=== PATIENT | female | born 1960 | race Caucasian/White ===

== ENCOUNTER 2016-06-10 11:13 | Emergency (ER) | payer BC ==
[2016-06-10] MEDS ORDERED: HYDROmorphone INJ* 1 MG/ML CARPUJECT SYRINGE IV ONE ×2 (12:33→16:26)
[2016-06-10] MEDS ORDERED: NS 0.9% 1000 ML* 1,000 ML IV ONE (12:33)
[2016-06-10] MEDS ORDERED: Ondansetron INJ* 2 MG/ML VIAL IV ONE ×2 (12:33→16:26)
[2016-06-10 12:54] LABS: Hematocrit 44 % (35-47); Hemoglobin 14.5 g/dl (12.0-16.0); Mean Corpuscular HGB Conc 33 g/dl (31-36); Mean Corpuscular Hemoglobin 30 pg (27-31); Mean Corpuscular Volume 92 fL (80-97); Mean Platelet Volume 10 um3 (7.4-10.4); Red Blood Count 4.81 10^6/ul (4.0-5.4); Red Cell Distribution Width 14 % (10.5-15); White Blood Count 9.2 10^3/ul (3.5-10.8)
[2016-06-10 13:12] LABS: Albumin 3.9 g/dL (3.2-5.2); BUN/Creatinine Ratio 34.7 (8-20); C Reactive Protein 2.78 mg/L (< 5.00); Calcium 9.7 mg/dL (8.6-10.3); EGFR Non-African American 80.8 (>60); Globulin 3.3 g/dL (2-4); Total Bilirubin 0.6 mg/dL (0.2-1.0); Total Protein 7.2 g/dL (6.4-8.9)
[2016-06-10 13:31] LABS: Urine Bacteria 1+ (Absent); Urine Bilirubin Negative (Negative); Urine Glucose Negative (Negative); Urine Nitrite Negative (Negative)
[2016-06-10 13:43] LABS: Potassium 4.2 mmol/L (3.5-5.0)
[2016-06-10] MEDS ORDERED: LORazepam INJ* 2 MG/ML 1 ML VIAL IV ONE (14:28)
[2016-06-10] MEDS ORDERED: Ketorolac INJ* 30 MG/ML 1 ML VIAL IV ONE (14:28)
--- NOTE | 2016-06-10 15:06 | RAD ---
CLINICAL HISTORY: Right lower quadrant pain COMPARISON: May 12, 2015 TECHNIQUE: Multiple contiguous axial CT scans were obtained of the abdomen and pelvis, without intravenous contrast enhancement. Coronal and sagittal multiplanar reformations are submitted for review. Oral contrast was not administered. Additionally thin section axial CT images were obtained through the lumbar spine with coronal and sagittal multiplanar reconstructions. FINDINGS: The study is limited by the lack of intravenous contrast. This limits evaluation of the solid organs and vasculature. LUNG BASES: The lung bases are clear. LIVER: The liver is normal in shape, size, contour, and attenuation. BILE DUCTS: There is no intrahepatic or extrahepatic biliary dilatation. GALLBLADDER: The gallbladder is not visualized. Surgical clips are noted in the gallbladder fossa. PANCREAS: The pancreas is normal, without mass or ductal dilatation. SPLEEN: Normal in size and appearance. UPPER GI TRACT: Evaluation of the gastrointestinal tract is limited by incomplete gastric distention. The upper GI tract is unremarkable. SMALL BOWEL AND MESENTERY: The small bowel is normal in contour, course, and caliber. There is no obstruction or dilatation. COLON: The colon is normal in contour, course, caliber. There is no pericolonic inflammatory change. There is a tubular, vermiform, hollow viscus that is blind ending, and originates from the cecum, consistent with a normal appendix. There is no periappendiceal inflammatory change. ADRENALS: Again noted are bilateral adrenal masses, stable KIDNEYS: The kidneys are normal in shape, size, contour, and axis. There is no hydronephrosis or nephrolithiasis. BLADDER: The bladder is smooth in contour. PELVIC ORGANS: The uterus and adnexa are grossly normal for technique. AORTA: The aorta is normal. IVC: Unremarkable LYMPH NODES: There is no lymphadenopathy by size criteria. ABDOMINAL WALL: There is no evidence for abdominal wall hernia. BONES AND SOFT TISSUES: Evaluation of the lumbar spine is limited by technique and patient body habitus. Evaluation of the central canal is limited on CT technique. The alignment is normal. There is multilevel anterolateral marginal osteophyte reformation. The vertebral bodies are preserved in height. There is diffuse facet osteoarthritic change most pronounced at L4-L5 and L5-S1. There is bilateral neural foraminal narrowing most mass at L4-L5 and L5-S1. There is broad-based disc bulge with moderate narrowing of Central canal at L2-L3. There is mild disc bulge with ligamentous hypertrophy resulting in moderate narrowing of the central canal at L4-L5 OTHER: None IMPRESSION: 1. NO HYDRONEPHROSIS OR NEPHROLITHIASIS. 2. DEGENERATIVE DISC DISEASE AND OSTEOARTHRITIS OF MODERATE NARROWING OF THE CENTRAL CANAL AT L2-L3 AND L4-L5. 3. STABLE ADRENAL MASSES. 4. STATUS POST CHOLECYSTECTOMY.
--- NOTE | 2016-06-10 15:30 | ED ---
Jason Clifford Billy, scribed for Juan Carlos Pang MD on 06/10/16 at 1227 . GI/ HPI - HPI Summary HPI Summary: Patient is a 55 year-old female referred to [facility] by Dr. Livia aguilera for evaluation of increased urinary frequency, right flank, and RLQ pain. Pain severity 9/10. She states that the increased urinary frequency began 1 week ago , followed by constant right flank pain for the last 3 days. She has had intermittent, sharp RLQ pain since this morning. Her pain is worse with prolonged periods of sitting or standing. She denies any other complaints at this time. - History of Current Complaint Chief Complaint: EDAbdPain Time Seen by Provider: 06/10/16 12:04 Stated Complaint: LOWER BACK PAIN Hx Obtained From: Patient Onset/Duration: Started Days Ago, Still Present Timing: Constant - flank, Intermittent - RLQ Severity: Moderate Current Severity: Moderate Pain Intensity: 9 Location of Pain: RLQ, Flank Pain Characteristics: Sharp - RLQ Associated Signs and Symptoms: Positive: Other: - urinary frequency - Allergy/Home Medications Allergies/Adverse Reactions: Allergies Allergy/AdvReac Type Severity Reaction Status Date / Time No Known Allergies Allergy Verified 05/12/15 16:13 PMH/Surg Hx/FS Hx/Imm Hx Endocrine/Hematology History: Denies: Hx Diabetes, Hx Thyroid Disease Cardiovascular History: Reports: Hx Hypertension Denies: Hx Pacemaker/ICD Respiratory History: Reports: Hx Pneumonia, Other Respiratory Problems/ Disorders - HX OF PNEUMONIA ABOUT 16 MONTHS AGO Denies: Hx Asthma, Hx Chronic Obstructive Pulmonary Disease (COPD) GI History: Denies: Hx Ulcer Musculoskeletal History: Reports: Hx Arthritis - knees Denies: Hx Back Problems, Hx Osteoporosis Sensory History: Reports: Hx Contacts or Glasses Denies: Hx Cataracts, Hx Eye Injury, Hx Eye Prosthesis, Hx Glaucoma, Hx Legally Blind, Hx Macular Degeneration, Hx Vision Problem, Hx Deafness, Hx Hearing Aid, Hx Hearing Problem, Other Sensory Impairments Opthamlomology History: Reports: Hx Contacts or Glasses Denies: Hx Cataracts, Hx Eye Injury, Hx Eye Prosthesis, Hx Glaucoma, Hx Legally Blind, Hx Macular Degeneration, Hx Vision Problem, Other Sensory Impairments Neurological History: Reports: Hx Headaches, Hx Migraine Psychiatric History: Denies: Hx Panic Disorder - Surgical History Surgery Procedure, Year, and Place: c-sections x 2 Hx Anesthesia Reactions: No - Immunization History Date of Tetanus Vaccine: PT STATES UNSURE Date of Influenza Vaccine: NONE Infectious Disease History: No Infectious Disease History: Denies: Hx Hepatitis, Hx Human Immunodeficiency Virus (HIV), Traveled Outside the [place] in Last 30 Days - Family History Known Family History: Positive: Other - FHx negative for breast cancer. - Social History Alcohol Use: None Substance Use Type: Reports: None Smoking Status (MU): Former Smoker Type: Cigarettes Amount Used/How Often: 1 pack/day Length of Time of Smoking/Using Tobacco: 20+ years Have You Smoked in the Last Year: Yes Review of Systems Positive: Abdominal Pain, Diarrhea - ongoing Positive: frequency, flank pain All Other Systems Reviewed And Are Negative: Yes Physical Exam Triage Information Reviewed: Yes Vital Signs On Initial Exam: Initial Vitals Temp Pulse Resp BP Pulse Ox 97.7 F 83 18 199/90 98 06/10/16 11:23 06/10/16 11:23 06/10/16 11:23 06/10/16 11:23 06/10/16 11:23 Vital Signs Reviewed: Yes Appearance: Positive: Well-Appearing, No Pain Distress, Obese Head/Face: Positive: Normal Head/Face Inspection Eyes: Positive: Normal Neck: Positive: Supple, Nontender Respiratory/Lung Sounds: Positive: Clear to Auscultation, Breath Sounds Present Cardiovascular: Positive: RRR Abdomen Description: Positive: Soft, Other: - RLQ tenderness. Musculoskeletal: Positive: Pain @ - Right paralumbar region. No midline tenderness. Psychiatric: Positive: Normal, Affect/Mood Appropriate AVPU Assessment: Alert - Howard Coma Scale Coma Scale Total: 15 Diagnostics - Vital Signs Vital Signs Temp Pulse Resp BP Pulse Ox 06/10/16 11:23 97.7 F 83 18 199/90 98 - Laboratory Lab Results: Lab Results 06/10/16 06/10/16 06/10/16 Range/Units 12:00 12:00 13:15 WBC 9.2 (3.5-10.8) 10^3/ul RBC 4.81 (4.0-5.4) 10^6/ul Hgb 14.5 (12.0-16.0) g/dl Hct 44 (35-47) % MCV 92 (80-97) fL MCH 30 (27-31) pg MCHC 33 (31-36) g/dl RDW 14 (10.5-15) % Plt Count 181 (150-450) 10^3/ul MPV 10 (7.4-10.4) um3 Neut % (Auto) 69.1 (38-83) % Lymph % (Auto) 14.5 L (25-47) % Forest % (Auto) 13.8 H (1-9) % Eos % (Auto) 1.9 (0-6) % Baso % (Auto) 0.7 (0-2) % Absolute Neuts (auto) 6.4 (1.5-7.7) 10^3/ul Absolute Lymphs (auto) 1.3 (1.0-4.8) 10^3/ul Absolute Monos (auto) 1.3 H (0-0.8) 10^3/ul Absolute Eos (auto) 0.2 (0-0.6) 10^3/ul Absolute Basos (auto) 0.1 (0-0.2) 10^3/ul Absolute Nucleated RBC 0 10^3/ul Nucleated RBC % 0 Sodium 137 (133-145) mmol/L Potassium 4.2 (3.5-5.0) mmol/L Chloride 103 (101-111) mmol/L Carbon Dioxide 28 (22-32) mmol/L Anion Gap 6 (2-11) mmol/L BUN 26 H (6-24) mg/dL Creatinine 0.75 (0.51-0.95) mg/dL Est GFR ( Amer) 104.0 (>60) Est GFR (Non-Af Amer) 80.8 (>60) BUN/Creatinine Ratio 34.7 H (8-20) Glucose 71 (70-100) mg/dL Calcium 9.7 (8.6-10.3) mg/dL Total Bilirubin 0.60 (0.2-1.0) mg/dL AST 16 (13-39) U/L ALT 19 (7-52) U/L Alkaline Phosphatase 76 (34-104) U/L C-Reactive Protein 2.78 (< 5.00) mg/L Total Protein 7.2 (6.4-8.9) g/dL Albumin 3.9 (3.2-5.2) g/dL Globulin 3.3 (2-4) g/dL Albumin/Globulin Ratio 1.2 (1-3) Lipase 40 (11.0-82.0) U/L Urine Color Yellow Urine Appearance Clear Urine pH 5.0 (5-9) Ur Specific [place] 1.016 (1.010-1.030) Urine Protein Negative (Negative) Urine Ketones Negative (Negative) Urine Blood 1+ H (Negative) Urine Nitrate Negative (Negative) Urine Bilirubin Negative (Negative) Urine Urobilinogen Negative (Negative) Ur Leukocyte Esterase Negative (Negative) Urine WBC (Auto) Trace(0-5/hpf) (Absent) Urine RBC (Auto) Trace(0-2/hpf) (Absent) Ur Squamous Epith Cells Present H (Absent) Urine Bacteria 1+ H (Absent) Urine Glucose Negative (Negative) Result Diagrams: 06/10/16 12:00 06/10/16 12:00 Lab Statement: Any lab studies that have been ordered have been reviewed, and results considered in the medical decision making process. - CT abd/pel w/o CT Interpretation Completed By: Radiologist - 1. NO HYDRONEPHROSIS OR NEPHROLITHIASIS. 2. DEGENERATIVE DISC DISEASE AND OSTEOARTHRITIS OF MODERATE NARROWING OF THE CENTRAL CANAL AT L2-L3 AND L4-L5. 3. STABLE ADRENAL MASSES. 4. STATUS POST CHOLECYSTECTOMY. lumbar CT Interpretation Completed By: Radiologist - 1. NO HYDRONEPHROSIS OR NEPHROLITHIASIS. 2. DEGENERATIVE DISC DISEASE AND OSTEOARTHRITIS OF MODERATE NARROWING OF THE CENTRAL CANAL AT L2-L3 AND L4-L5. 3. STABLE ADRENAL MASSES. 4. STATUS POST CHOLECYSTECTOMY. GIGU Course/Dx - Course Course Of Treatment: Ms. Velasquez presented with RLQ and right blank pain since . She was W/O'd with labs that were normal and a noncontrast CT of abd and lumbar spine that showed only DDD. She got no relief from pain meds and muscle relaxants here and I am concerned that I am missing something. I have ordered a contrast CT. - Diagnoses Provider Diagnoses: Abdominal pain - Physician Notifications Discussed Care Of Patient With: Dr. Shea Time Discussed With Above Provider: 16:00 - Change of shift Discharge - Discharge Plan Condition: Stable Disposition: HOME Prescriptions: oxyCODONE/Acetamin 5/325 MG* [Percocet 5/325 TAB*] 1 tab PO Q6H PRN #20 tab MDD 4 PRN Reason: Pain Patient Education Materials: Abdominal Pain (ED) Referrals: Lucila Bhakta MD [Primary Care Provider] - The documentation as recorded by the Jason nieves Billy accurately reflects the service I personally performed and the decisions made by me, Juan Carlos Pang MD.
[2016-06-10] MEDS ORDERED: Iohexol 300* (CONTRAST) 10 ML SDV IV ONE (15:51)
--- NOTE | 2016-06-10 17:53 | RAD ---
INDICATION: Right lower quadrant pain. Cholecystectomy. Normal appendix on concurrent noncontrast evaluation. COMPARISON: Noncontrast CT abdomen and pelvis same date TECHNIQUE: Axial source images were obtained from the hemidiaphragms to the symphysis pubis following administration of oral and intravenous contrast. 150 mL Omnipaque 300 was utilized. Coronal and sagittal reconstructed images were acquired. Lung bases: The lung bases are clear. There is minor gravity dependent atelectasis Liver: The liver is normal in size. There is hepatic steatosis There are no masses. There is no ductal dilatation. Gallbladder: Cholecystectomy. Spleen: The spleen is normal in size. There are no masses. Pancreas: There is no focal pancreatic mass or ductal dilatation. Adrenal glands: Bilateral adrenal mass unchanged likely representing adrenal cysts or adenomas. Kidneys: The kidneys are normal in size and position. There are prompt nephrograms and there is prompt excretion bilaterally. There are no renal parenchymal masses. There is no evidence of nephrolithiasis. Adenopathy: There is no evidence of adenopathy by size criteria. Fluid collections: There are no free or localized fluid collections. Vessels:There are no significant atherosclerotic changes involving the aorta. There is no focal aneurysm. The iliac vessels are normal in caliber. The IVC appears normal. GI tract: There are no acute CT bowel findings. There is no obstruction. The stomach and small bowel appear normal. The lower GI tract is normal. The cecum, ileocecal valve, and terminal ileum appear normal. The appendix is visualized and appear normal consistent with the earlier noncontrast CT findings. Organs: The uterus and adnexa appear normal Bladder: There are no bladder masses. Abdominal and pelvic soft tissues: The extraperitoneal abdominal and pelvic soft tissues appear normal.. Osseous structures: There are no acute osseous findings. There are degenerative changes described in a separate report. Other: None IMPRESSION: NO ACUTE CT FINDINGS. NO MASS OR INFLAMMATORY CHANGE. NORMAL APPENDIX. PLEASE REFER ALSO TO NONCONTRAST CT OF THE ABDOMEN/PELVIS AND THE CT OF THE LUMBAR SPINE PERFORMED EARLIER TODAY.
[2016-06-10] MEDS ORDERED: oxyCODONE/Acetamin 5/325 MG* TAB PO ONE (19:16)
--- NOTE | 2016-06-10 19:22 | ED ---
Progress - Progress Note Progress Note: DISCUSSED RESULTS WITH PATIENT. PAIN UNDER ADEQUATE CONTROL IN ED. DISCHARGE HOME STABLE. Course/Dx - Course Course Of Treatment: Ms. Velasquez presented with RLQ and right blank pain since . She was W/O'd with labs that were normal and a noncontrast CT of abd and lumbar spine that showed only DDD. She got no relief from pain meds and muscle relaxants here and I am concerned that I am missing something. I have ordered a contrast CT. - Diagnoses Provider Diagnoses: Abdominal pain - Provider Notifications Discussed Care Of Patient With: Dr. Shea Time Discussed With Above Provider: 16:00 - Change of shift
[2016-06-10 19:58] VITALS: BP 158/68
== END 2016-06-10 19:57 | disposition home or self-care (01) ==
LOC: ED 11:13
DX: R10.31 Right lower quadrant pain (principal); F17.210 Nicotine dependence, cigarettes, uncomplicated; I10 Essential (primary) hypertension; Z95.810 Presence of automatic (implantable) cardiac defibrillator; M51.36 Other intervertebral disc degeneration, lumbar region
CPT/HCPCS: 36415; 72131; 74176; 74177; 80053; 81003; 81015; 83690; 85025; 86140; 87086; 96360; 96374; 96375; 96376; 99285; A9270-GY; J1170; J1885; J2060; J2405; Q9967

== ENCOUNTER 2016-07-23 19:24 | Emergency (ER) | payer BC ==
[2016-07-23 20:13] VITALS: BP 185/87
--- NOTE | 2016-07-23 20:59 | RAD ---
HISTORY: Medial posterior knee pain COMPARISONS: January 09, 2016 VIEWS: 2, Frontal and lateral views of the right knee FINDINGS: BONE DENSITY: Normal. BONES: There is no displaced fracture. JOINTS: There is mild tricompartmental osteoarthritis. There is no suprapatellar joint effusion or lipohemarthrosis. ALIGNMENT: There is no dislocation. SOFT TISSUES: Unremarkable. OTHER FINDINGS: None. IMPRESSION: NO ACUTE OSSEOUS INJURY. IF SYMPTOMS PERSIST, RECOMMEND REPEAT IMAGING.
[2016-07-23] MEDS ORDERED: Ketorolac INJ* 60 MG/2 ML VIAL IM ONE (21:34)
--- NOTE | 2016-07-23 21:39 | ED ---
Lower Extremity - HPI Summary HPI Summary: Pt here w/ Rt knee pain. Thinks she may have twisted/tweaked it a few days ago but pain is worse today. Worse w/ weight bearing, full knee joint extension and quad muscle feels "tight" w/ knee joint flexion. Pain is radiating from knee up into thigh and down into calf. Has pain along inner knee as well. Tried ibuprofen and epsom salt soaks w/o relief. Denies numbness, tingling, weakness. No redness, fever, chills or swelling here. H/o Lt knee pain requiring cortisone injection in the past - this helped. 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 Pain Intensity: 9 - Allergies/Home Medications Allergies/Adverse Reactions: Allergies Allergy/AdvReac Type Severity Reaction Status Date / Time Pineapple Allergy Rash Verified 07/09/16 12:47 PMH/Surg Hx/FS Hx/Imm Hx Previously Healthy: Yes Endocrine/Hematology History: Denies: Hx Diabetes, Hx Thyroid Disease, Hx Coagulopothy Cardiovascular History: Reports: Hx Hypertension Denies: Hx Pacemaker/ICD Respiratory History: Reports: Hx Pneumonia, Other Respiratory Problems/ Disorders - HX OF PNEUMONIA ABOUT 16 MONTHS AGO Denies: Hx Asthma, Hx Chronic Obstructive Pulmonary Disease (COPD) GI History: Denies: Hx Ulcer Musculoskeletal History: Reports: Hx Arthritis - knees Denies: Hx Back Problems, Hx Osteoporosis Sensory History: Reports: Hx Contacts or Glasses Denies: Hx Cataracts, Hx Eye Injury, Hx Eye Prosthesis, Hx Glaucoma, Hx Legally Blind, Hx Macular Degeneration, Hx Vision Problem, Hx Deafness, Hx Hearing Aid, Hx Hearing Problem, Other Sensory Impairments Opthamlomology History: Reports: Hx Contacts or Glasses Denies: Hx Cataracts, Hx Eye Injury, Hx Eye Prosthesis, Hx Glaucoma, Hx Legally Blind, Hx Macular Degeneration, Hx Vision Problem, Other Sensory Impairments Neurological History: Reports: Hx Headaches, Hx Migraine Psychiatric History: Denies: Hx Panic Disorder - Surgical History Surgery Procedure, Year, and Place: c-sections x 2. CHOLECYTECTOMY Hx Anesthesia Reactions: No - Immunization History Date of Tetanus Vaccine: PT STATES UNSURE Date of Influenza Vaccine: NONE Infectious Disease History: No Infectious Disease History: Denies: Hx Hepatitis, Hx Human Immunodeficiency Virus (HIV), Traveled Outside the [place] in Last 30 Days - Family History Known Family History: Positive: Other - FHx negative for breast cancer. - Social History Alcohol Use: None Substance Use Type: Reports: None Smoking Status (MU): Former Smoker Type: Cigarettes Amount Used/How Often: 1 pack/day Length of Time of Smoking/Using Tobacco: 20+ years Have You Smoked in the Last Year: Yes Review of Systems Negative: Fever, Chills Negative: Chest Pain Negative: Shortness Of Breath Positive: no symptoms reported Musculoskeletal: Other - see HPI Negative: Rash, Bruising Neurological: Negative Positive: Anxious All Other Systems Reviewed And Are Negative: Yes Physical Exam Triage Information Reviewed: Yes Vital Signs On Initial Exam: Initial Vitals Temp Pulse Resp BP Pulse Ox 97.5 F 109 20 222/115 99 07/23/16 19:30 07/23/16 19:30 07/23/16 19:30 07/23/16 19:30 07/23/16 19:30 Vital Signs Reviewed: Yes Appearance: Positive: Well-Appearing, No Pain Distress - reports discomfort; swings leg onto stretcher okay at first, but has some pain the more she has to move it, Obese Eyes: Positive: Normal, EOMI ENT: Positive: Hearing grossly normal, Pharynx normal - mucosa moist Respiratory/Lung Sounds: Positive: Other - SOB w/ bending over and moving Cardiovascular: Positive: Pulses are Symmetrical in both Upper and Lower Extremities. Negative: Leg Edema Left - (-) Kathy's sign B/L, Leg Edema Right Musculoskeletal: Positive: Pain @ - medial hamtring insertion is TTP over distal adductor region and into proximal calf - no dragan swelling compared to Lt however exam is dificult d/t body habitus; special tests are also limited d/ t body habitus - pain w/ end extension of knee - no pain w/ verus/valgus stress ; difficult to asses ant/post drawer and Steve's although no dragan laxity is appreciated; no pain w/ rotation of tibia internally or externally; can bear weight but limps Neurological: Positive: Normal, Sensory/Motor Intact, Alert, Oriented to Person Place, Time, CN Intact II-III Psychiatric: Positive: Anxious Diagnostics - Vital Signs Vital Signs Temp Pulse Resp BP Pulse Ox 07/23/16 20:03 98.3 F 94 16 185/87 100 07/23/16 19:30 97.5 F 109 20 222/115 99 - Laboratory Lab Statement: Any lab studies that have been ordered have been reviewed, and results considered in the medical decision making process. Lower Extremity Course/Dx - Course Course Of Treatment: Suspect arthritis flair w/ possible muscle strain of adductor vicenta (distal portion) and semitendinosous. There is a possibility pt also sprained a ligament however exam does not specifically indicate an injury here and was limited d/t body habitus. Regardless, recommend immobilization and limited weight bearing w/ NSAID's until seen by ortho for more in depth evaluation. - Diagnoses Provider Diagnoses: Right hamstring muscle strain, Arthritis of right knee Discharge - Discharge Plan Condition: Stable Disposition: HOME Patient Education Materials: Muscle Strain (ED), Knee Sprain (ED) Referrals: Lucila Bhakta MD [Primary Care Provider] - Carlos Reyes MD [Medical Doctor] - Additional Instructions: You appear to have a muscle strain. You may also be having an arthritis flair up within this knee. It is advised that you limit motion, alternate ice and heat , take NSAID's with food as well as acetaminophen and follow-up with orthopedics. Call tomorrow to schedule an appointment. You may also try topical analgesic rubs to reduce pain. *If you develop redness, swelling, streaking, fever, chills, groin pain, chest pain, shortness of breath, bloody cough, return to ED
[2016-07-23] MEDS ORDERED: Lidocaine PATCH 5%* 1 PATCH TRANSDERM SCH (22:00)
[2016-07-24] MEDS ORDERED: Lidocaine Patch REMOVE* 1 NOTE MISC SCH (21:00)
== END 2016-07-23 22:22 | disposition home or self-care (01) ==
LOC: ED 19:24
DX: S76.811A Strain of other specified muscles, fascia and tendons at thigh level, right thigh, initial encounter (principal); M25.561 Pain in right knee; Z87.891 Personal history of nicotine dependence; X50.9XXA Other and unspecified overexertion or strenuous movements or postures, initial encounter; Y93.89 Activity, other specified; Y92.89 Other specified places as the place of occurrence of the external cause
CPT/HCPCS: 96372; 99282; A9270-GY; J1885

== ENCOUNTER 2017-02-06 14:32 | Emergency (ER) | payer BC ==
[2017-02-06 16:44] LABS: Hematocrit 42 % (35-47); Hemoglobin 14.1 g/dl (12.0-16.0); Mean Corpuscular HGB Conc 33 g/dl (31-36); Mean Corpuscular Hemoglobin 31 pg (27-31); Mean Corpuscular Volume 93 fL (80-97); Red Blood Count 4.54 10^6/ul (4.0-5.4); Red Cell Distribution Width 14 % (10.5-15); White Blood Count 10.8 10^3/ul (3.5-10.8)
[2017-02-06 16:49] LABS: Add Diff/Slide Review? Slide Review Added; Comments Flag Yes
[2017-02-06 17:06] LABS: BUN/Creatinine Ratio 29.2 (8-20); Calcium 9.3 mg/dL (8.6-10.3); EGFR African American 77.9 (>60); EGFR Non-African American 60.6 (>60); Globulin 3.4 g/dL (2-4); Potassium 3.8 mmol/L (3.5-5.0); Total Bilirubin 0.6 mg/dL (0.2-1.0); Total Protein 7.4 g/dL (6.4-8.9)
[2017-02-06 17:38] LABS: Mean Platelet Volume 10 um3 (7.4-10.4)
[2017-02-06] MEDS ORDERED: Albuterol HFA INHALER* 8 gm MDI INH ONE (17:42)
--- NOTE | 2017-02-06 18:31 | RAD ---
INDICATION: Shortness of breath for the past 2 days. Former tobacco use. COMPARISON: February 06, [address] July 17, 2013 chest radiograph. TECHNIQUE: Dual energy PA and routine lateral views of the chest were obtained. REPORT: Clear lungs and pleural spaces. Negative for pneumothorax. The heart, pulmonary vasculature, and mediastinal contours are unremarkable. Multiple healed LEFT rib fractures. No acute thoracic fracture evident. IMPRESSION: No evidence for acute intrathoracic disease.
--- NOTE | 2017-02-06 18:39 | RAD ---
INDICATION: LEFT side flank pain. UTI symptoms. COMPARISON: June 10, 2016 CT. TECHNIQUE: Multidetector CT images were obtained from the lung bases to the ischial tuberosities. Evaluation of the viscera is limited without IV contrast. Multiplanar reformation. REPORT: Mild dependent basilar atelectasis. Upper normal heart size. Post cholecystectomy. Unremarkable liver. Negative for biliary dilatation. Unremarkable pancreas and spleen. Negative for CT abnormality of the upper GI, small bowel, appendix, or colon. Negative for ascites, free air, hernias. Bilateral low-density thickening of the adrenal glands most consistent with hyperplasia or presence of a benign lipid rich adenomas. No suspicious adrenal lesions evident. No renal stones, hydronephrosis, or focal suspicious renal lesions evident. Small LEFT kidney parapelvic cysts noted without concern. Unremarkable nondilated ureters. Decompressed urinary bladder limiting assessment without gross abnormality. Unremarkable anteverted uterus and adnexal regions. Negative for lymphadenopathy. Normal diameter abdominal aorta and iliac arteries. Physiologic distention of the IVC. Multiple healed RIGHT inferior rib fractures. Lumbar sacral spine degenerative spondylosis and facet joint osteoarthritis. Bilateral hip joint osteoarthritis. No acute or subacute fracture or suspicious focal osseous lesion evident. IMPRESSION: 1. Negative for urolithiasis or hydronephrosis. 2. No acute pathologic process of the alimentary tract evident.
[2017-02-06 18:45] LABS: Urine Bacteria 1+ (Absent); Urine Bilirubin Negative (Negative); Urine Glucose 1+(50 mg/dL) (Negative); Urine Nitrite Negative (Negative)
[2017-02-06 19:17] VITALS: BP 155/85
--- NOTE | 2017-02-06 21:39 | ED ---
Back Pain - HPI Summary HPI Summary: Patient presents to the ED with CC of back pain and left shoulder pain and SOB. She states the back pain began over to the left side and has traveled over to the right side. Her shoulder pain has been constant for several days with no acute injury or trauma. She denies chest pain. Notes to some SOB which is new. Denies previous asthma or COPD history. Denies fevers, sweats or chills. She has been otherwise healthy. She states she is fatigued at work intermittently. Denies history of kidney stones, but has had some urinary frequency. She denies DALEY, sinus pressure or neck pain. - History of Current Complaint Chief Complaint: EDGeneral Stated Complaint: LOWER BACK PAIN/SOB/HIGH BP Time Seen by Provider: 02/06/17 16:32 Hx Obtained From: Patient Onset/Duration: Sudden Onset Onset/Duration: Started Days Ago Timing: Constant Back Pain Location: Is Discrete @ - low back Severity Initially: Moderate Severity Currently: Moderate Pain Intensity: 9 Pain Scale Used: 0-10 Numeric Character: Aching Alleviating Symptom(s): Rest, Position, Heat Associated Signs And Symptoms: Negative: Weakness, Tingling, Abdominal Pain, Bladder Incontinence, Bowel Incontinence, Weight Loss, Pain with Weight Bearing - Risk Factors AAA Risk Factors: Negative TAD Risk Factors: Negative Cauda Equina Risk Factors: Negative Epidural Abscess Risk Factors: Negative - Allergies/Home Medications Allergies/Adverse Reactions: Allergies Allergy/AdvReac Type Severity Reaction Status Date / Time Pineapple Allergy Rash Verified 07/09/16 12:47 PMH/Surg Hx/FS Hx/Imm Hx Previously Healthy: Yes Endocrine/Hematology History: Denies: Hx Diabetes, Hx Thyroid Disease Cardiovascular History: Reports: Hx Hypertension Denies: Hx Pacemaker/ICD Respiratory History: Reports: Hx Pneumonia, Other Respiratory Problems/ Disorders - HX OF PNEUMONIA ABOUT 16 MONTHS AGO Denies: Hx Asthma, Hx Chronic Obstructive Pulmonary Disease (COPD) GI History: Denies: Hx Ulcer Musculoskeletal History: Reports: Hx Arthritis - knees Denies: Hx Back Problems, Hx Osteoporosis Sensory History: Reports: Hx Contacts or Glasses Denies: Hx Cataracts, Hx Eye Injury, Hx Eye Prosthesis, Hx Glaucoma, Hx Legally Blind, Hx Macular Degeneration, Hx Vision Problem, Hx Deafness, Hx Hearing Aid, Hx Hearing Problem, Other Sensory Impairments Opthamlomology History: Reports: Hx Contacts or Glasses Denies: Hx Cataracts, Hx Eye Injury, Hx Eye Prosthesis, Hx Glaucoma, Hx Legally Blind, Hx Macular Degeneration, Hx Vision Problem, Other Sensory Impairments Neurological History: Reports: Hx Headaches, Hx Migraine Psychiatric History: Denies: Hx Panic Disorder - Surgical History Surgery Procedure, Year, and Place: c-sections x 2. CHOLECYTECTOMY Hx Anesthesia Reactions: No - Immunization History Date of Tetanus Vaccine: PT STATES UNSURE Date of Influenza Vaccine: NONE Hx Pertussis Vaccination: No Immunizations Up to Date: Unable to Obtain/Confirm Infectious Disease History: No Infectious Disease History: Denies: Hx Hepatitis, Hx Human Immunodeficiency Virus (HIV), Traveled Outside the [place] in Last 30 Days - Family History Known Family History: Positive: Other - FHx negative for breast cancer. - Social History Occupation: Employed Full-time Lives: With Family Alcohol Use: None Hx Substance Use: No Substance Use Type: Reports: None Smoking Status (MU): Former Smoker Type: Cigarettes Amount Used/How Often: 1 pack/day Length of Time of Smoking/Using Tobacco: 20+ years Have You Smoked in the Last Year: Yes Review of Systems Constitutional: Negative Negative: Fever, Chills, Fatigue Cardiovascular: Negative Positive: Shortness Of Breath. Negative: Cough Gastrointestinal: Negative Negative: Abdominal Pain, Vomiting, Diarrhea Positive: see HPI, frequency Positive: Arthralgia - low back pain Skin: Negative Psychological: Normal All Other Systems Reviewed And Are Negative: Yes Physical Exam Triage Information Reviewed: Yes Vital Signs On Initial Exam: Initial Vitals Temp Pulse Resp BP Pulse Ox 97.6 F 78 22 166/86 100 02/06/17 14:44 02/06/17 14:44 02/06/17 14:44 02/06/17 14:44 02/06/17 14:44 Vital Signs Reviewed: Yes Appearance: Positive: Well-Appearing, Well-Nourished Skin: Positive: Warm, Skin Color Reflects Adequate Perfusion Head/Face: Positive: Normal Head/Face Inspection Eyes: Positive: EOMI, LIMA Neck: Positive: Supple, No Lymphadenopathy Respiratory/Lung Sounds: Positive: Clear to Auscultation, Breath Sounds Present Musculoskeletal: Positive: Pain @ - left shoulder Neurological: Positive: Sensory/Motor Intact, Alert, Oriented to Person Place, Time Psychiatric: Positive: Normal AVPU Assessment: Alert - [place] Coma Scale Coma Scale Total: 15 Diagnostics - Vital Signs Vital Signs Temp Pulse Resp BP Pulse Ox 02/06/17 19:11 71 95 02/06/17 19:09 155/85 02/06/17 17:31 73 95 02/06/17 17:00 73 153/73 96 02/06/17 16:33 33 96 02/06/17 16:31 90 99 02/06/17 16:30 158/75 02/06/17 14:44 97.6 F 78 22 166/86 100 - Laboratory Lab Results: Lab Results 02/06/17 02/06/17 02/06/17 Range/Units 16:36 16:36 18:15 WBC 10.8 (3.5-10.8) 10^3/ul RBC 4.54 (4.0-5.4) 10^6/ul Hgb 14.1 (12.0-16.0) g/dl Hct 42 (35-47) % MCV 93 (80-97) fL MCH 31 (27-31) pg MCHC 33 (31-36) g/dl RDW 14 (10.5-15) % Plt Count 192 (150-450) 10^3/ul MPV 10 (7.4-10.4) um3 Neut % (Auto) 76.3 (38-83) % Lymph % (Auto) 12.6 L (25-47) % [place] % (Auto) 8.7 (1-9) % Eos % (Auto) 1.5 (0-6) % Baso % (Auto) 0.9 (0-2) % Absolute Neuts (auto) 8.2 H (1.5-7.7) 10^3/ul Absolute Lymphs (auto) 1.4 (1.0-4.8) 10^3/ul Absolute Monos (auto) 0.9 H (0-0.8) 10^3/ul Absolute Eos (auto) 0.2 (0-0.6) 10^3/ul Absolute Basos (auto) 0.1 (0-0.2) 10^3/ul Absolute Nucleated RBC 0 10^3/ul Nucleated RBC % 0 Sodium 138 (133-145) mmol/L Potassium 3.8 (3.5-5.0) mmol/L Chloride 105 (101-111) mmol/L Carbon Dioxide 27 (22-32) mmol/L Anion Gap 6 (2-11) mmol/L BUN 28 H (6-24) mg/dL Creatinine 0.96 H (0.51-0.95) mg/dL Est GFR ( Amer) 77.9 (>60) Est GFR (Non-Af Amer) 60.6 (>60) BUN/Creatinine Ratio 29.2 H (8-20) Glucose 96 (70-100) mg/dL Calcium 9.3 (8.6-10.3) mg/dL Total Bilirubin 0.60 (0.2-1.0) mg/dL AST 13 (13-39) U/L ALT 20 (7-52) U/L Alkaline Phosphatase 71 (34-104) U/L Total Protein 7.4 (6.4-8.9) g/dL Albumin 4.0 (3.2-5.2) g/dL Globulin 3.4 (2-4) g/dL Albumin/Globulin Ratio 1.2 (1-3) Urine Color Straw Urine Appearance Clear Urine pH 5.0 (5-9) Ur Specific [place] 1.014 (1.010-1.030) Urine Protein Negative (Negative) Urine Ketones Negative (Negative) Urine Blood 1+ H (Negative) Urine Nitrate Negative (Negative) Urine Bilirubin Negative (Negative) Urine Urobilinogen Negative (Negative) Ur Leukocyte Esterase Trace H (Negative) Urine WBC (Auto) Trace(0-5/hpf) (Absent) Urine RBC (Auto) 2+(6-10/hpf) H (Absent) Ur Squamous Epith Cells Present H (Absent) Urine Bacteria 1+ H (Absent) Urine Glucose 1+(50 mg/dl) H (Negative) Result Diagrams: 02/06/17 16:36 02/06/17 16:36 Lab Statement: Any lab studies that have been ordered have been reviewed, and results considered in the medical decision making process. Back Pain Course/Dx - Course Course Of Treatment: Patient evaluated for SOB, left shoulder pain and bilateral flank pain. UA shows leuks and WBC and will dx with UTI. CT abd/ pelvis completed and showed no acute findings of stone or hydronephrosis. Shoulder is without pain on exam and has full ROM. She is given a note for work. Albuterol inhaler given in ED with relief of SOB symptoms. She is encouraged to follow up with PCP this week or early next week and understands return precautions. - Diagnoses Differential Diagnosis/HQI/PQRI: Positive: Strain, Sprain Provider Diagnoses: UTI (urinary tract infection) Discharge - Discharge Plan Condition: Stable Disposition: HOME Prescriptions: Ciprofloxacin TAB* [Cipro 500 MG TAB*] 500 mg PO BID #10 tab Patient Education Materials: Urinary Tract Infection in Women (ED), Acute Low Back Pain (ED) Forms: *Work Release Referrals: Lucila Bhakta MD [Primary Care Provider] - Additional Instructions: Moist heat to the area several times per day Take the antibiotic as directed Follow up with your PCP early next week
== END 2017-02-06 19:27 | disposition home or self-care (01) ==
LOC: ED 14:32
DX: N39.0 Urinary tract infection, site not specified (principal); M54.5 Low back pain; M25.512 Pain in left shoulder; R06.02 Shortness of breath; R53.83 Other fatigue; I10 Essential (primary) hypertension; M17.0 Bilateral primary osteoarthritis of knee; G43.909 Migraine, unspecified, not intractable, without status migrainosus; Z90.49 Acquired absence of other specified parts of digestive tract; Z87.891 Personal history of nicotine dependence
CPT/HCPCS: 36415; 71020; 74176; 80053; 81003; 81015; 85025; 87086; 99283; A9270-GY

== ENCOUNTER 2017-08-28 12:16 | Day surgery (SDC) | payer BC ==
[~2017-08-28 12:16] MED LIST: Buffered Lidocaine 0.9% SYRIN* 5 ML/SYR SYRINGE INTRADERM ONE; Famotidine TAB* 20 MG PO ONE
[2017-08-28] MEDS ORDERED: Famotidine TAB* 20 MG ONE (12:36)
[2017-08-28] MEDS ORDERED: Buffered Lidocaine 0.9% SYRIN* 5 ML/SYR SYRINGE ONE (12:36)
[2017-08-28] MEDS ORDERED: fentaNYL* 50 MCG/ML 2 ML VIAL (100 MCG VIAL) ONE (14:06)
[2017-08-28] MEDS ORDERED: KETAMINE HCL* 50 MG/ML 10 ML VIAL ONE (14:06)
[2017-08-28] MEDS ORDERED: Lidocaine 4% TOPICAL* 50 ML TOP.SOLN ONE ×2 (14:06→14:25)
[2017-08-28] MEDS ORDERED: Ondansetron INJ* 2 MG/ML VIAL ONE (14:06)
[2017-08-28] MEDS ORDERED: Midazolam* 1 MG/ML 5 ML VIAL (5 MG) ONE (14:06)
[2017-08-28] MEDS ORDERED: Lidocaine 2% PF * 5 ML VIAL ONE (14:06)
[2017-08-28] MEDS ORDERED: Propofol* 10 MG/ML 20 ML BTL IV PUSH ONE (14:06)
[2017-08-28] MEDS ORDERED: Lidocaine 2% VISCOUS* 15 ML UDC ONE (14:26)
[2017-08-28] MEDS ORDERED: Ondansetron ODT TAB* 4 MG PO PRN (16:03)
[2017-08-28] MEDS ORDERED: Naloxone* 0.4 MG/ML 1 ML VIAL IV PRN (16:03)
[2017-08-28 16:32] VITALS: BP 172/90
--- NOTE | 2017-08-28 16:33 | PRO ---
CC: Dr. Lucila Bhakta; Dr. Escudero * DATE OF PROCEDURE: 08/28/2017. REFERRING PHYSICIAN: Dr. Lucila Bhakta. PROCEDURE PERFORMED: EGD with biopsies. PREOPERATIVE DIAGNOSES: [id number] morbidly obese female who is going to be undergoing bariatric surgery. Here for upper endoscopy. The patient has occasional heartburn. The patient also has a history of chronic diarrhea and has not been previously tested for celiac disease. POSTOPERATIVE DIAGNOSES: 1. Distal erosive esophagitis. No obvious Gonzalez's mucosa is noted. Biopsies were obtained. 2. Erosive antral gastritis, biopsies obtained for CLOtest to rule out H. pylori. 3. Normal duodenal bulb and descending duodenum. Biopsies obtained to rule out celiac disease. PROCEDURE MEDICATIONS: Per anesthesia. INSTRUMENT: GF-190 Olympus high definition gastroscope. PROCEDURE: Informed consent was obtained prior to performing this procedure. The instrument was introduced into the mouth and passed through the cervical esophagus under direct visualization. The instrument was then advanced down the esophagus. In the distal esophagus, there was evidence of erosive esophagitis. No obvious Gonzalez's mucosa was noted. Biopsies were obtained. The scope was then passed into the gastric cardia, fundus, body, and antrum. There was evidence of erosive antral gastritis. Biopsies were obtained for CLOtest to rule out H. pylori. The scope was then passed through the pylorus and duodenal bulb and descending duodenum, both of which were normal. Biopsies were obtained to rule out celiac disease. The instrument was withdrawn from the patient. The patient tolerated the procedure well and there were no complications. RECOMMENDATIONS: I will prescribe Omeprazole 40 mg b.i.d. which the patient should take for at least three months and then may reduce to 40 mg daily for an additional three months. She may proceed with bariatric surgery any time after six to eight weeks from now to allow complete healing. I will notify her of pathology results in one week. [id number]/[facility] #: [id number] [facility]
== END 2017-08-28 16:34 | disposition home or self-care (01) ==
LOC: OR 12:16
PROVIDERS: ATTEND Internal Medicine
DX: E66.01 Morbid (severe) obesity due to excess calories (principal); K22.10 Ulcer of esophagus without bleeding; K29.70 Gastritis, unspecified, without bleeding; K52.9 Noninfective gastroenteritis and colitis, unspecified; I10 Essential (primary) hypertension; Z87.891 Personal history of nicotine dependence; G47.33 Obstructive sleep apnea (adult) (pediatric); R73.03 Prediabetes
CPT/HCPCS: 87077; 88305; 88312; A9270-GY; J2250; J2405; J2704; J3010

== ENCOUNTER 2017-09-29 15:28 | Emergency (ER) | payer BC ==
--- OUTSIDE RECORDS SUMMARY | 2017-09-29 15:35 | XMS REPORT ---
:1960 External Reference #:[id number] Author Organization [employer] Address [address] [address] Phone [phone] Care Team Providers Name Role Phone Lucila Bhakta MD Primary Care Physician Unavailable Payers Type Date Identification Numbers Payment Provider Subscriber Commercial Policy Number: [id number] BS [employer]ets Renata Diaz Group Number: [id number] [address] [phone] Group Name: [employer] [facility] LANDEN Jones [address] PayID: [id number] Commercial Expires: 2015 Policy Number: [employer] Renata Diaz [id number] Essential Group Name: [id number] [address] [address] PayID: [id number] [place] [address] Medigap Part B Effective: 2009 Policy Number: BS Of ABHIJIT Diaz [id number] Expires: 2009 Group Number: [id number] [address] [address] PayID: [id number] LANDEN Jonse [id number] Commercial Effective: 2010 Policy Number: [id number] Rm Diaz Expires: 2012 PayID: [id number] [address] [place] [address] Problems Date Description Provider Status Onset: 10/14/2012 Essential hypertension Silvio Dc M.D. Active Onset: 09/20/2013 Morbid obesity Lucila Bhakta M.D. Active Onset: 11/03/2013 Ex-heavy cigarette smoker Alex Emily Mota, Active (20-39/day) Jessica,FACP Onset: 11/03/2013 Obstructive sleep apnea of Alex Emily Mota, Active adult Jessica,FACP Onset: 11/04/2012 Chronic maxillary sinusitis Silvio Dc M.D. Inactive Inactive: 09/20/2013 Onset: 10/14/2012 Headache Silvio Dc M.D. 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 [employer] Cigarette Use Former Cigarette Smoker Smokeless Tobacco Never Used Smokeless Tobacco ETOH Use 11/03/2013 Never used alcohol Recreational Drug Use Denies Drug Use Smoking Patient is a former smoker 15 pk yr approx Smoking 06/2014 Quit smoking stopped March 12 completely Daily Caffeine Does Not Consume Caffeine Exercise Type/Frequency Does not exercise General Hx Text has impotence so not sexually active Allergies, Adverse Reactions, Alerts Date Description Reaction Status Severity Comments 09/02/2017 Pineapple Extract Rash, blisters active 05/02/2010 NKDA inactive Medications Medication Date Status Form Strength Qnty SIG Indications Ordering Provider Omeprazole 08/29 Active Capsules 40mg 1 by mouth every day Chlorthalidone 08/07 Active Tablets 50mg 90tab Take One s Tablet By Cotton, Mouth Once M.D. Daily Blood Pressure 02/27 Active Misc 1unit thigh cuff I10 Lucila Unit /2016 s Jessica Bhakta Aspercreme 02/27 Active OTC every Lucila Patches /2016 day prirma Bhakta M.D. Atenolol 02/27 Active Tablets 100mg 90tab Take One I10 Lucila /2016 s Tablet By Bhakta, Mouth Once M.D. Daily Amlodipine 05/30 Active Tablets 10mg 90tab Take One I10 Lucila Besylate /2015 s Tablet By Bhakta, Mouth Once M.D. Daily Losartan 05/24 Active Tablets 100mg 90tab Take One I10 Lucila Potassium s Tablet By Bhakta, Mouth Once M.D. Daily Tylenol Extra Active Tablets 500mg 2 by mouth Unknown Strength /0000 as needed Vitamin D Active Capsules [id number] once a week Diamond (Ergocalciferol) / for 8 weeks Lupe Cam MD Vitamin B12 Active Tablets 1 by mouth Unknown /0000 ER every day Chlorthalidone 08/07 Hx Tablets 50mg 90tab 1 by mouth Chantal /2018 s every day Rayo De La Fuente M.DGarth 08/07 Ciloxan 07/07 Hx Solution 0.3% 5ml 1-2 gtt H10.402 Lucila every 2 hrs Livia - in the Left M.D. 08/03 eye while awake X 2 days then Q 4 hr X 5 days Chlorthalidone 05/08 Hx Tablets 25mg 90tab 1 by mouth s every day Rayo Bhakta M.D. 08/07 Gentamicin 05/07 Hx Solution 0.3% 5ml 1-2 drop in H10.89 Lucila the Left Livia - eye every 4 M.D. 12 hours x days Clonidine HCL 04/03 Hx Tablets 0.1mg 60tab not Lucila s taking----1 Livia, - tab bid M.D. 05/07 Chlorthalidone 02/12 Hx Tablets 50mg 90tab once a day I10 Lucila s Rayo Bhakta M.D. 04/03 Diclofenac 02/12 Hx Tablets 50mg 60tab 1 tab every M54.[address] hummel 12 hrs as Livia - needed , to M.D. 07/03 use tylenol for brekthrough pain Meloxicam 01/29 Hx Tablets 7.5mg 30tab take one tab M54.5 Henrique E. s twice daily Itzel - as needed M.D. 02/12 for pain, avoid other nsaids Cyclobenzaprine 01/29 Hx Tablets 10mg 15tab one by mouth M54.5 Henrique E. HCL /2016 s three times Itzel, - a day as M.D. 02/27 needed spasm Percocet 07/17 Hx Tablets 5-325mg 10tab 1 tab by s mouth every Bhakta, - 8 hours as M.D. 01/28 needed pain Chlorthalidone 07/02 Hx Tablets 25mg 90tab take 1 I10 s tablet by Bhakta, - mouth every M.D. Ibuprofen 07/02 Hx Tablets 600mg 42tab 1 tab by Lucila /2017 s mouth three Bhakta, - times a day M.D. 07/29 as needed Tramadol HCL 01/02 Hx Tablets 50mg 60tab 1-2 tablets M25.562 s every 8 Bhakta, - hours as M.D. 07/02 needed Chlorthalidone 06/21 Hx Tablets 25mg 90tab 1 by mouth I10 Lucila /2016 s every day Rayo Bhakta M.D. 12/26 No Active 05/12 Hx Unknown Medications /2015 - 05/12 Amlodipine 05/12 Hx Tablets 10mg 30tab 1 by mouth I10 Margo Besylate s every day Rayo Rae M.D. 05/24 Atenolol 05/12 Hx Tablets 50mg 90tab 2 by mouth I10 Lucila /2016 s every day Rayo Bhakta M.D. 02/27 Amlodipine 02/22 Hx Tablets 10mg 90tab 1 by mouth 401.1 Lucila Besylate s every day Rayo Bhakta M.D. 05/12 Ibuprofen 11/03 Hx Tablets 200mg 100ta as needed Alex Rayo Neely M.D.,FAC 05/12 Bupropion HCL XL 07/16 Hx Tablets 150mg 60tab 1 by mouth 305.1 Margo ER 24HR s daily , Butch, - advised to M.D. 05/12 take 1 tab /2015 every other day x 3 days then 1 tab every 2 days X 4 days then stop Bupropion HCL XL 07/12 Hx Tablets 150mg 60tab 1 by mouth 305.1 Margo /2014 ER 24HR s daily x 7 Rae, - days then 1 M.D. 07/16 tab twice a day Chantix Starting 06/08 Hx Tablets 0.5mg X 1Pack as directed 305.1 Lucila 11 & on the Livia, - 1 mg X 42 M.D. 06/15 Tramadol HCL ER 06/08 Hx Tablets 100mg 20tab 1 tabs po 717.9 ER 24HR s bid as Livia, - needed fo M.D. 08/16 rpain Ibuprofen 05/28 Hx Tablets 600mg 60tab 1 tab by s mouth three Livia, - times a day M.D. 08/16 prn Amoxicillin/Pota 02/10 Hx Tablets 875-125mg 20tab 1 po bid 473.0 Gardner ssium s Vanda Clavulanate - M.DGarth 05/19 Amlodipine 11/04 Hx Tablets 5mg 60tab twice a day 401.9 Lucila Besylate s Rayo Bhakta M.DGarth 02/22 Amoxicillin/Pota 11/04 Hx Tablets 875-125mg 20tab 1 po bid 473.0 Silvio ssium s Vanda Clavulanate - M.DGarth 12/17 Amlodipine 10/22 Hx Tablets 5mg 30tab 1 po qd Margo Besylate Rayo Thakur M.D. 11/04 Losartan 10/20 Hx Tablets 100mg 90tab 1 po qd 401.9 Lucila Potassium s Livia - M.DGarth 05/12 Atenolol 10/14 Hx Tablets 50mg 60tab 1 tab by 401.9 Lucila s mouth twice Livia, - a day M.D. 05/12 Butalbital/Aceta 10/14 Hx Capsules 50-325-40 30cap 1 tab every 784.0 Gardner minophen/Caffein /2012 mg s 2 h prn valerie Dc M.D. 08/16 Triamterene/Hydr 10/14 Hx Capsules 37.5-25mg 90cap qd am 401.9 Lucila ochlorothiazide Rayo Brumfield M.D. 02/22 No Active 10/12 Hx Unknown Medications /2012 - 10/12 Losartan 10/12 Hx Tablets 50mg 30tab 1 po qd 401.9 Lucila Potassium Rayo Brumfield M.D. 10/20 Atenolol 10/12 Hx Tablets 25mg 60tab 1 po bid 401.9 Lucila /2012 Rayo Brumfield M.D. 10/14 Atenolol 05/02 Hx Tablets 50mg 90tab 1 po qd Rayo Meeks M.D. 10/12 Levaquin 05/02 Hx Tablets 750mg 7tabs once daily 486 Rayo Dc M.D. 10/12 Percocet Hx Unknown /0000 - 11/03 Caltrate 600+D Hx Chewtabs 600-400mg 60uni 1 by mouth Unknown /0000 -Unit ts once a day - 05/12 Aleve Hx Capsules 220mg 2 tab a day Unknown /0000 in Am - 02/22 Losartan Hx Tablets 50mg 1 by mouth Unknown Potassium /0000 every day - 05/24 Cholestyramine Hx Packet 4gm 1 packet Unknown /0000 daily - 12/26 Ibuprofen Hx Tablets 800mg by mouth Unknown /0000 three times - a day as 07/02 /2016 Lidocaine Hx Patches 5% Unknown /0000 - 01/27 Ibuprofen Hx Tablets 800mg by mouth Unknown /0000 three times - a day as 01/27 needed Vesicare Hx Tablets 10mg not Unknown /0000 taking---1 - by mouth 04/03 every day /2016 Toviaz Hx Tablets 4mg 2 by mouth Unknown /0000 ER 24HR every day - 06/05 Ciloxan Hx Ointment 0.3% apply 0.5 H10.402 Unknown /0000 inch ribbon - in r eye 07/03 three times /2017 a day x 5 days Medications Administered in Office Medication Date Status Form Strength Qnty SIG Indications Ordering Provider Depomedrol Administered Injection Rocco F 40MG 017 MD Indio Depomedrol Administered Injection Riky Goode 40MG 016 MD Bj Depomedrol Administered Injection Hailey 80MG 014 Jessica Lan Depomedrol Administered Injection Hailey 80MG 014 Jessica Lan Depomedrol Administered Injection Hailey 80MG 014 Jessica Lan Immunizations CPT Code Status Date Vaccine Lot # [id number] Given 01/29/2017 Influenza Virus Vaccine, Quadrivalent, Split, [id number] Preservative Free [id number] Given 07/02/2016 Tdap - Tetanus/Diptheria/Acellular Pertussis [id number] 15052 Given 03/31/2016 Influenza Virus Vaccine, Quadrivalent, Split Virus, [place] Use 99059 Given 02/07/2016 Influenza Virus Vaccine, Quadrivalent, Split Virus, Im Use 14646 Given 02/22/2014 Flu Vaccine Split Virus Preservative Free For [id number] Indiv 3Yr Older 15807 Given 02/10/2013 Flu Vaccine Split Virus Preservative Free For [id number] Indiv 3Yr Older Vital Signs Date Vital Result Comment 09/02/2017 Height 63 inches 5'3" Weight 366.00 lb w/ shoes Heart Rate 76 /min reg BP Systolic Sitting 124 mmHg Lue BP Diastolic Sitting 80 mmHg Lue Respiratory Rate 18 /min BMI (Body Mass Index) 64.8 kg/m2 07/07/2017 Weight 375.00 lb Heart Rate 76 /min BP Systolic Sitting 140 mmHg BP Diastolic Sitting 98 mmHg O2 % BldC Oximetry 94 % 05/07/2017 Weight 378.00 lb Heart Rate 73 /min BP Systolic Sitting 138 mmHg BP Diastolic Sitting 84 mmHg O2 % BldC Oximetry 97 % 04/08/2017 Heart Rate 64 /min BP Systolic Sitting 138 mmHg R arm, 128/60 L arm BP Diastolic Sitting 80 mmHg R arm, 128/60 L arm 04/02/2017 Weight 373.00 lb Heart Rate 73 /min BP Systolic Sitting 146 mmHg BP Diastolic Sitting 98 mmHg Body Temperature 97.5 F O2 % BldC Oximetry 95 % 03/06/2017 Heart Rate 67 /min BP Systolic Sitting 128 mmHg L arm, 128/88 in R zrm BP Diastolic Sitting 90 mmHg L arm, 128/88 in R zrm 02/27/2017 Weight 372.00 lb Heart Rate 85 /min BP Systolic Sitting 160 mmHg BP Diastolic Sitting 102 mmHg Body Temperature 97.7 F Pain Level 8 O2 % BldC Oximetry 92 % 02/12/2017 Weight 375.00 lb Heart Rate 78 /min BP Systolic 148 mmHg BP Diastolic 90 mmHg Body Temperature 96.4 F Pain Level 9 lower back O2 % BldC Oximetry 97 % 01/29/2017 Height 63 inches 5'3" Weight 376.00 lb Heart Rate 74 /min BP Systolic Sitting 144 mmHg BP Diastolic Sitting 88 mmHg Body Temperature 98.0 F O2 % BldC Oximetry 95 % BMI (Body Mass Index) 66.6 kg/m2 07/30/2016 Height 63 inches 5'3" Weight 340.00 lb Heart Rate 88 /min BP Systolic 180 mmHg BP Diastolic 101 mmHg Respiratory Rate 20 /min Body Temperature 97.9 F Pain Level 10 BMI (Body Mass Index) 60.2 kg/m2 07/29/2016 Height 63 inches 5'3" Weight 340.00 lb Heart Rate 82 /min BP Systolic Sitting 146 mmHg BP Diastolic Sitting 90 mmHg Pain Level 7 BMI (Body Mass Index) 60.2 kg/m2 07/17/2016 BP Systolic 130 mmHg BP Diastolic 80 mmHg 07/02/2016 Height 62 inches 5'2" Weight 359.00 lb Heart Rate 96 /min BP Systolic Sitting 148 mmHg BP Diastolic Sitting 90 mmHg Respiratory Rate 14 /min O2 % BldC Oximetry 97 % BMI (Body Mass Index) 65.7 kg/m2 06/10/2016 Height 62 inches 5'2" Weight 361.00 lb Heart Rate 85 /min BP Systolic 130 mmHg BP Diastolic 84 mmHg Body Temperature 98.0 F O2 % BldC Oximetry 94 % BMI (Body Mass Index) 66.0 kg/m2 01/09/2016 Height 62 inches 5'2" Weight 352.00 lb Heart Rate 74 /min BP Systolic Sitting 148 mmHg BP Diastolic Sitting 80 mmHg Pain Level 8 8/10 pain level BMI (Body Mass Index) 64.4 kg/m2 01/03/2016 Weight 352.00 lb Heart Rate 77 /min BP Systolic 140 mmHg BP Diastolic 80 mmHg Body Temperature 98.7 F O2 % BldC Oximetry 94 % 12/27/2015 Weight 353.00 lb Heart Rate 73 /min BP Systolic Sitting 154 mmHg BP Diastolic Sitting 82 mmHg Body Temperature 98.2 F Pain Level 9 L knee O2 % BldC Oximetry 97 % 07/05/2015 Weight 324.00 lb Heart Rate 74 /min BP Systolic Sitting 148 mmHg BP Diastolic Sitting 84 mmHg Body Temperature 98.6 F O2 % BldC Oximetry 96 % 06/21/2015 Height 62 inches 5'2" Weight 333.00 lb Heart Rate 67 /min BP Systolic Sitting 146 mmHg BP Diastolic Sitting 108 mmHg Body Temperature 97.7 F O2 % BldC Oximetry 96 % BMI (Body Mass Index) 60.9 kg/m2 05/30/2015 Height 62 inches 5'2" Weight 331.00 lb Heart Rate 74 /min BP Systolic 180 mmHg BP Diastolic 110 mmHg Body Temperature 98.0 F O2 % BldC Oximetry 96 % BMI (Body Mass Index) 60.5 kg/m2 05/24/2015 Height 62 inches 5'2" Weight 331.25 lb Heart Rate 74 /min BP Systolic 180 mmHg BP Diastolic 105 mmHg BP Systolic Sitting 213 mmHg BP Diastolic Sitting 111 mmHg Body Temperature 97.4 F O2 % BldC Oximetry 96 % BMI (Body Mass Index) 60.6 kg/m2 05/12/2015 Height 62 inches 5'2" Weight 325.00 lb Heart Rate 104 /min BP Systolic 198 mmHg BP Diastolic 136 mmHg Body Temperature 98.4 F O2 % BldC Oximetry 95 % BMI (Body Mass Index) 59.4 kg/m2 02/22/2014 Weight 331.25 lb Heart Rate 75 /min BP Systolic Sitting 146 mmHg BP Diastolic Sitting 82 mmHg Body Temperature 97.1 F O2 % BldC Oximetry 97 % 11/03/2013 Weight 326.50 lb Heart Rate 80 /min BP Systolic Sitting 144 mmHg BP Diastolic Sitting 90 mmHg 08/16/2013 Height 62 inches 5'2" Weight 318.00 lb Heart Rate 74 /min BP Systolic Sitting 140 mmHg BP Diastolic Sitting 88 mmHg Body Temperature 97.4 F BMI (Body Mass Index) 58.2 kg/m2 07/26/2013 Height 62 inches 5'2" Weight 300.00 lb Heart Rate 72 /min BMI (Body Mass Index) 54.9 kg/m2 07/12/2013 Height 62 inches 5'2" Weight 310.00 lb Heart Rate 61 /min BP Systolic Sitting 130 mmHg BP Diastolic Sitting 78 mmHg Body Temperature 96.9 F O2 % BldC Oximetry 95 % BMI (Body Mass Index) 56.7 kg/m2 06/29/2013 Height 62 inches 5'2" Weight 300.00 lb Heart Rate 72 /min BMI (Body Mass Index) 54.9 kg/m2 06/18/2013 Height 62 inches 5'2" Weight 300.00 lb Heart Rate 70 /min BP Systolic 149 mmHg BP Diastolic 96 mmHg BMI (Body Mass Index) 54.9 kg/m2 06/08/2013 Height 62.5 inches 5'2.50" Weight 311.00 lb Heart Rate 69 /min BP Systolic Sitting 134 mmHg BP Diastolic Sitting 86 mmHg Pain Level 10 BMI (Body Mass Index) 56.0 kg/m2 05/19/2013 Weight 312.00 lb Heart Rate 78 /min BP Systolic Sitting 135 mmHg BP Diastolic Sitting 86 mmHg 02/10/2013 Height 63 inches 5'3" Weight 298.50 lb Heart Rate 78 /min BP Systolic Sitting 140 mmHg BP Diastolic Sitting 92 mmHg BMI (Body Mass Index) 52.9 kg/m2 12/17/2012 Weight 294.00 lb Heart Rate 77 /min BP Systolic Sitting 132 mmHg BP Diastolic Sitting 86 mmHg 11/04/2012 Weight 295.00 lb Heart Rate 77 /min BP Systolic Sitting 140 mmHg BP Diastolic Sitting 82 mmHg 10/14/2012 Weight 293.00 lb Heart Rate 71 /min BP Systolic Sitting 184 mmHg BP Diastolic Sitting 102 mmHg 10/12/2012 Weight 296.00 lb Heart Rate 94 /min BP Systolic 190 mmHg BP Diastolic 130 mmHg BP Systolic Sitting 200 mmHg BP Diastolic Sitting 125 mmHg BP Systolic Standing 176 mmHg BP Diastolic Standing 111 mmHg 05/02/2010 Height 63 inches 5'3" Weight 328.00 lb Heart Rate 81 /min BP Systolic Sitting 136 mmHg BP Diastolic Sitting 78 mmHg O2 % BldC Oximetry 95 % BMI (Body Mass Index) 58.1 kg/m2 Results Test Date Test Result H/L Range Note Laboratory test 08/28/2017 Clotest SEE RESULT BELOW 1 finding Laboratory test 08/28/2017 Surgical Pathology SEE RESULT BELOW 2 finding Laboratory test 08/01/2017 TSH (Thyroid Stim 4.72 mcIU/mL 0.34-5.60 finding Horm) Free Cortisol Serum 1.410 g/dL 3 Laboratory test finding 07/07/2017 Hemoglobin A1c (Glyco 6.2 % High 4.0- 5.6 4 HGB) Basic Metabolic Panel 07/07/2017 Sodium 140 mmol/L 133-145 Potassium 4.1 mmol/L 3.5-5.0 Chloride 103 mmol/L 101-111 Co2 Carbon Dioxide 28 mmol/L 22-32 Anion Gap 9 mmol/L 2-11 Glucose 97 mg/dL 70-100 Blood Urea Nitrogen 36 mg/dL High 6-24 Creatinine 1.16 mg/dL High 0.51-0.95 BUN/Creatinine Ratio 31.0 High 8-20 Calcium 9.6 mg/dL 8.6-10.3 Egfr Non- 48.7 >60 Egfr 62.6 >60 5 CBC Auto Diff 06/11/2017 White Blood Count 9.6 10^3/uL 3.5-10.8 Red Blood Count 4.40 10^6/uL 4.0-5.4 Hemoglobin 13.7 g/dL 12.0-16.0 Hematocrit 40 % 35-47 Mean Corpuscular Volume 92 fL 80-97 Mean Corpuscular Hemoglobin 31 pg 27-31 Mean Corpuscular HGB Conc 34 g/dL 31-36 Red Cell Distribution Width 14 % 10.5-15 Platelet Count 200 10^3/uL 150-450 Mean Platelet Volume 9 um3 7.4-10.4 Abs Neutrophils 7.5 10^3/uL 1.5-7.7 Abs Lymphocytes 0.9 10^3/uL Low 1.0-4.8 Abs Monocytes 0.9 10^3/uL High 0-0.8 Abs Eosinophils 0.1 10^3/uL 0-0.6 Abs Basophils 0.1 10^3/uL 0-0.2 Abs Nucleated RBC 0 10^3/uL Granulocyte % 78.5 % 38-83 Lymphocyte % 9.5 % Low 25-47 Monocyte % 9.5 % High 1-9 Eosinophil % 1.4 % 0-6 Basophil % 1.1 % 0-2 Nucleated Red Blood Cells % 0.1 Comp Metabolic Panel 06/11/2017 Sodium 136 mmol/L 133-145 Potassium 3.8 mmol/L 3.5-5.0 Chloride 99 mmol/L Low 101-111 Co2 Carbon Dioxide 28 mmol/L 22-32 Anion Gap 9 mmol/L 2-11 Glucose 131 mg/dL High 70-100 Blood Urea Nitrogen 33 mg/dL High 6-24 Creatinine 1.14 mg/dL High 0.51-0.95 BUN/Creatinine Ratio 28.9 High 8-20 Calcium 9.8 mg/dL 8.6-10.3 Total Protein 6.8 g/dL 6.4-8.9 Albumin 3.9 g/dL 3.2-5.2 Globulin 2.9 g/dL 2-4 Albumin/Globulin Ratio 1.3 1-3 Total Bilirubin 0.50 mg/dL 0.2-1.0 Alkaline Phosphatase 78 U/L 34-104 Alt 25 U/L 7-52 Ast 16 U/L 13-39 Egfr Non- 49.7 >60 Egfr 63.9 >60 6 Iron & Iron Binding Capacity 06/11/2017 Iron 74 g/dL 50-212 Unsaturated Iron Binding 294 g/dL Total Iron Binding Capacity 368 g/dL 250-450 % Iron Saturation 20 % 15-55 Laboratory test finding 06/11/2017 Ferritin 49.0 ng/mL 11-307 Vitamin B12 206 pg/mL 180-914 7 Folic Acid (Folate) 10.13 ng/mL >3.99 Vitamin D Total 25(Oh) 10.4 ng/mL Low 20-50 Vitamin E Level 7.5 mg/L 5.5 - 17.0 8 Basic Metabolic Panel 05/07/2017 Sodium 139 mmol/L 133-145 Potassium 4.5 mmol/L 3.5-5.0 Chloride 104 mmol/L 101-111 Co2 Carbon Dioxide 30 mmol/L 22-32 Anion Gap 5 mmol/L 2-11 Glucose 96 mg/dL 70-100 Blood Urea Nitrogen 26 mg/dL High 6-24 Creatinine 0.97 mg/dL High 0.51-0.95 BUN/Creatinine Ratio 26.8 High 8-20 Calcium 9.5 mg/dL 8.6-10.3 Egfr Non- 59.8 >60 Egfr 77.0 >60 9 Laboratory test finding 05/07/2017 B-Type Natriuretic Peptide BNP 61 pg/mL 10 Urinalysis Profile 05/07/2017 Urine Color Yellow Urine Appearance Cloudy Urine Specific [place] 1.019 1.010-1.030 Urine pH 5.0 5-9 Urine Urobilinogen Negative Negative Urine Ketones Negative Negative Urine Protein Negative Negative Urine Leukocytes Trace Negative Urine Blood Negative Negative Urine Nitrite Negative Negative Urine Bilirubin Negative Negative Urine Glucose Negative Negative Urine White Blood Cell Trace(0-5/hpf) Absent Urine Red Blood Cell Trace(0-2/hpf) Absent Urine Bacteria Absent Absent Urine Squamous Epithelial Cell Present Absent Urine Culture And 05/07/2017 Urine Culture SEE RESULT BELOW 11 Sensitivities Basic Metabolic Panel 04/02/2017 Sodium 138 mmol/L 133-145 Potassium 4.3 mmol/L 3.5-5.0 Chloride 102 mmol/L 101-111 Co2 Carbon Dioxide 29 mmol/L 22-32 Anion Gap 7 mmol/L 2-11 Glucose 103 mg/dL High 70-100 Blood Urea Nitrogen 41 mg/dL High 6-24 Creatinine 1.49 mg/dL High 0.51-0.95 BUN/Creatinine Ratio 27.5 High 8-20 Calcium 9.5 mg/dL 8.6-10.3 Egfr Non- 36.5 >60 Egfr 46.9 >60 12 Urinalysis Profile 03/06/2017 Urine Color Yellow Urine Appearance Clear Urine Specific [place] 1.017 1.010-1.030 Urine pH 5.0 5-9 Urine Urobilinogen Negative Negative Urine Ketones Negative Negative Urine Protein Negative Negative Urine Leukocytes Trace Negative Urine Blood Negative Negative Urine Nitrite Negative Negative Urine Bilirubin Negative Negative Urine Glucose Negative Negative Urine White Blood Cell Trace(0-5/hpf) Absent Urine Red Blood Cell Absent Absent Urine Bacteria Absent Absent Urine Squamous Epithelial Cell Present Absent Urine Culture And 03/06/2017 Urine Culture SEE RESULT BELOW 13 Sensitivities Basic Metabolic Panel 02/27/2017 Sodium 139 mmol/L 133-145 14 Potassium 3.6 mmol/L 3.5-5.0 14 Chloride 104 mmol/L 101-111 14 Co2 Carbon Dioxide 27 mmol/L 22-32 14 Anion Gap 8 mmol/L 2-11 14 Glucose 91 mg/dL 70-100 14 Blood Urea Nitrogen 30 mg/dL High 6-24 14 Creatinine 1.02 mg/dL High 0.51-0.95 14 BUN/Creatinine Ratio 29.4 High 8-20 14 Calcium 9.4 mg/dL 8.6-10.3 14 Egfr Non- 56.5 >60 14 Egfr 72.6 >60 14, 15 Laboratory test finding 02/12/2017 TSH (Thyroid Stim Horm) 1.93 mcIU/mL 0.34-5.60 B-Type Natriuretic Peptide BNP 71 pg/mL 16 Urinalysis Profile 02/06/2017 Urine Color Straw Urine Appearance Clear Urine Specific [place] 1.014 1.010-1.030 Urine pH 5.0 5-9 Urine Urobilinogen Negative Negative Urine Ketones Negative Negative Urine Protein Negative Negative Urine Leukocytes Trace Negative Urine Blood 1+ Negative Urine Nitrite Negative Negative Urine Bilirubin Negative Negative Urine Glucose 1+(50 mg/dL) Negative Urine White Blood Cell Trace(0-5/hpf) Absent Urine Red Blood Cell 2+(6-10/hpf) Absent Urine Bacteria 1+ Absent Urine Squamous Epithelial Cell Present Absent Urine Culture And 02/06/2017 Urine Culture SEE RESULT BELOW 17 Sensitivities Comp Metabolic Panel 02/06/2017 Sodium 138 mmol/L 133-145 Potassium 3.8 mmol/L 3.5-5.0 Chloride 105 mmol/L 101-111 Co2 Carbon Dioxide 27 mmol/L 22-32 Anion Gap 6 mmol/L 2-11 Glucose 96 mg/dL 70-100 Blood Urea Nitrogen 28 mg/dL High 6-24 Creatinine 0.96 mg/dL High 0.51-0.95 BUN/Creatinine Ratio 29.2 High 8-20 Calcium 9.3 mg/dL 8.6-10.3 Total Protein 7.4 g/dL 6.4-8.9 Albumin 4.0 g/dL 3.2-5.2 Globulin 3.4 g/dL 2-4 Albumin/Globulin Ratio 1.2 1-3 Total Bilirubin 0.60 mg/dL 0.2-1.0 Alkaline Phosphatase 71 U/L 34-104 Alt 20 U/L 7-52 Ast 13 U/L 13-39 Egfr Non- 60.6 >60 Egfr 77.9 >60 18 CBC Auto Diff 02/06/2017 White Blood Count 10.8 10^3/uL 3.5-10.8 Red Blood Count 4.54 10^6/uL 4.0-5.4 Hemoglobin 14.1 g/dL 12.0-16.0 Hematocrit 42 % 35-47 Mean Corpuscular Volume 93 fL 80-97 Mean Corpuscular Hemoglobin 31 pg 27-31 Mean Corpuscular HGB Conc 33 g/dL 31-36 Red Cell Distribution Width 14 % 10.5-15 Abs Neutrophils 8.2 10^3/uL High 1.5-7.7 Abs Lymphocytes 1.4 10^3/uL 1.0-4.8 Abs Monocytes 0.9 10^3/uL High 0-0.8 Abs Eosinophils 0.2 10^3/uL 0-0.6 Abs Basophils 0.1 10^3/uL 0-0.2 Abs Nucleated RBC 0 10^3/uL Granulocyte % 76.3 % 38-83 Lymphocyte % 12.6 % Low 25-47 Monocyte % 8.7 % 1-9 Eosinophil % 1.5 % 0-6 Basophil % 0.9 % 0-2 Nucleated Red Blood Cells % 0 Platelet Count 192 10^3/uL 150-450 Mean Platelet Volume 10 um3 7.4-10.4 Ua Routine 01/29/2017 Ua Specific [place] 1.015 Ua PH 5 Ua Color Dark Yellow Ua Appera Clear Ua WBC + Ua Protein Neg Ua Glucose Neg Ua Ketones Neg Ua Bilirubin Neg Ua Urobilinogen Neg Ua Nitrite Neg Ua Occult Blood Neg Laboratory test finding 01/29/2017 Hemoglobin A1c 6.0 5-7 Xray 07/30/2016 Knee 3 Views RT <pending> Basic Metabolic Panel 07/02/2016 Sodium 141 mmol/L 133-145 Potassium 3.8 mmol/L 3.5-5.0 Chloride 105 mmol/L 101-111 Co2 Carbon Dioxide 27 mmol/L 22-32 Anion Gap 9 mmol/L 2-11 Glucose 119 mg/dL High 70-100 Blood Urea Nitrogen 23 mg/dL 6-24 Creatinine 0.82 mg/dL 0.51-0.95 BUN/Creatinine Ratio 28.0 High 8-20 Calcium 9.4 mg/dL 8.6-10.3 Egfr Non- 72.9 >60 Egfr 93.8 >60 19 CBC Auto Diff 06/10/2016 White Blood Count 9.2 10^3/uL 3.5-10.8 Red Blood Count 4.81 10^6/uL 4.0-5.4 Hemoglobin 14.5 g/dL 12.0-16.0 Hematocrit 44 % 35-47 Mean Corpuscular Volume 92 fL 80-97 Mean Corpuscular Hemoglobin 30 pg 27-31 Mean Corpuscular HGB Conc 33 g/dL 31-36 Red Cell Distribution Width 14 % 10.5-15 Platelet Count 181 10^3/uL 150-450 Mean Platelet Volume 10 um3 7.4-10.4 Abs Neutrophils 6.4 10^3/uL 1.5-7.7 Abs Lymphocytes 1.3 10^3/uL 1.0-4.8 Abs Monocytes 1.3 10^3/uL High 0-0.8 Abs Eosinophils 0.2 10^3/uL 0-0.6 Abs Basophils 0.1 10^3/uL 0-0.2 Abs Nucleated RBC 0 10^3/uL Granulocyte % 69.1 % 38-83 Lymphocyte % 14.5 % Low 25-47 Monocyte % 13.8 % High 1-9 Eosinophil % 1.9 % 0-6 Basophil % 0.7 % 0-2 Nucleated Red Blood Cells % 0 Urinalysis Profile 06/10/2016 Urine Color Yellow Urine Appearance Clear Urine Specific [place] 1.016 1.010-1.030 Urine pH 5.0 5-9 Urine Urobilinogen Negative Negative Urine Ketones Negative Negative Urine Protein Negative Negative Urine Leukocytes Negative Negative Urine Blood 1+ Negative Urine Nitrite Negative Negative Urine Bilirubin Negative Negative Urine Glucose Negative Negative Urine White Blood Cell Trace(0-5/hpf) Absent Urine Red Blood Cell Trace(0-2/hpf) Absent Urine Bacteria 1+ Absent Urine Squamous Epithelial Cell Present Absent Comp Metabolic Panel 06/10/2016 Sodium 137 mmol/L 133-145 Chloride 103 mmol/L 101-111 Co2 Carbon Dioxide 28 mmol/L 22-32 Glucose 71 mg/dL 70-100 Blood Urea Nitrogen 26 mg/dL High 6-24 Creatinine 0.75 mg/dL 0.51-0.95 BUN/Creatinine Ratio 34.7 High 8-20 Calcium 9.7 mg/dL 8.6-10.3 Total Protein 7.2 g/dL 6.4-8.9 Albumin 3.9 g/dL 3.2-5.2 Globulin 3.3 g/dL 2-4 Albumin/Globulin Ratio 1.2 1-3 Total Bilirubin 0.60 mg/dL 0.2-1.0 Alkaline Phosphatase 76 U/L 34-104 Alt 19 U/L 7-52 Egfr Non- 80.8 >60 Egfr 104.0 >60 20 Potassium 4.2 mmol/L 3.5-5.0 Anion Gap 6 mmol/L 2-11 Ast 16 U/L 13-39 Laboratory test finding 06/10/2016 Lipase 40 U/L 11.0-82.0 C Reactive Protein 2.78 mg/L < 5.00 21 Urine Culture And Sensitivities 06/10/2016 Urine Culture SEE RESULT BELOW 22 Urinalysis Profile 01/03/2016 Urine Color Yellow Urine Appearance Turbid Urine Specific [place] 1.027 1.010-1.030 Urine pH 5.0 5-9 Urine Urobilinogen Negative Negative Urine Ketones Negative Negative Urine Protein Negative Negative Urine Leukocytes 1+ Negative Urine Blood 1+ Negative Urine Nitrite Negative Negative Urine Bilirubin Negative Negative Urine Glucose Negative Negative Urine White Blood Cell Absent Absent Urine Red Blood Cell Absent Absent Urine Bacteria Absent Absent Urine Culture And 01/03/2016 Urine Culture SEE RESULT BELOW 23 Sensitivities Laboratory test finding 07/14/2015 Metanephrines Plasma SEE COMMENT 24 Laboratory test finding 06/26/2015 Cortisol 16.20 ?g/dL 25 Basic Metabolic Panel 06/26/2015 Sodium 138 mmol/L 133-145 Potassium 4.0 mmol/L 3.5-5.0 Chloride 102 mmol/L 101-111 Co2 Carbon Dioxide 27 mmol/L 22-32 Anion Gap 9 mmol/L 2-11 Glucose 91 mg/dL 70-100 Blood Urea Nitrogen 36 mg/dL High 6-24 Creatinine 0.94 mg/dL 0.51-0.95 BUN/Creatinine Ratio 38.3 High 8-20 Calcium 9.6 mg/dL 8.6-10.3 Egfr Non- 62.5 >60 Egfr 80.4 >60 26 Laboratory test finding 06/26/2015 Hepatitis C Antibody Nonreactive Nonreactive Aldosterone 12 ng/dL <=21 27 Renin 4.0 ng/mL/h 28 TSH (Thyroid Stim Horm) 2.34 ?IU/mL 0.34-5.60 Laboratory test finding 05/30/2015 Cytology SEE RESULT BELOW 29 HPV Rna Ww/Reflex Genotype Negative Negative 30 Laboratory test finding 05/12/2015 Inr/Protime 0.99 0.89-1.11 Urinalysis Profile 05/12/2015 Urine Color Yellow Urine Appearance Clear Urine Specific [place] 1.012 1.010-1.030 Urine pH 5.0 5-9 Urine Urobilinogen Negative Negative Urine Ketones Negative Negative Urine Protein Negative Negative Urine Leukocytes Negative Negative Urine Blood Negative Negative Urine Nitrite Negative Negative Urine Bilirubin Negative Negative Urine Glucose Negative Negative CBC Auto Diff 05/12/2015 White Blood Count 12.0 10^3/uL High 3.5-10.8 Red Blood Count 5.45 10^6/uL High 4.0-5.4 Hemoglobin 16.1 g/dL High 12.0-16.0 Hematocrit 52 % High 35-47 Mean Corpuscular Volume 95 fL 80-97 Mean Corpuscular Hemoglobin 30 pg 27-31 Mean Corpuscular HGB Conc 31 g/dL 31-36 Red Cell Distribution Width 15 % 10.5-15 Platelet Count 203 10^3/uL 150-450 Mean Platelet Volume 10 um3 7.4-10.4 Abs Neutrophils 9.7 10^3/uL High 1.5-7.7 Abs Lymphocytes 1.2 10^3/uL 1.0-4.8 Abs Monocytes 0.9 10^3/uL High 0-0.8 Abs Eosinophils 0.1 10^3/uL 0-0.6 Abs Basophils 0.1 10^3/uL 0-0.2 Abs Nucleated RBC 0 10^3/uL Granulocyte % 81.2 % 38-83 Lymphocyte % 10.0 % Low 25-47 Monocyte % 7.6 % 1-9 Eosinophil % 0.5 % 0-6 Basophil % 0.7 % 0-2 Nucleated Red Blood Cells % 0 Laboratory test finding 05/12/2015 Lactic Acid 1.3 mmol/L 0.5-2.0 31 Troponin-I (TnI) 0.00 ng/mL <0.03 32 Laboratory test finding 05/12/2015 Amylase 49 U/L 29-103 Lipase 26 U/L 11.0-82.0 Creatine Kinase(CK) 29 U/L 10-223 C Reactive Protein 1.51 mg/L < 5.00 33 Comp Metabolic Panel 05/12/2015 Sodium 138 mmol/L 133-145 Potassium 3.8 mmol/L 3.5-5.0 Chloride 103 mmol/L 101-111 Co2 Carbon Dioxide 26 mmol/L 22-32 Anion Gap 9 mmol/L 2-11 Glucose 93 mg/dL 70-100 Blood Urea Nitrogen 17 mg/dL 6-24 Creatinine 0.78 mg/dL 0.51-0.95 BUN/Creatinine Ratio 21.8 High 8-20 Calcium 9.5 mg/dL 8.6-10.3 Total Protein 7.5 g/dL 6.4-8.9 Albumin 4.3 g/dL 3.2-5.2 Globulin 3.2 g/dL 2-4 Albumin/Globulin Ratio 1.3 1-3 Total Bilirubin 0.80 mg/dL 0.2-1.0 Alkaline Phosphatase 86 U/L 34-104 Alt 29 U/L 7-52 Ast 15 U/L 13-39 Egfr Non- 77.6 >60 Egfr 99.7 >60 34 Comp Metabolic Panel 02/25/2014 Sodium 139 mmol/L 133-145 35 Potassium 3.8 mmol/L 3.7-5.6 35 Chloride 104 mmol/L 101-111 35 Co2 Carbon Dioxide 29 mmol/L 22-32 35 Anion Gap 6 mmol/L 2-11 35 Glucose 81 mg/dL 70-100 35 Blood Urea Nitrogen 16 mg/dL 6-24 35 Creatinine 0.80 mg/dL 0.51-0.95 35 BUN/Creatinine Ratio 20.0 8-20 35 Calcium 9.1 mg/dL 8.6-10.3 35 Total Protein 6.4 g/dL 6.4-8.9 35 Albumin 3.9 g/dL 3.2-5.2 35 Globulin 2.5 g/dL 2-4 35 Albumin/Globulin Ratio 1.6 1-3 35 Total Bilirubin 0.90 mg/dL 0.2-1.0 35 Alkaline Phosphatase 71 U/L 34-104 35 Alt 19 U/L 7-52 35 Ast 14 U/L 13-39 35 Egfr Non- 75.6 >60 35 Egfr 97.3 >60 35, 36 CBC Auto Diff 02/25/2014 White Blood Count 6.6 10^3/uL 4.8-10.8 35 Red Blood Count 4.47 10^6/uL 4.0-5.4 35 Hemoglobin 14.0 g/dL 12.0-16.0 35 Hematocrit 42 % 35-47 35 Mean Corpuscular Volume 93 fL 80-97 35 Mean Corpuscular Hemoglobin 31 pg 27-31 35 Mean Corpuscular HGB Conc 34 g/dL 31-36 35 Red Cell Distribution Width 15 % 10.5-15 35 Platelet Count 175 10^3/uL 150-450 35 Mean Platelet Volume 10 um3 7.4-10.4 35 Abs Neutrophils 4.7 10^3/uL 1.5-7.7 35 Abs Lymphocytes 1.1 10^3/uL 1.0-4.8 35 Abs Monocytes 0.6 10^3/uL 0-0.8 35 Abs Eosinophils 0.1 10^3/uL 0-0.6 35 Abs Basophils 0 10^3/uL 0-0.2 35 Abs Nucleated RBC 0 10^3/uL 35 Granulocyte % 71.3 % 38-83 35 Lymphocyte % 16.4 % Low 25-47 35 Monocyte % 9.8 % High 1-9 35 Eosinophil % 1.8 % 0-6 35 Basophil % 0.7 % 0-2 35 Nucleated Red Blood Cells % 0 35 Laboratory test finding 07/16/2013 Lactic Acid 0.9 mmol/L 0.5-2.2 Urinalysis 07/16/2013 Urine Color Yellow Urine Appearance Clear Urine Specific [place] 1.019 1.010-1.030 Urine Esterase Negative Negative Urine Nitrate Negative Negative Urine Urobilinogen Negative E.U./dL Negative Urine Protein Negative mg/dL Negative Urine pH 5.5 5-9 Urine Blood Negative Negative Urine Ketones Negative mg/dL Negative Urine Bilirubin Negative Negative Urine Glucose Negative mg/dL Negative CBC Auto Diff 07/16/2013 White Blood Count 16.3 10^3/uL High 4.8-10.8 Red Blood Count 4.67 10^6/uL 4.0-5.4 Hemoglobin 14.9 g/dL 12.0-16.0 Hematocrit 44 % 35-47 Mean Corpuscular Volume 93 fL 80-97 Mean Corpuscular Hemoglobin 32 pg High 27-31 Mean Corpuscular HGB Conc 34 g/dL 31-36 Red Cell Distribution Width 14 % 10.5-15 Platelet Count 175 10^3/uL 150-450 Mean Platelet Volume 11 um3 High 7.4-10.4 Abs Neutrophils 13.2 10^3/uL High 1.5-7.7 Abs Lymphocytes 1.0 10^3/uL 1.0-4.8 Abs Monocytes 1.7 10^3/uL High 0-0.8 Abs Eosinophils 0.2 10^3/uL 0-0.6 Abs Basophils 0.1 10^3/uL 0-0.2 Abs Nucleated RBC 0 10^3/uL Granulocyte % 81.2 % 38-83 Lymphocyte % 6.4 % Low 25-47 Monocyte % 10.6 % High 1-9 Eosinophil % 1.2 % 0-6 Basophil % 0.6 % 0-2 Nucleated Red Blood Cells % 0 Comp Metabolic Panel 07/16/2013 Sodium 137 mmol/L 133-145 Potassium 3.7 mmol/L 3.7-5.6 Chloride 101 mmol/L 101-111 Co2 Carbon Dioxide 26 mmol/L 22-32 Anion Gap 10 mmol/L 2-11 Glucose 139 mg/dL High 70-100 Blood Urea Nitrogen 23 mg/dL 6-24 Creatinine 1.05 mg/dL High 0.51-0.95 BUN/Creatinine Ratio 21.9 High 8-20 Calcium 9.5 mg/dL 8.6-10.3 Total Protein 6.7 g/dL 6.4-8.9 Albumin 3.9 g/dL 3.2-5.2 Globulin 2.8 g/dL 2-4 Albumin/Globulin Ratio 1.4 1-3 Total Bilirubin 0.80 mg/dL 0.2-1.0 Alkaline Phosphatase 71 U/L 34-104 Alt 15 U/L 7-52 Ast 10 U/L Low 13-39 Egfr Non- 55.5 >60 Egfr 71.3 >60 37 Laboratory test finding 07/16/2013 Amylase 31 U/L 29-103 Lipase 14 U/L 11.0-82.0 C Reactive Protein 84.88 mg/L High < 5.00 38 Surgical Pathology 07/13/2013 S RUN DATE: 07/14/ <SEE NOTE> 39 Comp Metabolic Panel 06/15/2013 Sodium 140 mmol/L 133-145 Potassium 3.9 mmol/L 3.7-5.6 Chloride 107 mmol/L 101-111 Co2 Carbon Dioxide 26 mmol/L 22-32 Anion Gap 7 mmol/L 2-11 Glucose 87 mg/dL 70-100 Blood Urea Nitrogen 25 mg/dL High 6-24 Creatinine 0.84 mg/dL 0.51-0.95 BUN/Creatinine Ratio 29.8 High 8-20 Calcium 8.9 mg/dL 8.6-10.3 Total Protein 6.2 g/dL Low 6.4-8.9 Albumin 3.8 g/dL 3.2-5.2 Globulin 2.4 g/dL 2-4 Albumin/Globulin Ratio 1.6 1-3 Total Bilirubin 0.50 mg/dL 0.2-1.0 Alkaline Phosphatase 57 U/L 34-104 Alt 15 U/L 7-52 Ast 11 U/L Low 13-39 Egfr Non- 71.8 >60 Egfr 92.3 >60 40 Laboratory test 06/08/2013 Cytology RUN DATE: finding <SEE NOTE> CBC No Diff 10/12/2012 White Blood Count 7.6 10^3/uL 4.8-10.8 Red Blood Count 5.02 10^6/uL 4.0-5.4 Hemoglobin 16.1 g/dL High 12.0-16.0 Hematocrit 47 % 35-47 Mean Corpuscular Volume 94 fL 80-97 Mean Corpuscular Hemoglobin 32 pg High 27-31 Mean Corpuscular HGB Conc 34 g/dL 31-36 Red Cell Distribution Width 15 % 10.5-15 Platelet Count 171 10^3/uL 150-450 Mean Platelet Volume 11 um3 High 7.4-10.4 Comp Metabolic Panel 10/12/2012 Sodium 137 mmol/L 133-145 Potassium 3.9 mmol/L 3.5-5.0 Chloride 103 mmol/L 101-111 Co2 Carbon Dioxide 28.0 mmol/L 22-32 Anion Gap 6.0 mmol/L 2-11 Glucose 90 mg/dL 70-100 Blood Urea Nitrogen 17 mg/dL 6-24 Creatinine 0.80 mg/dL 0.50-1.40 BUN/Creatinine Ratio 21.3 High 8-20 Calcium 9.2 mg/dL 8.1-9.9 Total Protein 6.3 g/dL 6.2-8.1 Albumin 3.8 g/dL 3.6-5.4 Globulin 2.5 g/dL 2-4 Albumin/Globulin Ratio 1.5 1-3 Total Bilirubin 0.8 mg/dL 0.4-1.5 Alkaline Phosphatase 71 U/L 30-110 Alt 20 U/L 14-54 Ast 14 U/L 12-42 Egfr Non- 76.2 >60 Egfr 98.0 >60 42 Lipid Profile (Trig/Chol/HDL) 10/12/2012 Triglycerides 79 mg/dL 40-200 Cholesterol 161 mg/dL Less than 200 HDL Cholesterol 68 mg/dL High 40-60 43 Cholesterol/HDL Ratio 2.4 Average 1-4.44 LDL Cholesterol 77.2 Less Than 100 44 Laboratory test finding 10/12/2012 TSH (Thyroid Stimulating 1.81 miu/mL 0.34-5.60 Horm) Cortisol 12.9 g/dL 45 Urine Culture & Sensitivi 04/13/2010 Urine Culture Sensitivi NF1 46 1 SEE RESULT BELOW Name: RENATA DIAZ Mike : [address]: Jaja Olivas DO Acct: [id number] Unit: [id number] AGE: 56 Location: OR Re08/28/17 SEX: F Status: DEP SDC SPEC: [id number] LEAH: 08/28/17-[address]: Jaja Olivas DO REQ: [id number] RECD: 08/28/17 STATUS: DOUG BREAUX DR: Lucila Bhakta MD _ SOURCE: GAS ANTRUM SPDESC: ORDERED: Clotest Procedure Result Reported Site Clotest Final 08/29/17- 715 ML Clotest Negative * ML - Main Lab . END OF REPORT DEPARTMENT OF PATHOLOGY, [address] [place] [address] Reginald Steele M.D. Director [facility] # [id number] 2 SEE RESULT BELOW Name: RENATA DIAZ : [address]: Jaja Olivas DO Acct: [id number] Unit: [id number] AGE: 56 Location: OR Re08/28/17 SEX: F Status: JAKY OSBORNC SPEC: [id number] LEAH: 08/28/17-[address]: Jaja Olivas DO REQ: [id number] RECD: 08/28/17-2073 STATUS: WENDY BREAUX DR: Jesse Bhakta MD _ ORDERED: LEVEL 4/2, SPEC STAIN ORG A GMS stain, with appropriately reacting controls, was performed on sections cut from specimen 2 and is negative for fungal organisms. Addendum Signed (signature on file) Briseida Mix MD 08/13 1616 FINAL DIAGNOSIS 1. Duodenum, descending, biopsy: -- Benign duodenal mucosa with no significant pathologic abnormalities. -- No evidence of villous blunting or increased intraepithelial lymphocytes. 2. Esophagus, distal, biopsy: -- Erosive esophagitis with focal ulceration; see comment. COMMENT: Fungal staining is pending for specimen 2 and the results will be reported in an addendum. CLINICAL HISTORY Gastroesophageal Reflux Disease, pre-bariatric surgery, diarrhea POST-OPERATIVE DIAGNOSIS Endoscopy: distal erosive esophagitis ? biopsy; erosive antral gastritis ? biopsy, CLOtest; normal duodenum ? biopsy to rule out celiac; Conclusions/Plan: omeprazole 40 mg twice daily for 3 months CONTINUED ON NEXT PAGE DEPARTMENT OF PATHOLOGY, [address] [place] [address] Reginald Steele M.D. Director [facility] # [id number] RUN DATE: 08/29/17 [facility] LAB LIVE PAGE 2 Patient: RENATA DIAZ [id number] (Continued) GROSS DESCRIPTION (Continued) GROSS DESCRIPTION 1. The specimen is received in formalin labeled, Biopsy Descending Duodenum , and consists of a 1.0 x 0.9 by up to 0.2 cm aggregate of bethea-pink irregular to polypoid soft tissue fragments, which is entirely submitted in one cassette. 2. The specimen is received in formalin labeled, Biopsy Distal Esophagus, and consists of two white-pink irregular to polypoid soft tissue fragments measuring 0.4 x 0.4 x 0.1 cm and 0.5 x 0.3 x 0.1 cm, which are entirely submitted in one cassette. Signed by and Reported on: Briseida Mix MD 08/29/17 1027 END OF REPORT DEPARTMENT OF PATHOLOGY, [address] [place] [address] Reginald Steele M.D. Director [facility] # [id number] 3 REFERENCE VALUE 6:00-10:30 AM Collection 0.121-1.065 mcg/dL ADDITIONAL INFORMATION This test was developed and its performance characteristics determined by [facility] in a manner consistent with CLIA requirements. This test has not been cleared or approved by the U.S. Food and Drug Administration. Test Performed by: [facility] [address] [place] [address] 4 Therapeutic target for the treatment of diabetes mellitus patients is <7% HBA1C, and in selective patients <6.0%. Please refer to [place] [employer] diabetic care guidelines for further information. 5 Because ethnic data is not always readily available, this report includes an eGFR for both -Americans and non- Americans. The National Kidney Disease Education Program (NKDEP) does not endorse the use of the MDRD equation for patients that are not between the ages of 18 and 70, are , have extremes of body size, muscle mass, or nutritional status, or are non- or non-. According to the National Kidney Foundation, irrespective of diagnosis, the stage of the disease is based on the level of kidney function: Stage Description GFR(mL/min/1.73 m(2)) 1 Kidney damage with normal or decreased GFR 90 2 Kidney damage with mild decrease in GFR 60-89 3 Moderate decrease in GFR 30-59 4 Severe decrease in GFR 15-29 5 Kidney failure <15 (or dialysis) 6 Because ethnic data is not always readily available, this report includes an eGFR for both -Americans and non- Americans. The National Kidney Disease Education Program (NKDEP) does not endorse the use of the MDRD equation for patients that are not between the ages of 18 and 70, are , have extremes of body size, muscle mass, or nutritional status, or are non- or non-. According to the National Kidney Foundation, irrespective of diagnosis, the stage of the disease is based on the level of kidney function: Stage Description GFR(mL/min/1.73 m(2)) 1 Kidney damage with normal or decreased GFR 90 2 Kidney damage with mild decrease in GFR 60-89 3 Moderate decrease in GFR 30-59 4 Severe decrease in GFR 15-29 5 Kidney failure <15 (or dialysis) 7 Normal Range 180 to 914 Indeterminate Range 145 to 180 Deficient Range <145 8 ADDITIONAL INFORMATION This test was developed and its performance characteristics determined by [facility] in a manner consistent with CLIA requirements. This test has not been cleared or approved by the U.S. Food and Drug Administration. Test Performed by: [facility] [address] [place] [address] 9 Because ethnic data is not always readily available, this report includes an eGFR for both -Americans and non- Americans. The National Kidney Disease Education Program (NKDEP) does not endorse the use of the MDRD equation for patients that are not between the ages of 18 and 70, are , have extremes of body size, muscle mass, or nutritional status, or are non- or non-. According to the National Kidney Foundation, irrespective of diagnosis, the stage of the disease is based on the level of kidney function: Stage Description GFR(mL/min/1.73 m(2)) 1 Kidney damage with normal or decreased GFR 90 2 Kidney damage with mild decrease in GFR 60-89 3 Moderate decrease in GFR 30-59 4 Severe decrease in GFR 15-29 5 Kidney failure <15 (or dialysis) 10 >100 to <200 pg/mL: likely compensated congestive heart failure (CHF) 200 to 400 pg/mL: likely moderate CHF >400 pg/mL: likely moderate to severe CHF 11 SEE RESULT BELOW Name: RENATA DIAZ : [address]: Lucila Bhakta MD Acct: [id number] Unit: [id number] AGE: 56 Location: [facility] Re05/07/17 SEX: F Status: REG REF SPEC: [id number] LEAH: 05/07/17 [facility] DR: Lucila Bhakta MD REQ: [id number] RECD: 05/07/17 STATUS: COMP _ SOURCE: URINE SPDESC: ORDERED: Urine Culture Procedure Result Reported Site Urine Culture Final 05/08/17- 1644 ML No Growth (<1,000 CFU/mL) * ML - MAIN LAB ([facility]) . END OF REPORT * ML=Testing performed at Main Lab DEPARTMENT OF PATHOLOGY, [address] [place] [address] Reginald Steele M.D. Director [facility] # [id number] 12 Because ethnic data is not always readily available, this report includes an eGFR for both -Americans and non- Americans. The National Kidney Disease Education Program (NKDEP) does not endorse the use of the MDRD equation for patients that are not between the ages of 18 and 70, are , have extremes of body size, muscle mass, or nutritional status, or are non- or non-. According to the National Kidney Foundation, irrespective of diagnosis, the stage of the disease is based on the level of kidney function: Stage Description GFR(mL/min/1.73 m(2)) 1 Kidney damage with normal or decreased GFR 90 2 Kidney damage with mild decrease in GFR 60-89 3 Moderate decrease in GFR 30-59 4 Severe decrease in GFR 15-29 5 Kidney failure <15 (or dialysis) 13 SEE RESULT BELOW Name: RENATA DIAZ : [address]: Lucila Bhakta MD Acct: [id number] Unit: [id number] AGE: 56 Location: [facility] Re03/06/17 SEX: F Status: REG REF SPEC: [id number] LEAH: 03/06/17-[address]: Lucila Bhakta MD REQ: [id number] RECD: 03/06/17 STATUS: COMP _ SOURCE: URINE SPDESC: ORDERED: Urine Culture Procedure Result Reported Site Urine Culture Final 03/07/17- 1213 ML No growth of clinically significant organisms * ML - MAIN LAB ([facility]) . END OF REPORT * ML=Testing performed at Main Lab DEPARTMENT OF PATHOLOGY, [address] [place] [address] Reginald Steele M.D. Director [facility] # [id number] [phone] EXT [phone] 15 Because ethnic data is not always readily available, this report includes an eGFR for both -Americans and non- Americans. The National Kidney Disease Education Program (NKDEP) does not endorse the use of the MDRD equation for patients that are not between the ages of 18 and 70, are , have extremes of body size, muscle mass, or nutritional status, or are non- or non-. According to the National Kidney Foundation, irrespective of diagnosis, the stage of the disease is based on the level of kidney function: Stage Description GFR(mL/min/1.73 m(2)) 1 Kidney damage with normal or decreased GFR 90 2 Kidney damage with mild decrease in GFR 60-89 3 Moderate decrease in GFR 30-59 4 Severe decrease in GFR 15-29 5 Kidney failure <15 (or dialysis) 16 >100 to <200 pg/mL: likely compensated congestive heart failure (CHF) 200 to 400 pg/mL: likely moderate CHF >400 pg/mL: likely moderate to severe CHF 17 SEE RESULT BELOW Name: RENATA DIAZ : [address]: Henrique Dash MD Acct: [id number] Unit: [id number] AGE: 56 Location: ED Re02/06/17 SEX: F Status: DEP ER SPEC: [id number] LEAH: 02/06/[address]: Henrique Dash MD REQ: [id number] RECD: 02/06/17 STATUS: COMP [facility] DR: Lucila Bhakta MD _ SOURCE: URINE SPDESC: ORDERED: Urine Culture Procedure Result Reported Site Urine Culture Final 02/07/17- 1608 ML Few Enterobacteriacae; possible contamination. * ML - MAIN LAB ([facility]) . END OF REPORT * ML=Testing performed at Main Lab DEPARTMENT OF PATHOLOGY, [address] [place] [address] Regniald Steele M.D. Director [facility] # [id number] 18 Because ethnic data is not always readily available, this report includes an eGFR for both -Americans and non- Americans. The National Kidney Disease Education Program (NKDEP) does not endorse the use of the MDRD equation for patients that are not between the ages of 18 and 70, are , have extremes of body size, muscle mass, or nutritional status, or are non- or non-. According to the National Kidney Foundation, irrespective of diagnosis, the stage of the disease is based on the level of kidney function: Stage Description GFR(mL/min/1.73 m(2)) 1 Kidney damage with normal or decreased GFR 90 2 Kidney damage with mild decrease in GFR 60-89 3 Moderate decrease in GFR 30-59 4 Severe decrease in GFR 15-29 5 Kidney failure <15 (or dialysis) 19 Because ethnic data is not always readily available, this report includes an eGFR for both -Americans and non- Americans. The National Kidney Disease Education Program (NKDEP) does not endorse the use of the MDRD equation for patients that are not between the ages of 18 and 70, are , have extremes of body size, muscle mass, or nutritional status, or are non- or non-. According to the National Kidney Foundation, irrespective of diagnosis, the stage of the disease is based on the level of kidney function: Stage Description GFR(mL/min/1.73 m(2)) 1 Kidney damage with normal or decreased GFR 90 2 Kidney damage with mild decrease in GFR 60-89 3 Moderate decrease in GFR 30-59 4 Severe decrease in GFR 15-29 5 Kidney failure <15 (or dialysis) 20 Because ethnic data is not always readily available, this report includes an eGFR for both -Americans and non- Americans. The National Kidney Disease Education Program (NKDEP) does not endorse the use of the MDRD equation for patients that are not between the ages of 18 and 70, are , have extremes of body size, muscle mass, or nutritional status, or are non- or non-. According to the National Kidney Foundation, irrespective of diagnosis, the stage of the disease is based on the level of kidney function: Stage Description GFR(mL/min/1.73 m(2)) 1 Kidney damage with normal or decreased GFR 90 2 Kidney damage with mild decrease in GFR 60-89 3 Moderate decrease in GFR 30-59 4 Severe decrease in GFR 15-29 5 Kidney failure <15 (or dialysis) 21 Acute inflammation: >10.00 22 SEE RESULT BELOW Name: RENATA DIAZ : [address]: Juan Carlos Pang MD Acct: [id number] Unit: [id number] AGE: 55 Location: ED Re06/10/16 SEX: F Status: DEP ER SPEC: [id number] LEAH: 06/10/16-1314 [facility] DR: Juan Carlos Pang MD REQ: [id number] RECD: 06/10/16 STATUS: DOUG BREAUX DR: Lucila Bhakta MD _ SOURCE: URINE SPDESC: ORDERED: Urine Culture Procedure Result Reported Site Urine Culture Final 06/11/16- 1316 ML No growth of clinically significant organisms * ML - MAIN LAB ([facility]) . END OF REPORT * ML=Testing performed at Main Lab DEPARTMENT OF PATHOLOGY, [address] [place] [address] Reginald Steele M.D. Director [facility] # [id number] 23 SEE RESULT BELOW Name: RENATA DIAZ : [address]: Lucila Bhakta MD Acct: [id number] Unit: [id number] AGE: 55 Location: [facility] Re01/03/16 SEX: F Status: REG REF SPEC: [id number] LEAH: 01/03/[address]: Lucila Bhakta MD REQ: [id number] RECD: 01/03/16 STATUS: COMP _ SOURCE: URINE SPDESC: ORDERED: Urine Culture Procedure Result Reported Site Urine Culture Final 01/04/16- 1715 ML Mixed nafisa; possible contamination. Suggest resubmission. * ML - MAIN LAB ([facility]) . END OF REPORT * ML=Testing performed at Main Lab DEPARTMENT OF PATHOLOGY, [address] [place] [address] Reginald Steele M.D. Director [facility] # [id number] 24 Metanephrines, Free, Plasma Metanephrine, Free <25 pg/mL < OR=57 Y09 6 Normetanephrine, Free 60 pg/mL < QU=696 Y09 6 Total, Free (MN + NMN) 60 pg/mL < QZ=960 Y09 6 Elevations > 4-fold upper reference range: strongly suggestive of a pheochromocytoma(1). Elevations >1 - 4-fold upper reference range: significant but not diagnostic, may be due to medications or stress. Suggest running 24 hr urine fractionated metanephrines and serum Chromogranin A for confirmation. Reference: (1) Moises Carlson, Plasma Chromogranin A or Urine Fractionated Metanephrines Follow-Up Testing Improves the Diagnostic Accuracy of Plasma Fractionated Metanephrines for Pheochromocytoma. The Journal of Clinical Endocrinology and Metabolism 93 (1),91-95, 2008. [email or web address] RECEIVED: 07/15/2015 09:33 REPORTED: 07/20/2015 14:24 --- 07/24/15 1059 --- Normetanephrine previously reported as: C Metanephrines, Free, Plasma Metanephrine, Free <25 pg/mL < OR=57 Y09 6 Normetanephrine, Free 60 pg/mL < EK=861 Y09 6 Total, Free (MN + NMN) 60 pg/mL < JE=086 Y09 6 Elevations > 4-fold upper reference range: strongly suggestive of a pheochromocytoma(1). Elevations >1 - 4-fold upper reference range: significant but not diagnostic, may be due to medications or stress. Suggest running 24 hr urine fractionated metanephrines and serum Chromogranin A for confirmation. Reference: (1) Moises Bedolla et al, Plasma Chromogranin A or Urine Fractionated Metanephrines Follow-Up Testing Improves the Diagnostic Accuracy of Plasma Fractionated Metanephrines for Pheochromocytoma. The Journal of Clinical Endocrinology and Metabolism 93 (1),91-95, 2008. [email or web address] RECEIVED: 07/15/2015 09:33 REPORTED: 07/20/2015 14:24 25 AM 8.7-22.4 PM <10 26 Because ethnic data is not always readily available, this report includes an eGFR for both -Americans and non- Americans. The National Kidney Disease Education Program (NKDEP) does not endorse the use of the MDRD equation for patients that are not between the ages of 18 and 70, are , have extremes of body size, muscle mass, or nutritional status, or are non- or non-. According to the National Kidney Foundation, irrespective of diagnosis, the stage of the disease is based on the level of kidney function: Stage Description GFR(mL/min/1.73 m(2)) 1 Kidney damage with normal or decreased GFR 90 2 Kidney damage with mild decrease in GFR 60-89 3 Moderate decrease in GFR 30-59 4 Severe decrease in GFR 15-29 5 Kidney failure <15 (or dialysis) 27 ADDITIONAL INFORMATION Reference range for patients 11 years and older is based on upright A.M. collection from subjects without sodium restrictions. Test Performed by: [place] [address] Cotton Header: Lucas Nunez II, M.D., Ph.D. 28 REFERENCE VALUE (Peripheral vein specimen) Na-deplete, upright: Mean: 5.9 Range: 2.9-10.8 Na-replete, upright: Mean: 1.0 Range: < or=0.6-3.0 ADDITIONAL INFORMATION Testing performed by Liquid Chromatography-Tandem Mass Spectrometry (LC-MS/MS). Test Performed by: [place] [address] Cotton Header: Lucas Nunez II, M.D., Ph.D. 29 SEE RESULT BELOW Name: RENATA DIAZ : [address]: Lucila Bhakta MD Acct: [id number] Unit: [id number] AGE: 54 Location: [facility] Re05/30/15 SEX: F Status: REG REF SPEC: [id number] LEAH: 05/30/15-111 [facility] DR: Lucila Bhakta MD REQ: [id number] RECD: 05/30/15 STATUS: SOUT _ ORDERED: IMAGE ANALYSIS, HPV/Thin Prep, HPV 16/18 GENE FINAL DIAGNOSIS Negative for Intraepithelial lesion or Malignancy A. Ectocervical/Endocervical Specimen Adequacy: Satisfactory of evaluation Transformation zone component cannot be definitely identified due to presence of atrophy or other hormonal changes Predominance of red blood cells Patient Information: HPV: High risk HPV RNA testing regardless of pap results. HPV 16/18 Genotype for HPV pos Actual Specimen Date: 05/30/15 Post Menopausal?: Y Previous Abnormal Pap Smears?:Y If Yes, enter Diagnosis: 2013 Atypical Squamous cells of uncertain significance. lost insurance no follow up. Date Time Test Result Flag (u) Normal Range 05/30/15 1115 HPV RNA RFLX GE Negative Negative The high-risk HPV types detected by the assay include: 16, 18, 31, 33, 35, 39, 45, 51, 52, 56, 58, 59, 66, and 68. Signed (signature on file) ASHISH Jerry(ASCP) 05/31 1245 This Pap test was evaluated with the assistance of the ThinPrep Test Imaging System. Due to cytologic findings at the merry go round attendant microscope, comprehensive manual rescreening by a Watch Engineer may be required. The Pap Smear is a screening test designed to aid in the detection of premalignant and malignant conditions of the uterine cervix. It is not a diagnostic procedure and should not be used as the sole means of detecting cervical cancer. Both false- positive and false- negative reports do occur. Depending on your risk status, a Pap smear should be obtained and evaluated every 1-3 years. END OF REPORT * ML=Testing performed at Main Lab DEPARTMENT OF PATHOLOGY, [address] [place] [address] Reginald Steele M.D. Director UZIEL # [id number] RUN DATE: 05/31/15 [facility] LAB LIVE PAGE 1 Patient: DIAZRENATA [id number] (Continued) 30 The high-risk HPV types detected by the assay include: 16, 18, 31, 33, 35, 39, 45, 51, 52, 56, 58, 59, 66, and 68. 31 [facility] Severe Sepsis and Septic Shock Management Bundle Measure requires all lactic acids initially measuring >2.0mmol/L be repeated. 32 Reference Range and Interpretation: TnI (ng/mL) Interpretation Less Than 0.03 ng/mL Not supportive of diagnosis of OH 0.03 - 0.50 ng/mL Indeterminate: suggest serial studies if clinically indicated. Greater than 0.5 ng/mL Consistent with diagnosis of OH 33 Acute inflammation: >10.00 34 Because ethnic data is not always readily available, this report includes an eGFR for both -Americans and non- Americans. The National Kidney Disease Education Program (NKDEP) does not endorse the use of the MDRD equation for patients that are not between the ages of 18 and 70, are , have extremes of body size, muscle mass, or nutritional status, or are non- or non-. According to the National Kidney Foundation, irrespective of diagnosis, the stage of the disease is based on the level of kidney function: Stage Description GFR(mL/min/1.73 m(2)) 1 Kidney damage with normal or decreased GFR 90 2 Kidney damage with mild decrease in GFR 60-89 3 Moderate decrease in GFR 30-59 4 Severe decrease in GFR 15-29 5 Kidney failure <15 (or dialysis) 35 FASTING 12 HOUR 36 Because ethnic data is not always readily available, this report includes an eGFR for both -Americans and non- Americans. The National Kidney Disease Education Program (NKDEP) does not endorse the use of the MDRD equation for patients that are not between the ages of 18 and 70, are , have extremes of body size, muscle mass, or nutritional status, or are non- or non-. According to the National Kidney Foundation, irrespective of diagnosis, the stage of the disease is based on the level of kidney function: Stage Description GFR(mL/min/1.73 m(2)) 1 Kidney damage with normal or decreased GFR 90 2 Kidney damage with mild decrease in GFR 60-89 3 Moderate decrease in GFR 30-59 4 Severe decrease in GFR 15-29 5 Kidney failure <15 (or dialysis) 37 Because ethnic data is not always readily available, this report includes an eGFR for both -Americans and non- Americans. The National Kidney Disease Education Program (NKDEP) does not endorse the use of the MDRD equation for patients that are not between the ages of 18 and 70, are , have extremes of body size, muscle mass, or nutritional status, or are non- or non-. According to the National Kidney Foundation, irrespective of diagnosis, the stage of the disease is based on the level of kidney function: Stage Description GFR(mL/min/1.73 m(2)) 1 Kidney damage with normal or decreased GFR 90 2 Kidney damage with mild decrease in GFR 60-89 3 Moderate decrease in GFR 30-59 4 Severe decrease in GFR 15-29 5 Kidney failure <15 (or dialysis) 38 Acute inflammation: >10.00 In accordance with FDA guideline, CRP is now reported in mg/L, previous reporting was in mg/dL. 39 RUN DATE: 07/14/13 [facility] LAB LIVE PAGE 1 RUN TIME: [address] [place] [address] Specimen Inquiry Name: RENATA DIAZ : [address]: Skyler Huggins MD Acct: [id number] Unit: [id number] AGE: 52 Location: ENDO Re07/13/13 SEX: F Status: REG REF SPEC: [id number] LEAH: 07/13/13- SUBM DR: Skyler Huggins MD REQ: [id number] RECD: 07/13/13 STATUS: WENDY BREAUX DR: Lucila Bhakta MD _ ORDERED: LEVEL IV/2 FINAL DIAGNOSIS 1. Colon, ascending, biopsy: A. Tubular adenoma. B. No high grade dysplasia or malignancy. 2. Colon, random biopsies: A. Colonic mucosa with no significant pathologic abnormalities. B. No evidence of microscopic colitis. CLINICAL HISTORY Routine screening colonoscopy with chronic diarrhea POST-OPERATIVE DIAGNOSIS Screening colonoscopy to cecum - 2x3 mm. sessile polyp in ascending colon - 2 jumbo biopsy samples, random colon biopsies. No irritable bowel disease, diverticules, or mass; rectum negative GROSS DESCRIPTION 1. The specimen is received in formalin labeled Renata Layne Agudeloer, Biopsy Ascending Colon Polyp, and consists of two bethea, irregular to polypoid soft tissue fragments averaging 0.3 x 0.3 x 0.2 cm. Submitted entirely, one cassette. 2. The specimen is received in formalin labeled Renata C. Diaz, Biopsy Random Colon, and consists of a 1.0 x 0.8 x 0.2 cm. aggregate of multiple irregular, bethea-pink soft tissue fragments. [employer] sections, one cassette. 1. CONTINUED ON NEXT PAGE * ML=Testing performed at Main Lab DEPARTMENT OF PATHOLOGY, [facility] [employer] [place], [place] [address] Reginald Steele M.D. Director [facility] Permit #[id number] RUN DATE: 07/14/13 [facility] LAB LIVE PAGE 2 RUN TIME: 1535 [facility] [employer] [place] [address] Specimen Inquiry Patient: RENATA DIAZ [id number] (Continued) GROSS DESCRIPTION (Continued) Signed (signature on file) Briseida Mix MD 1534 END OF REPORT * ML=Testing performed at Main Lab DEPARTMENT OF PATHOLOGY, [address] [place] [address] Reginald Steele M.D. Director [facility] Permit #[id number] 40 Because ethnic data is not always readily available, this report includes an eGFR for both -Americans and non- Americans. The National Kidney Disease Education Program (NKDEP) does not endorse the use of the MDRD equation for patients that are not between the ages of 18 and 70, are , have extremes of body size, muscle mass, or nutritional status, or are non- or non-. According to the National Kidney Foundation, irrespective of diagnosis, the stage of the disease is based on the level of kidney function: Stage Description GFR(mL/min/1.73 m(2)) 1 Kidney damage with normal or decreased GFR 90 2 Kidney damage with mild decrease in GFR 60-89 3 Moderate decrease in GFR 30-59 4 Severe decrease in GFR 15-29 5 Kidney failure <15 (or dialysis) 41 RUN DATE: 06/10/13 [facility] LAB LIVE PAGE 1 RUN TIME: [address] [place] [address] Specimen Inquiry Name: RENATA DIAZ : [address]: Luicla Bhakta MD Acct: [id number] Unit: [id number] AGE: 52 Location: [facility] Re06/08/13 SEX: F Status: REG REF SPEC: [id number] LEAH: 06/08/13-1349 [facility] DR: uLcila Bhakta MD REQ: [id number] RECD: 06/08/134163 STATUS: SOUT _ ORDERED: IMAGE ANALYSIS, PAP SM PATH REV FINAL DIAGNOSIS EPITHELIAL CELL ABNORMALITIES Atypical squamous cells of undetermined significance Endometrial cells in a woman over or equal to 40 years of age COMMENTS: Endometrial cells after age 40, particularly out of phase or after menopause may be associated with benign endometrium, hormonal alterations and less commonly, endometrial/uterine abnormalities. Clinical correlation is recommended. A. Ectocervical/Endocervical Specimen Adequacy: Satisfactory of evaluation Transformation zone component identified Patient Information: HPV: Thin Layer Pap Test only (NO HPV TESTING) Actual Specimen Date: 06/08/13 IUD: N Post Menopausal?: Y Previous Abnormal Pap Smears?:N Signed (signature on file) Briseida Mix MD 1855 This Pap test was evaluated with the assistance of the EnglishCentralPrep Test Imaging System. Due to cytologic findings at the merry go round attendant microscope, comprehensive manual rescreening by a Watch Engineer may be required. The Pap Smear is a screening test designed to aid in the detection of premalignant and malignant conditions of the uterine cervix. It is not a diagnostic procedure and should not be used as the sole means of detecting cervical cancer. Both false- positive and false- negative reports do occur. Depending on your risk status, a Pap smear shoudl be obtained and evaluated every 1-3 years. END OF REPORT * ML=Testing performed at Main Lab DEPARTMENT OF PATHOLOGY, [address] [place] [address] Reginald Steele M.D. Director [facility] Permit #[id number] 42 Because ethnic data is not always readily available, this report includes an eGFR for both -Americans and non- Americans. The National Kidney Disease Education Program (NKDEP) does not endorse the use of the MDRD equation for patients that are not between the ages of 18 and 70, are , have extremes of body size, muscle mass, or nutritional status, or are non- or non-. According to the National Kidney Foundation, irrespective of diagnosis, the stage of the disease is based on the level of kidney function: Stage Description GFR(mL/min/1.73 m(2)) 1 Kidney damage with normal or decreased GFR 90 2 Kidney damage with mild decrease in GFR 60-89 3 Moderate decrease in GFR 30-59 4 Severe decrease in GFR 15-29 5 Kidney failure <15 (or dialysis) 43 HDL Interpretation: Undesirable: High Risk: Less than 40 mg/dL Desirable: Low Risk: Greater than 60 mg/dL 44 LDL Interpretation: Low Risk Optimal Level: LDL Less than 100 mg/dL Near or Above Optimal: LDL 100-129 mg/dL Borderline High Risk: LDL 130-159 mg/dL High Risk: LDL 160-189 mg/dL Very High Risk: LDL Greater than 189 mg/dL 45 AM Cortisol 8.7-22.4 PM Cortisol Less than 10 46 SPECIMEN CONTAINS NORMAL URETHRAL OR PERINEAL NAFISA AND DOES NOT SUGGEST URINARY TRACT INFECTION Procedures Date CPT Code Description Status 09/02/2017 04258 EKG Tracing & Interpretation Completed 07/30/2016 66241 Inject/Drain Joint/Bursa Major Completed 07/30/2016 65968 Removal Skin Tags Up To 15 Completed 07/30/2016 30042 I&D Abscess Simple Completed 07/23/2016 Mammogram Completed 01/09/2016 28893 Xray Knee 3 Views Completed 01/09/2016 25475 Inject/Drain Joint/Bursa Major Completed 07/14/2015 Mammogram Completed 09/21/2013 60668 Polysomnography Sleep Staging 4+ Parameters W/Cpap Completed 09/01/2013 20939 Polysomnography Sleep Staging 4+ Parameters Completed 07/26/2013 49072 Inject/Drain Joint/Bursa Major Completed 07/16/2013 63489 EKG, Interpretation Only Completed 07/13/2013 Colonoscopy Completed 06/18/2013 90166 Rad Exam; Knee, Ap&L Completed 06/18/201389208 Inject/Drain Joint/Bursa Major Completed 06/18/201359764 Inject/Drain Joint/Bursa Major Completed 06/18/2013 58428 Rad Exam; Knee, Ap&L Completed 06/18/2013 49567 Xray Knee 3 Views Completed 06/18/2013 28802 Xray Knee 3 Views Completed 06/15/2013 Bone Mineral Density Test Completed 01/19/2013 Mammogram Completed 12/30/2012 42367 Rad Exam; Wrist, Comp, Min 3 Views Completed 05/08/2010 Mammogram Completed 02/27/2010 41791 Treadmill Interp/Report Only Completed 02/27/2010 28868 Stress Test Supervsn W/Out I/R Completed Encounters Type Date Location Provider CPT E/M Dx Office Visit 07/07/2017 [facility] Lucila Bhakta, 18952 H10.402 1:40p - Rebeca Lopez R22.0 I10 R73.9 Office Visit 05/07/2017 10:10a [facility] - Lucila Bhakta M.D. 38542 I10 Rebeca R60.9 H10.89 E66.01 Office Visit 04/02/2017 10:10a [facility] Rayo Bhakta M.D. 56390 R21 Rebeca E66.01 I10 Office Visit 03/06/2017 10:00a [facility] - Nurse Visit C 76579 I10 Rebeca Office Visit 02/27/2017 9:40a [facility] - Lucila Bhakta M.D. 62142 I10 Rebeca M51.36 Office Visit 02/12/2017 9:40a [facility] Lucila Bhakta M.D. 84363 R60.9 - Rebeca I10 M54.5 M51.36 Office Visit 01/29/2017 1:00p [facility] Henrique Robbins, 71016 R35.0 - Rebeca Lopez M54.5 Z23 Office Visit 07/30/2016 9:30a [facility], 41154 M17.11 Addie STRINGER M25.561 M16.11 Office Visit 07/29/2016 11:45a [facility] Shara Richards PA-C 33076 M25.551 [facility] M51.36 Office Visit 07/17/2016 8:30a [facility] Nurse Visit C 60639 I10 - Rebeca Office Visit 07/02/2016 11:10a [facility] Lucila Bhakta 01842 Z00.01 - Rebeca Lopez I10 M48.06 L91.8 E66.01 Z23 Z12.31 Office Visit 06/10/2016 10:30a [facility] Lucila Bhakta 69250 R10.31 - Rebeca Lopez B07.9 Office Visit 01/09/2016 2:30p [facility] [place] [address] M17.12 [facility] M17.11 Office Visit 01/03/2016 2:40p [facility] Lucila Bhakta, 64882 M25.562 - Rebeca Lopez R30.0 Office Visit 12/27/2015 9:40a [facility] Margo Rae M.D. 86577 M25.562 - Rebeca Office Visit 07/05/2015 11:50a [facility] Lucila Bhakta 04370 I10 - Noemy Lopez L85.3 Office Visit 06/21/2015 10:10a [facility] Lucila Bhakta 99024 Z00.00 - Noemy Lopez I10 Z12.31 Z11.59 Z23 Office Visit 05/30/2015 10:30a [facility] - Lucila Bhakta M.D. 02148 I10 Noemy E66.01 R19.7 R10.31 R87.610 Office Visit 05/24/2015 8:30a [facility] - Lucila Bhakta M.D. 55858 I10 Noemy R19.7 Office Visit 05/12/2015 2:40p [facility] - Margo Rae M.D. 32730 I10 Noemy E66.01 R10.31 M54.5 Office Visit 02/22/2014 8:50a [facility] Lucila Bhakta M.D. 58841 401.1 - Noemy 278.01 305.1 V04.81 288.60 Office Visit 11/03/2013 4:20p [facility] Alex Mota, 03813 719.47 - Noemy Lopez,FACP 728.71 Office Visit 08/16/2013 2:50p [facility] Lucila Bhakta M.D. 54364 305.1 - [place] 473.9 784.0 Office Visit 07/18/2013 4:40p [facility], Aly Ahuja, 61941 575.0 Hospitalists N.P. 401.9 278.01 305.1 Office Visit 07/17/2013 4:39p [facility], Aly Seymour, 74393 575.0 Hospitalists N.P. 401.9 278.01 305.1 Office Visit 07/16/2013 3:00p [facility], BRIDGETT Parker 93627 575.0 Hospitalists Office Visit 07/16/2013 4:38p [facility], Jaja Duval N.P. 15257 575.0 Hospitalists 401.9 278.01 305.1 Office Visit 07/12/2013 1:50p [facility] Lucila Bhakta, 10574 305.1 - Noemy Lopez Office Visit 06/29/2013 10:15a [facility] Montoya M.D. 87559 715.36 C.M.A. Office Visit 06/18/2013 10:30a [facility] Hailey Lan M.D. 63417 836.1 C.M.AGarth 717.6 715.36 844.2 Office Visit 06/08/2013 1:10p [facility] Lucila Bhakta, 16825 V72.31 - Noemy Lopez V76.2 305.1 717.9 V49.81 788.39 V06.1 V76.41 401.9 Office Visit 05/19/2013 3:30p [facility] Lucila Bhakta 57527 719.46 - Noemy Lopez 401.9 278.00 780.79 Office Visit 02/10/2013 10:00a [facility] [place], [address] 401.9 - Noemy Lopez 784.0 473.0 v04.81 Office Visit 01/11/2013 8:45a [facility] Ruby Lee 56524 727.41 [facility]DGarth Office Visit 12/30/2012 1:30p [facility] Ruby Lee 13908 727.43 [facility] 12/17/2012 10:30a [facility] Lucila Bhakta M.D. 50745 727.43 - Noemy Office Visit 11/04/2012 3:40p [facility] [place], [address] 401.9 - Noemy Lopez 784.0 473.0 Office Visit 10/14/2012 8:40a [facility] [place], [address] 401.9 - Noemy Lopez 784.0 Office Visit 10/12/2012 10:10a [facility] Lucila Bhakta M.D. 82119 401.9 - [place] 784.0 305.1 278.00 Office Visit 05/02/2010 3:20p DO Not Use Director Of Labor [facility] Delivery At [place] [facility] M.D. 22737 486 [facility] 786.50 401.1 278.00 V72.62 V76.10 V76.2 Plan of Care Future Appointment(s):09/05/2017 8:30 am - Duane Ponce M.D. at [facility]09/10/2017 3:00 pm - [facility] ECHO Schedule at [facility]11/2017 - Duane Ponce M.D.I10 Essential (primary) uwjgpjhuuzhaB09.9 Edema, lqatxvudtusC50.1 Cardiac murmur, unspecifiedNew Orders: XrgxguhoczoqxvB68.9 Type 2 diabetes mellitus without dupreabofvkkaC36.01 Morbid (severe) obesity due to excess yexcmjyyW37.9 Chest pain, unspecifiedNew Orders: Stress Test, Exercise EchocardiogramFollow up:please obtain radiology report of stress test form 2009 at [facility] [place]
[2017-09-29 15:46] VITALS: BP 160/95
--- NOTE | 2017-09-29 16:00 | UC ---
Lower Extremity/Ankle HPI - HPI Summary HPI Summary: hit right 4th toe on a metal bar---pain swelling and bruising--- - History of Current Complaint Hx Obtained From: Patient ?: No Onset/Duration: Sudden Onset, Lasting Days - 5, Still Present Pain Intensity: 10 Pain Scale Used: 0-10 Numeric Aggravating Factor(s): Standing, Ambulation Able to Bear Weight: Yes <Nyasia Varela - Last Filed: 09/29/17 16:32> <Johnny Cabrera - Last Filed: 09/29/17 18:07> - History of Current Complaint Chief Complaint: UCLowerExtremity Stated Complaint: TOE INJURY Time Seen by Provider: 09/29/17 15:42 - Allergies/Home Medications Allergies/Adverse Reactions: Allergies Allergy/AdvReac Type Severity Reaction Status Date / Time pineapple Allergy Rash Verified 09/29/17 15:38 Home Medications: Home Medications Ibuprofen TAB* [Motrin TAB* 800 MG] 800 mg PO ONCE 09/29/17 [History Confirmed 09/29/17] PMH/Surg Hx/FS Hx/Imm Hx Previously Healthy: No Cardiovascular History: Hypertension GI/ History: Gastroesophageal Reflux - Surgical History Surgical History: Yes Surgery Procedure, Year, and Place: C-sections x 2. CHOLECYSTECTOMY. Rotator Cuff repair left shoulder 1997 - Family History Known Family History: Positive: None - Social History Occupation: Employed Full-time Lives: With Family Alcohol Use: None Substance Use Type: None Smoking Status (MU): Former Smoker Type: Cigarettes Amount Used/How Often: 1 pack/day for 34 years Length of Time of Smoking/Using Tobacco: 20+ years Have You Smoked in the Last Year: No When Did the Patient Quit Smoking/Using Tobacco: 2014 Household Exposure Type: Cigarettes - Immunization History Most Recent Influenza Vaccination: 2013 Most Recent Tetanus Shot: within 10 years Most Recent Pneumonia Vaccination: never <Nyasia Varela - Last Filed: 09/29/17 16:32> Review of Systems Constitutional: Negative Skin: Negative, Bruising - right 2,3,4 toe bruising Eyes: Negative ENT: Negative Respiratory: Negative Cardiovascular: Negative Gastrointestinal: Negative Genitourinary: Negative Motor: Negative Neurovascular: Negative Musculoskeletal: Arthralgia - right 4th toe, Edema - right foot Neurological: Negative Psychological: Negative Is Patient Immunocompromised?: No All Other Systems Reviewed And Are Negative: Yes <Nyasia Varela - Last Filed: 09/29/17 16:32> Physical Exam Triage Information Reviewed: Yes Appearance: Well-Appearing, Pain Distress, Obese Vital Signs: Initial Vital Signs Temp 98.4 F 09/29/17 15:40 Pulse 86 09/29/17 15:40 Resp 20 09/29/17 15:40 BP 160/95 09/29/17 15:40 Pulse Ox 96 09/29/17 15:40 Vital Signs Reviewed: Yes Eye Exam: Normal Eyes: Positive: Conjunctiva Clear ENT Exam: Normal ENT: Positive: Normal ENT inspection, Hearing grossly normal. Negative: Trismus , Muffled voice, Hoarse voice Dental Exam: Normal Neck exam: Normal Neck: Positive: Supple, Nontender Respiratory Exam: Normal Respiratory: Positive: Chest non-tender, No respiratory distress, No accessory muscle use Cardiovascular Exam: Normal Cardiovascular: Positive: RRR, Pulses Normal, Brisk Capillary Refill Musculoskeletal Exam: Normal Musculoskeletal: Positive: Strength Intact, ROM Intact, Edema @ - right foot Neurological Exam: Normal Neurological: Positive: Alert, Muscle Tone Normal Psychological Exam: Normal Skin Exam: Normal <Nyasia Varela - Last Filed: 09/29/17 16:32> Vital Signs: Initial Vital Signs Temp 98.4 F 09/29/17 15:40 Pulse 86 09/29/17 15:40 Resp 20 09/29/17 15:40 BP 160/95 09/29/17 15:40 Pulse Ox 96 09/29/17 15:40 <Johnny Cabrera - Last Filed: 09/29/17 18:07> Diagnostics - Radiology No standard instances Xray Interpretation: Positive (See Comments) - Patient Name: SAHARA DIAZ Medical Record#: [id number] Ordering Physician: Nyasia Varela [employer] DEVEL[employer] Acct.#: [id number] : 1960 Age: 56 Sex: F Location: [facility] Exam Date: 09/29/17 155 ADM Status: REG ER Order Information : TOE RIGHT 4TH Accession Number: [id number] CPT: 78358 Indication: Left fourth digit injury. 3 views of the right fourth digit demonstrates spiral fracture proximal phalanx of the fourth digit. Minimal displacement is noted. IMPRESSION : Spiral fracture proximal phalanx of the fourth digit. <Electronically signed by Carol Rose MD in OV> 09/29/171622 Dictated By: Carol Rose MD Dictated Date/Time: 09/29/171622 Transcribed Date/Time: 09/29/171622 Copy to: CC:Nyasia Varela [employer]INFRAME DEVELOPER; Lucila Bhakta MD; Johnny Cabrera MD Imaging - [facility] Imaging - [place] [facility] Imaging - [facility] [address] [place] [address] ph ([phone]) ph ([phone]) ph ([phone]) Radiology Interpretation Completed By: ED Physician, Radiologist <Nyasia Varela - Last Filed: 09/29/17 16:32> Lower Extremity Course/Dx - Course Course Of Treatment: Angelo wrap, post op shoe, rice, pain med follow with orthopedic MD, follow blood pressure with pcp - Differential Dx/Diagnosis Provider Diagnoses: 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, hypertension in poor control <Nyasia Varela - Last Filed: 09/29/17 16:32> Discharge - Sign-Out/Discharge Documenting (check all that apply): Discharge/Admit/Transfer - Billing Disposition and Condition Condition: STABLE Disposition: Home <Nyasia Varela - Last Filed: 09/29/17 16:32> - Billing Disposition and Condition Condition: STABLE Disposition: Home <Johnny Cabrera - Last Filed: 09/29/17 18:07> - Discharge Plan Condition: Stable Disposition: HOME Prescriptions: Hydrocodone/Acetaminophen [Hydrocodone-Acetamin 5-325 mg] 1 each PO Q6HR PRN # 12 tablet MDD 4 PRN Reason: pain Patient Education Materials: Toe Fracture (ED), R.I.C.E. Treatment (ED) Forms: *Work Release Referrals: Lucila Bhakta MD [Primary Care Provider] - Freddie Schroeder MD [Medical Doctor] - 3 Days Additional Instructions: Per institutional requirements, I have reviewed the chart, however, I was not consulted specifically or made aware of this patient by the above midlevel provider. I did not personally evaluate, interact with , or disposition this patient.
--- NOTE | 2017-09-29 16:27 | RAD ---
Indication: Left fourth digit injury. 3 views of the right fourth digit demonstrates spiral fracture proximal phalanx of the fourth digit. Minimal displacement is noted. IMPRESSION: Spiral fracture proximal phalanx of the fourth digit.
== END 2017-09-29 16:32 | disposition home or self-care (01) ==
LOC: UCEAST 15:28
DX: S92.511A Displaced fracture of proximal phalanx of right lesser toe(s), initial encounter for closed fracture (principal); W22.8XXA Striking against or struck by other objects, initial encounter; Y93.9 Activity, unspecified; Y92.9 Unspecified place or not applicable; I10 Essential (primary) hypertension; Z87.891 Personal history of nicotine dependence
CPT/HCPCS: 99213; G0463

== ENCOUNTER 2017-12-10 08:53 | Inpatient (IN) | payer BC ==
[~2017-12-10 08:53] MED LIST changes: -Famotidine TAB* 20 MG PO ONE
[2017-12-10] MEDS ORDERED: ceFAZolin 2 GM PREMIX (*) 2 GM/50 ML BAG IVPB ONE (08:56)
[2017-12-10] MEDS ORDERED: ceFAZolin 1 GM in Dextrose (*) 1 GM/50 ML BAG IVPB ONE (08:56)
[2017-12-10] MEDS ORDERED: Heparin VIAL(*) 5000 UNITS/ML VIAL (FIVE THOUSAND) ONE (08:56)
--- OUTSIDE RECORDS SUMMARY | 2017-12-10 08:57 | XMS REPORT ---
:1960 External Reference #:[id number] Author Organization [employer] Address [address] [place] [address] Phone [phone] Care Team Providers Name Role Phone Lucila Bhakta MD Primary Care Physician Unavailable Payers Type Date Identification Numbers Payment Provider Subscriber Commercial Policy Number: [id number] BS Facets Renata Diaz Group Number: [id number] [address] [address] Group Name: Goomeo [facility] LANDEN Jones [id number] PayID: [id number] Commercial Expires: 2015 Policy Number: Molinatotalpantera Diaz [id number] Essential Group Name: [id number] [address] [address] PayID: [id number] [place] [address] Medigap Part B Effective: 2009 Policy Number: BS Of ABHIJIT Diaz [id number] Expires: 2009 Group Number: [id number] [address] [address] PayID: [id number] LANDEN Jones [id number] Commercial Effective: 2010 Policy Number: [id number] Rm Diaz Expires: 2012 PayID: [id number] [address] [place] [address] Problems Date Description Provider Status Onset: 10/14/2012 Essential hypertension Silvio Dc M.D. Active Onset: 09/20/2013 Morbid obesity Lucila Bhakta M.D. Active Onset: 11/03/2013 Ex-heavy cigarette smoker Alex Emily Mota Active (20-39/day) Jessica,FACP Onset: 11/03/2013 Obstructive sleep apnea of Alex Mota, Active adult Jessica,FACP Onset: 11/04/2012 Chronic maxillary sinusitis Silvio Dc M.D. Inactive Inactive: 09/20/2013 Onset: 10/14/2012 Headache Silvio Dc M.D. 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 Daily Blood Pressure 02/27 Active Misc 1unit thigh cuff I10 Lucila Unit /2016 s Jessica Bhakta Aspercreme 02/27 Active OTC every Lucila Patches /2016 day osorio Bhakta M.D. Atenolol 02/27 Active Tablets 100mg 90tab Take 1 I10 Lucila /2016 s Tablet By Livia, Mouth Once M.D. Daily Amlodipine 05/30 Active Tablets 10mg 90tab Take One I10 Lucila Besylate s Tablet By Bhakta, Mouth Once M.D. Daily Losartan 05/24 Active Tablets 100mg 90tab Take One I10 Lucila Potassium s Tablet By Bhakta, Mouth Once M.D. Daily Tylenol Extra Active Tablets 500mg 2 by mouth Unknown Strength /0000 as needed Vitamin D Active Capsules [id number] once a week Diamond (Ergocalciferol) / for 8 weeks Lupe Cam MD Vitamin B12 Active Tablets 1 by mouth Unknown /0000 ER every day Chlorthalidone 08/07 Hx Tablets 50mg 90tab 1 by mouth Chantal /2018 s every day Rayo De La Fuente M.DGarth 08/07 Ciloxan 07/07 Hx Solution 0.3% 5ml 1-2 gtt H10.402 Lucila every 2 hrs Rayo Bhakta in the Left M.D. 08/03 eye awake X 2 days then Q 4 hr X 5 days Chlorthalidone 05/08 Hx Tablets 25mg 90tab 1 by mouth s every day Rayo Bhakta M.D. 08/07 Gentamicin 05/07 Hx Solution 0.3% 5ml 1-2 drop in H10.89 Lucila the Left Rayo Bhakta eye every 4 M.D. 12 hours x days Clonidine HCL 04/03 Hx Tablets 0.1mg 60tab not Lucila s taking----1 Livia, - tab bid M.D. 05/07 Chlorthalidone 02/12 Hx Tablets 50mg 90tab once a day I10 Lucila s Rayo Bhakta M.D. 04/03 Diclofenac 02/12 Hx Tablets 50mg 60tab 1 tab every M54.[address] shaheed 12 hrs as Livia - needed , to M.D. 07/03 use tylenol for brekthrough pain Meloxicam 01/29 Hx Tablets 7.5mg 30tab take one tab M54.5 Henrique E. /2016 s twice daily Itzel, - as needed M.D. 02/12 for pain, avoid other nsaids Cyclobenzaprine 01/29 Hx Tablets 10mg 15tab one by mouth M54.5 Henrique E. HCL s three times Itzel, - a day as M.D. 02/27 needed spasm Percocet 07/17 Hx Tablets 5-325mg 10tab 1 tab by Lucila s mouth every Bhakta, - 8 hours as M.D. 01/28 needed pain Chlorthalidone 07/02 Hx Tablets 25mg 90tab take 1 I10 Lucila s tablet by Bhakta, - mouth every M.D. Ibuprofen 07/02 Hx Tablets 600mg 42tab 1 tab by Lucila s mouth three Bhakta, - times a day M.D. 07/29 as needed Tramadol HCL 01/02 Hx Tablets 50mg 60tab 1-2 tablets M25.562 Lucila s every 8 Bhakta, - hours as M.D. 07/02 needed Chlorthalidone 06/21 Hx Tablets 25mg 90tab 1 by mouth I10 Lucila s every day Rayo Bhakta.Emily 12/26 No Active 05/12 Hx Unknown Medications /2015 - 05/12 Amlodipine 05/12 Hx Tablets 10mg 30tab 1 by mouth I10 Margo Besylate /2015 s every day Rayo Rae M.D. 05/24 Atenolol 05/12 Hx Tablets 50mg 90tab 2 by mouth I10 Lucila s every day Rayo Bhakta M.DGarth 02/27 Amlodipine 02/22 Hx Tablets 10mg 90tab 1 by mouth 401.1 Lucila Besylate s every day Rayo Bhakta.DGarth 05/12 Ibuprofen 11/03 Hx Tablets 200mg 100ta as needed Alex /2013 Rayo Neely M.D.,FACP 05/12 Bupropion HCL XL 07/16 Hx Tablets 150mg 60tab 1 by mouth 305.1 Margo /2014 ER 24HR s daily , Butch, - advised to M.D. 05/12 take 1 tab /2015 every other day x 3 days then 1 tab every 2 days X 4 days then stop Bupropion HCL XL 07/12 Hx Tablets 150mg 60tab 1 by mouth 305.1 ER 24HR s daily x 7 Butch, - days then 1 M.D. 07/16 tab twice a day Chantix Starting 06/08 Hx Tablets 0.5mg X 1Pack as directed 305.1 Lucila 11 & 1 mg on the Livia, - X 42 M.D. 06/15 Tramadol HCL ER 06/08 Hx Tablets 100mg 20tab 1 tabs po 717.9 ER 24HR s bid as Livia, - needed fo M.D. 08/16 rpain Ibuprofen 05/28 Hx Tablets 600mg 60tab 1 tab by s mouth three Livia, - times a day M.D. 08/16 prn Amoxicillin/Pota 02/10 Hx Tablets 875-125mg 20tab 1 po bid 473.0 [place] ssium shaheed Pachika, Clavulanate - M.DGarth 05/19 Amlodipine 11/04 Hx Tablets 5mg 60tab twice a day 401.9 Lucila Besylate Rayo Brumfield M.DGarth 02/22 Amoxicillin/Pota 10 Hx Tablets 875-125mg 20tab 1 po bid 473.0 [place] ssium shaheed Dc, Clavulanate - M.DGarth 12/17 Amlodipine 10/22 Hx Tablets 5mg 30tab 1 po qd Margo Besylate Rayo Thakur.DGarth 11/04 Losartan 10/20 Hx Tablets 100mg 90tab 1 po qd 401.9 Lucila Potassium s Rayo Bhakta M.D. 05/12 Atenolol 10/14 Hx Tablets 50mg 60tab 1 tab by 401.9 Lucila /2013 s mouth twice Livia, - a day M.D. 05/12 Butalbital/Aceta 10/14 Hx Capsules 50-325-40 30cap 1 tab every 784.0 [place] minophen/Caffein /2012 mg s 2 h prn valerie Dc M.D. 08/16 Triamterene/Hydr 10/14 Hx Capsules 37.5-25mg 90cap qd am 401.9 Lucila ochlorothiazide Rayo Brumfield M.D. 02/22 No Active 10/12 Hx Unknown Medications /2012 - 10/12 Losartan 10/12 Hx Tablets 50mg 30tab 1 po qd 401.9 Lucila Potassium Rayo Brumfield M.D. 10/20 Atenolol 10/12 Hx Tablets 25mg 60tab 1 po bid 401.9 Lucila Rayo Brumfield M.D. 10/14 Atenolol 05/02 Hx Tablets 50mg 90tab 1 po qd [place] Rayo Meeks M.D. 10/12 Levaquin 05/02 Hx Tablets 750mg 7tabs once daily 486 Rayo Dc M.D. 10/12 Percocet 00 Hx Unknown /0000 - 11/03 Caltrate 600+D [...] three times - a day as 07/02 needed Lidocaine / Hx Patches 5% Unknown /0000 - 01/27 Ibuprofen 00/00 Hx Tablets 800mg by mouth Unknown /0000 three times - a day as 01/27 Vesicare 00 Hx Tablets 10mg not Unknown /0000 taking---1 [...] 017 MD Indio Depomedrol Administered Injection Riky M 40MG 016 MD Bj Depomedrol Administered Injection Hailey 80MG 014 Jessica Lan Depomedrol Administered Injection Hailey 80MG 014 Jessica Lan Depomedrol Administered Injection Hailey 80MG 014 Jessica Lan Immunizations CPT Code Status Date Vaccine Lot # [id number] Given 01/29/2017 Influenza Virus Vaccine, Quadrivalent, Split, [id number] Preservative Free 36583 Given 07/02/2016 Tdap - Tetanus/Diptheria/Acellular Pertussis [id number] 30227 Given 03/31/2016 Influenza Virus Vaccine, Quadrivalent, Split Virus, Im Use 19878 Given 02/07/2016 Influenza Virus Vaccine, Quadrivalent, Split Virus, Im Use 46116 Given 02/22/2014 Flu Vaccine Split Virus Preservative Free For [id number] Indiv 3Yr Older 40221 Given 02/10/2013 Flu Vaccine Split Virus Preservative Free For [id number] Indiv 3Yr Older Vital Signs Date Vital Result Comment 11/11/2017 Height 63 inches 5'3" Weight 366.00 lb Heart Rate 72 /min Respiratory Rate 22 /min BMI (Body Mass Index) 64.8 kg/m2 09/30/2017 Height 63 inches 5'3" Weight 366.00 lb Heart Rate 120 /min Respiratory Rate 25 /min Body Temperature 98.2 F Pain Level 10 BMI (Body Mass Index) 64.8 kg/m2 09/02/2017 Height 63 inches 5'3" Weight 366.00 [...] Color Yellow Urine Appearance Cloudy Urine Specific Carlyle 1.019 1.010-1.030 Urine pH 5.0 5-9 Urine [...] Color Yellow Urine Appearance Clear Urine Specific Carlyle 1.017 1.010-1.030 Urine pH 5.0 5-9 Urine [...] Color Straw Urine Appearance Clear Urine Specific Carlyle 1.014 1.010-1.030 Urine pH 5.0 5-9 Urine [...] um3 7.4-10.4 Ua Routine 01/29/2017 Ua Specific Carlyle 1.015 Ua PH 5 Ua Color Dark [...] Color Yellow Urine Appearance Clear Urine Specific Carlyle 1.016 1.010-1.030 Urine pH 5.0 5-9 Urine [...] 06/10/2016 Urine Culture SEE RESULT BELOW 22 Urine Culture And Sensitivities 01/03/2016 Urine Culture SEE RESULT BELOW 23 Urinalysis Profile 01/03/2016 Urine Color Yellow Urine Appearance Turbid Urine Specific Carlyle 1.027 1.010-1.030 Urine pH 5.0 5-9 Urine Urobilinogen Negative Negative Urine Ketones Negative Negative Urine Protein Negative Negative Urine Leukocytes 1+ Negative Urine Blood 1+ Negative Urine Nitrite Negative Negative Urine Bilirubin Negative Negative Urine Glucose Negative Negative Urine White Blood Cell Absent Absent Urine Red Blood Cell Absent Absent Urine Bacteria Absent Absent Laboratory test finding 07/14/2015 Metanephrines Plasma SEE [...] HPV Rna Ww/Reflex Genotype Negative Negative 30 Urinalysis Profile 05/12/2015 Urine Color Yellow Urine Appearance Clear Urine Specific Carlyle 1.012 1.010-1.030 Urine pH 5.0 5-9 Urine [...] 31 Troponin-I (TnI) 0.00 ng/mL <0.03 32 Comp Metabolic Panel 05/12/2015 Sodium 138 mmol/L [...] Egfr Non- 77.6 >60 Egfr 99.7 >60 33 Laboratory test finding 05/12/2015 Amylase 49 U/L 29-103 Lipase 26 U/L 11.0-82.0 Creatine Kinase(CK) 29 U/L 10-223 C Reactive Protein 1.51 mg/L < 5.00 34 Laboratory test finding 05/12/2015 Inr/Protime 0.99 0.89-1.11 Comp Metabolic Panel 02/25/2014 Sodium 139 mmol/L [...] % 0 35 Laboratory test finding 07/16/2013 Amylase 31 U/L 29-103 Lipase 14 U/L 11.0-82.0 C Reactive Protein 84.88 mg/L High < 5.00 37 Comp Metabolic Panel 07/16/2013 Sodium 137 mmol/L [...] Egfr Non- 55.5 >60 Egfr 71.3 >60 38 CBC Auto Diff 07/16/2013 White Blood Count [...] Nucleated Red Blood Cells % 0 Urinalysis 07/16/2013 Urine Color Yellow Urine Appearance Clear Urine Specific Carlyle 1.019 1.010-1.030 Urine Esterase Negative Negative Urine Nitrate Negative Negative Urine Urobilinogen Negative E.U./dL Negative Urine Protein Negative mg/dL Negative Urine pH 5.5 5-9 Urine Blood Negative Negative Urine Ketones Negative mg/dL Negative Urine Bilirubin Negative Negative Urine Glucose Negative mg/dL Negative Laboratory test finding 07/16/2013 Lactic Acid 0.9 mmol/L 0.5-2.2 Surgical Pathology 07/13/2013 S RUN DATE: 07/14/ <SEE 39 NOTE> Comp Metabolic Panel 06/15/2013 Sodium 140 mmol/L [...] >60 Egfr 92.3 >60 40 Laboratory test finding 06/08/2013 Cytology RUN DATE: <SEE NOTE> CBC No Diff 10/12/2012 White [...] Mean Platelet Volume 11 um3 High 7.4-10.4 Laboratory test finding 10/12/2012 TSH (Thyroid Stimulating 1.81 miu/mL 0.34-5.60 Horm) Cortisol 12.9 g/dL 42 Lipid Profile (Trig/Chol/HDL) 10/12/2012 Triglycerides 79 mg/dL 40-200 Cholesterol 161 mg/dL Less than 200 HDL Cholesterol 68 mg/dL High 40-60 43 Cholesterol/HDL Ratio 2.4 Average 1-4.44 LDL Cholesterol 77.2 Less Than 100 44 Comp Metabolic Panel 10/12/2012 Sodium 137 mmol/L [...] Egfr Non- 76.2 >60 Egfr 98.0 >60 45 Urine Culture & Sensitivi 04/13/2010 Urine Culture Sensitivi NF1 46 1 SEE RESULT BELOW Name: RENATA DIAZ : [address]: Jaja Olivas DO Acct: [id number] Unit: [id number] AGE: 56 Location: OR Re08/28/17 SEX: F Status: DEP SDC SPEC: [id number] LEAH: 08/28/17-[address]: Jaja Olivas DO REQ: [id number] RECD: 08/28/17153 STATUS: DOUG BREAUX DR: Lucila Bhakta MD _ SOURCE: GAS ANTRUM SPDESC: ORDERED: Clotest Procedure Result Reported Site Clotest Final 08/29/17- 715 ML Clotest Negative * ML - Main Lab . END OF REPORT DEPARTMENT OF PATHOLOGY, [address] [place] [address] Reginald Steele M.D. Director [facility] # [id number] 2 SEE RESULT BELOW Name: RENATA DIAZ : [address]: Jaja Olivas DO Acct: [id number] Unit: [id number] AGE: 56 Location: OR Re08/28/17 SEX: F Status: JAKY SDC SPEC: [id number] LEAH: 08/28/17-[address] [facility] [address]: Jaja Olivas DO REQ: [id number] RECD: 08/28/17 STATUS: WENDY BREAUX DR: Jesse Bhakta MD [...] CONTINUED ON NEXT PAGE DEPARTMENT OF PATHOLOGY, [address] [place] [address] Reginald Steele M.D. Director [facility] # [id number] RUN DATE: 08/29/17 [facility] LAB LIVE PAGE 2 Patient: RENATA DIAZ [id number] (Continued) GROSS DESCRIPTION (Continued) GROSS DESCRIPTION 1. [...] 1027 END OF REPORT DEPARTMENT OF PATHOLOGY, [address] [place] [address] Reginald Steele M.D. Director [facility] # [id number] 3 REFERENCE VALUE 6:00-10:30 AM Collection 0.121-1.065 mcg/dL ADDITIONAL INFORMATION This test was developed and its performance characteristics determined by [facility] in a manner consistent with CLIA requirements. This test has not been cleared or approved by the U.S. Food and Drug Administration. Test Performed by: [facility] [address] [place] [address] 4 Therapeutic target for the treatment of diabetes mellitus patients is <7% HBA1C, and in selective patients <6.0%. Please refer to [place] [employer] diabetic care guidelines for further [...] developed and its performance characteristics determined by [facility] in a manner consistent with CLIA requirements. This test has not been cleared or approved by the U.S. Food and Drug Administration. Test Performed by: [facility] [address] [place] [address] 9 Because ethnic data is not always [...] [address]: Lucila Bhakta MD Acct: [id number] Unit: [id number] AGE: 56 Location: [facility] Re05/07/17 SEX: F Status: REG REF SPEC: [id number] LEAH: 05/07/[address]: Lucila Bhakta MD REQ: [id number] RECD: 05/07/17 STATUS: COMP _ SOURCE: URINE SPDESC: ORDERED: Urine Culture Procedure Result Reported Site Urine Culture Final 05/08/17- 1644 ML No Growth (<1,000 CFU/mL) * ML - MAIN LAB ([facility]) . END OF REPORT * ML=Testing performed at Main Lab DEPARTMENT OF PATHOLOGY, [address] [place] [address] Reginald Steele M.D. Director [facility] # [id number] 12 Because ethnic data is not always [...] [address]: Lucila Bhakta MD Acct: [id number] Unit: [id number] AGE: 56 Location: [facility] Re03/06/17 SEX: F Status: REG REF SPEC: [id number] LEAH: 03/06/[address]: Lucila Bhakta MD REQ: [id number] RECD: 03/06/17 STATUS: COMP _ SOURCE: URINE SPDESC: ORDERED: Urine Culture Procedure Result Reported Site Urine Culture Final 03/07/17- 1213 ML No growth of clinically significant organisms * ML - MAIN LAB ([facility]) . END OF REPORT * ML=Testing performed at Main Lab DEPARTMENT OF PATHOLOGY, [address] [place] [address] Reginald Steele M.D. Director [facility] # [id number] EXT 250 15 Because ethnic data is [...] 17 SEE RESULT BELOW Name: RENATA DIAZ Mike : [address]: Henrique Dash MD Acct: [id number] Unit: [id number] AGE: 56 Location: ED Re02/06/17 SEX: F Status: DEP ER SPEC: [id number] LEAH: 02/06/17-[address]: Henrique Dash MD REQ: [id number] RECD: 02/06/17 STATUS: ODUG BREAUX DR: Lucila Bhakta MD _ SOURCE: URINE [facility]: ORDERED: Urine Culture Procedure Result Reported Site Urine Culture Final 02/07/17- 1608 ML Few Enterobacteriacae; possible contamination. * ML - MAIN LAB ([facility]) . END OF REPORT * ML=Testing performed at Main Lab DEPARTMENT OF PATHOLOGY, [address] [place] [address] Reginald Steele M.D. Director [facility] # [id number] 18 Because ethnic data is not always [...] Attend Dr: Juan Carlos Pang MD Acct: [id number] Unit: [id number] AGE: 55 Location: ED Re06/10/16 SEX: F Status: DEP ER SPEC: [id number] LEAH: 06/10/16-[address]: Juan Carlos Pang MD REQ: [id number] RECD: 06/10/16 STATUS: COMP AMANDEEPHR DR: Lucila Bhakta MD _ SOURCE: URINE SPDESC: ORDERED: Urine Culture Procedure Result Reported Site Urine Culture Final 06/11/16- 1316 ML No growth of clinically significant organisms * ML - MAIN LAB ([facility]) . END OF REPORT * ML=Testing performed at Main Lab DEPARTMENT OF PATHOLOGY, [address] [place] [address] Reginald Steele M.D. Director [facility] # [id number] 23 SEE RESULT BELOW Name: RENATA DIAZ : [address]: Lucila Bhakta MD Acct: [id number] Unit: [id number] AGE: 55 Location: [facility] Re01/03/16 SEX: F Status: REG REF SPEC: [id number] LEAH: 01/03/[address]: Lucila Bhakta MD REQ: [id number] RECD: 01/03/16 STATUS: COMP _ SOURCE: URINE SPDESC: ORDERED: Urine Culture Procedure Result Reported Site Urine Culture Final 01/04/16- 1715 ML Mixed nafisa; possible contamination. Suggest resubmission. * ML - MAIN LAB ([facility]) . END OF REPORT * ML=Testing performed at Main Lab DEPARTMENT OF PATHOLOGY, [address] [place] [address] Reginald Steele M.D. Director [facility] # [id number] 24 Metanephrines, Free, Plasma Metanephrine, Free <25 pg/mL < OR=57 Y09 6 Normetanephrine, Free 60 pg/mL < QE=091 Y09 6 Total, Free (MN + NMN) 60 pg/mL < ZV=967 Y09 6 Elevations > 4-fold upper reference range: strongly suggestive of a pheochromocytoma(1). Elevations >1 - 4-fold upper reference range: significant but not diagnostic, may be due to medications or stress. Suggest running 24 hr urine fractionated metanephrines and serum Chromogranin A for confirmation. Reference: (1) Algeciras-Schimnich A et al, Plasma Chromogranin A or Urine Fractionated Metanephrines Follow-Up Testing Improves the Diagnostic Accuracy of Plasma Fractionated Metanephrines for Pheochromocytoma. The Journal of Clinical Endocrinology and Metabolism 93 (1),91-95, 2008. [email or web address]/[email or web address] RECEIVED: 07/15/2015 09:33 REPORTED: 07/20/2015 14:24 --- 07/24/15 1059 --- Normetanephrine previously reported as: C Metanephrines, Free, Plasma Metanephrine, Free <25 pg/mL < OR=57 Y09 6 Normetanephrine, Free 60 pg/mL < ZQ=765 Y09 6 Total, Free (MN + NMN) 60 pg/mL < WW=511 Y09 6 Elevations > 4-fold upper reference range: strongly suggestive of a pheochromocytoma(1). Elevations >1 - 4-fold upper reference range: significant but not diagnostic, may be due to medications or stress. Suggest running 24 hr urine fractionated metanephrines and serum Chromogranin A for confirmation. Reference: (1) Moises Aguilera al, Plasma Chromogranin A or Urine Fractionated Metanephrines Follow-Up Testing Improves the Diagnostic Accuracy of Plasma Fractionated Metanephrines for Pheochromocytoma. The Journal of Clinical Endocrinology and Metabolism 93 (1),91-95, 2008. [email or web address]/faq/MetFractFree RECEIVED: 07/15/2015 09:33 REPORTED: 07/20/2015 14:24 25 [...] subjects without sodium restrictions. Test Performed by: [place] [id number] Cut Off Saw Operator Metal: Lucas Nunez II, M.D., Ph.D. 28 REFERENCE VALUE (Peripheral vein specimen) Na-deplete, upright: Mean: 5.9 Range: 2.9-10.8 Na-replete, upright: Mean: 1.0 Range: < or=0.6-3.0 ADDITIONAL INFORMATION Testing performed by Liquid Chromatography-Tandem Mass Spectrometry (LC-MS/MS). Test Performed by: [place] [address] [employer] Off Saw Operator Metal: Lucas Nunez II, M.D., Ph.D. 29 SEE RESULT BELOW Name: RENATA DIAZ : [address]: Lucila Bhakta MD Acct: [id number] Unit: [id number] AGE: 54 Location: [facility] Re05/30/15 SEX: F Status: REG REF SPEC: [id number] LEAH: 05/30/15-[address] [facility] [address]: Lucila Bhakta MD REQ: [id number] RECD: 05/30/15 STATUS: SOUT _ ORDERED: IMAGE [...] System. Due to cytologic findings at the frame hand microscope, comprehensive manual rescreening by a Dipper Operator may be required. The Pap Smear is [...] performed at Main Lab DEPARTMENT OF PATHOLOGY, [address] [place] [address] Reginald Steele M.D. Director [facility] # [id number] RUN DATE: 05/31/15 [facility] LAB LIVE PAGE 1 Patient: DIAZ,RENATA C [id number] (Continued) 30 The high-risk HPV types detected by the assay include: 16, 18, 31, 33, 35, 39, 45, 51, 52, 56, 58, 59, 66, and 68. 31 [facility] Severe Sepsis and Septic Shock Management Bundle Measure requires all lactic acids initially measuring >2.0mmol/L be repeated. 32 Reference Range and Interpretation: TnI (ng/mL) Interpretation Less Than 0.03 ng/mL Not supportive of diagnosis of MS 0.03 - 0.50 ng/mL Indeterminate: suggest serial studies if clinically indicated. Greater than 0.5 ng/mL Consistent with diagnosis of MS 33 Because ethnic data is not always readily [...] 15-29 5 Kidney failure <15 (or dialysis) 34 Acute inflammation: >10.00 35 FASTING 12 HOUR 36 Because ethnic [...] 5 Kidney failure <15 (or dialysis) 37 Acute inflammation: >10.00 In accordance with FDA guideline, CRP is now reported in mg/L, previous reporting was in mg/dL. 38 Because ethnic data is not always readily [...] 15-29 5 Kidney failure <15 (or dialysis) 39 RUN DATE: 07/14/13 [facility] LAB LIVE PAGE 1 RUN TIME: [address] [place], [place] [address] Specimen Inquiry Name: RENATA DIAZ : [address]: Skyler Huggins MD Acct: [id number] Unit: [id number] AGE: 52 Location: ENDO Re07/13/13 SEX: F Status: REG REF SPEC: [id number] LEAH: 07/13/13- SUBM DR: Skyler Huggins MD REQ: [id number] RECD: 07/13/13 STATUS: WENDY BREAUX DR: Lucila [...] specimen is received in formalin labeled Renata Diaz, Biopsy Ascending Colon Polyp, and consists of two bethea, irregular to polypoid soft tissue fragments averaging 0.3 x 0.3 x 0.2 cm. Submitted entirely, one cassette. 2. The specimen is received in formalin labeled Renatasol Agudeloer, Biopsy Random Colon, and consists of a 1.0 x 0.8 x 0.2 cm. aggregate of multiple irregular, bethea-pink soft tissue fragments. Video Technician sections, one cassette. 1. CONTINUED ON NEXT PAGE * ML=Testing performed at Main Lab DEPARTMENT OF PATHOLOGY, [facility] [employer] [place], [place] [address] Reginald Steele M.D. Director [facility] Permit #[id number] RUN DATE: 07/14/13 [facility] LAB LIVE PAGE 2 RUN TIME: 7875 [facility] [employer] [place], [place] [address] Specimen Inquiry Patient: RENATA DIAZ [id number] (Continued) GROSS DESCRIPTION (Continued) Signed (signature on file) Briseida Mix MD 1534 END OF REPORT * ML=Testing performed at Main Lab DEPARTMENT OF PATHOLOGY, [address] [place] [address] Reginald Steele M.D. Director [facility] Permit #[id number] 40 Because ethnic data is not always [...] <15 (or dialysis) 41 RUN DATE: 06/10/13 [facility] LAB LIVE PAGE 1 RUN TIME: [address] [place] [address] Specimen Inquiry Name: RENATA DIAZ : [address]: Lucila Bhakta MD Acct: [id number] Unit: [id number] AGE: 52 Location: [facility] Re06/08/13 SEX: F Status: REG REF SPEC: [id number] LEAH: 06/08/13-[address] [facility] [address]: Lucila Bhakta MD REQ: [id number] RECD: 06/08/13-1610 STATUS: SOUT _ ORDERED: IMAGE ANALYSIS, PAP [...] was evaluated with the assistance of the GocellaPrep Test Imaging System. Due to cytologic findings at the frame hand microscope, comprehensive manual rescreening by a Dipper Operator may be required. The Pap Smear is [...] performed at Main Lab DEPARTMENT OF PATHOLOGY, [address] [place] [address] Reginald Steele M.D. Director [facility] Permit #[id number] 42 AM Cortisol 8.7-22.4 PM Cortisol Less than 10 43 HDL Interpretation: Undesirable: High Risk: Less than 40 mg/dL Desirable: Low Risk: Greater than 60 mg/dL 44 LDL Interpretation: Low Risk Optimal Level: LDL Less than 100 mg/dL Near or Above Optimal: LDL 100-129 mg/dL Borderline High Risk: LDL 130-159 mg/dL High Risk: LDL 160-189 mg/dL Very High Risk: LDL Greater than 189 mg/dL 45 Because ethnic data is not always readily [...] 15-29 5 Kidney failure <15 (or dialysis) 46 SPECIMEN CONTAINS NORMAL URETHRAL OR PERINEAL NAFISA AND DOES NOT SUGGEST URINARY TRACT INFECTION Procedures Date CPT Code Description Status 09/10/2017 93045 ECHO Transthoracic, Real-Time 2D With Doppler And Color Completed Flow 09/10/2017 75302 ECHO Transthoracic, Real-Time 2D With Doppler And Color Completed Flow 09/05/2017 48031 Stress ECHO Interpretation/Report Hospital Completed 09/05/2017 07706 Treadmill Interp/Report Only Completed 09/05/2017 53961 Stress Test Supervsn W/Out I/R Completed 09/02/2017 83299 EKG Tracing & Interpretation Completed 08/28/2017 88483 Endoscopy Upper GI Biopsy Completed 07/30/2016 44499 I&D Abscess Simple Completed 07/30/2016 80541 Removal Skin Tags Up To 15 Completed 07/30/2016 25115 Inject/Drain Joint/Bursa Major W/O US Completed 07/23/2016 Mammogram Completed 01/09/2016 48627 Xray Knee 3 Views Completed 01/09/2016 32258 Inject/Drain Joint/Bursa Major W/O US Completed 07/14/2015 Mammogram Completed 09/21/2013 15876 Polysomnography Sleep Staging 4+ Parameters W/Cpap Completed 09/01/2013 30663 Polysomnography Sleep Staging 4+ Parameters Completed 07/26/2013 79156 Inject/Drain Joint/Bursa Major W/O US Completed 07/16/2013 00443 EKG, Interpretation Only Completed 07/13/2013 Colonoscopy Completed 06/18/2013 19480 Xray Knee 3 Views Completed 06/18/2013 85201 Rad Exam; Knee, Ap&L Completed 06/18/2013 82175 Rad Exam; Knee, Ap&L Completed 06/18/2013 Inject/Drain Joint/Bursa Major W/O US Completed 06/18/201377308 Inject/Drain Joint/Bursa Major W/O US Completed 06/18/2013 00289 Xray Knee 3 Views Completed 06/15/2013 Bone Mineral Density Test Completed 01/19/2013 Mammogram Completed 12/30/2012 73953 Rad Exam; Wrist, Comp, Min 3 Views Completed 05/08/2010 Mammogram Completed 02/27/2010 73843 Treadmill Interp/Report Only Completed 02/27/2010 06332 Stress Test Supervsn W/Out I/R Completed Encounters Type Date Location Provider CPT E/M Dx Office Visit 09/30/2017 [place] [address] S92.515A 1:00p Of Addie W22.8xxA Office Visit 09/02/2017 2:00p [facility] Duane Ponce M.D. 53005 I10 R60.9 R01.1 E11.9 E66.01 R07.9 Office Visit 07/07/2017 1:40p [facility] Lucila Bhakta, 04021 H10.402 - Rebeca Lopez R22.0 I10 R73.9 Office Visit 05/07/2017 10:10a [facility] - Lucila Bhakta M.D. 86685 I10 Rebeca R60.9 H10.89 E66.01 Office Visit 04/02/2017 10:10a [facility] - Lucila Bhakta M.D. 49306 R21 Rebeca E66.01 I10 Office Visit 03/06/2017 10:00a [facility] - Nurse Visit C 59118 I10 [place] Office Visit 02/27/2017 9:40a [facility] Rayo Bhakta M.D. 25557 I10 Rebeca M51.36 Office Visit 02/12/2017 9:40a [facility] Lucila Bhakta M.D. 05329 R60.9 - Rebeca I10 M54.5 M51.36 Office Visit 01/29/2017 1:00p [facility] Henrique Robbins, 81737 R35.0 - Rebeca Lopez M54.5 Z23 Office Visit 07/30/2016 9:30a [facility] R[facility] Rothue, 13842 M17.11 Addie STRINGER M25.561 M16.11 Office Visit 07/29/2016 11:45a [facility] BRIDGETT Bonilla-C 86765 M25.551 Of [facility] M51.36 Office Visit 07/17/2016 8:30a [facility] Nurse Visit C 40100 I10 - [place] Office Visit 07/02/2016 11:10a [facility] Lucila Bhakta, 90487 Z00.01 - Rebeca Lopez I10 M48.06 L91.8 E66.01 Z23 Z12.31 Office Visit 06/10/2016 10:30a [facility] Lucila Bhakta, 05929 R10.31 - Rebeca Lopez B07.9 Office Visit 01/09/2016 2:30p [facility] [address] M17.12 [facility] [place] M17.11 Office Visit 01/03/2016 2:40p [facility] Lucila Bhakta, 48123 M25.562 - Rebeca Lopez R30.0 Office Visit 12/27/2015 9:40a [facility] Margo Rae M.D. 55817 M25.562 - Rebeca Office Visit 07/05/2015 11:50a [facility] Lucila Bhakta 71515 I10 - Noemy Lopez L85.3 Office Visit 06/21/2015 10:10a [facility] Lucila Bhakta 87731 Z00.00 - Noemy Lopez I10 Z12.31 Z11.59 Z23 Office Visit 05/30/2015 10:30a [facility] - Lucila Bhakta M.D. 78087 I10 Noemy E66.01 R19.7 R10.31 R87.610 Office Visit 05/24/2015 8:30a [facility] - Lucila Bhakta M.D. 37721 I10 [place] R19.7 Office Visit 05/12/2015 2:40p [facility] - Margo Rae M.D. 77303 I10 Noemy E66.01 R10.31 M54.5 Office Visit 02/22/2014 8:50a [facility] Lucila Bhakta M.D. 31776 401.1 - Noemy 278.01 305.1 V04.81 288.60 Office Visit 11/03/2013 4:20p [facility] Alex Emily Mota, 28735 719.47 - Noemy Lopez,FACP 728.71 Office Visit 08/16/2013 2:50p [facility] Lucila Bhakta M.D. 60980 305.1 - Noemy 473.9 784.0 Office Visit 07/18/2013 4:40p [facility], Aly Ahuja, 16423 575.0 Hospitalists N.P. 401.9 278.01 305.1 Office Visit 07/17/2013 4:39p [facility], Aly Ahuja 09102 575.0 Hospitalists N.P. 401.9 278.01 305.1 Office Visit 07/16/2013 3:00p [facility], BRIDGETT Parker 94625 575.0 Hospitalists Office Visit 07/16/2013 4:38p [facility], Jaja Duval, N.P. 55759 575.0 Hospitalists 401.9 278.01 305.1 Office Visit 07/12/2013 1:50p [facility] Lucila Bhakta, 57089 305.1 - Nomey Lopez Office Visit 06/29/2013 10:15a [facility] Montoya M.D. 58933 715.36 C.M.A. Office Visit 06/18/2013 10:30a [facility] Hailey Lan M.D. 23297 836.1 C.M.AGarth 717.6 715.36 844.2 Office Visit 06/08/2013 1:10p [facility] Lucila Bhakta, 95806 V72.31 - Noemy Lopez V76.2 305.1 717.9 V49.81 788.39 V06.1 V76.41 401.9 Office Visit 05/19/2013 3:30p [facility] Lucila Bhakta, 07893 719.46 - [place] M.DGarth 401.9 278.00 780.79 Office Visit 02/10/2013 10:00a [facility] Silvio cD, 55878 401.9 - [place] M.DGarth 784.0 473.0 v04.81 Office Visit 01/11/2013 8:45a [facility] Ruby Lee 61433 727.41 Of [employer] Office Visit 12/30/2012 1:30p [facility] Ruby Lee 01053 727.43 Of [facility] Office Visit 12/17/2012 10:30a [facility] Lucila Bhakta M.D. 25881 727.43 - [place] Office Visit 11/04/2012 3:40p [facility] [place] [address] 401.9 - [place] M.DGarth 784.0 473.0 Office Visit 10/14/2012 8:40a [facility] [place] [address] 401.9 - [place] M.DGarth 784.0 Office Visit 10/12/2012 10:10a [facility] Lucila Bhakta M.D. 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 05566 486 [facility] 786.50 401.1 278.00 V72.62 V76.10 V76.2 Plan of Care 09/30/2017 - Vineet Barry, MDS92.515A Nondisp fx of proximal phalanx of left lesser toe(s), initNew Xrays:Foot Right 3+ VWSFollow up:Follow Up: 6 weeks new mudlfU43.8xxA Striking against or struck by other objects, init encntr
[2017-12-10] MEDS ORDERED: Atenolol TAB* 50 MG PO ONE (09:11)
[2017-12-10] MEDS ORDERED: Methylene Blue 0.5 %* 50 MG/10 ML AMP IV ONE (09:15)
[2017-12-10] MEDS ORDERED: ROPIVACAINE 5 MG/ML 30 ML BTL (0.5%) ONE (09:15)
[2017-12-10] MEDS ORDERED: fentaNYL* 50 MCG/ML 2 ML VIAL (100 MCG VIAL) ONE ×4 (09:22→14:00)
[2017-12-10] MEDS ORDERED: Midazolam* 1 MG/ML 2 ML VIAL (2 MG) ONE (09:22)
[2017-12-10] MEDS ORDERED: Rocuronium* 10 MG/ML VIAL ONE (09:23)
[2017-12-10] MEDS ORDERED: Bupivacaine 0.25% W/EPI* 10 ML SDV ONE ×2 (10:04→10:06)
[2017-12-10] MEDS ORDERED: DiMENhydriNATE IV* 50 MG/ML VIAL IV PUSH PRN (10:53)
[2017-12-10] MEDS ORDERED: Ketorolac INJ* 30 MG/ML 1 ML VIAL IV PRN (10:53)
[2017-12-10] MEDS ORDERED: Ondansetron INJ* 2 MG/ML VIAL IV PRN (10:53)
[2017-12-10] MEDS ORDERED: PROCHLORPERAZINE INJ 5 MG/ML 2 ML VIAL IV PRN (10:53)
[2017-12-10] MEDS ORDERED: Morphine INJ* 2 MG/ML 1 ML SYRINGE (TWO MG - NEW SYRINGE VERSION) IV PRN (10:53)
[2017-12-10] MEDS ORDERED: Acetaminophen IV 1GM/100ML * 1,000 MG/100 ML VIAL IVPB ONE (10:53)
[2017-12-10] MEDS ORDERED: Naloxone* 0.4 MG/ML 1 ML VIAL IV PRN (10:53)
[2017-12-10] MEDS ORDERED: Lidocaine 2% PF * 5 ML VIAL ONE (12:18)
[2017-12-10] MEDS ORDERED: Succinylcholine* 20 MG/ML 10 ML VIAL ONE (12:18)
[2017-12-10] MEDS ORDERED: Mivacurium Chloride* 20 MG/10 ML VIAL IV ONE (12:18)
[2017-12-10] MEDS ORDERED: Propofol* 10 MG/ML 20 ML BTL IV PUSH ONE (12:18)
[2017-12-10] MEDS ORDERED: Glycopyrrolate IV* 0.2 MG/ML 1 ML VIAL ONE (12:45)
[2017-12-10] MEDS ORDERED: Neostigmine Methylsulfate* 1 MG/ML 10 ML VIAL (1 mg/ml) ONE (12:45)
[2017-12-10] MEDS ORDERED: Ketorolac INJ* 30 MG/ML 1 ML VIAL ONE (13:15)
[2017-12-10] MEDS ORDERED: Acetaminophen IV 1GM/100ML * 100 ML ONE (13:15)
--- NOTE | 2017-12-10 13:18 | OP ---
Operative Report - Blank - Operative Report Date of Operation: 12/10/17 Note: Brief Operative Note Preoperative Dx: Morbid obesity. Postoperative Dx: Morbid obesity. Procedure: Laparoscopic Alivia-en-Y gastric bypass. Anesthesia: GET. Anesthesiologist: MD Aaron. Surgeon: Kota. Assist: BRIDGETT Vogel and JERMAINE De Souza. EBL: Less than 50 ml. Specimen: None. Fluids: 1400 crystalloid. Drains: PARK tube. Findings: Dictated.
[2017-12-10] MEDS ORDERED: diPHENhydraMINE IV* 50 MG/ML 1 ml VIAL (BENADRYL) SLOW PUSH PRN (13:26)
[2017-12-10] MEDS ORDERED: HYDROcodone/ACET. 7.5/325 LIQ* 15 ML UDC PO PRN (13:26)
[2017-12-10] MEDS ORDERED: Acetaminophen ADULT LIQ* 650 MG/20.3 ML UDC PO PRN (13:26)
[2017-12-10] MEDS: fentaNYL* 50 MCG/ML 2 ML VIAL (100 MCG VIAL) IV PRN ×4 (14:01→15:16)
[2017-12-10] MEDS ORDERED: hydrALAZINE IV* 20 MG/ML VIAL ONE (14:52)
[2017-12-10] MEDS ORDERED: hydrALAZINE IV* 20 MG/ML VIAL IV SLOW PU ONE (15:12)
[2017-12-10] MEDS ORDERED: Labetalol IV* 5 MG/ML 20 ML VIAL IV PUSH ONE (15:13)
[2017-12-10] MEDS ORDERED: Labetalol IV* 5 MG/ML 20 ML VIAL ONE (15:18)
[2017-12-10] MEDS: HYDROmorphone INJ* 0.5 MG/0.5 ML SYRINGE IV PRN (17:08)
[2017-12-10] MEDS: Heparin VIAL(*) 5000 UNITS/ML VIAL (FIVE THOUSAND) SUBCUT SCH ×2 (17:08→21:10)
[2017-12-10] MEDS: Metoprolol Tartrate IV* 1 MG/ML 5 ML VIAL IV SCH (19:04)
[2017-12-10] MEDS: Famotidine IV* 10 MG/ML 2 ML (20 mg) IV SLOW PU SCH (21:05)
[2017-12-11] MEDS: Metoprolol Tartrate IV* 1 MG/ML 5 ML VIAL IV SCH ×4 (00:06→18:40)
[2017-12-11] MEDS: HYDROmorphone INJ* 0.5 MG/0.5 ML SYRINGE IV PRN ×5 (00:15→12:42)
--- NOTE | 2017-12-11 02:38 | OP ---
CC: [facility]; Dr. Lucila Bhakta OPERATIVE REPORT: DATE OF OPERATION: 12/10/17 DATE OF : 64 SURGEON: Jesse Escudero MD NURSE CLINICIAN: BRIDGETT Mcclendon ANESTHESIOLOGIST: Dr. Fontana. ANESTHESIA: General anesthesia. PRE-OP DIAGNOSES: 1. Clinically severe super morbid obesity. 2. Obstructive sleep apnea. 3. Hypertension. POST-OP DIAGNOSES: 1. Clinically severe super morbid obesity. 2. Obstructive sleep apnea. 3. Hypertension. OPERATIVE PROCEDURE: Laparoscopic Alivia-en-Y gastric bypass. ESTIMATED BLOOD LOSS: Less than 50 cc. FLUIDS: 1400 cc of crystalloid fluid given. SPECIMENS: None. DRAINS: A #7 PARK drain left at the gastrojejunostomy. DESCRIPTION OF PROCEDURE: The patient was identified in the preoperative area. Consent signed. Case discussed with her. She was marked and brought to the operating room and placed on the operating ta ble in supine position. Preoperative antibiotics were given. Sequential devices were placed on bila teral lower extremities. General anesthesia was induced. A Ernandez catheter was inserted and the juni ent's abdomen was prepped and draped in standard surgical fashion. A time- out was performed. Folds of the umbilicus were elevated anteriorly and a Veress needle was inserted into the abdominal c avity, which was then allowed to insufflate to a pressure of 15 mmHg. The patient tolerated the insu fflation well. [place] between the xiphoid and the umbilicus, a 12 mm trocar was inserted just to the left of midline. Laparoscope was inserted through this and there was no evidence of injury from the trocar insertion or from the Veress needle. Additional trocars were then placed in the following position: A 12 mm and 5 mm in the right upper q uadrant and a 12 mm and a 5 mm in the left upper quadrant. Attention was turned towards the omentum. This was attached to the pelvis with small adhesions. Thi s was taken down with LigaSure device and this allowed the omentum, which was very large to be tamir t up into the upper abdomen. Transverse colon was identified and elevated anteriorly and ligament of Treitz was identified. Approximately 70 cm was counted off in the ligament of Treitz. The bowel was transected at this site and enterotomy was made. It would become the biliopancreatic limb. Next, a 100 cm was counted off distally. This would become the Alivia limb and another enterotomy was made and a jejunojejunostomy was created in an antegrade fashion with a 60 mm bethea JEVON stapling device . We were able to sew the common defect with interrupted 2-0 silk sutures in a [id number]-gg-ilfue fashi on and the mesenteric defect was similarly closed. Attention was turned to the omentum. This was split with LigaSure device staying off the large blood vessels and this allowed us to see the anterior aspect of the stomach with ease. Next, the liver, which appeared minimally bulky, but without lesions, was then retracted anteriorly i nto the right with a Sriram retractor inserted through a subxiphoid incision. This allowed us to see the robust gastroesophageal fat pad. We then dissected this gastroesophageal fat pad anteriorly a nd extended this up towards the angle of His and then, we were able to identify the left luis with bl unt dissection. There was no evidence of hiatal hernia. Next, a retrogastric tunnel was made on the lesser curvature approximately at the third crossing vess el. The stomach was then transected with a 45 mm bethea JEVON stapling device and we completed the sleeve stomach with an 2 additional 60 mm JEVON stapling devices. This was small and the second 60 mm staple r was not through much portion of the stomach. We did a last firing over an Carmine tube for sizing pu rposes. Next, the small bowel was brought in apposition to the gastric pouch. It was sutured with 2-0 silk s utures along the antimesenteric aspect of the most proximal portion of the Alivia limb and suturing thi s through the cut staple line of the pouch. Next, a gastrostomy was made over the Carmine tube using electrocautery and an enterotomy was similarly made. Next, the gastrojejunostomy was created with a 30 mm bethea JEVON stapling device using 2 cm of the device and creating the anastomosis. We reapproximated the common defect with a running 3-0 PDS suture and tying them in the middle. Next, a methylene blue dye test was performed inserting the Carmine tube easily into the proximal Alivia limb through the anastomosis. We clamped the Alivia limb beyond that and injected methylene blue. We did notice positive blue dye exiting one of the needle holes at one of the silk sutures that was util ized as a stay stitch. We cut this stitch out. After the dye was suctioned up through the Carmine tub e by the anesthesiologist, there was very scant amount in our field. We cut the suture and also cut the most distal silk suture that had been used for the stay suture. This left only 2. We reviewed t his posterior staple line. I did not see any evidence of dehiscence. We did have a small serosal te ar to the anterior aspect of the Alivia limb on the small bowel. I then utilized U stitches to bring t he small bowel to the posterior aspect of the stomach where we had seen the needle hole draining some of the blue dye. This dunked this area. We then utilized additional stitch at this site to oversew the serosal site at the Alivia limb. Next, methylene blue dye test was performed again. At this time, there was negative blue exiting fro m the anastomosis after performing it in the exact same fashion. We then removed the Carmine tube. I did bring small bowel up towards the lesser curvature of the stomach and sutured this with a 2-0 silk suture. This was to take off any tension and to keep the Alivia limb in an appropriate orientation. W e did follow this down towards the jejunojejunostomy and it was in the appropriate orientation throsebastian hinkle. There was no evidence of bleeding. Next, a #7 PARK drain was then placed into the abdomen and brought out through the left lateral most po rt site, sutured to the skin with a 3-0 Prolene suture and placed behind the gastrojejunostomy. The liver retractor was then removed. The liver fell back into place on top of our anastomosis. The tab le was repositioned back to neutral. We then checked for hemostasis, which again was excellent. We allowed the abdomen to collapse. Trocars were removed under direct vision and all 5 open skin incisi ons were reapproximated with 4-0 Monocryl subcuticular sutures followed by sterile dressing. The pat ient tolerated the procedure well and was transferred into the PACU in stable condition. [id number]/[facility] #: [id number]
[2017-12-11] MEDS: Ondansetron INJ* 2 MG/ML VIAL IV PRN ×3 (03:36→18:46)
[2017-12-11] MEDS: Heparin VIAL(*) 5000 UNITS/ML VIAL (FIVE THOUSAND) SUBCUT SCH ×3 (06:03→22:31)
[2017-12-11] MEDS: Famotidine IV* 10 MG/ML 2 ML (20 mg) IV SLOW PU SCH ×2 (07:45→21:05)
--- NOTE | 2017-12-11 10:41 | RAD ---
INDICATION: Status post gastric bypass surgery x1 day. COMPARISON: There are no prior studies available for comparison. Technique: An upper GI series examination was performed with Gastrografin contrast. Approximately 2.3 minutes of intermittent fluoroscopic guidance were used during the exam. Findings: An initial lead sewage plant operator film of the upper abdomen was obtained. There is a drainage catheter in the left upper quadrant. The esophageal peristalsis appeared normal. No hernia is seen. The patient is status post Alivia-en-Y gastric bypass surgery. The gastrojejunal anastomosis appears patent. There is no evidence for free intraperitoneal spillage of contrast or leak. IMPRESSION: STATUS POST ALIVIA-EN-Y GASTRIC BYPASS SURGERY, NO EVIDENCE FOR LEAK. CPT II Codes: G9500
--- NOTE | 2017-12-11 12:07 | PN ---
Progress Note - Progress Note Date of Service: 12/11/17 SOAP: Subjective: Pt is POD 1 s/p laparoscopic Alivia-en-Y gastric bypass. She has mild pain over lap incisions with nausea following the Upper GI series, but otherwise has no complaints. She is able to get up and walk around the floor and had a BM this AM. Upper GI shows no leak. Objective: Temp Pulse Resp BP Pulse Ox 98.0 F 68 16 113/61 96 12/11/17 08:00 12/11/17 09:00 12/11/17 09:43 12/11/17 08:46 12/11/17 09:00 Gen: Sleeping comfortably upon entering the room. NAD. Heart: RRR without M/R/G. Lungs: Clear to auscultation over anterior gibson b/l. Abd: dressings are clean, dry, and intact. Abd is soft and nondistended. Positive BS. PARK drain in place with minimal serosanguinous fluid and without drain obstruction. Assessment: POD 1 s/p laparoscopic Alivia-en-Y gastric bypass. Stable. Plan: Awaiting orders to begin PO sips of clear liquids. <Awilda De Souza - Last Filed: 12/11/17 11:52> - Progress Note SOAP: I saw and evaluated the patient. Agree with NPP maddie's note. UGi reviewed Pt examined Transfer to floor d/c jimenez strict I Os mian clear <Jesse Escudero - Last Filed: 12/11/17 12:30>
[2017-12-11] MEDS: D5W 1/2 NS KCl 20 Meq 1000 ML* 1,000 ML IV SCH ×2 (14:06→22:29)
[2017-12-11] MEDS: Ketorolac INJ* 30 MG/ML 1 ML VIAL IV PRN ×2 (14:11→22:26)
[2017-12-12] MEDS: Metoprolol Tartrate IV* 1 MG/ML 5 ML VIAL IV SCH ×3 (00:45→12:47)
[2017-12-12] MEDS: Heparin VIAL(*) 5000 UNITS/ML VIAL (FIVE THOUSAND) SUBCUT SCH ×3 (06:05→21:43)
[2017-12-12] MEDS: D5W 1/2 NS KCl 20 Meq 1000 ML* 1,000 ML IV SCH ×2 (07:30→23:48)
--- NOTE | 2017-12-12 08:17 | PN ---
Progress Note - Progress Note Date of Service: 12/12/17 SOAP: Subjective:POD#2 s/p lap gastric bypass c/o persistent headache and nausea;no vomiting;no abd pain;passed flatus and stool;voiding;too nauseated to meet po criteria [] Objective:afeb;VSS;O2 sat 100% RA;lungs clear anterior;heart:RRR;abd:+bs,PARK serosang;lap sites intact with dressings,no erythema;ext:scds on;nontender calves [] Assessment:headache and nausea;not able to drink sufficient clears [] Plan:try Zofran ODT prior to liquid hydrocodone;reassess later;update Dr Escudero []
[2017-12-12] MEDS: Ondansetron ODT TAB* 4 MG SL PRN ×2 (08:56→16:14)
[2017-12-12] MEDS: Ketorolac INJ* 30 MG/ML 1 ML VIAL IV PRN (08:57)
[2017-12-12] MEDS: Famotidine IV* 10 MG/ML 2 ML (20 mg) IV SLOW PU SCH ×2 (08:57→20:24)
[2017-12-12] MEDS: amLODIPine TAB* 5 MG PO SCH (08:58)
[2017-12-12] MEDS ORDERED: Acetaminophen TAB* 325 MG PO PRN (15:58)
[2017-12-12] MEDS: Atenolol TAB* 50 MG PO SCH ×3 (16:36→21:43)
[2017-12-12] MEDS: Acetaminophen TAB* 325 MG ONE ×2 (16:37→17:00)
[2017-12-12] MEDS ORDERED: Metoclopramide IV* 5 MG/ML 2 ML VIAL ONE (16:56)
[2017-12-13] MEDS: Heparin VIAL(*) 5000 UNITS/ML VIAL (FIVE THOUSAND) SUBCUT SCH (05:31)
[2017-12-13] MEDS: D5W 1/2 NS KCl 20 Meq 1000 ML* 1,000 ML IV SCH (07:31)
[2017-12-13 08:04] VITALS: BP 150/81
[2017-12-13] MEDS ORDERED: Chlorthalidone TAB* 50 MG PO SCH (09:00)
[2017-12-13] MEDS: Atenolol TAB* 50 MG PO SCH (09:37)
[2017-12-13] MEDS: amLODIPine TAB* 5 MG PO SCH (09:37)
[2017-12-13] MEDS: Famotidine IV* 10 MG/ML 2 ML (20 mg) IV SLOW PU SCH (09:48)
--- NOTE | 2017-12-13 12:22 | DS ---
CC: Lucila Bhakta MD; [facility] * DISCHARGE SUMMARY: DATE OF ADMISSION: DATE OF DISCHARGE: 12/13/17 HOSPITAL COURSE: Ms. Velasquez is a 57-year-old female, worked up as an outpatient with clinically severe obesity, hypertension, obstructive sleep apnea , who presented to the hospital in the same-day surgery and underwent a laparoscopic Alivia- en-Y gastric bypass. Please see operative report for details. The patient did have a PARK drain placed at the end of the procedure. She was transferred to the PACU. In the PACU, was noted to have hypertension and transferred her to the ICU. Overnight in the ICU, the patient's pressure normalized. She had good urine output. By postoperative day 1, underwent an upper GI study. The upper GI study was within normal limits. The patient was started on liquid diet. Ernandez catheter was removed. The patient was transferred to the floor. On postoperative day 2, the patient continued to have a persistent headache and we watched her otherwise. She was moving around, but not doing too many steps. She was tolerating liquids, but having nausea secondary to which she said was the headache. For this reason, I kept her for another overnight. On postoperative day 3, the patient was feeling better. Her headache had resolved. She had no abdominal pain. She was tolerating liquids without any nausea or vomiting. She was passing gas and having some small loose bowel movements. PHYSICAL EXAMINATION: Physical exam was performed on the day of discharge. The patient was afebrile with a T-max of 99.3. Vital signs were stable with a blood pressure of 150/81. Head, Eyes, Ears, Nose, and Throat: Normo-cephalic, atraumatic. Sclerae anicteric. Mucous membranes are moist. Lungs: Clear to auscultation. Abdomen: Soft, obese, nontender. Dressings removed. PARK drain which have been draining serosanguinous fluid only was removed at the bedside. She had no calf tenderness. IMPRESSION: Postop day 3, Alivia-en-Y gastric bypass. PLAN: Plan is for discharge home. She will resume her amlodipine and atenolol. We will hold her [place] and her losartan. She understands she has an appointment in my office at [facility] on Friday. We will see her then. She understands she can contact our office if there are any issues. [id number]/[facility] #: [id number] ALEJANDRA
== END 2017-12-13 09:45 | disposition home or self-care (01) | DRG 403 ==
LOC: AA 08:53 → ICU 13:27 → SSU 12-11 14:00
PROVIDERS: ADMIT Surgery; ATTEND Surgery
PROC: 0D164ZA Bypass Stomach to Jejunum, Percutaneous Endoscopic Approach (ICD-10-PCS; principal; 2017-12-10 12:00)
DX: E66.01 Morbid (severe) obesity due to excess calories (principal); I10 Essential (primary) hypertension; K21.9 Gastro-esophageal reflux disease without esophagitis; G47.33 Obstructive sleep apnea (adult) (pediatric); R51 Headache; R11.0 Nausea
CPT/HCPCS: 43644; 74246; 87641; 94660; A9270-GY; C1776; J0330; J0360; J0690; J1170; J1644; J1885; J2250; J2405; J2704; J2710; J2765; J2795; J3010; J3490

== ENCOUNTER 2018-01-29 12:20 | Inpatient (IN) | payer BC ==
--- OUTSIDE RECORDS SUMMARY | 2018-01-29 15:29 | XMS REPORT ---
:1960 External Reference #:[id number] Author Organization [employer] Address [address] [place] [address] Phone [phone] Care Team Providers Name Role Phone Lucila Bhakta MD Primary Care Physician Unavailable Payers Type Date Identification Numbers Payment Provider Subscriber Commercial Policy Number: [id number] BS [employer]ets Renata Diaz Group Number: [id number] [address] [address] Group Name: [employer] [facility] LANDEN Jones [address] PayID: [id number] Commercial Expires: 2015 Policy Number: Molinatotalpantera Diaz [id number] Essential Group Name: [id number] [address] [address] PayID: [id number] [place] [address] Medigap Part B Effective: 2009 Policy Number: BS Of ABHIJIT Diaz [id number] Expires: 2009 Group Number: [id number] [address] [address] PayID: [id number] LANDEN Jones [id number] Commercial Effective: 2010 Policy Number: [id number] Rm Diaz Expires: 2012 PayID: [id number] [address] [place] [address] Problems Date Description Provider Status Onset: 10/14/2012 [...] Comments Marital Status Lives With 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 Daily Losartan 05/24 Active Tablets 100mg 90tab Take One I10 Lucila Potassium s Tablet By Livia, Mouth Once M.D. Daily Tylenol Extra Active Tablets 500mg 2 by mouth Unknown Strength 0000 as needed Atenolol Active Tablets 100mg 90tab 1 by mouth Lucila / s every day Jessica Bhakta Omeprazole Active Capsules 20mg [address] every day Clonidine HCL 12/18 Hx Tablets 0.1mg 60tab 1 by mouth I10 Lucila /2018 s twice a day Rayo Bhakta.DGarth 12/31 Nitrofurantoin 12/18 Hx Capsules 100mg 14cap 1 by mouth R30.0 Lucila Macrocrystal s twice a day Rayo Bhakta M.D. 12/25 Omeprazole 08/29 Hx Capsules 40mg [address] every day - 12/18 Chlorthalidone 08/07 Hx Tablets 50mg 90tab 1 by mouth s every day Rayo De La Fuente.DGarth 08/07 Chlorthalidone 08/07 Hx Tablets 50mg 90tab Take One s Tablet By Sudhakar, - Mouth Once M.D. 12/18 Ciloxan 07/07 Hx Solution 0.3% 5ml 1-2 gtt H10.402 every 2 hrs Livia - in the Left M.D. 08/03 eye awake X 2 days then Q 4 hr X 5 days Chlorthalidone 05/08 Hx Tablets 25mg 90tab 1 by mouth s every day Rayo Bhakta M.DGarth 08/07 Gentamicin 05/07 Hx Solution 0.3% 5ml 1-2 drop in H10.89 Lucila the Left Livia - eye every 4 M.D. 12 hours x days Clonidine HCL 04/03 Hx Tablets 0.1mg 60tab not s taking----1 Livia - tab bid M.D. 05/07 Atenolol 02/27 Hx Tablets 100mg 90tab Take 1 I10 s Tablet By Livia, - Mouth Once M.D. 12/18 Daily Chlorthalidone 02/12 Hx Tablets 50mg 90tab once a day I10 Lucila s Livia, - M.DGarth 04/03 Diclofenac 02/12 Hx Tablets 50mg 60tab 1 tab every M54.[address] hummel 12 hrs as Livia, - needed , to M.D. 07/03 use tylenol for brekthrough pain Meloxicam 01/29 Hx Tablets 7.5mg 30tab take one tab M54.5 Henrique E. s twice daily Itzel, - as needed M.D. 02/12 for pain, avoid other nsaids Cyclobenzaprine 01/29 Hx Tablets 10mg 15tab one by mouth M54.5 Henrique E. HCL s three times Itzel, - a day as M.D. 02/27 needed spasm Percocet 07/17 Hx Tablets 5-325mg 10tab 1 tab by Lucila /2017 s mouth every Livia, - 8 hours as M.D. 01/28 needed pain Chlorthalidone 07/02 Hx Tablets 25mg 90tab take 1 I10 s tablet by Livia, - mouth every M.D. 02/12 day Ibuprofen 07/02 Hx Tablets 600mg 42tab 1 tab by Lucila s mouth three Bhakta, - times a day M.D. 07/29 as needed Tramadol HCL 01/02 Hx Tablets 50mg 60tab 1-2 tablets M25.562 Lucila /2016 s every 8 Livia, - hours as M.D. 07/02 needed Chlorthalidone 06/21 Hx Tablets 25mg 90tab 1 by mouth I10 Lucila s every day Rayo Bhakta M.DGarth 12/26 No Active 05/12 Hx Unknown Medications /2015 - 05/12 Amlodipine 05/12 Hx Tablets 10mg 30tab 1 by mouth I10 Margo Besylate s every day Rayo Rae.DGarth 05/24 Atenolol 05/12 Hx Tablets 50mg 90tab 2 by mouth I10 Lucila s every day Rayo Bhakta M.D. 02/27 Amlodipine 02/22 Hx Tablets 10mg 90tab 1 by mouth 401.1 Lucila Bes s every day Rayo Bhakta M.D. 05/12 Ibuprofen 11/03 Hx Tablets 200mg 100ta as needed Alex Rayo Neely M.D.,FACP 05/12 Bupropion HCL XL [...] /2014 ER 24HR s daily x 7 Butch, - days then 1 M.D. 07/16 tab twice a day Chantix Starting 06/08 Hx Tablets 0.5mg X 1Pack as directed 305.1 Lucila 11 & 1 mg on the Livia, - X 42 M.D. 06/15 Tramadol HCL ER 06/08 Hx Tablets 100mg 20tab 1 tabs po 717.9 Lucila /2014 ER 24HR s bid as Livia, - needed fo M.D. 08/16 rpa Ibuprofen 05/28 Hx Tablets 600mg 60tab 1 tab by Lucila s mouth three Livia, - times a day M.D. 08/16 prn Amoxicillin/Pota 16 Hx Tablets 875-125mg 20tab 1 po bid 473.0 [place] ssium shaheed Pachikara, Clavulanate - M.DGarth 05/19 Amlodipine 07 Hx Tablets 5mg 60tab twice a day 401.9 Lucila Besylate s Rayo Bhakta M.D. 02/22 Amoxicillin/Pota 07/10 Hx Tablets 875-125mg 20tab 1 po bid 473.0 [place] ssium s Pachikara, Clavulanate - M.DGarth 12/17 Amlodipine 10/22 Hx Tablets 5mg 30tab 1 po qd Margo Besylate Rayo Thakur M.D. 11/04 Losartan 10/20 Hx Tablets 100mg 90tab 1 po qd 401.9 Lucila Potassium Rayo Brumfield M.D. 05/12 Atenolol 10/14 Hx Tablets 50mg 60tab 1 tab by 401.9 Lucila s dory Bhakta, - a day MGarthDGarth 05/12 Butalbital/Aceta 10/14 Hx Capsules 50-325-40 30cap 1 tab every 784.0 [place] minophen/Caffein /2012 mg s 2 h prn [...] Potassium /0000 every day - 05/24 Cholestyramine 00 Hx Packet 4gm 1 packet Unknown /0000 daily - 12/26 Ibuprofen 00 Hx Tablets 800mg by mouth Unknown /0000 three times - a day as 07/02 Lidocaine Hx Patches 5% Unknown / - 01/27 Ibuprofen Hx Tablets 800mg by mouth Unknown / three times - a day as 01/27 Vesicare Hx Tablets 10mg not Unknown /0000 taking---1 - by mouth 04/03 Toviaz Hx Tablets 4mg 2 by mouth Unknown / ER 24HR every day - 06/05 Vitamin D Hx Capsules [id number] once a week Diamond (Ergocalciferol) / for 8 weeks Lupe Cam - 12/18 Vitamin B12 Hx Tablets 1 by mouth Unknown / ER every day - 12/18 Ciloxan Hx Ointment 0.3% apply 0.5 H10.402 Unknown / inch ribbon - in r eye 07/03 [...] CPT Code Status Date Vaccine Lot # [id number] Given 01/28/2018 Influenza Virus Vaccine, Quadrivalent, Split, [id number] Preservative Free 16431 Given 01/29/2017 Influenza Virus Vaccine, Quadrivalent, Split, [id number] Preservative Free 48767 Given 07/02/2016 Tdap - Tetanus/Diptheria/Acellular Pertussis [id number] 22807 Given 03/31/2016 Influenza Virus Vaccine, Quadrivalent, Split Virus, Im Use 89655 Given 02/07/2016 Influenza Virus Vaccine, Quadrivalent, Split Virus, Im Use 50960 Given 02/22/2014 Flu Vaccine Split Virus Preservative Free For [id number] Indiv 3Yr Older 61145 Given 02/10/2013 Flu Vaccine Split Virus Preservative Free For [id number] Indiv 3Yr Older Vital Signs Date Vital Result Comment 01/28/2018 Height 63 inches 5'3" Weight 322.00 lb Heart Rate 52 /min BP Systolic Sitting 130 mmHg BP Diastolic Sitting 80 mmHg O2 % BldC Oximetry 94 % BMI (Body Mass Index) 57.0 kg/m2 01/08/2018 Weight 333.00 lb BP Systolic Sitting 140 mmHg in L arm, 138/78 BP Diastolic Sitting 80 mmHg in L arm, 138/78 01/01/2018 Height 63 inches 5'3" Weight 333.00 lb Heart Rate 59 /min BP Systolic Sitting 130 mmHg Left: 130/90 Right:132/90 BP Diastolic Sitting 90 mmHg Left: 130/90 Right:132/90 O2 % BldC Oximetry 94 % BMI (Body Mass Index) 59.0 kg/m2 12/18/2017 Height 63 inches 5'3" Weight 342.00 lb Heart Rate 59 /min BP Systolic Sitting 158 mmHg BP Diastolic Sitting 98 mmHg O2 % BldC Oximetry 90 % BMI (Body Mass Index) 60.6 kg/m2 11/11/2017 Height 63 inches 5'3" Weight 366.00 [...] Test Date Test Result H/L Range Note Urine Culture And 12/18/2017 Urine Culture SEE RESULT BELOW 1, 2 Sensitivities Ua Routine 12/18/2017 Ua Specific Lenore 1.015 Ua PH 5 Ua Color dark yellow Ua Appera cloudy Ua WBC ++ Ua Protein 30+ Ua Glucose norm Ua Ketones + Ua Bilirubin ++ Ua Urobilinogen 1 Ua Nitrite - Ua Occult Blood trace CBC No Diff 2017 White Blood Count 6.0 10^3/uL 3.5-10.8 3 Red Blood Count 4.40 10^6/uL 4.00-5.40 3 Hemoglobin 14.0 g/dL 12.0-16.0 3 Hematocrit 41 % 35-47 3 Mean Corpuscular Volume 93 fL 80-97 3 Mean Corpuscular Hemoglobin 32 pg High 27-31 3 Mean Corpuscular HGB Conc 34 g/dL 31-36 3 Red Cell Distribution Width 15 % 10.5-15 3 Platelet Count 190 10^3/uL 150-450 3 Mean Platelet Volume 9.8 um3 7.4-10.4 3 Basic Metabolic Panel 2017 Sodium 142 mmol/L 135-145 3 Potassium 4.0 mmol/L 3.5-5.0 3 Chloride 106 mmol/L 101-111 3 Co2 Carbon Dioxide 29 mmol/L 22-32 3 Anion Gap 7 mmol/L 2-11 3 Glucose 109 mg/dL High 70-100 3 Blood Urea Nitrogen 20 mg/dL 6-24 3 Creatinine 1.22 mg/dL High 0.51-0.95 3 BUN/Creatinine Ratio 16.4 8-20 3 Calcium 9.3 mg/dL 8.6-10.3 3 Egfr Non- 45.8 >60 3 Egfr 55.4 >60 3, 4 Laboratory test 08/28/2017 Clotest SEE RESULT BELOW 5 finding Laboratory test 08/28/2017 Surgical Pathology SEE RESULT BELOW 6 finding Laboratory test 08/01/2017 TSH (Thyroid Stim 4.72 mcIU/mL 0.34-5.60 finding Horm) Free Cortisol Serum 1.410 g/dL 7 Laboratory test finding 07/07/2017 Hemoglobin A1c (Glyco 6.2 % High 4.0- 5.6 8 HGB) Basic Metabolic Panel 07/07/2017 Sodium 140 mmol/L 133-145 Potassium 4.1 mmol/L 3.5-5.0 Chloride 103 mmol/L 101-111 Co2 Carbon Dioxide 28 mmol/L 22-32 Anion Gap 9 mmol/L 2-11 Glucose 97 mg/dL 70-100 Blood Urea Nitrogen 36 mg/dL High 6-24 Creatinine 1.16 mg/dL High 0.51-0.95 BUN/Creatinine Ratio 31.0 High 8-20 Calcium 9.6 mg/dL 8.6-10.3 Egfr Non- 48.7 >60 Egfr 62.6 >60 9 CBC Auto Diff 06/11/2017 White Blood Count [...] Egfr Non- 49.7 >60 Egfr 63.9 >60 10 Iron & Iron Binding Capacity 06/11/2017 Iron 74 g/dL 50-212 Unsaturated Iron Binding 294 g/dL Total Iron Binding Capacity 368 g/dL 250-450 % Iron Saturation 20 % 15-55 Laboratory test finding 06/11/2017 Ferritin 49.0 ng/mL 11-307 Vitamin B12 206 pg/mL 180-914 11 Folic Acid (Folate) 10.13 ng/mL >3.99 Vitamin D Total 25(Oh) 10.4 ng/mL Low 20-50 Vitamin E Level 7.5 mg/L 5.5 - 17.0 12 Basic Metabolic Panel 05/07/2017 Sodium 139 mmol/L 133-145 Potassium 4.5 mmol/L 3.5-5.0 Chloride 104 mmol/L 101-111 Co2 Carbon Dioxide 30 mmol/L 22-32 Anion Gap 5 mmol/L 2-11 Glucose 96 mg/dL 70-100 Blood Urea Nitrogen 26 mg/dL High 6-24 Creatinine 0.97 mg/dL High 0.51-0.95 BUN/Creatinine Ratio 26.8 High 8-20 Calcium 9.5 mg/dL 8.6-10.3 Egfr Non- 59.8 >60 Egfr 77.0 >60 13 Laboratory test finding 05/07/2017 B-Type Natriuretic Peptide BNP 61 pg/mL 14 Urinalysis Profile 05/07/2017 Urine Color Yellow Urine Appearance Cloudy Urine Specific [place] 1.019 1.010-1.030 Urine pH 5.0 5-9 Urine [...] And 05/07/2017 Urine Culture SEE RESULT BELOW 15 Sensitivities Basic Metabolic Panel 04/02/2017 Sodium 138 mmol/L 133-145 Potassium 4.3 mmol/L 3.5-5.0 Chloride 102 mmol/L 101-111 Co2 Carbon Dioxide 29 mmol/L 22-32 Anion Gap 7 mmol/L 2-11 Glucose 103 mg/dL High 70-100 Blood Urea Nitrogen 41 mg/dL High 6-24 Creatinine 1.49 mg/dL High 0.51-0.95 BUN/Creatinine Ratio 27.5 High 8-20 Calcium 9.5 mg/dL 8.6-10.3 Egfr Non- 36.5 >60 Egfr 46.9 >60 16 Urinalysis Profile 03/06/2017 Urine Color Yellow Urine Appearance Clear Urine Specific [place] 1.017 1.010-1.030 Urine pH 5.0 5-9 Urine [...] And 03/06/2017 Urine Culture SEE RESULT BELOW 17 Sensitivities Basic Metabolic Panel 02/27/2017 Sodium 139 mmol/L 133-145 18 Potassium 3.6 mmol/L 3.5-5.0 18 Chloride 104 mmol/L 101-111 18 Co2 Carbon Dioxide 27 mmol/L 22-32 18 Anion Gap 8 mmol/L 2-11 18 Glucose 91 mg/dL 70-100 18 Blood Urea Nitrogen 30 mg/dL High 6-24 18 Creatinine 1.02 mg/dL High 0.51-0.95 18 BUN/Creatinine Ratio 29.4 High 8-20 18 Calcium 9.4 mg/dL 8.6-10.3 18 Egfr Non- 56.5 >60 18 Egfr 72.6 >60 18, 19 Laboratory test finding 02/12/2017 TSH (Thyroid Stim Horm) 1.93 mcIU/mL 0.34-5.60 B-Type Natriuretic Peptide BNP 71 pg/mL 20 Urinalysis Profile 02/06/2017 Urine Color Straw Urine Appearance Clear Urine Specific [place] 1.014 1.010-1.030 Urine pH 5.0 5-9 Urine [...] And 02/06/2017 Urine Culture SEE RESULT BELOW 21 Sensitivities Comp Metabolic Panel 02/06/2017 Sodium 138 [...] Egfr Non- 60.6 >60 Egfr 77.9 >60 22 CBC Auto Diff 02/06/2017 White Blood Count [...] um3 7.4-10.4 Ua Routine 01/29/2017 Ua Specific [place] 1.015 Ua PH 5 Ua Color Dark [...] Egfr Non- 72.9 >60 Egfr 93.8 >60 23 CBC Auto Diff 06/10/2016 White Blood Count [...] Color Yellow Urine Appearance Clear Urine Specific [place] 1.016 1.010-1.030 Urine pH 5.0 5-9 Urine [...] Egfr Non- 80.8 >60 Egfr 104.0 >60 24 Potassium 4.2 mmol/L 3.5-5.0 Anion Gap 6 mmol/L 2-11 Ast 16 U/L 13-39 Laboratory test finding 06/10/2016 Lipase 40 U/L 11.0-82.0 C Reactive Protein 2.78 mg/L < 5.00 25 Urine Culture And Sensitivities 06/10/2016 Urine Culture SEE RESULT BELOW 26 Urinalysis Profile 01/03/2016 Urine Color Yellow Urine Appearance Turbid Urine Specific [place] 1.027 1.010-1.030 Urine pH 5.0 5-9 Urine Urobilinogen Negative Negative Urine Ketones Negative Negative Urine Protein Negative Negative Urine Leukocytes 1+ Negative Urine Blood 1+ Negative Urine Nitrite Negative Negative Urine Bilirubin Negative Negative Urine Glucose Negative Negative Urine White Blood Cell Absent Absent Urine Red Blood Cell Absent Absent Urine Bacteria Absent Absent Urine Culture And 01/03/2016 Urine Culture SEE RESULT BELOW 27 Sensitivities Laboratory test finding 07/14/2015 Metanephrines Plasma SEE COMMENT 28 Laboratory test finding 06/26/2015 Cortisol 16.20 ?g/dL 29 Basic Metabolic Panel 06/26/2015 Sodium 138 mmol/L 133-145 Potassium 4.0 mmol/L 3.5-5.0 Chloride 102 mmol/L 101-111 Co2 Carbon Dioxide 27 mmol/L 22-32 Anion Gap 9 mmol/L 2-11 Glucose 91 mg/dL 70-100 Blood Urea Nitrogen 36 mg/dL High 6-24 Creatinine 0.94 mg/dL 0.51-0.95 BUN/Creatinine Ratio 38.3 High 8-20 Calcium 9.6 mg/dL 8.6-10.3 Egfr Non- 62.5 >60 Egfr 80.4 >60 30 Laboratory test finding 06/26/2015 Hepatitis C Antibody Nonreactive Nonreactive Aldosterone 12 ng/dL <=21 31 Renin 4.0 ng/mL/h 32 TSH (Thyroid Stim Horm) 2.34 ?IU/mL 0.34-5.60 Laboratory test finding 05/30/2015 Cytology SEE RESULT BELOW 33 HPV Rna Ww/Reflex Genotype Negative Negative 34 Laboratory test finding 05/12/2015 Inr/Protime 0.99 0.89-1.11 Urinalysis Profile 05/12/2015 Urine Color Yellow Urine Appearance Clear Urine Specific [place] 1.012 1.010-1.030 Urine pH 5.0 5-9 Urine [...] finding 05/12/2015 Lactic Acid 1.3 mmol/L 0.5-2.0 35 Troponin-I (TnI) 0.00 ng/mL <0.03 36 Comp Metabolic Panel 05/12/2015 Sodium 138 mmol/L [...] Egfr Non- 77.6 >60 Egfr 99.7 >60 37 Laboratory test finding 05/12/2015 Amylase 49 U/L 29-103 Lipase 26 U/L 11.0-82.0 Creatine Kinase(CK) 29 U/L 10-223 C Reactive Protein 1.51 mg/L < 5.00 38 Comp Metabolic Panel 02/25/2014 Sodium 139 mmol/L 133-145 39 Potassium 3.8 mmol/L 3.7-5.6 39 Chloride 104 mmol/L 101-111 39 Co2 Carbon Dioxide 29 mmol/L 22-32 39 Anion Gap 6 mmol/L 2-11 39 Glucose 81 mg/dL 70-100 39 Blood Urea Nitrogen 16 mg/dL 6-24 39 Creatinine 0.80 mg/dL 0.51-0.95 39 BUN/Creatinine Ratio 20.0 8-20 39 Calcium 9.1 mg/dL 8.6-10.3 39 Total Protein 6.4 g/dL 6.4-8.9 39 Albumin 3.9 g/dL 3.2-5.2 39 Globulin 2.5 g/dL 2-4 39 Albumin/Globulin Ratio 1.6 1-3 39 Total Bilirubin 0.90 mg/dL 0.2-1.0 39 Alkaline Phosphatase 71 U/L 34-104 39 Alt 19 U/L 7-52 39 Ast 14 U/L 13-39 39 Egfr Non- 75.6 >60 39 Egfr 97.3 >60 39, 40 CBC Auto Diff 02/25/2014 White Blood Count 6.6 10^3/uL 4.8-10.8 39 Red Blood Count 4.47 10^6/uL 4.0-5.4 39 Hemoglobin 14.0 g/dL 12.0-16.0 39 Hematocrit 42 % 35-47 39 Mean Corpuscular Volume 93 fL 80-97 39 Mean Corpuscular Hemoglobin 31 pg 27-31 39 Mean Corpuscular HGB Conc 34 g/dL 31-36 39 Red Cell Distribution Width 15 % 10.5-15 39 Platelet Count 175 10^3/uL 150-450 39 Mean Platelet Volume 10 um3 7.4-10.4 39 Abs Neutrophils 4.7 10^3/uL 1.5-7.7 39 Abs Lymphocytes 1.1 10^3/uL 1.0-4.8 39 Abs Monocytes 0.6 10^3/uL 0-0.8 39 Abs Eosinophils 0.1 10^3/uL 0-0.6 39 Abs Basophils 0 10^3/uL 0-0.2 39 Abs Nucleated RBC 0 10^3/uL 39 Granulocyte % 71.3 % 38-83 39 Lymphocyte % 16.4 % Low 25-47 39 Monocyte % 9.8 % High 1-9 39 Eosinophil % 1.8 % 0-6 39 Basophil % 0.7 % 0-2 39 Nucleated Red Blood Cells % 0 39 Laboratory test finding 07/16/2013 Amylase 31 U/L 29-103 Lipase 14 U/L 11.0-82.0 C Reactive Protein 84.88 mg/L High < 5.00 41 Comp Metabolic Panel 07/16/2013 Sodium 137 mmol/L [...] Egfr Non- 55.5 >60 Egfr 71.3 >60 42 CBC Auto Diff 07/16/2013 White Blood Count [...] Color Yellow Urine Appearance Clear Urine Specific [place] 1.019 1.010-1.030 Urine Esterase Negative Negative Urine Nitrate Negative Negative Urine Urobilinogen Negative E.U./dL Negative Urine Protein Negative mg/dL Negative Urine pH 5.5 5-9 Urine Blood Negative Negative Urine Ketones Negative mg/dL Negative Urine Bilirubin Negative Negative Urine Glucose Negative mg/dL Negative Laboratory test finding 07/16/2013 Lactic Acid 0.9 mmol/L 0.5-2.2 Surgical Pathology 07/13/2013 S RUN DATE: 07/14/ <SEE 43 NOTE> Comp Metabolic Panel 06/15/2013 Sodium 140 [...] Egfr Non- 71.8 >60 Egfr 92.3 >60 44 Laboratory test finding 06/08/2013 Cytology RUN DATE: [...] Egfr Non- 76.2 >60 Egfr 98.0 >60 46 Lipid Profile (Trig/Chol/HDL) 10/12/2012 Triglycerides 79 mg/dL 40-200 Cholesterol 161 mg/dL Less than 200 HDL Cholesterol 68 mg/dL High 40-60 47 Cholesterol/HDL Ratio 2.4 Average 1-4.44 LDL Cholesterol 77.2 Less Than 100 48 Laboratory test finding 10/12/2012 TSH (Thyroid Stimulating 1.81 miu/mL 0.34-5.60 Horm) Cortisol 12.9 g/dL 49 Urine Culture & Sensitivi 04/13/2010 Urine Culture Sensitivi NF1 50 1 [id number] 2 SEE RESULT BELOW Name: RENATA DIAZ : [address]: Lucila Bhakta MD Acct: [id number] Unit: [id number] AGE: 57 Location: [facility] Re12/18/17 SEX: F Status: REG REF SPEC: [id number] LEAH: 12/18/17-[address]: Lucila Bhakta MD REQ: [id number] RECD: 12/18/17 STATUS: COMP _ SOURCE: URINE SPDESC: ORDERED: Urine Culture COMMENTS: [id number] Urine Source: Clean Catch Procedure Result Reported Site Urine Culture Final 12/20/17- 0844 ML Organism 1 ESCHERICHIA COLI [place] Count >100,000 (Many) CFU/ML Organism 2 PROTEUS SPECIES [place] Count 1-10,000 (Few) CFU/ML PROTEUS SP: SUSCEPTIBILITY NOT INDICATED DUE TO LOW COUNT. 1. ESCHERICHIA COLI M.I.C. RX --------- ------ Ampicillin >=32 R Cefazolin <=4 S Cefepime <=1 S Ceftriaxone <=1 S Ciprofloxacin <=0.25 S Gentamicin <=1 S Levofloxacin <=0.12 S Meropenem <=0.25 S Nitrofurantoin <=16 S Tetracycline <=1 S Pipercillin/Tazobactam <=4 S Trimethoprim/Sulfamethoxazole <=20 S Amoxicillin/Clavulanic Acid >=32 R Aztreonam <=1 S CONTINUED ON NEXT PAGE DEPARTMENT OF PATHOLOGY, [address] [place] [address] Reginald Steele M.D. Director [facility] # [id number] Patient: RENATA DIAZ [id number] (Continued) Specimen: [id number] Collected: 12/18/17-1504 Received: 12/18/17-1837 (Continued) Procedure Result Reported Site Urine Culture Final (continued) Contact the Microbiology Department for any additional antibiotic reporting. * ML - Main Lab . END OF REPORT DEPARTMENT OF PATHOLOGY, [address] [place] [address] Reginald Steele M.D. Director [facility] # [id number] 3 12/10 4 Because ethnic data is not always readily [...] 15-29 5 Kidney failure <15 (or dialysis) 5 SEE RESULT BELOW Name: RENATA DIAZ Mike : [address]: Jaja Olivas DO Acct: [id number] Unit: [id number] AGE: 56 Location: [place] Re08/28/17 SEX: F Status: DEP SDC SPEC: [id number] LEAH: 08/28/17-[address]: Jaja Olivas DO REQ: [id number] RECD: 08/28/17 STATUS: DOUG BREAUX DR: Lucila Bhakta MD _ SOURCE: GAS ANTRUM SPDESC: ORDERED: Clotest Procedure Result Reported Site Clotest Final 08/29/17- 715 ML Clotest Negative * - Main Lab . END OF REPORT DEPARTMENT OF PATHOLOGY, [address] [place] [address] Reginald Steele M.D. Director [facility] # [id number] 6 SEE RESULT BELOW Name: RENATA DIAZ : [address]: Jaja Olivas DO Acct: [id number] Unit: [id number] AGE: 56 Location: [place] Re08/28/17 SEX: F Status: JAKY OSBORNC SPEC: [id number] LEAH: 08/28/17-[address]: Jaja Olivas DO REQ: [id number] RECD: 08/28/173555 STATUS: WENDY BRAEUX DR: Jesse Bhakta MD _ ORDERED: LEVEL [...] CONTINUED ON NEXT PAGE DEPARTMENT OF PATHOLOGY, [address] [place] [address] Reginald Steeel M.D. Director [facility] # [id number] RUN DATE: 08/29/17 [facility] LAB LIVE PAGE 2 Patient: RENATA DIAZ [id number] (Continued) GROSS DESCRIPTION (Continued) GROSS DESCRIPTION 1. [...] 1027 END OF REPORT DEPARTMENT OF PATHOLOGY, [address] [place] [address] Reginald Steele M.D. Director [facility] # [id number] 7 REFERENCE VALUE 6:00-10:30 AM Collection 0.121-1.065 mcg/dL ADDITIONAL INFORMATION This test was developed and its performance characteristics determined by [facility] in a manner consistent with CLIA requirements. This test has not been cleared or approved by the U.S. Food and Drug Administration. Test Performed by: [facility] [address] [place] [id number] 8 Therapeutic target for the treatment of diabetes mellitus patients is <7% HBA1C, and in selective patients <6.0%. Please refer to [place] [employer] diabetic care guidelines for further information. 9 Because ethnic data is not always [...] 5 Kidney failure <15 (or dialysis) 10 Because ethnic data is not always readily [...] 15-29 5 Kidney failure <15 (or dialysis) 11 Normal Range 180 to 914 Indeterminate Range 145 to 180 Deficient Range <145 12 ADDITIONAL INFORMATION This test was developed and its performance characteristics determined by [facility] in a manner consistent with CLIA requirements. This test has not been cleared or approved by the U.S. Food and Drug Administration. Test Performed by: [facility] [address] [facility], [place] [address] 13 Because ethnic data is not always readily [...] 15-29 5 Kidney failure <15 (or dialysis) 14 >100 to <200 pg/mL: likely compensated congestive heart failure (CHF) 200 to 400 pg/mL: likely moderate CHF >400 pg/mL: likely moderate to severe CHF 15 SEE RESULT BELOW Name: RENATA IDAZ : [address]: Lucila Bhakta MD Acct: [id number] Unit: [id number] AGE: 56 Location: [facility] Re05/07/17 SEX: F Status: REG REF SPEC: [id number] LEAH: 05/07/[address]: Lucila Bhakta MD REQ: [id number] RECD: 05/07/17 STATUS: COMP _ [facility]: Urine Culture Procedure Result Reported Site Urine Culture Final 05/08/17- 1644 ML No Growth (<1,000 CFU/mL) * ML - MAIN LAB ([facility]) . END OF REPORT * ML=Testing performed at Main Lab DEPARTMENT OF PATHOLOGY, [address] [place] [address] Reginald Steele M.D. Director [facility] # [id number] 16 Because ethnic data is not always readily [...] 15-29 5 Kidney failure <15 (or dialysis) 17 SEE RESULT BELOW Name: RENATA DIAZ : [address]: Lucila Bhakta MD Acct: [id number] Unit: [id number] AGE: 56 Location: [facility] Re03/06/17 SEX: F Status: REG REF SPEC: [id number] LEAH: 03/06/17-[address]: Lucila Bhakta MD REQ: [id number] RECD: 03/06/17 STATUS: COMP _ SOURCE: URINE SPDESC: ORDERED: Urine Culture Procedure Result Reported Site Urine Culture Final 03/07/17- 1213 ML No growth of clinically significant organisms * ML - MAIN LAB ([facility]) . END OF REPORT * ML=Testing performed at Main Lab DEPARTMENT OF PATHOLOGY, [address] [place] [address] Reginald Steele M.D. Director [facility] # [id number] [phone] EXT 250 19 Because ethnic data is not always [...] 5 Kidney failure <15 (or dialysis) 20 >100 to <200 pg/mL: likely compensated congestive heart failure (CHF) 200 to 400 pg/mL: likely moderate CHF >400 pg/mL: likely moderate to severe CHF 21 SEE RESULT BELOW Name: RENATA DIAZ : [address]: Henrique Dash MD Acct: [id number] Unit: [id number] AGE: 56 Location: ED Re02/06/17 SEX: F Status: DEP ER SPEC: [id number] LEAH: 02/06/[address]: Henrique Dash MD REQ: [id number] RECD: 02/06/17 STATUS: DOUG BREAUX DR: Lucila Bhakta MD _ SOURCE: URINE SPDESC: ORDERED: Urine Culture Procedure Result Reported Site Urine Culture Final 02/07/17- 1608 ML Few Enterobacteriacae; possible contamination. * ML - MAIN LAB ([facility]) . END OF REPORT * ML=Testing performed at Main Lab DEPARTMENT OF PATHOLOGY, [address] [place] [address] Reginald Steele M.D. Director [facility] # [id number] 22 Because ethnic data is not always readily [...] 15-29 5 Kidney failure <15 (or dialysis) 23 Because ethnic data is not always readily [...] 15-29 5 Kidney failure <15 (or dialysis) 24 Because ethnic data is not always readily [...] 15-29 5 Kidney failure <15 (or dialysis) 25 Acute inflammation: >10.00 26 SEE RESULT BELOW Name: RENATA DIAZ : [address]: Juan Carlos Pang MD Acct: [id number] Unit: [id number] AGE: 55 Location: ED Re06/10/16 SEX: F Status: DEP ER SPEC: [id number] LEAH: 06/10/16-[address] [facility] DR: Juan Carlos Pang MD REQ: [id number] RECD: 06/10/16 STATUS: DOUG BREAUX DR: Lucila Bhakta MD _ SOURCE: URINE [facility]: ORDERED: Urine Culture Procedure Result Reported Site Urine Culture Final 06/11/16- 1316 ML No growth of clinically significant organisms * ML - MAIN LAB ([facility]) . END OF REPORT * ML=Testing performed at Main Lab DEPARTMENT OF PATHOLOGY, [address] [place] [address] Reginald Steele M.D. Director [facility] # [id number] 27 SEE RESULT BELOW Name: JOERENATA Mike : [address]: Lucila Bhakta MD Acct: [id number] Unit: [id number] AGE: 55 Location: [facility] Re01/03/16 SEX: F Status: REG REF SPEC: [id number] LEAH: 01/03/[address]: Lucila Bhakta MD REQ: [id number] RECD: 01/03/16 STATUS: COMP _ SOURCE: URINE SPDESC: ORDERED: Urine Culture Procedure Result Reported Site Urine Culture Final 01/04/16- 1715 ML Mixed nafisa; possible contamination. Suggest resubmission. * ML - MAIN LAB ([facility]) . END OF REPORT * ML=Testing performed at Main Lab DEPARTMENT OF PATHOLOGY, [address] [place] [address] Reginald Steele M.D. Director [facility] # [id number] 28 Metanephrines, Free, Plasma Metanephrine, Free <25 pg/mL < OR=57 Y09 6 Normetanephrine, Free 60 pg/mL < WB=079 Y09 6 Total, Free (MN + NMN) 60 pg/mL < RX=458 Y09 6 Elevations > 4-fold upper reference [...] Clinical Endocrinology and Metabolism 93 (1),91-95, 2008. http://[email or web address]/MetFractFree RECEIVED: 07/15/2015 09:33 REPORTED: 07/20/2015 14:24 --- 07/24/15 1059 --- Normetanephrine previously reported as: C Metanephrines, Free, Plasma Metanephrine, Free <25 pg/mL < OR=57 Y09 6 Normetanephrine, Free 60 pg/mL < FS=844 Y09 6 Total, Free (MN + NMN) 60 pg/mL < KE=193 Y09 6 Elevations > 4-fold upper reference range: strongly suggestive of a pheochromocytoma(1). Elevations >1 - 4-fold upper reference range: significant but not diagnostic, may be due to medications or stress. Suggest running 24 hr urine fractionated metanephrines and serum Chromogranin A for confirmation. Reference: (1) Moises Bedolla et roberto, Plasma Chromogranin A or Urine Fractionated Metanephrines Follow-Up Testing Improves the Diagnostic Accuracy of Plasma Fractionated Metanephrines for Pheochromocytoma. The Journal of Clinical Endocrinology and Metabolism 93 (1),91-95, 2008. http://[email or web address].[employer]/faq/MetFractFree RECEIVED: 07/15/2015 09:33 REPORTED: 07/20/2015 14:24 29 AM 8.7-22.4 PM <10 30 Because ethnic data is not always readily [...] 15-29 5 Kidney failure <15 (or dialysis) 31 ADDITIONAL INFORMATION Reference range for patients 11 years and older is based on upright A.M. collection from subjects without sodium restrictions. Test Performed by: [facility] [employer] [address] [address] Secondary Education Professor: Lucas Nunez II, M.D., Ph.D. 32 REFERENCE VALUE (Peripheral vein specimen) Na-deplete, upright: Mean: 5.9 Range: 2.9-10.8 Na-replete, upright: Mean: 1.0 Range: < or=0.6-3.0 ADDITIONAL INFORMATION Testing performed by Liquid Chromatography-Tandem Mass Spectrometry (LC-MS/MS). Test Performed by: [place] [address] Secondary Education Professor: Lucas Nunez II, M.D., Ph.D. 33 SEE RESULT BELOW Name: RENATA DIAZ : [address]: Lucila Bhakta MD Acct: [id number] Unit: [id number] AGE: 54 Location: [facility] Re05/30/15 SEX: F Status: REG REF SPEC: [id number] LEAH: 05/30/[address]: Lucila Bhakta MD REQ: [id number] RECD: 05/30/15 STATUS: SOUT _ ORDERED: IMAGE [...] Signed (signature on file) ASHISH Jerry(ASCP) 05/31 1249 This Pap test was evaluated with the assistance of the TechnoVaxPrep Test Imaging System. Due to cytologic findings at the client care representative microscope, comprehensive manual rescreening by a Unit Aide Tech may be required. The Pap Smear is [...] performed at Main Lab DEPARTMENT OF PATHOLOGY, [address] [place] [address] Reginald Steele M.D. Director [facility] # [id number] RUN DATE: 05/31/15 [facility] LAB LIVE PAGE 1 Patient: DIZARENATA [id number] (Continued) 34 The high-risk HPV types detected by the assay include: 16, 18, 31, 33, 35, 39, 45, 51, 52, 56, 58, 59, 66, and 68. 35 [facility] Severe Sepsis and Septic Shock Management Bundle Measure requires all lactic acids initially measuring >2.0mmol/L be repeated. 36 Reference Range and Interpretation: TnI (ng/mL) Interpretation Less Than 0.03 ng/mL Not supportive of diagnosis of NH 0.03 - 0.50 ng/mL Indeterminate: suggest serial studies if clinically indicated. Greater than 0.5 ng/mL Consistent with diagnosis of NH 37 Because ethnic data is not always [...] <15 (or dialysis) 38 Acute inflammation: >10.00 39 FASTING 12 HOUR 40 Because ethnic data is not always [...] 5 Kidney failure <15 (or dialysis) 41 Acute inflammation: >10.00 In accordance with FDA guideline, CRP is now reported in mg/L, previous reporting was in mg/dL. 42 Because ethnic data is not always [...] 5 Kidney failure <15 (or dialysis) 43 RUN DATE: 07/14/13 [facility] LAB LIVE PAGE 1 RUN TIME: [address] [place] [address] Specimen Inquiry Name: DIAZRENATA C : [address]: Skyler Huggins MD Acct: [id number] Unit: [id number] AGE: 52 Location: ENDO Re07/13/13 SEX: F Status: REG REF SPEC: [id number] LEAH: 07/13/13- SUBM DR: Skyler Huggins MD REQ: [id number] RECD: 07/13/131139 STATUS: WENDY BREUAX DR: Lucila Bhakta MD _ ORDERED: LEVEL [...] received in formalin labeled Renata Diaz, Biopsy Random Colon, and consists of a 1.0 x 0.8 x 0.2 cm. aggregate of multiple irregular, bethea-pink soft tissue fragments. [employer] Cover[employer] Merchandiser Lead sections, one cassette. 1. CONTINUED ON NEXT PAGE * ML=Testing performed at Main Lab DEPARTMENT OF PATHOLOGY, [address] [place] [address] Reginald Steele M.D. Director [facility] Permit #[id number] RUN DATE: 07/14/13 [facility] LAB LIVE PAGE 2 RUN TIME: [address] [place] [address] Specimen Inquiry Patient: RENATA DIAZ [id number] (Continued) GROSS DESCRIPTION (Continued) Signed (signature on file) Briseida Mix MD 1534 END OF REPORT * ML=Testing performed at Main Lab DEPARTMENT OF PATHOLOGY, [facility] [employer] [place], [place] [address] Reginald Steele M.D. Director [facility] Permit #[id number] 44 Because ethnic data is not always readily [...] 15-29 5 Kidney failure <15 (or dialysis) 45 RUN DATE: 06/10/13 [facility] LAB LIVE PAGE 1 RUN TIME: 1854 [facility] [employer] [place], [place] [address] Specimen Inquiry Name: RENATA DIAZ : [address]: Lucila Bhakta MD Acct: [id number] Unit: [id number] AGE: 52 Location: [facility] Re06/08/13 SEX: F Status: REG REF SPEC: [id number] LEAH: 06/08/13-[address]: Lucila Bhakta MD REQ: [id number] RECD: 06/08/13 STATUS: SOUT _ ORDERED: IMAGE ANALYSIS, PAP [...] Signed (signature on file) Briseida Mix MD 8605 This Pap test was evaluated with the assistance of the SAVORTEX Test Imaging System. Due to cytologic findings at the client care representative microscope, comprehensive manual rescreening by a Unit Aide Tech may be required. The Pap Smear is [...] performed at Main Lab DEPARTMENT OF PATHOLOGY, [address] [place] [address] Reginald Steele M.D. Director [facility] Permit #[id number] 46 Because ethnic data is not always readily [...] 15-29 5 Kidney failure <15 (or dialysis) 47 HDL Interpretation: Undesirable: High Risk: Less than 40 mg/dL Desirable: Low Risk: Greater than 60 mg/dL 48 LDL Interpretation: Low Risk Optimal Level: LDL Less than 100 mg/dL Near or Above Optimal: LDL 100-129 mg/dL Borderline High Risk: LDL 130-159 mg/dL High Risk: LDL 160-189 mg/dL Very High Risk: LDL Greater than 189 mg/dL 49 AM Cortisol 8.7-22.4 PM Cortisol Less than 10 50 SPECIMEN CONTAINS NORMAL URETHRAL OR PERINEAL NAFISA AND DOES NOT SUGGEST URINARY TRACT INFECTION Procedures Date CPT Code Description Status 01/09/2018 Mammogram Completed 09/10/2017 35124 ECHO Transthoracic, Real-Time 2D With Doppler And Color Completed Flow 09/10/2017 15086 ECHO Transthoracic, Real-Time 2D With Doppler And Color Completed Flow 09/05/2017 71408 Stress ECHO Interpretation/Report Hospital Completed 09/05/2017 19627 Treadmill Interp/Report Only Completed 09/05/2017 10852 Stress Test Supervsn W/Out I/R Completed 09/02/2017 88657 EKG Tracing & Interpretation Completed 08/28/2017 76798 Endoscopy Upper GI Biopsy Completed 07/30/2016 86046 Inject/Drain Joint/Bursa Major W/O US Completed 07/30/2016 23377 Removal Skin Tags Up To 15 Completed 07/30/2016 67005 I&D Abscess Simple Completed 07/23/2016 Mammogram Completed 01/09/2016 68414 Inject/Drain Joint/Bursa Major W/O US Completed 01/09/2016 16181 Xray Knee 3 Views Completed 07/14/2015 Mammogram Completed 09/21/2013 12299 Polysomnography Sleep Staging 4+ Parameters W/Cpap Completed 09/01/2013 51827 Polysomnography Sleep Staging 4+ Parameters Completed 07/26/2013 37438 Inject/Drain Joint/Bursa Major W/O US Completed 07/16/2013 83376 EKG, Interpretation Only Completed 07/13/2013 Colonoscopy Completed 06/18/2013 52679 Inject/Drain Joint/Bursa Major W/O US Completed 06/18/2013 69775 Inject/Drain Joint/Bursa Major W/O US Completed 06/18/2013 17717 Rad Exam; Knee, Ap&L Completed 06/18/2013 06673 Rad Exam; Knee, Ap&L Completed 06/18/2013 76661 Xray Knee 3 Views Completed 06/18/2013 54605 Xray Knee 3 Views Completed 06/15/2013 Bone Mineral Density Test Completed 01/19/2013 Mammogram Completed 12/30/2012 83150 Rad Exam; Wrist, Comp, Min 3 Views Completed 05/08/2010 Mammogram Completed 02/27/2010 53261 Treadmill Interp/Report Only Completed 02/27/2010 52916 Stress Test Supervsn W/Out I/R Completed Encounters Type Date Location Provider CPT E/M Dx Office Visit 12/18/2017 2:40p [facility] Lucila Bhakta M.D. 79117 I10 - Rebeca R30.0 Z12.31 Z98.84 Office Visit 11/11/2017 11:30a [place] [address] S92.514D Of [place] Office Visit 09/30/2017 1:00p [place] [address] S92.515A Of [place] W22.8xxA Office Visit 09/02/2017 2:00p [facility] Duane Ponce M.D. 09980 I10 R60.9 R01.1 E11.9 E66.01 R07.9 Office Visit 07/07/2017 1:40p [facility] Internal Medicine Lucila Bhakta 41848 H10.402 - Rebeca Lopez R22.0 I10 R73.9 Office Visit 05/07/2017 10:10a [facility] Internal Medicine - Lucila Bhakta M.D. 14503 I10 Rebeca R60.9 H10.89 E66.01 Office Visit 04/02/2017 10:10a [facility] - Lucila Bhakta M.D. 07673 R21 [place] E66.01 I10 Office Visit 03/06/2017 10:00a [facility] Internal [facility] - Nurse Visit C 68769 I10 [place] Office Visit 02/27/2017 9:40a [facility] Rayo Bhakta M.D. 59153 I10 [place] M51.36 Office Visit 02/12/2017 9:40a [facility] Lucila Bhakta M.D. 66760 R60.9 - Rebeca I10 M54.5 M51.36 Office Visit 01/29/2017 1:00p [facility] Henrique Robbins, 34788 R35.0 - Rebeca Lopez M54.5 Z23 Office Visit 07/30/2016 9:30a [facility] Of Rocco Borjas, 49829 M17.11 Addie STRINGER M25.561 M16.11 Office Visit 07/29/2016 11:45a Neurosurgery Services Shara Richards PA-C 22545 M25.551 Of [facility] M51.36 Office Visit 07/17/2016 8:30a [facility] Internal [facility] Nurse Visit C 05047 I10 - Rebeca Office Visit 07/02/2016 11:10a [facility] Lucila Bhakta, 97995 Z00.01 - Rebeca Lopez I10 M48.06 L91.8 E66.01 Z23 Z12.31 Office Visit 06/10/2016 10:30a [facility] Lucila Bhakta 57890 R10.31 - Rebeca Lopez B07.9 Office Visit 01/09/2016 2:30p [facility] [place] [address] M17.12 [facility] [place] M17.11 Office Visit 01/03/2016 2:40p [facility] Medicine Lucila Bhakta 52885 M25.562 - Rebeca Lopez R30.0 Office Visit 12/27/2015 9:40a [facility] Margo Rae M.D. 34900 M25.562 - Rebeca Office Visit 07/05/2015 11:50a [facility] Medicine Lucila Bhakta 57203 I10 - Noemy Lopez L85.3 Office Visit 06/21/2015 10:10a [facility] Lucila Bhakta 01994 Z00.00 - Noemy Lopez I10 Z12.31 Z11.59 Z23 Office Visit 05/30/2015 10:30a [facility] - Lucila Bhakta M.D. 59556 I10 Noemy E66.01 R19.7 R10.31 R87.610 Office Visit 05/24/2015 8:30a [facility] - Lucila Bhakta M.D. 75007 I10 Noemy R19.7 Office Visit 05/12/2015 2:40p [facility] - Margo Rae M.D. 62409 I10 Noemy E66.01 R10.31 M54.5 Office Visit 02/22/2014 8:50a [facility] Medicine Lucila Bhakta M.D. 91066 401.1 - [place] 278.01 305.1 V04.81 288.60 Office Visit 11/03/2013 4:20p [facility] Alex Mota, 46225 719.47 - Noemy Lopez,FACP 728.71 Office Visit 08/16/2013 2:50p [facility] Lucila Bhakta M.D. 47278 305.1 - Noemy 473.9 784.0 Office Visit 07/18/2013 4:40p [facility], [place], 92498 575.0 Hospitalists N.P. 401.9 278.01 305.1 Office Visit 07/17/2013 4:39p [facility], [place], 86098 575.0 Hospitalists N.P. 401.9 278.01 305.1 Office Visit 07/16/2013 3:00p [facility], BRIDGETT Parker 10468 575.0 Hospitalists Office Visit 07/16/2013 4:38p [facility], Jaja Duval N.P. 53527 575.0 Hospitalists 401.9 278.01 305.1 Office Visit 07/12/2013 1:50p [facility] Lucila Bhakta, 21598 305.1 - Noemy Lopez Office Visit 06/29/2013 10:15a [facility] Of Christiano Montoya M.D. 24014 715.36 C.M.A. Office Visit 06/18/2013 10:30a [facility] Of Hailey Lan M.D. 03672 836.1 C.M.AGarth 717.6 715.36 844.2 Office Visit 06/08/2013 1:10p [facility] Lucila Bhakta, 15920 V72.31 - Noemy Lopez V76.2 305.1 717.9 V49.81 788.39 V06.1 V76.41 401.9 Office Visit 05/19/2013 3:30p [facility] Lucila Bhakta 36757 719.46 - Noemy Lopez 401.9 278.00 780.79 Office Visit 02/10/2013 10:00a [facility] [place], [address] 401.9 - Noemy Lopez 784.0 473.0 v04.81 Office Visit 01/11/2013 8:45a [facility] Ruby Lee 43349 727.41 [facility] 12/30/2012 1:30p [facility] Ruby Lee 54924 727.43 [facility] Visit 12/17/2012 10:30a [facility] Lucila Bhakta M.D. 64433 727.43 - [place] Office Visit 11/04/2012 3:40p [facility] [place] [address] 401.9 - Noemy Lopez 784.0 473.0 Office Visit 10/14/2012 8:40a [facility] [place] [address] 401.9 - Noemy Lopez 784.0 Office Visit 10/12/2012 10:10a [facility] Lucila Bhakta M.D. 66028 401.9 - [place] 784.0 305.1 278.00 Office Visit 05/02/2010 3:20p DO Not Use [employer]inter AT [place] M.D. 30820 [address] [facility] 786.50 401.1 278.00 V72.62 V76.10 V76.2 Plan of Care Future Appointment(s):03/04/2018 10:00 am - Nurse Visit C at [facility] - Myrhspnlo29/03/2018 - Lucila Bhakta M.D.I10 Essential (primary) hypertensionFollow up:1 month for BP check with a [id number] Encounter for immunization
[2018-01-29] MEDS ORDERED: Ondansetron INJ* 2 MG/ML VIAL IV PRN (15:55)
[2018-01-29] MEDS ORDERED: Pantoprazole IV* 40 MG IV SCH (17:00)
[2018-01-29] MEDS: HYDROmorphone INJ1* 1 MG/ML SYRINGE IV PRN ×2 (17:01→21:44)
[2018-01-29] MEDS: cefTRIAXone(*) 1 GM in NS 0.9% 50 ML* 50 ML IVPB SCH (18:28)
[2018-01-29 19:37] LABS: ABS Basophils 0 10^3/ul (0-0.2); ABS Eosinophils 0 10^3/ul (0-0.6); ABS Lymphocytes 0.5 10^3/ul (1.0-4.8); ABS Monocytes 0.6 10^3/ul (0-0.8); ABS Neutrophils 3.4 10^3/ul (1.5-7.7); ABS Nucleated RBC 0 10^3/ul; Eosinophil % 0.6 % (0-6); Hematocrit 38 % (35-47); Hemoglobin 12.6 g/dl (12.0-16.0); Lymphocyte % 10.8 % (25-47); Mean Corpuscular HGB Conc 33 g/dl (31-36); Mean Corpuscular Hemoglobin 31 pg (27-31); Mean Corpuscular Volume 92 fL (80-97); Mean Platelet Volume 11.2 um3 (7.4-10.4); Nucleated Red Blood Cells % 0.1; Platelet Count 108 10^3/ul (150-450); Red Blood Count 4.11 10^6/ul (4.00-5.40); Red Cell Distribution Width 16 % (10.5-15); White Blood Count 4.6 10^3/ul (3.5-10.8)
[2018-01-29 20:00] LABS: EGFR Non-African American 41.4 (>60)
[2018-01-29] MEDS ORDERED: Iodixanol* (CONTRAST) 320 MG/ML 100 ML SDV IV ONE (20:43)
--- NOTE | 2018-01-29 22:49 | RAD ---
EXAM: CT Abdomen and Pelvis With Intravenous Contrast CLINICAL HISTORY: 57 years old, female; Signs and symptoms; Other: S/P gastric by-pass; Prior surgery; Surgery date: Post-operative (0-2 days); Additional info: Bariatric protocol TECHNIQUE: Axial computed tomography images of the abdomen and pelvis with intravenous contrast. All CT scans at this facility use at least one of these dose optimization techniques: automated exposure control; mA and/or kV adjustment per patient size (includes targeted exams where dose is matched to clinical indication); or iterative reconstruction. Coronal and sagittal reformatted images were created and reviewed. CONTRAST: 150 mL of ICSA811 administered intravenously. COMPARISON: A/P WO CT ABD/PEL W/O 02/06/2017 6:08 PM FINDINGS: Lung bases: Normal. No mass. No consolidation. ABDOMEN: Liver: Normal. No masses. Portal and hepatic veins are patent. Gallbladder and bile ducts: Surgically absent gallbladder. Pancreas: Normal. No mass. No ductal dilation. Spleen: Normal. No splenomegaly. Adrenals: Markedly thickened left adrenal gland again seen. Focal nodule right adrenal gland measuring 2.4 cm and 19 Hounsfield units (series 2, image 30), unchanged in size previously measuring -11 Hounsfield units. Kidneys and ureters: No renal solid cortical lesions, calculi, or pelvocaliectasis. Stomach and bowel: Patient post antecolic Alivia-en-Y gastric bypass. Alimentary and pancreaticobiliary limbs are normal in caliber. Distal enteroenteric anastomosis is widely patent. Remaining small bowel is normal in caliber. No segmental wall thickening or masses throughout the colon. PELVIS: Appendix: Normal caliber appendix without wall thickening or adjacent inflammation. Bladder: The bladder is decompressed but otherwise normal. Reproductive: Uterus and ovaries are normal. ABDOMEN and PELVIS: Intraperitoneal space: Normal. No pneumoperitoneum. No ascities. Bones/joints: The spine demonstrates mild degenerative changes at multiple levels. Moderate bilateral hip primary osteoarthritis. No fractures. No suspicious bone lesions. Soft tissues: Normal. No hernias. Vasculature: Normal caliber aorta with no evidence of dissection or rupture. Patent IVC. Lymph nodes: Normal. No enlarged lymph nodes. IMPRESSION: 1. Expected appearance of patient's Alivia-en-Y gastric bypass. 2. Left adrenal hypertrophy and right adrenal adenoma unchanged from prior. To contact [facility] with a general question: Operations Center - [phone] For direct physician to physician contact: Physician Hotline - [phone] [facility] ([facility] Facility ID #[id number])
[2018-01-30] MEDS: HYDROmorphone INJ1* 1 MG/ML SYRINGE IV PRN ×4 (02:44→21:45)
[2018-01-30 05:47] LABS: EGFR Non-African American 44.5 (>60)
[2018-01-30 05:51] LABS: ABS Basophils 0 10^3/ul (0-0.2); ABS Eosinophils 0 10^3/ul (0-0.6); ABS Lymphocytes 0.6 10^3/ul (1.0-4.8); ABS Monocytes 0.7 10^3/ul (0-0.8); ABS Neutrophils 2.6 10^3/ul (1.5-7.7); ABS Nucleated RBC 0 10^3/ul; Eosinophil % 0.6 % (0-6); Hematocrit 37 % (35-47); Hemoglobin 12.4 g/dl (12.0-16.0); Lymphocyte % 14.8 % (25-47); Mean Corpuscular HGB Conc 33 g/dl (31-36); Mean Corpuscular Hemoglobin 30 pg (27-31); Mean Corpuscular Volume 92 fL (80-97); Mean Platelet Volume 11.6 um3 (7.4-10.4); Nucleated Red Blood Cells % 0.1; Platelet Count 99 10^3/ul (150-450); Red Blood Count 4.07 10^6/ul (4.00-5.40); Red Cell Distribution Width 16 % (10.5-15); White Blood Count 3.9 10^3/ul (3.5-10.8)
[2018-01-30] MEDS ORDERED: Magnesium Sulfate 1 GM IV* 1 GM/100 ML BAG IV ONE (08:17)
[2018-01-30] MEDS: Pantoprazole IV* 40 MG IV SCH ×2 (09:41→21:04)
[2018-01-30] MEDS: KCL 20 MEQ/100 ML IVPREMIX* 20 MEQ/100 ML BAG IV SCH ×3 (09:41→21:41)
--- NOTE | 2018-01-30 15:02 | PN ---
Progress Note - Progress Note Date of Service: 01/30/18 SOAP: Subjective: Pt seen and examined. H and P through [employer] reviewed. persistent upper abdo pain, back pain. decreased PO intake, mucous vomiting Objective: Temp Pulse Resp BP Pulse Ox 98.7 F 54 16 125/57 94 01/30/18 11:20 01/30/18 11:20 01/30/18 14:35 01/30/18 11:20 01/30/18 11:20 a and o x3, nad lungs clear abdo: soft/ obese, tender w/o rebound ext wnl labs notes Assessment: 7 weeks s/p rygb, having difficulty tolerating food and with abdo pain, UTI, hypokalemia r/o marginal ulcer, stricture Plan: npo ivf replete K EGD today
[2018-01-30] MEDS ORDERED: HYDROmorphone INJ1* 1 MG/ML SYRINGE ONE (15:17)
[2018-01-30 15:30] LABS: Urine Appearance Clear; Urine Blood Negative (Negative); Urine Color Yellow; Urine Ketones Negative (Negative); Urine Protein Negative (Negative); Urine Red Blood Cell Absent (Absent); Urine Urobilinogen Negative (Negative); Urine White Blood Cell 3+(>20/hpf) (Absent)
[2018-01-30] MEDS ORDERED: Lidocaine 2% PF * 5 ML VIAL ONE (15:41)
[2018-01-30] MEDS ORDERED: Propofol* 10 MG/ML 20 ML BTL IV PUSH ONE (15:41)
[2018-01-30] MEDS ORDERED: KETAMINE HCL* 50 MG/ML 10 ML VIAL ONE (15:42)
[2018-01-30] MEDS ORDERED: fentaNYL* 50 MCG/ML 2 ML VIAL (100 MCG VIAL) ONE (15:42)
[2018-01-30] MEDS ORDERED: Midazolam* 1 MG/ML 5 ML VIAL (5 MG) ONE (15:42)
[2018-01-30] MEDS ORDERED: Ondansetron INJ* 2 MG/ML VIAL IV PRN (17:15)
[2018-01-30] MEDS ORDERED: Naloxone* 0.4 MG/ML 1 ML VIAL IV PRN (17:15)
--- NOTE | 2018-01-30 18:30 | PN ---
Progress Note - Progress Note Date of Service: 01/30/18 Note: GI Brief EGD Note: GEJ at 40cm Pouch 6cm, Normal appearing, bx H. Pylori 2x anastomotic ulcer at 12 and 6 oclock respectively at gastrojejunostomy site. Clean based. NO Stricture. Deeply intubated long joyce limb, no fresh or old blood or lesions. Rec: PPI 40mg BID x 3 months Carafate 1g QID, solution probably easier for her. Will follow results of H. Pylori DELIA and treat if positive No NSAIDs F/U with Bariatric surgery. Wale Portillo DO 01/30/18 1820
[2018-01-30] MEDS: Sucralfate SUSP 1 GM/10 ml 10 ML UDC PO SCH (21:04)
[2018-01-30] MEDS: cefTRIAXone(*) 1 GM in NS 0.9% 50 ML* 50 ML IVPB SCH (21:11)
--- NOTE | 2018-01-30 23:20 | CONS ---
CONSULTATION REPORT: DATE OF CONSULT: 01/30/18 REQUESTING CONSULTATION: Dr. Escudero REASON FOR CONSULT: Nausea, vomiting, concern for anastomotic ulceration. HISTORY OF PRESENT ILLNESS: This is a 57-year-old super morbidly obese female status post Alivia-en-Y bypass by Dr. Escudero on 12/10/17. Over the last 2 weeks since she was in [place] she has developed epigastric pain, nausea, and emesis for the past few weeks. She states that as soon as she starts to eat anything even a bland or soft diet, she feels the need to regurgitate quickly. She states that she has early satiety and does not desire eating at this point and feels like she is gagging even when drinking liquids such as water. There is no odynophagia, no tania blood in the stool. She does admit to diarrhea, but she admits that is more chronic in nature and has been consistent since her gallbladder removal 3 years ago. She states that she does have pain, it is in the upper abdomen at epigastric area. It is 2 to 3/10 sharp in nature, waxes and wanes. No association with fat. No association with the red sauces, caffeine, liquors, spearmint or peppermint. She denies any constipation, no fecal urgency. She states that her diarrhea is actually loose stool of 2 to 3 times a day. The remainder of the 14- point review of system is grossly negative. She does not consume any NSAIDs per the patient. PAST MEDICAL HISTORY: Super morbid obesity, hypertension, sleep apnea, degenerative disk disease, and osteoarthritis. PAST SURGICAL HISTORY: x2, wisdom tooth extraction and Alivia-en-Y gastric bypass on 12/10/17, also rotator cuff repair. MEDICATIONS: Home medications include: 1. Omeprazole 20 mg daily. 2. Amlodipine 10 mg daily. 3. Multivitamin. 4. Losartan. 5. Atenolol. 6. Tylenol. 7. Calcium. 8. Bactrim 800-160 though she has not started yet for UTI. ALLERGIES: No known drug allergies. FAMILY HISTORY: There is no family history of stomach cancer, colon cancer, inflammatory bowel disease. SOCIAL HISTORY: Former smoker, denies alcohol use. PHYSICAL EXAM: Vital Signs: Blood pressure 125/57, pulse of 54, respiratory rate is 16, temperature is 98.7. She is 94% on room air. In general, she is alert and oriented. No acute distress. Super morbidly obese. HEENT: Atraumatic, normocephalic. Pupils are equal, round, and reactive to light. Extraocular movements are intact. Conjunctivae are pink. Neck is supple. Trachea midline. Cardiovascular: Regular rate and rhythm. S1 and S2. Respiratory: Diminished at the bases but grossly clear with fair effort. Abdomen is super morbidly obese, soft, mild tenderness on deep palpation of the epigastrium. No guarding or rebound. Bowel sounds are normal to hypoactive. Extremities: No clubbing, no cyanosis, no edema. Neuro: Exam is nonfocal. Psych: Appropriate mood and affect. Skin: Rashes on exposed areas without lesions. DIAGNOSTIC STUDIES/LAB DATA: Hemoglobin is 12.4, platelet count 99. Chemistry is sodium of 143, potassium 3.4, chloride is 106, creatinine is 1.15, total bilirubin 0.80. AST is 14, ALT is 15, albumin of 3.3. She had a CT scan done that showed normal post gastric bypass anatomy and left adrenal hypertrophy and right adrenal adenoma that were unchanged from prior. Of note the liver is normal in appearance. ASSESSMENT AND PLAN: This is a 57-year-old morbidly obese female status post gastric bypass. She now presents with nausea, emesis, and epigastric pain. RECOMMENDATIONS: 1. Epigastric pain, given her recent Alivia-en-Y surgery, we will plan upper endoscopy to eval for stricture and/or marginal ulceration. We will also sample for H. pylori in the pouch. We will sample for H. pylori. 2. Diarrhea. This is chronic in nature and unchanged. I suspect this is potentially bile acid diarrhea, can consider cholestyramine in the future as this started shortly after her cholecystectomy 3 years ago. 3. Super morbidly obese status post bypass counseled. Thank you Dr. Escudero kindly for this consultation. [id number]/[facility] #: [id number] [facility]
[2018-01-31] MEDS: HYDROmorphone INJ1* 1 MG/ML SYRINGE IV PRN (00:46)
[2018-01-31] MEDS: Sucralfate SUSP 1 GM/10 ml 10 ML UDC PO SCH ×4 (09:37→21:13)
[2018-01-31] MEDS: Pantoprazole IV* 40 MG IV SCH ×2 (09:37→21:15)
[2018-01-31] MEDS ORDERED: Acetaminophen ADULT LIQ* 650 MG/20.3 ML UDC PO PRN (11:33)
[2018-01-31] MEDS ORDERED: oxyCODONE/Acetamin 5/325 MG* TAB PO PRN (11:34)
--- NOTE | 2018-01-31 11:38 | PN ---
Progress Note - Progress Note Date of Service: 01/31/18 SOAP: Subjective: Pt seen and examined. Dx with marginal ulcer Still having difficulty with PO headache Objective: Temp Pulse Resp BP Pulse Ox 98.2 F 62 20 128/55 95 01/31/18 07:35 01/31/18 07:35 01/31/18 07:35 01/31/18 07:35 01/31/18 07:35 a and o x3, nad lungs cta abdo: soft/ obese, tender at upper abdo, no rebound no calf tenderness labs noted Assessment: Post op gastric bypass, with marginal ulceration Plan: PPI, carafate IVF advance diet pain control d/c planning
[2018-01-31] MEDS: cefTRIAXone(*) 1 GM in NS 0.9% 50 ML* 50 ML IVPB SCH (17:54)
[2018-01-31] MEDS ORDERED: cefTRIAXone(*) 1 GM in NS 0.9% 50 ML* 50 ML IVPB SCH (21:00)
[2018-02-01] MEDS: Sucralfate SUSP 1 GM/10 ml 10 ML UDC PO SCH ×2 (09:59→14:07)
[2018-02-01] MEDS: Pantoprazole IV* 40 MG IV SCH (09:59)
[2018-02-01 12:27] VITALS: BP 145/69
--- NOTE | 2018-02-02 01:37 | DS ---
AMENDED REPORT TO CORRECT ACCOUNT NUMBER - ESIGNED BEFORE ADJUSTMENT CC: [facility]; Dr. Lucila Bhakta; [facility] * DISCHARGE SUMMARY: DATE OF ADMISSION: 01/31/18 DATE OF DISCHARGE: 02/01/18 HOSPITAL COURSE: Ms. Velasquez is a 57-year-old female just over 7 weeks status post Alivia-en-Y gastric bypass procedure, who had been doing well up until recently when she was complaining of difficulty tolerating solids and then on to liquids with decreased appetite and dehydration. She was admitted through our offices and workup included labs and a CT scan. These were reviewed. H and P was written by Dr. Subramanian and this was reviewed as well. CAT scan was unremarkable and my consideration was that the patient had possible marginal ulcers. She underwent EGD on hospital day [address] Portillo and was noted to have an open gastrojejunal anastomosis, but 2 anastomotic ulcers with clean bases. H. pylori testing was performed, but not resulted. The patient was started on a diet, was maintained on proton pump inhibitor and Carafate was added. She improved slowly and by hospital day 3 was ready for discharge. PHYSICAL EXAMINATION: Physical exam on the day of discharge was performed by me. She is afebrile. Vital signs are stable. Head, ears, eyes, nose, and throat: Normocephalic, atraumatic. Sclerae anicteric. Mucous membranes are moist. Lungs: Clear. Abdomen: Soft, obese, tender on deep palpation in the epigastrium. No back tenderness. Extremities: Within normal limits. PLAN: Discharge home. Followup as an outpatient. Prescription sent for Protonix and Carafate. I went over what to watch out for the patient to contact our offices. I want her to stay on a bariatric liquid diet back up to the 2nd week of postop diet for her. The patient is aware and will be discharged today. [id number]/[facility] #: [id number] MTDD
--- NOTE | 2018-02-02 04:37 | PRO ---
CC: Dr. Escudero; Dr. Lucila Bhakta * EGD REPORT: DATE OF PROCEDURE: 01/30/18 - ROOM #333 DATE OF : 64 PRIMARY SURGEON: Dr. Escudero. PROCEDURE PERFORMED: Esophagogastroduodenoscopy with biopsy. INDICATION: Post bariatric surgery, nausea, and vomiting, concerned for marginal ulceration or stricture. MEDICATIONS GIVEN: Please see anesthesia report. DESCRIPTION OF PROCEDURE: After the EGD procedure including the risks, benefits , and alternatives with the risks not limited to perforation, surgery, missed lesions and/or were explained to the patient, written consent was then obtained. IV medication was given. A bite-block was placed between the teeth. The IV medication was given by the anesthesia service. The Olympus gastroscope was passed through the patient's mouth into the upper esophageal sphincter into the distal esophagus. At the distal esophagus, the GE junction was grossly normal in appearance with minimal irregularity to the Z-line. The pouch was at from 40 cm to 46 cm, roughly 6 cm pouch in total. There was mild erythema. This was biopsied for DELIA testing. At the gastrojejunal junction, there were 2 less than 1 cm clean- based marginal ulcerations. There is no evidence of fresh or old blood. There was no stricturing to this area. They were at 12 o'clock and 6 o'clock positions respectively. I then intubated the Alivia limb as deeply as possible, roughly 50 to 60 cm and was not able to visualize any ulcerations or abnormalities to the mucosa. The scope was then withdrawn from the patient. She tolerated the procedure well. She returned to the recovery room in stable condition. IMPRESSION: 1. Complete esophagogastroduodenoscopy with biopsies. 2. Two less than 1 cm marginal ulcerations at the gastrojejunostomy anastomosis. 3. Intact Alivia limb without any evidence of ulceration or lesions. 4. Biopsy taken of pouch for Helicobacter pylori testing. RECOMMENDATIONS: No stricture was visualized next to the anastomotic ulcerations. The area was wide open. We would recommend treating with a proton pump inhibitor 40 mg b.i.d. We would also recommend 1 g liquid Carafate 4 times a day to help her symptoms with this marginal ulceration. Advised absolutely no NSAIDs. Continue to not smoke and to follow up in the bariatric clinic with Dr. Escudero. [id number]/[facility] #: [id number] [facility]
== END 2018-02-01 14:45 | disposition home or self-care (01) | DRG 241 ==
LOC: SSU 12:20 → OBSVTOIN 01-31 12:20
PROVIDERS: ADMIT Surgery; ATTEND Surgery
PROC: 0DD68ZX Extraction of Stomach, Via Natural or Artificial Opening Endoscopic, Diagnostic (ICD-10-PCS; principal; 2018-01-30 15:00)
DX: K28.9 Gastrojejunal ulcer, unspecified as acute or chronic, without hemorrhage or perforation (principal); Z68.43 Body mass index [BMI] 50.0-59.9, adult; N39.0 Urinary tract infection, site not specified; Z98.84 Bariatric surgery status; E66.01 Morbid (severe) obesity due to excess calories; K52.89 Other specified noninfective gastroenteritis and colitis; I10 Essential (primary) hypertension; G47.30 Sleep apnea, unspecified; M51.36 Other intervertebral disc degeneration, lumbar region; M19.90 Unspecified osteoarthritis, unspecified site; B96.4 Proteus (mirabilis) (morganii) as the cause of diseases classified elsewhere; E87.6 Hypokalemia; Z87.891 Personal history of nicotine dependence; Z79.1 Long term (current) use of non-steroidal anti-inflammatories (NSAID); Z79.899 Other long term (current) drug therapy; Z83.3 Family history of diabetes mellitus; Z82.49 Family history of ischemic heart disease and other diseases of the circulatory system; Z82.61 Family history of arthritis; Z80.0 Family history of malignant neoplasm of digestive organs; Z82.3 Family history of stroke
CPT/HCPCS: 36415; 74177; 80048; 80053; 81003; 81015; 83735; 85025; 85060; 87077; 87086; 87186; 97803; 99211; 99215; A9270-GY; G0378; G0463; J0696; J1170; J2250; J2405; J2704; J3010; J3475; J3480; Q9967

== ENCOUNTER 2018-02-12 14:47 | Inpatient (IN) | payer BC ==
[2018-02-12] MEDS ORDERED: Ondansetron INJ* 2 MG/ML VIAL IV PRN (15:41)
[2018-02-12] MEDS ORDERED: Thiamine IV* 500 MG in NS 0.9% 250 ML* 250 ML IV ONE (15:45)
[2018-02-12] MEDS ORDERED: Potassium Phosphate IV* 15 MMOLE in NS 0.9% 250 ML* 250 ML IVPB ONE (15:48)
[2018-02-12] MEDS ORDERED: KCL 20 MEQ/100 ML IVPREMIX* 20 MEQ/100 ML BAG IV ONE (16:00)
[2018-02-12] MEDS: HYDROmorphone INJ1* 1 MG/ML SYRINGE IV PRN ×2 (16:01→21:00)
[2018-02-12 16:25] LABS: ABS Basophils 0.1 10^3/ul (0-0.2); ABS Eosinophils 0.1 10^3/ul (0-0.6); ABS Lymphocytes 0.8 10^3/ul (1.0-4.8); ABS Monocytes 0.9 10^3/ul (0-0.8); ABS Neutrophils 5.1 10^3/ul (1.5-7.7); ABS Nucleated RBC 0 10^3/ul; Eosinophil % 1.9 % (0-6); Hematocrit 41 % (35-47); Hemoglobin 13.8 g/dl (12.0-16.0); Lymphocyte % 10.8 % (25-47); Mean Corpuscular HGB Conc 33 g/dl (31-36); Mean Corpuscular Hemoglobin 30 pg (27-31); Mean Corpuscular Volume 91 fL (80-97); Mean Platelet Volume 10.7 um3 (7.4-10.4); Nucleated Red Blood Cells % 0.1; Platelet Count 151 10^3/ul (150-450); Red Blood Count 4.57 10^6/ul (4.00-5.40); Red Cell Distribution Width 16 % (10.5-15)
[2018-02-12 16:37] LABS: INR 1.03 (0.77-1.02)
[2018-02-12 16:42] LABS: EGFR Non-African American 33.7 (>60)
[2018-02-12] MEDS ORDERED: Thiamine IV 100 MG, Folic Acid IV* 1 MG, Multiple Vitamin IV ADULT* 10 ML in D5NS 0.9% ... IV ONE (17:00)
--- NOTE | 2018-02-12 17:16 | CONSULT ---
Consult Consult: [facility] Inpatient Consult Note Date of Consult: 02/12/18 Reason for Consult: adrenal nodule, possible Burke's Reason for Admission: dehydration ADDENDUM: Elevated cortisol this AM after 1mg DST is suggestive of cortisol excess. In patients with mild cortisol excess who are being monitored without adrenal surgery, clinical evaluation and biochemical assessment every 6 to 12 months and yearly computed tomography (CT) scan are sufficient, as BMAH is a benign process that has not been shown to become malignant. While there is no indication that Pedro's is affecting her post-operative course, we will consider the following workup as an outpatient. - 24-hour urinary fractionated cortisol on two separate occasions - salivary late-night cortisol on two separate occasions - repeat fasting ACTH, cynthia, renin, plasma metanephrines, DHEAS, T, SHBG, E2 as outpatient ASSESSMENT: 57 yo F with hypertension and s/p RYGB in November 2017, now presenting with acute abdominal pain and hypokalemia. She has had bilateral nodular adrenal hyperplasia since at least 2013 and has had borderline elevation in cortisol on two occasions in the past 2 years. 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 The majority of patients with BMAH have subclinical Pedro's and it is possible that hormonal changes after recent bariatric surgery may have unmasked this condition further. PLAN: - overnight dexamethasone 1mg suppression test at 23:00 tonight and cortisol 06: 00 tomorrow (orders placed) - if cortisol >1.8, check ACTH to exclude Pedro's Disease - if adrenal source is identified, recommend spironolactone for BP control +/- ketoconazole for hypercortisolism SUBJECTIVE: History of Present Illness: 57 yo F with long-standing hypertension and moderate -severe obesity who underwent RYGB surgery for weight loss in November 2017. She initially did well after surgery and has started to lose weight. She noted worsening abdominal pain in December 2017 and had upper endoscopy in January 2018 that revealed some ulceration at the anastomosis site. Past Medical History: - HTN - obesity Medications Prior to Admission: Atenolol Pantoprazole Sucralfate Losartan Inpatient Medications: Atenolol Heparin Hydromorphone PRN IVNS Ondansetron Oxycodone/Acetaminophen Sucralfate Allergies/Intolerances: pineapple Social History: Non-smoker. No alcohol. Family History: No family members Review of Systems: OBJECTIVE: Vital Signs: General: alert, pleasant, oriented, no distress ENT: neck supple, no thyromegaly, no bruit is heard Chest: CTAB, no wheezing or crackles CV: RRR, no murmur Abdomen: soft, non-tender Extremities: no edema, distal pulses intact Skin: warm, dry, no rash Neuro: grossly intact motor/sensory in extremities Psych: restricted affect, pleasant Labs:
[2018-02-12] MEDS: Pantoprazole* 80 mg IN NS 80 MG/250 ML BAG IVPB SCH (17:25)
[2018-02-12] MEDS: Sucralfate SUSP 1 GM/10 ml 10 ML UDC PO SCH (17:40)
--- NOTE | 2018-02-12 18:26 | HP ---
CC: [facility]; Dr. Lucila Bhakta. * HISTORY AND PHYSICAL: DATE OF ADMISSION: 02/12/18 HISTORY OF PRESENT ILLNESS: Ms. Velasquez is a 57-year-old female who is status post Alivia-en-Y gastric bypass procedure on 12/10/17. The patient's postoperative course has been eventful and that she developed dysphagia this month leading to a short admission into the hospital where she underwent an EGD , was noted to have marginal ulcerations at the gastrojejunostomy. She was started on a proton pump inhibitor and was discharged home. The patient has been followed closely as an outpatient and even came in yesterday for IV fluids after undergoing labs, which showed mild elevation in her creatinine as well as hypokalemia. The patient continued to have dysphagia and inability to tolerate liquids. She was getting her medications in. We did increase her antacid medications and added Carafate, but without any significant improvement. The patient was then admitted into the hospital today for the purpose of IV hydration and electrolyte repletion as well as to be placed on an IV proton pump inhibitor. The patient complains of worsening upper abdominal pain. It does radiate to her back. She has nausea and retching, but without any productive vomitus. She is passing gas, but not having much in the way bowel movements in the last 4 days. She is hardly getting anything in. PAST MEDICAL HISTORY: The patient suffers with hypertension; headaches; obstructive sleep apnea; former cigarette use that she quit many years ago; degenerative disc disease; osteoarthritis. PAST SURGICAL HISTORY: Laparoscopic cholecystectomy, section x2, gastric bypass as described above, rotator cuff repair. SOCIAL HISTORY: Denies smoking. She lives with smokers. No IV drug abuse. She is a full-time employee, but is off work due to this current illness. REVIEW OF SYSTEMS: Weight loss consistent with gastric bypass with weight from 365 preoperatively to 312 today giving her body mass index of 57. No shortness of breath. No chest pain. Abdominal pain as described, joint pain, headache at this point. No dysuria. Urine has been dark in color. She has not had a bowel movement in 4 days. She has got right hip pain. PHYSICAL EXAMINATION GENERAL: She is alert and oriented x3, in mild distress with a bag for vomiting in her hand. VITAL SIGNS: Today, she has been afebrile, heart rate has been in the 40s, blood pressure is 156/85, respirations 18 with O2 sat of 100%. HEENT: Her mucous membranes are dry. NECK: No lymphadenopathy. LUNGS: Clear. ABDOMEN: Soft, obese, tender on deep palpation, but nontender to percussion. No rebound tenderness. No masses or hernias noted. EXTREMITIES: With no pitting edema. RECTAL: Exam not performed. LABORATORY DATA: The patient underwent labs, which are still pending. H and H 13/41, white count of 7. Chemistry panel does show an elevated creatinine of 1.59. This is up from 1.35 and the patient had been closer to 1.1 and 1.2 preoperatively. Potassium is pending, but was low at 2.9 yesterday. IMPRESSION: Status post gastric bypass, marginal ulceration, and dysphagia with dehydration and likely vitamin deficiencies stemming from poor p.o. intake. PLAN: Plan is for admission, IV fluids, repletion of electrolytes, and endocrine consultation. Protonix IV, possible GI consultation for repeat EGD to rule out stricture or worsening of the ulcerations. I went over the plan with the patient. We talked about the possible need for revision, the possibility of perforation of these ulcers and need for more urgent surgery. The patient's questions were answered. She also understands that I will be away for the next 6 days. I will repeat her labs in the morning. She can have sips of bariatric clears. [id number]/[facility] #: [id number] MTDJensen
[2018-02-12] MEDS: NS 0.9% 1000 ML* 1,000 ML IV SCH (20:54)
[2018-02-12] MEDS ORDERED: Heparin VIAL(*) 5000 UNITS/ML VIAL (FIVE THOUSAND) SUBCUT SCH (22:00)
[2018-02-12] MEDS: Heparin VIAL(*) 5000 UNITS/ML VIAL (FIVE THOUSAND) SUBCUT SCH (22:16)
[2018-02-12] MEDS ORDERED: Dexamethasone TAB* 1 MG PO ONE (23:00)
[2018-02-13] MEDS: Sucralfate SUSP 1 GM/10 ml 10 ML UDC PO SCH ×5 (01:00→23:55)
[2018-02-13] MEDS: KCL 20 MEQ/100 ML IVPREMIX* 20 MEQ/100 ML BAG IV SCH ×2 (01:21→07:16)
[2018-02-13] MEDS: Pantoprazole* 80 mg IN NS 80 MG/250 ML BAG IVPB SCH ×3 (03:44→23:55)
[2018-02-13 06:02] LABS: ABS Basophils 0.1 10^3/ul (0-0.2); ABS Eosinophils 0.1 10^3/ul (0-0.6); ABS Lymphocytes 0.7 10^3/ul (1.0-4.8); ABS Monocytes 0.7 10^3/ul (0-0.8); ABS Nucleated RBC 0 10^3/ul; Eosinophil % 1.4 % (0-6); Hematocrit 40 % (35-47); Lymphocyte % 12.7 % (25-47); Mean Corpuscular HGB Conc 33 g/dl (31-36); Mean Corpuscular Hemoglobin 30 pg (27-31); Mean Corpuscular Volume 91 fL (80-97); Mean Platelet Volume 10.4 um3 (7.4-10.4); Nucleated Red Blood Cells % 0; Platelet Count 137 10^3/ul (150-450); Red Blood Count 4.36 10^6/ul (4.00-5.40); Red Cell Distribution Width 16 % (10.5-15); White Blood Count 5.5 10^3/ul (3.5-10.8)
[2018-02-13 06:24] LABS: EGFR Non-African American 36.1 (>60)
[2018-02-13] MEDS: NS 0.9% 1000 ML* 1,000 ML IV SCH (06:50)
[2018-02-13] MEDS: Heparin VIAL(*) 5000 UNITS/ML VIAL (FIVE THOUSAND) SUBCUT SCH ×3 (06:53→22:09)
[2018-02-13] MEDS: Atenolol TAB* 50 MG PO SCH (10:03)
[2018-02-13] MEDS: HYDROmorphone INJ1* 1 MG/ML SYRINGE IV PRN ×2 (10:12→21:01)
[2018-02-13] MEDS ORDERED: Magnesium Sulfate 1 GM IV* 1 GM/100 ML BAG IV ONE (11:13)
--- NOTE | 2018-02-13 11:23 | PN ---
Progress Note - Progress Note Date of Service: 02/13/18 SOAP: Subjective: Pt seen and examined. Feeling only a little better. Still retching. abdo and back pian. Positve flats, but no BM for 4 days dizzy at times Objective: Temp Pulse Resp BP Pulse Ox 97.4 F 50 15 140/76 99 02/13/18 07:29 02/13/18 07:29 02/13/18 10:12 02/13/18 07:29 02/13/18 07:29 Intake & Output 02/12/18 02/13/18 02/13/18 22:59 06:59 14:59 Intake Total 1120 1669 Output Total 300 550 Balance 820 1119 Weight 312 lb a and o x3, nad lungs clear b/l abdo: soft/ obese/ somewhat distended. tender diffusely but mostly upper abdo, no rebound, no guarding ext wnl labs noted Assessment: dysphagia, abdominal pain; marginal ulceration s/p gastric bypass, dehydration, vitamin deficiency, hypokalemia, malnutrition r/o internal hernia- though unlikely adrenal work up Plan: pain control BP control replete electrolytes CT a/p with PO contrast Hosp consult encourage PO PPI gtt SACMA to cover me until 02/18
[2018-02-13] MEDS: D5W NS 0.9% 20Meq KCL 1000 ML* 1,000 ML IV SCH ×2 (11:24→22:04)
--- NOTE | 2018-02-13 14:45 | RAD ---
CLINICAL HISTORY: abdo pain, r/o internal hernia s/p gastric bypass COMPARISON: January 29, 2018 TECHNIQUE: Multiple contiguous axial CT scans were obtained of the abdomen and pelvis, without intravenous contrast enhancement. Coronal and sagittal multiplanar reformations are submitted for review. FINDINGS: LUNG BASES: The lung bases are clear. LIVER: The liver is normal in shape, size, contour, and attenuation. BILE DUCTS: There is no intrahepatic or extrahepatic biliary dilatation. GALLBLADDER: : Mastectomy. PANCREAS: The pancreas is normal, without mass or ductal dilatation. SPLEEN: Normal in size and appearance. UPPER GI TRACT: Evaluation of the gastrointestinal tract is limited by incomplete gastric distention. There is post surgical change to the upper GI tract. SMALL BOWEL AND MESENTERY: The small bowel is normal in contour, course, and caliber. There is no obstruction or dilatation. Oral contrast is noted within the small bowel. COLON: The colon is normal in contour, course, caliber. There is no pericolonic inflammatory change. ADRENALS: Again noted is nodular enlargement of the adrenal glands bilaterally, stable. KIDNEYS: The kidneys are normal in shape, size, contour, and axis. There is no hydronephrosis or nephrolithiasis. BLADDER: The bladder is smooth in contour. PELVIC ORGANS: The uterus and adnexa are grossly normal for technique. AORTA: The aorta is normal. IVC: Unremarkable LYMPH NODES: There is no lymphadenopathy by size criteria. ABDOMINAL WALL: There is no evidence for abdominal wall hernia. BONES AND SOFT TISSUES: Degenerative changes are noted. OTHER: None IMPRESSION: NO OBSTRUCTION. NO ACUTE NONCONTRAST CT PATHOLOGY OF THE VISUALIZED ABDOMEN AND PELVIS.
[2018-02-14] MEDS: Heparin VIAL(*) 5000 UNITS/ML VIAL (FIVE THOUSAND) SUBCUT SCH ×3 (05:42→21:44)
[2018-02-14 06:04] LABS: ABS Basophils 0.1 10^3/ul (0-0.2); ABS Eosinophils 0.2 10^3/ul (0-0.6); ABS Lymphocytes 1.1 10^3/ul (1.0-4.8); ABS Monocytes 0.7 10^3/ul (0-0.8); ABS Neutrophils 2.6 10^3/ul (1.5-7.7); ABS Nucleated RBC 0 10^3/ul; Eosinophil % 4.7 % (0-6); Hematocrit 37 % (35-47); Hemoglobin 12.3 g/dl (12.0-16.0); Mean Corpuscular HGB Conc 33 g/dl (31-36); Mean Corpuscular Hemoglobin 30 pg (27-31); Mean Corpuscular Volume 91 fL (80-97); Mean Platelet Volume 11.1 um3 (7.4-10.4); Nucleated Red Blood Cells % 0.1; Platelet Count 133 10^3/ul (150-450); Red Blood Count 4.08 10^6/ul (4.00-5.40); Red Cell Distribution Width 16 % (10.5-15); White Blood Count 4.7 10^3/ul (3.5-10.8)
[2018-02-14] MEDS: Sucralfate SUSP 1 GM/10 ml 10 ML UDC PO SCH ×3 (06:07→18:04)
[2018-02-14] MEDS: D5W NS 0.9% 20Meq KCL 1000 ML* 1,000 ML IV SCH ×3 (06:10→22:05)
[2018-02-14] MEDS: Atenolol TAB* 50 MG PO SCH (09:35)
[2018-02-14] MEDS: oxyCODONE/Acetamin 5/325 MG* TAB PO PRN ×2 (09:39→16:26)
[2018-02-14] MEDS: Pantoprazole* 80 mg IN NS 80 MG/250 ML BAG IVPB SCH ×2 (09:39→19:25)
--- NOTE | 2018-02-14 10:28 | PN ---
Progress Note - Progress Note Date of Service: 02/14/18 SOAP: Subjective: Good pain relief from Percocet. Poor po intake, better with liquids than jello. No BM for 4 days but not feeling constipated. Objective: Vital Signs Temp 97.4 F 02/14/18 07:59 Pulse 49 02/14/18 07:59 Resp 18 02/14/18 09:39 BP 139/63 02/14/18 07:59 Pulse Ox 100 02/14/18 07:59 Gen: NAD; walking in halls. Lungs: CTA B Heart: reg s1s2 Abd: +BS; soft and nontender. Intake & Output 02/13/18 02/14/18 02/14/18 18:59 06:59 18:59 Intake Total 1853 2038 204 Output Total 350 350 Balance 1503 1688 204 Intake: IV Fluids 1248 1498 204 NS 748 Thiamine 250 d5 1/2 ns 20kcl 998 potassium phosphate' 250 protonix 250 204 IVPB 205 250 Magnesium 1 gr 105 Potassium 20 mEq 100 potassium phosphate' 250 Medicated IV 250 GEN - Pantoprazole/ 250 Protonix Oral 150 290 0 Output: Urine 350 350 Laboratory Results - last 24 hr 02/13/18 02/14/18 02/14/18 05:55 05:45 05:45 WBC 4.7 RBC 4.08 Hgb 12.3 Hct 37 MCV 91 MCH 30 MCHC 33 RDW 16 H Plt Count 133 L MPV 11.1 H Neut % (Auto) 55.6 Lymph % (Auto) 24.0 L K[place]haw % (Auto) 14.6 H Eos % (Auto) 4.7 Baso % (Auto) 1.1 Absolute Neuts (auto) 2.6 Absolute Lymphs (auto) 1.1 Absolute Monos (auto) 0.7 Absolute Eos (auto) 0.2 Absolute Basos (auto) 0.1 Absolute Nucleated RBC 0 Nucleated RBC % 0.1 Sodium 142 142 Potassium 3.1 L 3.0 L Chloride 102 107 Carbon Dioxide 29 30 Anion Gap 11 5 BUN 15 14 Creatinine 1.50 H 1.37 H Est GFR ( Amer) 43.6 48.4 Est GFR (Non-Af Amer) 36.1 40.0 BUN/Creatinine Ratio 10.0 10.2 Glucose 102 H 113 H Calcium 8.8 8.6 Phosphorus 3.5 3.2 Magnesium 1.7 L 1.7 L Total Bilirubin 1.10 H 1.10 H AST 26 35 ALT 22 27 Alkaline Phosphatase 70 69 Total Protein 5.5 L 5.5 L Albumin 3.1 L 3.0 L Globulin 2.4 2.5 Albumin/Globulin Ratio 1.3 1.2 Cortisol 3.92 Assessment: dysphagia, abdominal pain; marginal ulceration s/p gastric bypass, dehydration, vitamin deficiency, hypokalemia, malnutrition CT shows no internal hernia adrenal work up in progress Plan: Cont PPI; IVF; electrolyte replacement. Thiamine IV. Per Endo have ordered ACTH (as dexamethasone test was out of range)
[2018-02-14] MEDS ORDERED: Thiamine IV* 100 MG/ML 2 ML VIAL IV ONE (11:36)
[2018-02-14] MEDS ORDERED: Thiamine IV* 100 MG in NS 0.9% 100 ML* 100 ML IV ONE (12:00)
[2018-02-14] MEDS ORDERED: Magnesium Sulfate 2 GM IV* 2 GM/50 ML BAG IVPB ONE (12:08)
[2018-02-14] MEDS: Potassium Chloride LIQUID* 20 MEQ PACKET PO SCH ×2 (14:06→17:09)
[2018-02-14] MEDS: KCL 20 MEQ/100 ML IVPREMIX* 20 MEQ/100 ML BAG IV SCH ×2 (14:46→17:01)
[2018-02-14 17:31] LABS: Urine Appearance Cloudy; Urine Blood Negative (Negative); Urine Color Yellow; Urine Ketones Negative (Negative); Urine Protein Negative (Negative); Urine Red Blood Cell Trace(0-2/hpf) (Absent); Urine Specific Gravity 1.011 (1.010-1.030); Urine Urobilinogen Negative (Negative); Urine White Blood Cell 2+(11-20/hpf) (Absent)
[2018-02-14] MEDS ORDERED: KCL 20 MEQ/100 ML IVPREMIX* 20 MEQ/100 ML BAG IV ONE (20:00)
--- NOTE | 2018-02-14 22:37 | CONS ---
CC: Dr. Lucila Bhakta; Dr. Pollo Subramanian * CONSULTATION REPORT: DATE OF CONSULT: 02/14/18 PRIMARY CARE PROVIDER: Dr. Lucila Bhakta. CONSULTING PROVIDER: Dr. Pollo Subramanian. MY ATTENDING WHILE IN THE HOSPITAL: Dr. Diane Sheffield. REASON FOR CONSULT: Electrolyte abnormalities and Sweet's disease. HISTORY OF PRESENT ILLNESS: Ms. Velasquez is a 57-year-old female with a past medical history significant for hypertension, obstructive sleep apnea who underwent a Alivia-en-Y gastric bypass on 12/10/17. Her postoperative course initially was uneventful, but then after developing dysphagia, she underwent an EGD, showed to have marginal ulcerations. The patient continued to have dysphagia, became dehydrated despite Carafate and PPI therapy. The patient was admitted to the hospital due to poor oral intake, hypokalemia and acute kidney injury. The patient at that time also had a endocrinology consultation per Dr. Kory Babcock, due to elevated cortisol levels. Dr. Babcock believes that she did have mild cortisol excess, did not require emergent renal surgery, but recommended ACTH to exclude Sweet's disease. The patient inpatient had a abnormal dexamethasone suppression test. Dr. 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 The patient while in the hospital continued to have very poor oral intake with resting 7/10 abdominal pain, which goes to 10/10 with any eating. The patient was tried several different nutritional supplements without being able to tolerate more than several ounces of fluid daily. The patient denies vomiting. No recent nausea. The patient states she thinks the PPI is helping with this. The patient had an episode yesterday where her stomach was "hard as a rock", but this has resolved at this point. The patient had been constipated, but had a bowel movement yesterday with yellow stool with no blood or melena. The patient has been coughing a lot of white phlegm and has a frontal headache. The patient also states that her headache is a change from her normal tension headaches which occur at the base of her skull that was helped significantly with Percocet. The patient states that today she began having dysuria and that she has had 2 UTIs since November. The patient was able to ambulate around the unit today but had to stop several times for shortness of breath, which was not much worse than her baseline at home. The patient has not been wearing her CPAP in the hospital, but has been wearing oxygen at night. The patient recently had evaluation for pneumonia which revealed occult rib fractures and also had a fracture of her toe with minimal trauma. The patient denies ever having any bone densitometry. PAST MEDICAL HISTORY: Hypertension, tension headaches, obstructive sleep apnea , degenerative disc disease, osteoarthritis, history of Alivia-en-Y gastric bypass. PAST SURGICAL HISTORY: Laparoscopic cholecystectomy, section x2, gastric bypass, rotator cuff repair. FAMILY HISTORY: The patient's father of complications of diabetes. The patient's mother of lung cancer. The patient has 6 siblings. The patient has one brother who had a CVA, another sister had a blood clot, another brother who was recently diagnosed with metastatic colon cancer. SOCIAL HISTORY: The patient quit smoking 3 years ago. The patient smoked for over 20 years. The patient does have second hand smoke exposure. The patient denies alcohol use or IV drug use. The patient is and has 2 children. The patient's surrogate decision maker will be her sister, Estela Velasquez. REVIEW OF SYSTEMS: A 14-point review of systems was reviewed, it is negative except as above in the HPI. PHYSICAL EXAM: General: The patient is a 57-year-old female, who appears her stated age and sitting comfortably in bed, in no acute distress. Vital Signs: At the time of evaluation, temperature 97.4, pulse rate 49, respiratory rate 17 , oxygen saturation 100% on room air, blood pressure 139/63. HEENT: Head: Normocephalic, atraumatic. Sclerae anicteric. No conjunctival injection. Nasal mucosa moist. Oral mucosa moist. No oropharyngeal erythema, discharge, or exudate. Neck: Supple, nontender. No lymphadenopathy. No carotid bruit auscultated. No JVD. Cardiac: Regular rate and rhythm. No clicks, murmurs, gallops, or rubs. Pulses 2+ in bilateral dorsalis pedis, posterior tibialis, and radial areas. No bilateral lower extremity edema. No bilateral calf tenderness. Respiratory: Clear to auscultation bilaterally. No wheezes, rales , or rhonchi. Good air exchange bilaterally. Abdomen: Tender to palpation throughout. Hypoactive bowel sounds consisting of normal sounds. Genitourinary : No suprapubic or CVA tenderness. Skin: Healing surgical incisions. No other rashes or ulcer. Neuro: Cranial nerves II through XII intact. No focal deficits. Alert and oriented x3. Psychiatric: Pleasant and cooperative. DIAGNOSTIC STUDIES/LAB DATA: On the day of consultation, white blood cell count 4.7, hemoglobin 12.3, platelet count 133. Sodium 142, potassium 3.0, chloride 107, carbon dioxide 30, anion gap 5, BUN 14, creatinine 1.37, glucose 113, calcium 86, phosphorus 3.2, magnesium 1.7, bilirubin 1.1. AST 35, ALT 27, alkaline phosphatase 69. Protein 5.5. Albumin 3.0, globulin 2.5. Other pertinent laboratory data from admission: Initial creatinine 1.59, cortisol 3.92 after dexamethasone suppression test. STUDIES DONE WHILE IN THE HOSPITAL: Abdomen and pelvis CT from 02/13/18 read as no obstruction. No acute contrast CT pathology of the visualized abdomen and pelvis. Electrocardiogram from 02/12/18 read as sinus bradycardia. No ST segment abnormalities. No hypertrophy or enlargement. No blocks, rate of 51, QTc of 443. ASSESSMENT AND PLAN/IMPRESSION: Ms. 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 The patient will have her electrolytes repleted. The patient should be continued on PPI therapy as well as sucralfate and we will continue to work with nutrition to help the patient maintain adequate nutritional status. 1. Status post Alivia-en-Y gastric bypass with marginal erosions. Management per primary team. Continue PPI drip. Continue Protonix drip and sucralfate. Avoid NSAIDs and steroids. Continue with nutritional consult to help the patient with nutritional status. 2. Hypomagnesemia and hypokalemia. The patient's hypomagnesemia and hypokalemia have been difficult to increase likely due to the patient's very poor oral intake. 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 We will continue with the patient's IV and p.o. potassium chloride supplementation. The patient received 3 g of magnesium over the past 2 days. We will add on 800 mg of magnesium oxide daily. Continue to monitor the patient 's potassium and magnesium and continue workup for Sweet's disease. 3. Hypertension. The patient's pulse rate has been low. The patient is short of breath with exertion. The patient's blood pressure has been slightly hypertensive on admission. Most recently normalized. Continue with fluids, continue the Tylenol at current dose; however, if the patient's bradycardia persists after electrolyte correction, the patient's atenolol dose should be considered to be decreased and a different antihypertensive medication should be replaced. This should be substituted for that. 4. Obstructive sleep apnea. The patient refuses to wear CPAP. It has been recommended that the patient continue to work with primary care provider to plan a CPAP with a comfortable mask as outpatient. The patient will be continued on nighttime oxygen while in the hospital. 5. Hypercortisolism. Appreciate endocrinology consult. ACTH level pending. I will defer to Endocrinology for next steps pending ACTH level. The patient has no overt Cushingoid features. The patient, however, has had what may have been fragility fractures and patient should have bone densitometry, especially given her low vitamin D level. 6. Vitamin deficiencies. The patient in May of this year was deficient in B12 and vitamin D. we will repeat these now and supplement as needed. 7. Dysuria. We will order urinalysis and order antibiotics as appropriate for possible urinary tract infection. 8. DVT prophylaxis: Heparin subcu. 9. FEN: The patient will have D5W normal saline. Potassium chloride as above. The patient should have a clear liquid diet with foods high in calories and nutrients. Dietary consultation should be ongoing. 10. Disposition: Per primary team. TIME SPENT: Approximately 60 minutes were spent on this consultation, 30 of which was spent [id number] with the patient obtaining history and physical and discussing the treatment plan. [employer] [id number]/CPS #: [id number] MTDD
[2018-02-15] MEDS: Sucralfate SUSP 1 GM/10 ml 10 ML UDC PO SCH ×5 (00:26→23:53)
[2018-02-15 05:47] LABS: ABS Basophils 0 10^3/ul (0-0.2); ABS Eosinophils 0.2 10^3/ul (0-0.6); ABS Lymphocytes 1.1 10^3/ul (1.0-4.8); ABS Monocytes 0.7 10^3/ul (0-0.8); ABS Neutrophils 2.5 10^3/ul (1.5-7.7); ABS Nucleated RBC 0 10^3/ul; Eosinophil % 5.1 % (0-6); Hematocrit 37 % (35-47); Hemoglobin 12.3 g/dl (12.0-16.0); Lymphocyte % 23.6 % (25-47); Mean Corpuscular HGB Conc 33 g/dl (31-36); Mean Corpuscular Hemoglobin 30 pg (27-31); Mean Corpuscular Volume 92 fL (80-97); Mean Platelet Volume 11.2 um3 (7.4-10.4); Nucleated Red Blood Cells % 0; Platelet Count 129 10^3/ul (150-450); Red Blood Count 4.07 10^6/ul (4.00-5.40); Red Cell Distribution Width 16 % (10.5-15); White Blood Count 4.6 10^3/ul (3.5-10.8)
[2018-02-15] MEDS: oxyCODONE/Acetamin 5/325 MG* TAB PO PRN ×2 (05:47→15:22)
[2018-02-15] MEDS: Heparin VIAL(*) 5000 UNITS/ML VIAL (FIVE THOUSAND) SUBCUT SCH ×3 (05:49→21:06)
[2018-02-15 06:08] LABS: EGFR Non-African American 41.4 (>60)
[2018-02-15] MEDS: Pantoprazole* 80 mg IN NS 80 MG/250 ML BAG IVPB SCH ×2 (06:53→17:59)
[2018-02-15] MEDS: D5W NS 0.9% 20Meq KCL 1000 ML* 1,000 ML IV SCH ×3 (06:54→23:54)
[2018-02-15] MEDS ORDERED: Magnesium Sulfate 1 GM IV* 1 GM/100 ML BAG IV ONE (06:58)
--- NOTE | 2018-02-15 09:14 | RAD ---
HISTORY: Pleuritic Chest Pain COMPARISONS: February 06, 2017 VIEWS: 1: frontal AP view of the chest at 9:00 AM FINDINGS: LINES AND TUBES: A right-sided PICC line is noted with tip overlying the right atrium. CARDIOMEDIASTINAL SILHOUETTE: The cardiac silhouette is mildly enlarged. The cardiomediastinal silhouette is otherwise normal for portable technique. PLEURA: The costophrenic angles are sharp. No pleural abnormalities are noted. LUNG PARENCHYMA: The lungs are clear. ABDOMEN: The upper abdomen is clear. There is no subphrenic gas. BONES AND SOFT TISSUES: No bone or soft tissue abnormalities are noted. IMPRESSION: MILD CARDIOMEGALY
[2018-02-15] MEDS: Magnesium Oxide TAB* 400 MG PO SCH (10:09)
[2018-02-15] MEDS: Atenolol TAB* 50 MG PO SCH (10:09)
--- NOTE | 2018-02-15 10:24 | PN ---
Progress Note - Progress Note Date of Service: 02/15/18 SOAP: Subjective: She has new R chest pain, worse with inspiration. She reports family h/o PE in sister and daughter. Doesn't like the taste of the Glucerna shakes but willing to keep trying. Objective: Vital Signs Temp 97.5 F 02/15/18 07:23 Pulse 48 02/15/18 07:23 Resp 16 02/15/18 07:43 BP 130/69 02/15/18 07:23 Pulse Ox 100 02/15/18 07:23 Intake & Output 02/14/18 02/15/18 02/15/18 18:59 06:59 18:59 Intake Total 1702 3343 Output Total 300 400 Balance 1402 2943 Intake: IV Fluids 1252 2453 D5W NS 20 meq KCL 1958 protonix 204 495 IVPB 250 110 Potassium 20 mEq 110 Thiamine 100 potassium phosphate' 50 Oral 200 780 Output: Urine 300 400 Laboratory Results - last 24 hr 02/14/18 02/15/18 02/15/18 16:00 05:40 05:40 WBC 4.6 RBC 4.07 Hgb 12.3 Hct 37 MCV 92 MCH 30 MCHC 33 RDW 16 H Plt Count 129 L MPV 11.2 H Neut % (Auto) 55.3 Lymph % (Auto) 23.6 L [place] % (Auto) 15.8 H Eos % (Auto) 5.1 Baso % (Auto) 0.2 Absolute Neuts (auto) 2.5 Absolute Lymphs (auto) 1.1 Absolute Monos (auto) 0.7 Absolute Eos (auto) 0.2 Absolute Basos (auto) 0 Absolute Nucleated RBC 0 Nucleated RBC % 0 Sodium 145 Potassium 3.7 Chloride 113 H Carbon Dioxide 28 Anion Gap 4 BUN 12 Creatinine 1.33 H Est GFR ( Amer) 50.1 Est GFR (Non-Af Amer) 41.4 BUN/Creatinine Ratio 9.0 Glucose 108 H Calcium 8.7 Phosphorus 2.4 L Magnesium 1.9 Urine Color Yellow Urine Appearance Cloudy Urine pH 5.0 Ur Specific [place] 1.011 Urine Protein Negative Urine Ketones Negative Urine Blood Negative Urine Nitrate Negative Urine Bilirubin Negative Urine Urobilinogen Negative Ur Leukocyte Esterase 1+ A Urine WBC (Auto) 2+(11-20/hpf) A Urine RBC (Auto) Trace(0-2/hpf) Ur Squamous Epith Cells Present A Ur Transition Epith Cell Present A Urine Bacteria Absent Hyaline Casts Present A Urine Glucose Negative Assessment: pleuritic R chest pain: imaging ordered by Hospitalist to evaluate. dysphagia, abdominal pain; marginal ulceration s/p gastric bypass, dehydration, vitamin deficiency, hypokalemia, malnutrition--discussed importance of nutrition; if not able to take adequate po will start TPN. CT shows no internal hernia adrenal work up in progress Plan: Appreciate hospitalist management; r/o PE w/u in progress. Try icing the shakes. Cont PPI; IVF; electrolyte replacement. Per Endo have ordered ACTH (as dexamethasone test was out of range)
[2018-02-15] MEDS ORDERED: Iodixanol* (CONTRAST) 320 MG/ML 100 ML SDV IV ONE (11:50)
--- NOTE | 2018-02-15 13:03 | PN ---
Subjective Date of Service: 02/15/18 Interval History: Patient developed moderate pain under right breast which is worse with breathing , does not radiate and came on suddenly. Patient denies any previous episodes like this. Patient denies F/C, N/V, diaphoresis, shortness of breath, cough. Patient has persistent abdominal pain which is much worse with eating. Patient denies palpitations or dizziness. Family History: Unchanged from Admission Social History: Unchanged from Admission Past Medical History: Unchanged from Admission Objective Active Medications: Atenolol (Tenormin Tab*) 100 mg PO QAM [facility] Last Admin: 02/15/18 10:09 Dose: 100 mg Cholecalciferol (Vitamin D Tab*) 2,000 units PO DAILY [facility] Heparin Sodium (Porcine) (Heparin Vial(*)) 5,000 units SUBCUT Q8HR [facility] Last Admin: 02/15/18 05:49 Dose: 5,000 units Heparin Sodium (Porcine) (Heparin Flush Picc/Ml/Cvc(*)) 1 - 3 ml FLUSH 0600, 1800 [facility]; Protocol Last Admin: 02/15/18 05:43 Dose: Not Given Hydromorphone HCl (Dilaudid Inj1s*) 0.5 mg IV Q1H PRN PRN Reason: Pain - severe Last Admin: 02/13/18 21:01 Dose: 0.5 mg Pantoprazole Sodium (Protonix Iv Bag*) 80 mg in 250 mls @ 25 mls/hr IVPB Q10H [facility] Last Admin: 02/15/18 06:53 Dose: 25 mls/hr Sodium Chloride (Ns 0.9% 1000 Ml*) 1,000 mls @ 100 mls/hr IV .PER RATE [facility] Last Admin: 02/13/18 06:50 Dose: 100 mls/hr Potassium Chloride/Dextrose (D5w Ns 0.9% 20meq Kcl 1000 Ml*) 1,000 mls @ 125 mls/hr IV PER RATE [facility] Last Admin: 02/15/18 06:54 Dose: 125 mls/hr Magnesium Oxide (Magox 400 Tab*) 800 mg PO DAILY [facility] Last Admin: 02/15/18 10:09 Dose: 800 mg Ondansetron HCl (Zofran Inj*) 4 mg IV Q4H PRN PRN Reason: NAUSEA/VOMITING Oxycodone/Acetaminophen (Percocet 5/325 Tab*) 1 tab PO Q4H PRN PRN Reason: PAIN Last Admin: 02/15/18 05:47 Dose: 1 tab Sucralfate (Sucralfate Susp) 1 gm PO Q6HR [facility] Last Admin: 02/15/18 10:09 Dose: 1 gm Vital Signs - 8 hr 02/15/18 02/15/18 02/15/18 05:01 05:47 07:23 Temperature 97.4 F 97.5 F Pulse Rate 48 48 Respiratory 16 22 17 Rate Blood Pressure 137/55 130/69 (mmHg) O2 Sat by Pulse 100 100 Oximetry 02/15/18 07:43 Temperature Pulse Rate Respiratory 16 Rate Blood Pressure (mmHg) O2 Sat by Pulse Oximetry Oxygen Devices in Use Now: None Appearance: Patient is a 57yo female who appears stated age and is sitting in the bed in NAD. Eyes: No Scleral Icterus, PERRLA Ears/Nose/Mouth/Throat: NL Teeth, Lips, Gums, Clear Oropharnyx, Mucous Membranes Moist Neck: NL Appearance and Movements; NL JVP, Trachea Midline Respiratory: Symmetrical Chest Expansion and Respiratory Effort, Clear to Auscultation Cardiovascular: NL Sounds; No Murmurs; No JVD, RRR, No Edema, - - No calf tenderness or edema. Abdominal: No Hepatosplenomegaly, - - Tender to palpation. NOrmoactive bowel sounds. Lymphatic: No Cervical Adenopathy Extremities: No Edema, No Clubbing, Cyanosis Skin: No Rash or Ulcers, No Nodules or Sclerosis Neurological: Alert and Oriented x 3, NL Sensation, NL Muscle Strength and Tone , - - CN II-XII intact. Result Diagrams: 02/15/18 05:40 02/15/18 05:40 Assess/Plan/Problems-Billing Assessment: Patient is a 57yo female with a PMH for HTN, Morbid Obesity, KATY, S/P Gastric Bypass with marginal erosions, hypercortisolism, and vitamin deficiency. Patient is currently admitted with inability to tolerate PO intake, malnutrition , elevtrolyte abnormalities and recently developed pleuritic chest pain. - Patient Problems (1) S/P gastric bypass Current Visit: Yes Status: Acute Code(s): Z98.84 - BARIATRIC SURGERY STATUS SNOMED Code(s): 922987854 Comment: - With Marginal Erosions - Management per Surgery - Continue PPI and Sucralfate - Poor oral intake with manutrition - Continue Nutrition consults (2) Chest pain Current Visit: Yes Status: Acute Code(s): R07.9 - CHEST PAIN, UNSPECIFIED SNOMED Code(s): 37866062 Comment: - Pleuritic Right sided chest pain. - Subsiding - Normal EKG, Negative troponin so far, no CXR findings - Low risk for cardiac origin. - CTA Shows no PE. Family history of blood clots and PEs. - No hemodynamic instability (3) KATY (obstructive sleep apnea) Current Visit: Yes Status: Acute Code(s): G47.33 - OBSTRUCTIVE SLEEP APNEA ( ADULT) (PEDIATRIC) SNOMED Code(s): 05256036 Comment: - Unable to tolerate CPAP - Nocturnal oxygen - Discussed trying different masks outpatient to help with weight loss, HTN and cardiac risk. (4) Hypomagnesemia Current Visit: Yes Status: Acute Code(s): E83.42 - HYPOMAGNESEMIA SNOMED Code(s): 865684596 Comment: - Improved, continue with IV and oral supplementation as needed. (5) Hypokalemia Current Visit: Yes Status: Acute Code(s): E87.6 - HYPOKALEMIA SNOMED Code( s): 44915465 Comment: - Improving, Continue oral supplementation. (6) Hypercortisolism Current Visit: Yes Status: Acute Comment: - Appreciate Endocrine consultation - ACTH pending - Low Vitamin D and multiple fractures. Start VItamin D supplementation and consider outpatient screening for osteoporosis. (7) Hypertension Current Visit: No Status: Chronic Code(s): I10 - ESSENTIAL (PRIMARY) HYPERTENSION SNOMED Code(s): 69608460 Comment: - Normotensive, Continue home medications. (8) DVT prophylaxis Current Visit: Yes Status: Acute Code(s): ZXM8450 - SNOMED Code(s): 212387874 Comment: - SCDs and Heparin SubQ. (9) Full code status Current Visit: Yes Status: Acute Code(s): Z78.9 - OTHER SPECIFIED HEALTH STATUS SNOMED Code(s): 809365463 Status and Disposition: Inpatient, disposition per surgery. Medicine will sign off, please call with questions. Thank you for this consult.
--- NOTE | 2018-02-15 13:50 | RAD ---
HISTORY: Pleuritic Chest Pain, PE Risk Factors COMPARISONS: November 25, 2010 TECHNIQUE: Multiple contiguous axial CT scans of the chest were obtained after the administration of nonionic intravenous contrast, timed to the pulmonary arterial phase of contrast enhancement.. Coronal and sagittal multiplanar reformations are also submitted for review. FINDINGS: NECK AND THYROID: The lower neck and thyroid are unremarkable. CHEST WALL: There is no lower cervical, axillary, or supraclavicular lymphadenopathy by size criteria. HEART AND PERICARDIUM: The heart is unremarkable. There is a small amount of fluid within the superior pericardial recess. AORTA AND PULMONARY VASCULATURE: There is no pulmonary arterial filling defect to suggest pulmonary embolism. There is no linear filling defect within the aorta to suggest aortic dissection. MEDIASTINUM: There is no mediastinal lymphadenopathy by size criteria. GRETEL: There is no hilar lymphadenopathy by size criteria. AIRWAY AND ESOPHAGUS: The airway is unremarkable, without endobronchial filling defect. The esophagus is grossly normal. LUNG PARENCHYMA: There is minimal dependent atelectasis. PLEURA: No pleural abnormalities are noted. UPPER ABDOMEN: There is postsurgical change to the upper GI tract. There is stable adrenal nodularity. BONES AND SOFT TISSUES: Degenerative changes are noted. OTHER: The right subclavian venous catheter is noted with the tip at the cavoatrial junction. IMPRESSION: NO PULMONARY ARTERIAL FILLING DEFECT TO SUGGEST PULMONARY EMBOLISM.
[2018-02-15] MEDS: Cholecalciferol TAB* 1000 UNITS PO SCH (15:15)
[2018-02-16] MEDS: Pantoprazole* 80 mg IN NS 80 MG/250 ML BAG IVPB SCH ×2 (04:15→15:37)
[2018-02-16] MEDS: Heparin VIAL(*) 5000 UNITS/ML VIAL (FIVE THOUSAND) SUBCUT SCH ×3 (06:25→21:28)
[2018-02-16] MEDS: Sucralfate SUSP 1 GM/10 ml 10 ML UDC PO SCH ×3 (06:28→18:07)
[2018-02-16 06:38] LABS: ABS Basophils 0.1 10^3/ul (0-0.2); ABS Eosinophils 0.2 10^3/ul (0-0.6); ABS Lymphocytes 0.8 10^3/ul (1.0-4.8); ABS Monocytes 0.7 10^3/ul (0-0.8); ABS Neutrophils 2.5 10^3/ul (1.5-7.7); ABS Nucleated RBC 0 10^3/ul; Eosinophil % 5.4 % (0-6); Hematocrit 36 % (35-47); Hemoglobin 11.7 g/dl (12.0-16.0); Lymphocyte % 19.1 % (25-47); Mean Corpuscular HGB Conc 33 g/dl (31-36); Mean Corpuscular Hemoglobin 30 pg (27-31); Mean Corpuscular Volume 91 fL (80-97); Mean Platelet Volume 11.6 um3 (7.4-10.4); Nucleated Red Blood Cells % 0.1; Platelet Count 116 10^3/ul (150-450); Red Blood Count 3.89 10^6/ul (4.00-5.40); Red Cell Distribution Width 16 % (10.5-15); White Blood Count 4.2 10^3/ul (3.5-10.8)
[2018-02-16 06:54] LABS: EGFR Non-African American 48.5 (>60)
[2018-02-16] MEDS: Magnesium Oxide TAB* 400 MG PO SCH (08:53)
[2018-02-16] MEDS: Atenolol TAB* 50 MG PO SCH (08:53)
[2018-02-16] MEDS: Cholecalciferol TAB* 1000 UNITS PO SCH (08:53)
[2018-02-16] MEDS: D5W NS 0.9% 20Meq KCL 1000 ML* 1,000 ML IV SCH ×2 (09:02→17:53)
[2018-02-16] MEDS ORDERED: Magnesium Sulfate 1 GM IV* 1 GM/100 ML BAG IV ONE (12:06)
--- NOTE | 2018-02-16 12:26 | PN ---
Progress Note - Progress Note Date of Service: 02/16/18 SOAP: Subjective:hospital day #5,abd pain,dehydration,marginal ulcer,s/p RYGB []denies abd pain;feels full quickly with po liquids;reports Glucerna feels too heavy in stomach;trying to drink clear Ensure;no n/v;passing loose stools Objective:abd:+bs,soft,mild epigastric tenderness Vital Signs 02/16/18 02/16/18 07:18 08:00 Pulse Rate 53 Respiratory 16 16 Rate Blood Pressure 134/66 (mmHg) O2 Sat by Pulse 100 Oximetry Laboratory Results - last 24 hr 02/13/18 02/15/18 02/15/18 15:30 15:40 19:00 WBC RBC Hgb Hct MCV MCH MCHC RDW Plt Count MPV Neut % (Auto) Lymph % (Auto) [place] % (Auto) Eos % (Auto) Baso % (Auto) Absolute Neuts (auto) Absolute Lymphs (auto) Absolute Monos (auto) Absolute Eos (auto) Absolute Basos (auto) Absolute Nucleated RBC Nucleated RBC % Sodium Potassium Chloride Carbon Dioxide Anion Gap BUN Creatinine Est GFR ( Amer) Est GFR (Non-Af Amer) BUN/Creatinine Ratio Glucose Calcium Magnesium Troponin I 0.01 0.01 ACTH 10 02/16/18 02/16/18 06:20 06:20 WBC 4.2 RBC 3.89 L Hgb 11.7 L Hct 36 MCV 91 MCH 30 MCHC 33 RDW 16 H Plt Count 116 L MPV 11.6 H Neut % (Auto) 58.5 Lymph % (Auto) 19.1 L [place] % (Auto) 15.8 H Eos % (Auto) 5.4 Baso % (Auto) 1.2 Absolute Neuts (auto) 2.5 Absolute Lymphs (auto) 0.8 L Absolute Monos (auto) 0.7 Absolute Eos (auto) 0.2 Absolute Basos (auto) 0.1 Absolute Nucleated RBC 0 Nucleated RBC % 0.1 Sodium 145 Potassium 3.8 Chloride 114 H Carbon Dioxide 27 Anion Gap 4 BUN 9 Creatinine 1.16 H Est GFR ( Amer) 58.7 Est GFR (Non-Af Amer) 48.5 BUN/Creatinine Ratio 7.8 L Glucose 111 H Calcium 8.6 Magnesium 1.7 L Troponin I ACTH [] Assessment:trying to meet po protein goals but feels full quickly and doesn't like the taste magnesium low 1.7 [] Plan:above discussed with Dr Subramanian;will run TPN panel 02/17/18,she has a PICC line and understands that she may need parenteral nutrition;will replete Magnesium with IV today and discontinue po Mag Ox;continue PPI and IVF []
[2018-02-16] MEDS: oxyCODONE/Acetamin 5/325 MG* TAB PO PRN (21:29)
[2018-02-17] MEDS: oxyCODONE/Acetamin 5/325 MG* TAB PO PRN ×2 (01:39→17:41)
[2018-02-17] MEDS: Sucralfate SUSP 1 GM/10 ml 10 ML UDC PO SCH ×5 (01:40→23:45)
[2018-02-17] MEDS: D5W NS 0.9% 20Meq KCL 1000 ML* 1,000 ML IV SCH ×3 (01:50→17:43)
[2018-02-17] MEDS: Pantoprazole* 80 mg IN NS 80 MG/250 ML BAG IVPB SCH ×4 (02:59→23:52)
[2018-02-17] MEDS: Heparin VIAL(*) 5000 UNITS/ML VIAL (FIVE THOUSAND) SUBCUT SCH ×3 (05:32→20:07)
[2018-02-17 08:14] LABS: EGFR Non-African American 46.6 (>60)
[2018-02-17] MEDS: Cholecalciferol TAB* 1000 UNITS PO SCH (09:58)
[2018-02-17] MEDS: Atenolol TAB* 50 MG PO SCH (09:58)
[2018-02-17] MEDS: Cetirizine* 10 MG TAB PO SCH (10:03)
[2018-02-17 10:19] LABS: ABS Basophils 0.1 10^3/ul (0-0.2); ABS Eosinophils 0.2 10^3/ul (0-0.6); ABS Monocytes 0.6 10^3/ul (0-0.8); ABS Neutrophils 2.3 10^3/ul (1.5-7.7); ABS Nucleated RBC 0 10^3/ul; Eosinophil % 5.6 % (0-6); Hematocrit 39 % (35-47); Hemoglobin 12.6 g/dl (12.0-16.0); Lymphocyte % 24.1 % (25-47); Mean Corpuscular HGB Conc 33 g/dl (31-36); Mean Corpuscular Hemoglobin 30 pg (27-31); Mean Corpuscular Volume 92 fL (80-97); Mean Platelet Volume 11.7 um3 (7.4-10.4); Nucleated Red Blood Cells % 0; Platelet Count 136 10^3/ul (150-450); Red Blood Count 4.18 10^6/ul (4.00-5.40); Red Cell Distribution Width 17 % (10.5-15); White Blood Count 4.3 10^3/ul (3.5-10.8)
--- NOTE | 2018-02-17 14:18 | PN ---
Subjective Date of Service: 02/17/18 Interval History: Received call from nursing this morning as patient was c/o a headache which has been present for multiple days and was not relieved by percocet. Ms. Velasquez describes the pain as frontal, dull, aching. States that she typically has occipital headaches. She will not take tylenol or ibuprofen d/t GI concerns. She did take a dose of cetirizine this morning which she feels decreased the pain a fair amount. Pain also improved with cold compresses. She still has a headache on exam, though reports it is improved and more of an annoyance, and she is not concerned. She denies CP, SOB, N/V/D, dizziness, visual changes. Family History: Unchanged from Admission Social History: Unchanged from Admission Past Medical History: Unchanged from Admission Objective Active Medications: Atenolol (Tenormin Tab*) 100 mg PO QAM ERICK Cetirizine HCl (Zyrtec*) 10 mg PO DAILY ERICK; Protocol Cholecalciferol (Vitamin D Tab*) 2,000 units PO DAILY ERICK Heparin Sodium (Porcine) (Heparin Vial(*)) 5,000 units SUBCUT Q8HR ERIKC Heparin Sodium (Porcine) (Heparin Flush Picc/Ml/Cvc(*)) 1 - 3 ml FLUSH 0600, 1800 ERICK; Protocol Hydromorphone HCl (Dilaudid Inj1s*) 0.5 mg IV Q1H PRN Pantoprazole Sodium (Protonix Iv Bag*) 80 mg in 250 mls @ 25 mls/hr IVPB Q10H ERICK Sodium Chloride (Ns 0.9% 1000 Ml*) 1,000 mls @ 100 mls/hr IV .PER RATE ERICK Potassium Chloride/Dextrose (D5w Ns 0.9% 20meq Kcl 1000 Ml*) 1,000 mls @ 125 mls/hr IV PER RATE ERICK Ondansetron HCl (Zofran Inj*) 4 mg IV Q4H PRN Oxycodone/Acetaminophen (Percocet 5/325 Tab*) 1 tab PO Q4H PRN Sucralfate (Sucralfate Susp) 1 gm PO Q6HR ERICK Vital Signs - 8 hr 02/17/18 02/17/18 02/17/18 07:43 08:00 11:44 Temperature 97.8 F 97.5 F Pulse Rate 59 53 Respiratory 20 16 16 Rate Blood Pressure 130/65 147/72 (mmHg) O2 Sat by Pulse 97 97 Oximetry Oxygen Devices in Use Now: None Appearance: Middle-aged female sitting in bed in NAD Eyes: No Scleral Icterus Ears/Nose/Mouth/Throat: Mucous Membranes Moist Neck: NL Appearance and Movements; NL JVP Respiratory: Symmetrical Chest Expansion and Respiratory Effort, Clear to Auscultation Cardiovascular: NL Sounds; No Murmurs; No JVD, RRR Abdominal: NL Sounds; No Tenderness; No Distention Extremities: No Clubbing, Cyanosis Skin: No Rash or Ulcers Neurological: Alert and Oriented x 3, NL Sensation Lines/Tubes/Other Access: Clean, Dry and Intact Peripheral IV Nutrition: Taking PO's Result Diagrams: 02/17/18 10:09 02/17/18 05:40 Assess/Plan/Problems-Billing Assessment: Patient is a 57yo female with a PMH for HTN, Morbid Obesity, KATY, S/P Gastric Bypass with marginal erosions, hypercortisolism, and vitamin deficiency. Patient is currently admitted with inability to tolerate PO intake, malnutrition , elevtrolyte abnormalities and recently developed pleuritic chest pain. - Patient Problems (1) S/P gastric bypass Current Visit: Yes Status: Acute Priority: High Code(s): Z98.84 - BARIATRIC SURGERY STATUS SNOMED Code(s): 164885538 Comment: - With marginal erosions - Management per Surgery (2) Frontal headache Current Visit: Yes Status: Acute Priority: High Code(s): R51 - HEADACHE SNOMED Code(s): 369661645 Comment: - Unclear etiology; possibly tension, stress, opiate-induced, sinus - No concerning symptomology or red flags - Somewhat responsive to cetirizine; will continue - Supportive care - Contact Hospitalists for any concerning symptoms including fever, AMS, seizures, visual changes, HTN, or severe pain (3) Hypertension Current Visit: Yes Status: Chronic Priority: Medium Code(s): I10 - ESSENTIAL (PRIMARY) HYPERTENSION SNOMED Code(s): 76659167 Comment: - Normotensive - Continue home medications (4) Full code status Current Visit: Yes Status: Acute Priority: High Code(s): Z78.9 - OTHER SPECIFIED HEALTH STATUS SNOMED Code(s): 185764746 (5) DVT prophylaxis Current Visit: Yes Status: Acute Priority: High Code(s): ZPX6456 - SNOMED Code(s): 890773780 Comment: - Per Surgery Status and Disposition: Inpatient, disposition per surgery. Medicine will remain signed off, but please call with questions. Thank you for this consult.
--- NOTE | 2018-02-17 17:01 | PN ---
Progress Note - Progress Note Date of Service: 02/17/18 SOAP: Subjective: She was seen this AM. She continued to have pain with swallowing. She related this to pain from her ulcer. She reported diarrhea when she eats/drinks. Objective: Vital Signs Temp 97.5 F 02/17/18 11:44 Pulse 53 02/17/18 11:44 Resp 16 02/17/18 11:44 BP 147/72 02/17/18 11:44 Pulse Ox 97 02/17/18 11:44 Gen: NAD Abd: obese, soft, mild epigastric tenderness. Intake & Output 02/16/18 02/17/18 02/17/18 18:59 06:59 18:59 Intake Total 1731 1231 1360 Output Total 600 450 350 Balance 4743 406 2441 Intake: IV Fluids 995 1231 980 D5W NS 20 meq KCL 995 980 980 protonix 251 IVPB 736 260 D5W NS 20 meq KCL 736 protonix 260 Oral 0 120 Output: Urine 600 450 350 Other: Date of Last Bowel 02/17/18 Movement # Bowel Movements 1 Estimated Stool Amount Small Laboratory Results - last 24 hr 02/17/18 02/17/18 05:40 10:09 WBC 4.3 RBC 4.18 Hgb 12.6 Hct 39 MCV 92 MCH 30 MCHC 33 RDW 17 H Plt Count 136 L MPV 11.7 H Neut % (Auto) 54.0 Lymph % (Auto) 24.1 L Gonzales % (Auto) 14.0 H Eos % (Auto) 5.6 Baso % (Auto) 2.3 H Absolute Neuts (auto) 2.3 Absolute Lymphs (auto) 1.0 Absolute Monos (auto) 0.6 Absolute Eos (auto) 0.2 Absolute Basos (auto) 0.1 Absolute Nucleated RBC 0 Nucleated RBC % 0 Sodium 145 Potassium 3.8 Chloride 116 H Carbon Dioxide 24 Anion Gap 5 BUN 8 Creatinine 1.20 H Est GFR ( Amer) 56.4 Est GFR (Non-Af Amer) 46.6 BUN/Creatinine Ratio 6.7 L Glucose 90 Calcium 8.5 L Phosphorus 2.4 L Magnesium 1.6 L Total Bilirubin 0.70 AST 31 ALT 34 Alkaline Phosphatase 67 Total Protein 5.0 L Albumin 2.7 L Globulin 2.3 Albumin/Globulin Ratio 1.2 Prealbumin 15 L Triglycerides 153 Cholesterol 99 Assessment: dysphagia, abdominal pain; marginal ulceration s/p gastric bypass, dehydration, vitamin deficiency, hypokalemia, malnutrition diarrhea may be due to PPI 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
[2018-02-18] MEDS: D5W NS 0.9% 20Meq KCL 1000 ML* 1,000 ML IV SCH (01:56)
[2018-02-18] MEDS: Pantoprazole* 80 mg IN NS 80 MG/250 ML BAG IVPB SCH (02:00)
[2018-02-18] MEDS: Heparin VIAL(*) 5000 UNITS/ML VIAL (FIVE THOUSAND) SUBCUT SCH ×2 (05:10→14:40)
[2018-02-18] MEDS: Sucralfate SUSP 1 GM/10 ml 10 ML UDC PO SCH ×2 (05:10→11:10)
[2018-02-18] MEDS: Cholecalciferol TAB* 1000 UNITS PO SCH (09:14)
[2018-02-18] MEDS: Atenolol TAB* 50 MG PO SCH (09:14)
[2018-02-18] MEDS: Cetirizine* 10 MG TAB PO SCH (09:14)
--- NOTE | 2018-02-18 10:21 | PN ---
Progress Note - Progress Note Date of Service: 02/18/18 SOAP: Subjective: She reports doing well eating pudding consistency without pain. She is drinking more. She has less pain overall. She notes she has not been on her diuretic and feels this accounts for leg edema. Objective: Vital Signs Temp 97.4 F 02/18/18 07:25 Pulse 60 02/18/18 09:19 Resp 18 02/18/18 07:25 BP 151/80 02/18/18 07:25 Pulse Ox 99 02/18/18 07:25 Gen: NAD Abd: soft; min tender in upper abd. Ext: bilat LE pitting edema. Intake & Output 02/17/18 02/18/18 02/18/18 18:59 06:59 18:59 Intake Total 1480 1574 Output Total 350 Balance 1130 1574 Intake: IV Fluids 980 937 D5W NS 20 meq KCL 980 937 IVPB 260 protonix 260 Medicated IV 187 GEN - Pantoprazole/ 187 Protonix Oral 240 450 Output: Urine 350 Other: Estimated Void Large Date of Last Bowel 02/17/18 Movement # Bowel Movements 1 Estimated Stool Amount Small # Voids 1 Laboratory Results - last 24 hr 02/17/18 10:09 WBC 4.3 RBC 4.18 Hgb 12.6 Hct 39 MCV 92 MCH 30 MCHC 33 RDW 17 H Plt Count 136 L MPV 11.7 H Neut % (Auto) 54.0 Lymph % (Auto) 24.1 L Smith % (Auto) 14.0 H Eos % (Auto) 5.6 Baso % (Auto) 2.3 H Absolute Neuts (auto) 2.3 Absolute Lymphs (auto) 1.0 Absolute Monos (auto) 0.6 Absolute Eos (auto) 0.2 Absolute Basos (auto) 0.1 Absolute Nucleated RBC 0 Nucleated RBC % 0 Assessment: dysphagia, abdominal pain due to marginal ulceration=>improved Plan: Continue diet (with protein powder supplement) Will change to po meds. If tolerating po well then may be d/c'd this afternoon. Continue PPI and Carafate at home.
[2018-02-18] MEDS ORDERED: Omeprazole CAP* 20 MG PO SCH (11:00)
[2018-02-18 14:11] VITALS: BP 143/70
--- NOTE | 2018-02-19 06:43 | DS ---
AMENDED REPORT NOW INCLUDES DESIGNATED COSIGNER CC: [facility]; Dr. Lucila Bhakta; Dr. Kory Babcock * DISCHARGE SUMMARY: DATE OF ADMISSION: 02/12/18 DATE OF DISCHARGE: 02/18/18 ATTENDING SURGEON: Dr. Jesse Escudero * (BRIDGETT Mcclendon, dictating). * HOSPITAL COURSE: The patient was admitted on 02/12/18 with abdominal pain and dysphagia as well as electrolyte abnormalities. See admission history and physical for complete details. Briefly, the patient has had a recent diagnosis of marginal ulcer at the gastrojejunal anastomosis following recent bypass surgery. She was unable to eat and drink at home and required admission for dehydration, pain control, and IV proton-pump inhibitor. She was seen in consultation by Endocrinology (Dr. 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 She was also seen in consultation by the hospitalist on 02/14/18. She had repletion of her deficits of her both potassium and magnesium. She has gradually improved and today was switched back to oral medications and advanced in diet and tolerated this well. She will contact [facility] for followup with Dr. Escudero and contact Dr. Babcock's office separately for a followup with him. She will otherwise resume her usual home medications including ongoing PPI and Carafate. She will also use a protein supplement as well as following other bariatric nutritional guidelines. BRIDGETT MCCLENDON [id number]/[facility] #: [id number] [facility]PITAL[facility]ensen
== END 2018-02-18 17:45 | disposition home or self-care (01) | DRG 241 ==
LOC: SSU 15:03 → OBSVTOIN 15:41 → INTOOBSV 15:41 → OBSVTOIN 02-15 10:35 → INTOOBSV 02-15 10:35 → OBSVTOIN 02-15 16:00 → INTOOBSV 02-16 16:00 → OBSVTOIN 02-16 16:00 → MED 02-17 16:23
PROVIDERS: ADMIT Surgery; ATTEND Surgery
PROC: 02HV33Z Insertion of Infusion Device into Superior Vena Cava, Percutaneous Approach (ICD-10-PCS; principal; 2018-02-13)
PROC: 3E0336Z Introduction of Nutritional Substance into Peripheral Vein, Percutaneous Approach (ICD-10-PCS; 2018-02-17)
DX: K28.9 Gastrojejunal ulcer, unspecified as acute or chronic, without hemorrhage or perforation (principal); E24.9 Cushing's syndrome, unspecified; N17.9 Acute kidney failure, unspecified; E46 Unspecified protein-calorie malnutrition; Z68.43 Body mass index [BMI] 50.0-59.9, adult; E87.6 Hypokalemia; I10 Essential (primary) hypertension; G47.33 Obstructive sleep apnea (adult) (pediatric); M19.90 Unspecified osteoarthritis, unspecified site; E27.8 Other specified disorders of adrenal gland; R19.7 Diarrhea, unspecified; R30.0 Dysuria; E86.0 Dehydration; R13.10 Dysphagia, unspecified; K59.00 Constipation, unspecified; E83.42 Hypomagnesemia; E53.8 Deficiency of other specified B group vitamins; E55.9 Vitamin D deficiency, unspecified; R07.81 Pleurodynia; Z98.84 Bariatric surgery status; Z87.891 Personal history of nicotine dependence; Z90.49 Acquired absence of other specified parts of digestive tract; Z83.3 Family history of diabetes mellitus; Z80.1 Family history of malignant neoplasm of trachea, bronchus and lung; Z82.3 Family history of stroke; Z80.0 Family history of malignant neoplasm of digestive organs; Z91.018 Allergy to other foods
CPT/HCPCS: 36415; 71045; 71275; 74176; 80048; 80053; 81003; 81015; 82024; 82306; 82465; 82533; 82565; 82607; 83735; 84100; 84132; 84134; 84478; 84484; 84520; 85025; 85610; 85730; 87086; 93005; A9270-GY; C1751; G0378; J1170; J1644; J3411; J3475; J3480; Q9967

== ENCOUNTER 2018-02-26 06:03 | Day surgery (SDC) | payer BC ==
[2018-02-26] MEDS ORDERED: Midazolam* 1 MG/ML 2 ML VIAL (2 MG) ONE (07:05)
[2018-02-26] MEDS ORDERED: fentaNYL* 50 MCG/ML 2 ML VIAL (100 MCG VIAL) IV PRN (07:28)
[2018-02-26] MEDS ORDERED: DiMENhydriNATE IV* 50 MG/ML VIAL IV PUSH PRN (07:28)
[2018-02-26] MEDS ORDERED: Ondansetron INJ* 2 MG/ML VIAL IV PRN (07:28)
[2018-02-26] MEDS ORDERED: Naloxone* 0.4 MG/ML 1 ML VIAL IV PRN (07:28)
[2018-02-26] MEDS ORDERED: Acetaminophen TAB* 325 MG PO PRN (07:28)
[2018-02-26] MEDS ORDERED: Levalbuterol 0.63MG/3ML NEB* UNIT OF USE INH PRN (07:28)
[2018-02-26] MEDS ORDERED: diPHENhydraMINE IV* 50 MG/ML 1 ml VIAL (BENADRYL) IV PRN (07:28)
[2018-02-26] MEDS ORDERED: Propofol* 10 MG/ML 20 ML BTL IV PUSH ONE (07:49)
[2018-02-26] MEDS ORDERED: Famotidine IV* 10 MG/ML 2 ML (20 mg) ONE (07:49)
[2018-02-26] MEDS ORDERED: Ondansetron INJ* 2 MG/ML VIAL ONE (07:49)
[2018-02-26] MEDS ORDERED: Lidocaine 2% PF * 5 ML VIAL ONE (07:50)
[2018-02-26] MEDS ORDERED: fentaNYL* 50 MCG/ML 2 ML VIAL (100 MCG VIAL) ONE (07:53)
[2018-02-26] MEDS ORDERED: KETAMINE HCL* 50 MG/ML 10 ML VIAL ONE (07:53)
[2018-02-26 08:42] VITALS: BP 173/85
--- NOTE | 2018-02-27 10:34 | PRO ---
CC: Dr. Jesse Escudero; Dr. Lucila Bhakta * EGD REPORT: DATE OF PROCEDURE: 02/26/18 - [facility] PRIMARY CARE PHYSICIAN: Dr. Lucila Bhakta. INDICATION FOR PROCEDURE: Epigastric pain, history of anastomotic ulceration, status post gastric bypass. PROCEDURE PERFORMED: EGD with dilation. MEDICATIONS GIVEN: Please see Anesthesia report. DESCRIPTION OF PROCEDURE: After the EGD procedure including the risks, benefits , and alternatives with the risks not limited to perforation, surgery, missed lesions, and/or were explained to the patient, written consent was then obtained, IV medication was given, and a bite-block was placed between the teeth. The IV medication was given by the anesthesia service. The adult Olympus gastroscope was passed through the patient's mouth through the upper esophageal sphincter into the distal esophagus. The distal esophagus and the GE junction were grossly normal in appearance. The Z-line was intact. A 6-cm pouch from 40 to 46 was appreciated. There was very very mild erythema at the anastomotic junction. The prior clean-based anastomotic ulcerations were healed. There was no evidence of stricturing. There was no fresh or old blood. Two sutures were appreciated at the 6 o'clock position. I then intubated her small bowel limb as long as possible for about 30 to 40 cm. There were no ulcerations or abnormalities. I then withdrew, the blind limb was normal as well without any ulcerations. Given her symptomatology, I empirically dilated her to 15 mm with good effect, again there was no distinct stricturing of this area but given her symptomatology, I did use a CRE balloon dilatation initially at 12.5, 13.5, and finally at 15 for a total of 45- Sinhala dilation with good effect. Scope was then withdrawn from the patient. She tolerated the procedure well. She returned to the recovery room in stable condition. IMPRESSION: 1. Complete esophagogastroduodenoscopy with dilatation. 2. Healed anastomotic ulcerations with just mild erythema remaining. 3. No stricturing of the anastomosis. Intact small bowel limb without any ulcerations. 4. Empiric dilation of anastomosis with CRE through the scope up to 45-Sinhala. RECOMMENDATIONS: The anastomotic ulcerations have healed. She is feeling slightly better with her diet. I do not believe that the stricture is contributing to her current symptomatology. I did empirically dilate to see if she gets some relief. If there is some relief, could consider further dilation, but I feel that this area is not narrowed or strictured, so that may be moot point. She did admit that she is only taking her pantoprazole once daily. We discussed that omeprazole b.i.d. would be more beneficial with the addition of Zantac at night. She should continue to follow up with Dr. Escudero and continue to absolutely avoid NSAID and not to smoke. She can follow up with Dr. Escudero in the bariatric clinic. [id number]/[facility] #: [id number] [facility]
== END 2018-02-26 08:44 | disposition home or self-care (01) ==
LOC: OR 06:03
PROVIDERS: ATTEND Internal Medicine Gastroenterology
DX: R10.13 Epigastric pain (principal); K28.7 Chronic gastrojejunal ulcer without hemorrhage or perforation; Z98.84 Bariatric surgery status; G47.33 Obstructive sleep apnea (adult) (pediatric); I10 Essential (primary) hypertension; R10.10 Upper abdominal pain, unspecified; E87.6 Hypokalemia; E66.01 Morbid (severe) obesity due to excess calories
CPT/HCPCS: J2250; J2405; J2704; J3010

== ENCOUNTER → 2018-04-17 07:47 | Day surgery (SDC) | payer BC ==
[~2018-04-17 07:47] MED LIST changes: +Dexamethasone IV* 4 MG/ML 1 ML (4 MG) IV SLOW PU ONE; +Dexamethasone IV* 4 MG/ML 1 ML (4 MG) ONE; +Lactated Ringers 1000 ML Bag* 1,000 ML IV SCH; +Lidocaine 2% PF * 5 ML VIAL ONE; +Metoclopramide IV* 5 MG/ML 2 ML VIAL IV SLOW PU ONE; +Metoclopramide IV* 5 MG/ML 2 ML VIAL ONE; +Naloxone* 0.4 MG/ML 1 ML VIAL IV PRN; +Ondansetron INJ* 2 MG/ML VIAL IV PRN; +Propofol* 10 MG/ML 20 ML BTL ONE
[2018-04-17 10:34] VITALS: BP 155/92
--- NOTE | 2018-04-17 23:34 | PRO ---
CC: Lucila hBakta MD; Dr. Escudero * ESOPHAGOGASTRODUODENOSCOPY REPORT: DATE OF PROCEDURE: 04/17/18 PRIMARY CARE PHYSICIAN: Lucila Bhakta MD SURGEON: Dr. Escudero INDICATION FOR PROCEDURE: Recurrent abdominal pain, nausea after Alivia-en-Y, history of anastomotic ulceration. PROCEDURE PERFORMED: Complete esophagogastroduodenoscopy with dilation. MEDICATIONS GIVEN: Please see anesthesia record. DESCRIPTION OF PROCEDURE: After the EGD procedure including the risks, benefits , and alternatives with the risks not limited to perforation, surgery, missed lesions, and/or were explained to the patient, written informed consent was obtained. A bite block was placed between the teeth and IV medication was given by the anesthesia service. The adult Olympus gastroscope was inserted into the oropharynx, into the tubular esophagus. The tubular esophagus was grossly normal. The scope was advanced through the lower esophageal sphincter into the gastric pouch from roughly 44 to 38 cm. The pouch was intact without any erythema or lesions. At the gastrojejunal junction, there was reoccurrence of an anastomotic ulcer on the jejunal side right around the 5 o'clock. This was next to a staple and did extend over towards the suture line at around the 7 o'clock roughly about 2 cm in size, this was clean based in appearance without any visible vessel. There was no structuring to this area. I did intubate the jejunal limb as deeply as possible and the remainder of the small was normal. I then proceeded to place a CRE balloon through the channel of the scope and was able to first dilate to 15 mm and then again dilate to 16 mm across the distal anastomosis. This was done with good effect. The balloon was removed. The scope was removed from the patient. She tolerated the procedure well. She returned to the recovery room in stable condition. IMPRESSION: 1. Complete esophagogastroduodenoscopy with dilation. 2. Recurrent anastomotic ulcer at 5 o'clock, roughly 2 cm in size, clean based. 3. Empiric dilation to 16 mm of gastrojejunal junction. RECOMMENDATIONS: After extensive discussion, the patient does live in a house with multiple people that smoke in the house. On the secondhand smoke, certainly it does not help her risk of anastomotic ulceration. In addition, she has only been taking 20 mg p.o. b.i.d. of omeprazole. I am sending in a repeat prescription of 40 mg p.o. b.i.d. I want her on this indefinitely for at least the next 6 months. She is to resume her Carafate and also can take Zantac in the evening as needed. If this is ongoing and nonhealing, may have to consider revision. At this point, I doubt a dilation will be of any clinical utility. The area is not strictured or narrowed; however, I did empirically dilate as much as possible. She is to follow up with Dr. Escudero as scheduled and is welcome to follow with us if any other concerns arise. [id number]/[facility] #: [id number] ALEJANDRA
== END | disposition home or self-care (01) ==
LOC: OR 07:47
PROVIDERS: ATTEND Internal Medicine Gastroenterology
DX: K28.7 Chronic gastrojejunal ulcer without hemorrhage or perforation (principal); R10.13 Epigastric pain; R11.2 Nausea with vomiting, unspecified; Z98.84 Bariatric surgery status; R73.03 Prediabetes; Z87.891 Personal history of nicotine dependence; I10 Essential (primary) hypertension; G47.33 Obstructive sleep apnea (adult) (pediatric)
CPT/HCPCS: J1100; J2704; J2765

== ENCOUNTER 2018-07-02 16:10 | Emergency (ER) | payer BC ==
--- OUTSIDE RECORDS SUMMARY | 2018-07-02 16:27 | XMS REPORT | Continuity of Care Document ---
:1960 External Reference #:[id number] Author Name Columba Acevedo Care Team Providers Name Role Phone Lucila Bhakta MD Primary Care Physician Unavailable Payers Date Identification Numbers Payment Provider Subscriber Policy Number: [id number] [employer] Renata Diaz Group Number: [id number] [address] [address] Group Name: [place] [address] PayID: [id number] Expires: 2015 Policy Number: [id number] [employer] Renata Diaz Group Name: [id number] [address] [address] PayID: [id number] [place] [address] Effective: 2009 Policy Number: [id number] [employer] [place] Renata Diaz Expires: 2009 Group Number: [id number] [address] [address] PayID: [id number] [place] [address] Effective: 2010 Policy Number: [id number] Rm Diaz Expires: 2012 PayID: [id number] [address] [place] [address] Advance Directives Type Date Description Status Comment Other Directive 01/28/2018 Health Care Proxy Current and Verified Problems Date Description Provider Status Onset: 10/14/2012 Essential hypertension Silvio Dc M.D. Active Onset: 09/20/2013 Morbid obesity Lucila Bhakta M.D. Active Onset: 11/03/2013 Ex-heavy cigarette smoker Alex Emily Mota, Active (20-39/day) Jessica,FACP Onset: 11/03/2013 Obstructive sleep apnea of Alex StylesGarth Mota, Active adult Jessica,FACP Onset: 11/04/2012 Chronic maxillary sinusitis Silvio Dc M.D. Inactive Inactive: 09/20/2013 Onset: 10/14/2012 Headache Silvio cD M.D. 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 [employer] Tobacco Use Start: Unknown Former Cigarette End: Unknown Smoker Smokeless Tobacco Never Used Smokeless Tobacco ETOH Use 11/03/2013 Never used alcohol Recreational Drug Use Denies Drug Use Tobacco Use Start: Unknown Patient is a former 15 pk yr approx End: Unknown smoker Tobacco Use Reviewed: 06/26/14 Quit smoking stopped March 12 completely Smoking Status Reviewed: 06/22/18 Quit smoking stopped March 12 completely Exercise Type/Frequency Does not exercise Allergies, Adverse Reactions, Alerts Date Description Reaction Status Severity Comments 09/02/2017 Pineapple Extract Rash, blisters Active 05/02/2010 NKDA Inactive Medications Medication Date Status Form Strength Qnty SIG Indications Ordering Provider Labetalol HCL 06/11 Active Tablets 200mg 60tab 1 by s mouth Olivia, twice a MD day Nifedipine ER 06/11 Active Tablets ER 30mg 30tab 1 tab po 24HR s q daily MD Olivia Slow-Mag 05/[address] 71.5-119m 60tab 2 tabs po E83.42 g s bid MD Olivia Dexamethasone 05/06 Active Tablets 1mg 1tabs give at E27.8 Horn bedtime MD Sadiq on the evening prior to in the morning lab draw Potassium 05/06 Active Tablets ER 20Meq 30tab once a Lucila Chloride ER s day Jessica Bhakta Spironolactone 03/16 Active Tablets 50mg 60tab take 1 E87.6 Horn s tablet MD Sadiq twice daily Ultracet 03/03 Active Tablets 37.5-325m 30tab 1 by Lucila /2017 g s mouth Livia, twice a M.D. day times a day as needed for pain Furosemide 03/03 Active Tablets 20mg 30tab Take 1 R60.0 Horn s Tablet By MD Sadiq Mouth once daily Omeprazole 02/[address] 40mg 60cap 1 by K28.3 Lucila /2018 s mouth Livia, twice M.D. daily Short Walking 09/30 Active Misc 1unit Please Vineet Boot Right Side /2017 s fit Asha, patient MD for appropria te size Blood Pressure 02/27 Active Misc 1unit thigh I10 Lucila Unit s cuff Jessica Bhakta Aspercreme 02/27 Active OTC every Lucila Patches day prn Jessica Bhakta Losartan 05/24 Active Tablets 100mg 90tab Take One I10 Lucila Potassium s Tablet By Niraj Bhakta M.D. Once Daily Tylenol Extra Active Tablets 500mg 2 by Unknown Strength /0000 mouth as needed Multi Vitamin Active Tablets 1 by Unknown /0000 mouth every day Gabapentin Active Capsules 300mg 1 by Unknown /0000 mouth once daily Vitamin B12 TR Active Tablets ER 1000mcg 1 by Unknown /0000 mouth every day Cipro 05/08 Hx Tablets 500mg 10tab 500mg Horn s twice MD Sadiq - daily for 06/03 urinary /2019 tract infection Dexamethasone 03/16 Hx Tablets 1mg 1tabs give at E27.0 Horn bedtime MD Sadiq - on the 03/28 evening /2017 prior to in the morning lab draw Ciprofloxacin HCL 02/04 Hx Tablets 500mg 1 po bid X 5 days MD Jesse - 02/09 Clonidine HCL 12/18 Hx Tablets 0.1mg 60tab 1 by I10 Lucila /2018 s mouth Bhakta, - twice a M.D. Nitrofurantoin 12/18 Hx Capsules 100mg 14cap 1 by R30.0 Lucila Macrocryst s mouth Livia, - twice a M.D. Omeprazole 08/[address] 40mg 1 by mouth - every day 12/18 Chlorthalidone 08/07 Hx Tablets 50mg 90tab 1 by s mouth Cotton, - every day M.D. 08/07 Chlorthalidone 08/07 Hx Tablets 50mg 90tab Take One s Tablet By Cotton, - Mouth M.D. 12/18 Daily Ciloxan 07/07 Hx Solution 0.3% 5ml 1-2 gtt H10.402 every 2 Bhakta, - hrs in M.D. 08/03 the Left eye while awake X 2 days then Q 4 hr X 5 days Chlorthalidone 05/08 Hx Tablets 25mg 90tab 1 by s mouth Livia, - every day M.D. 08/07 Gentamicin 05/07 Hx Solution 0.3% 5ml 1-2 drop H10.89 in the Hbakta, - Left eye M.D. 07/07 every hours x 5 days Clonidine HCL 04/03 Hx Tablets 0.1mg 60tab not s taking--- Livia, - -1 tab M.D. 05/07 bid Atenolol 02/27 Hx Tablets 100mg 90tab Take 1 I10 s Tablet By Livia, - Mouth M.D. 12/18 Daily Chlorthalidone 02/12 Hx Tablets 50mg 90tab once a I10 s day Bhakta, - M.D. 04/03 Diclofenac Sodium 02/[address] 50mg 60tab 1 tab M54.5 s every 12 Bhakta, - hrs as M.D. 07/03 to use tylenol for brekthrou gh pain Meloxicam 01/29 Hx Tablets 7.5mg 30tab take one M54.5 Henrique E. /2016 s tab twice Itzel, - daily as M.D. 02/12 needed for pain, avoid other nsaids Cyclobenzaprine 01/29 Hx Tablets 10mg 15tab one by M54.5 Henrique E. HCL s mouth Itzel, - three M.D. 02/27 times a day as needed spasm Percocet 07/17 Hx Tablets 5-325mg 10tab 1 tab by Lucila s mouth Livia, - every 8 M.D. 01/28 hours needed pain Chlorthalidone 07/02 Hx Tablets 25mg 90tab take 1 I10 Lucila s tablet by Livia, - mouth M.D. 02/12 every Ibuprofen 07/02 Hx Tablets 600mg 42tab 1 tab by s mouth Livia, - three M.D. 07/29 times day as needed Tramadol HCL 01/02 Hx Tablets 50mg 60tab 1-2 M25.562 Lucila s tablets Bhakta, - every 8 M.D. 07/02 hours needed Chlorthalidone 06/21 Hx Tablets 25mg 90tab 1 by I10 Lucila s mouth Livia, - every day M.D. 12/26 Amlodipine 05/30 Hx Tablets 10mg 90tab Take One I10 Lucila Besylate s Tablet By Livia, - Mouth M.D. 03/03 Daily No Active 05/12 Hx Unknown Medications /2015 - 05/12 Amlodipine 05/12 Hx Tablets 10mg 30tab 1 by I10 Margo Besylate s mouth Butch, - every day M.D. 05/24 Atenolol 05/12 Hx Tablets 50mg 90tab 2 by I10 Lucila s mouth Livia, - every day M.D. 02/27 Amlodipine 02/22 Hx Tablets 10mg 90tab 1 by 401.1 Lucila Besylate s mouth Livia, - every day M.D. 05/12 Ibuprofen 11/03 Hx Tablets 200mg 100ta as needed Alex /2014 Rayo Neely M.D.,FACP 05/12 Bupropion HCL XL 07/16 Hx Tablets ER 150mg 60tab 1 by 305.1 24HR s mouth Butch, - daily , M.DGarth 05/12 to take 1 tab every other day x 3 days then 1 tab every 2 days X 4 days then stop Bupropion HCL XL 07/12 Hx Tablets ER 150mg 60tab 1 by 305.1 Margo /2014 24HR s mouth Butch, - daily x 7 M.D. 07/16 days 1 tab twice a day Chantix Starting 06/08 Hx Tablets 0.5mg X 1Pack as 305.1 Lucila 11 & 1 mg directed Livia, - X 42 on the M.D. 06/15 Tramadol HCL ER 06/08 Hx Tablets ER 100mg 20tab 1 tabs po 717.9 24HR s bid as Livia, - needed fo M.DGarth 08/16 Ibuprofen 05/28 Hx Tablets 600mg 60tab 1 tab by s mouth Livia, - three M.DGarth 08/16 times day prn Amoxicillin/Potas 16 Hx Tablets 875-125mg 20tab 1 po bid 473.0 Harrah sium Clavulanate Rayo Meeks M.D. 05/19 Amlodipine 07 Hx Tablets 5mg 60tab twice a 401.9 Lucila Besylate s Rayo Pantoja M.D. 02/22 Amoxicillin/Potas 07/10 Hx Tablets 875-125mg 20tab 1 po bid 473.0 Silvio sium Clavulanate Rayo Meeks M.D. 12/17 Amlodipine 10/22 Hx Tablets 5mg 30tab 1 po qd Margo Besylate Rayo Thakur M.D. 11/04 Losartan 10/20 Hx Tablets 100mg 90tab 1 po qd 401.9 Lucila Potassium Rayo Brumfield M.D. 05/12 Atenolol 10/14 Hx Tablets 50mg 60tab 1 tab by 401.9 Lucila s niraj Bhakta - twice a M.DGarth Butalbital/Acetam 10/14 Hx Capsules 50-325-40 30cap 1 tab 784.0 Harrah inophen/Caffeine /2012 mg s every 2 h Rayo DcDGarth 08/16 Triamterene/Carr 10/14 Hx Capsules 37.5-25mg 90cap qd am 401.9 Lucila chlorothiazide Rayo Brumfield M.D. 02/22 No Active 10/12 [...] Levaquin 05/02 Hx Tablets 750mg 7tabs once 486 daily Rayo Dc M.D. 10/12 Percocet Hx Unknown /0000 - 11/03 Caltrate 600+D Hx Chewtabs 600-400mg 60uni 1 by Unknown /0000 -Unit ts mouth - once a Aleve Hx Capsules 220mg 2 tab a Unknown /0000 day in Am - 02/22 Losartan Hx Tablets 50mg 1 by Unknown Potassium /0000 mouth - every day 05/24 Cholestyramine Hx Packet 4gm 1 packet Unknown /0000 daily - 12/26 Ibuprofen Hx Tablets 800mg by mouth Unknown /0000 three - times a 07/02 day needed Lidocaine 00 Hx Patches 5% Unknown /0000 - 01/27 Ibuprofen Hx Tablets 800mg by mouth Unknown /0000 three - times a 01/27 day needed Vesicare Hx Tablets 10mg not Unknown /0000 taking--- - 1 by 04/03 mouth /2017 every day Toviaz Hx Tablets ER 4mg 2 by Unknown 24HR mouth - every day 06/05 Vitamin D Hx Capsules [id number] once a Sandidge, (Ergocalciferol) week for Lupe Cam, - 8 weeks 12/18 Vitamin B12 Hx Tablets ER 1 by Unknown / mouth - every day 12/18 Ciloxan Hx Ointment 0.3% apply 0.5 H10.402 Unknown / inch - ribbon in 07/03 r eye /2018 three times a day x 5 days Atenolol Hx Tablets 100mg 90tab 1 by Lucila / s mouth Livia, - every day M.DGarth 06/[address] 20mg 1 by Unknown mouth - every day 02/09 Hydrochlorothiazi Hx Tablets 25mg Bollo, de 0000 MD Jesse - 03/03 Sucralfate Hx Tablets 1gm Bollo, /0000 MD Jesse - 03/[address] 40mg Bollo, Sodium / MD Jesse - 02/09 Carafate Hx Suspension 1GM/10ML Bollo, /0000 MD Jesse - 03/07 Klor-Con Hx Packet 20Meq once a Bollo, MD Jesse - 05/04 Ranitidine HCL Hx Tablets 300mg take one tablet by - mouth at 06/03 bedtime Carafate Hx Suspension 1GM/10ML tid - 06/03 Medications Administered in Office Medication Date Status Form Strength Qnty SIG Indications Ordering Provider Depomedrol Administered Injection Rocco F 40MG 017 MD Indio Depomedrol Administered Injection Riky M 40MG 016 MD Bj Depomedrol Administered Injection Hailey 80MG 014 Jessica Lan Depomedrol Administered Injection Hailey 80MG 014 Jessica Lan Depomedrol Administered Injection Hailey 80MG 014 Riky, M.D. Immunizations CPT Code Status Date Vaccine Lot # [id number] Given 01/28/2018 Influenza Virus Vaccine, Quadrivalent, Split, [id number] Preservative Free 18423 Given 01/29/2017 Influenza Virus Vaccine, Quadrivalent, Split, [id number] Preservative Free 14267 Given 07/02/2016 Tdap - Tetanus/Diptheria/Acellular Pertussis [id number] 05788 Given 03/31/2016 Influ Virus Vaccine, Quadrivalent, Split Virus, [place] [address] Given 02/07/2016 Influ Virus Vaccine, Quadrivalent, Split Virus, [place] [address] Given 02/22/2014 Flu Vaccine Split Virus Preservative Free For [id number] Indiv 3Yr Older 09711 Given 02/10/2013 Flu Vaccine Split Virus Preservative Free For [id number] Indiv 3Yr Older Vital Signs Date Vital Result Comment 06/22/2018 10:34am Height 63 inches 5'3" Weight 268.00 lb BP Systolic Sitting 180 mmHg BP Diastolic Sitting 100 mmHg Pain Level 8 BMI (Body Mass Index) 47.5 kg/m2 06/04/2018 9:19am Height 63 inches 5'3" Weight 268.00 lb w/o shoes Heart Rate 51 /min BP Systolic Sitting 185 mmHg BP Diastolic Sitting 89 mmHg BMI (Body Mass Index) 47.5 kg/m2 05/06/2018 10:46am Height 63 inches 5'3" Weight 273.00 lb w/o shoes Heart Rate 55 /min BP Systolic Sitting 146 mmHg BP Diastolic Sitting 76 mmHg BMI (Body Mass Index) 48.4 kg/m2 05/04/2018 10:12am Height 63 inches 5'3" Weight 275.00 lb Heart Rate 52 /min BP Systolic Sitting 142 mmHg BP Diastolic Sitting 80 mmHg O2 % BldC Oximetry 96 % BMI (Body Mass Index) 48.7 kg/m2 03/30/2018 12:55pm Height 63 inches 5'3" Weight 299.00 lb w/o shoes Heart Rate 57 /min BP Systolic Sitting 181 mmHg BP Diastolic Sitting 95 mmHg BMI (Body Mass Index) 53.0 kg/m2 03/16/2018 10:13am Height 63 inches 5'3" Weight 307.00 lb w/o shoes Heart Rate 57 /min BP Systolic Sitting 170 mmHg BP Diastolic Sitting 87 mmHg BMI (Body Mass Index) 54.4 kg/m2 03/03/2018 11:28am Height 63 inches 5'3" Weight 304.00 lb Heart Rate 55 /min BP Systolic Sitting 110 mmHg BP Diastolic Sitting 80 mmHg O2 % BldC Oximetry 92 % BMI (Body Mass Index) 53.8 kg/m2 02/09/2018 11:33am Height 63 inches 5'3" Weight 312.00 lb Heart Rate 54 /min BP Systolic Sitting 120 mmHg BP Diastolic Sitting 80 mmHg O2 % BldC Oximetry 94 % BMI (Body Mass Index) 55.3 kg/m2 01/28/2018 1:54pm Height 63 inches 5'3" Weight 322.00 lb Heart Rate 52 /min BP Systolic Sitting 130 mmHg BP Diastolic Sitting 80 mmHg O2 % BldC Oximetry 94 % BMI (Body Mass Index) 57.0 kg/m2 01/08/2018 10:09am Weight 333.00 lb BP Systolic Sitting 140 mmHg in L arm, 138/78 BP Diastolic Sitting 80 mmHg in L arm, 138/78 01/01/2018 9:09am Height 63 inches 5'3" Weight 333.00 lb Heart Rate 59 /min BP Systolic Sitting 130 mmHg Left: 130/90 Right:132/90 BP Diastolic Sitting 90 mmHg Left: 130/90 Right:132/90 O2 % BldC Oximetry 94 % BMI (Body Mass Index) 59.0 kg/m2 12/18/2017 2:30pm Height 63 inches 5'3" Weight 342.00 lb Heart Rate 59 /min BP Systolic Sitting 158 mmHg BP Diastolic Sitting 98 mmHg O2 % BldC Oximetry 90 % BMI (Body Mass Index) 60.6 kg/m2 11/11/2017 11:28am Height 63 inches 5'3" Weight 366.00 lb Heart Rate 72 /min Respiratory Rate 22 /min BMI (Body Mass Index) 64.8 kg/m2 09/30/2017 1:08pm Height 63 inches 5'3" Weight 366.00 lb Heart Rate 120 /min Respiratory Rate 25 /min Body Temperature 98.2 F Pain Level 10 BMI (Body Mass Index) 64.8 kg/m2 09/02/2017 1:26pm Height 63 inches 5'3" Weight 366.00 lb w/ shoes Heart Rate 76 /min reg BP Systolic Sitting 124 mmHg Lue BP Diastolic Sitting 80 mmHg Lue Respiratory Rate 18 /min BMI (Body Mass Index) 64.8 kg/m2 07/07/2017 1:35pm Weight 375.00 lb Heart Rate 76 /min BP Systolic Sitting 140 mmHg BP Diastolic Sitting 98 mmHg O2 % BldC Oximetry 94 % 05/07/2017 10:06am Weight 378.00 lb Heart Rate 73 /min BP Systolic Sitting 138 mmHg BP Diastolic Sitting 84 mmHg O2 % BldC Oximetry 97 % 04/08/2017 10:06am Heart Rate 64 /min BP Systolic Sitting 138 mmHg R arm, 128/60 L arm BP Diastolic Sitting 80 mmHg R arm, 128/60 L arm 04/02/2017 10:14am Weight 373.00 lb Heart Rate 73 /min BP Systolic Sitting 146 mmHg BP Diastolic Sitting 98 mmHg Body Temperature 97.5 F O2 % BldC Oximetry 95 % 03/06/2017 10:11am Heart Rate 67 /min BP Systolic Sitting 128 mmHg L arm, 128/88 in R zrm BP Diastolic Sitting 90 mmHg L arm, 128/88 in R zrm 02/27/2017 9:21am Weight 372.00 lb Heart Rate 85 /min BP Systolic Sitting 160 mmHg BP Diastolic Sitting 102 mmHg Body Temperature 97.7 F Pain Level 8 O2 % BldC Oximetry 92 % 02/12/2017 9:34am Weight 375.00 lb Heart Rate 78 /min BP Systolic 148 mmHg BP Diastolic 90 mmHg Body Temperature 96.4 F Pain Level 9 lower back O2 % BldC Oximetry 97 % 01/29/2017 1:00pm Height 63 inches 5'3" Weight 376.00 lb Heart Rate 74 /min BP Systolic Sitting 144 mmHg BP Diastolic Sitting 88 mmHg Body Temperature 98.0 F O2 % BldC Oximetry 95 % BMI (Body Mass Index) 66.6 kg/m2 07/30/2016 9:44am Height 63 inches 5'3" Weight 340.00 lb Heart Rate 88 /min BP Systolic 180 mmHg BP Diastolic 101 mmHg Respiratory Rate 20 /min Body Temperature 97.9 F Pain Level 10 BMI (Body Mass Index) 60.2 kg/m2 07/29/2016 11:31am Height 63 inches 5'3" Weight 340.00 lb Heart Rate 82 /min BP Systolic Sitting 146 mmHg BP Diastolic Sitting 90 mmHg Pain Level 7 BMI (Body Mass Index) 60.2 kg/m2 07/17/2016 9:08am BP Systolic 130 mmHg BP Diastolic 80 mmHg 07/02/2016 10:58am Height 62 inches 5'2" Weight 359.00 lb Heart Rate 96 /min BP Systolic Sitting 148 mmHg BP Diastolic Sitting 90 mmHg Respiratory Rate 14 /min O2 % BldC Oximetry 97 % BMI (Body Mass Index) 65.7 kg/m2 06/10/2016 10:28am Height 62 inches 5'2" Weight 361.00 lb Heart Rate 85 /min BP Systolic 130 mmHg BP Diastolic 84 mmHg Body Temperature 98.0 F O2 % BldC Oximetry 94 % BMI (Body Mass Index) 66.0 kg/m2 01/09/2016 2:43pm Height 62 inches 5'2" Weight 352.00 lb Heart Rate 74 /min BP Systolic Sitting 148 mmHg BP Diastolic Sitting 80 mmHg Pain Level 8 8/10 pain level BMI (Body Mass Index) 64.4 kg/m2 01/03/2016 2:42pm Weight 352.00 lb Heart Rate 77 /min BP Systolic 140 mmHg BP Diastolic 80 mmHg Body Temperature 98.7 F O2 % BldC Oximetry 94 % 12/27/2015 9:48am Weight 353.00 lb Heart Rate 73 /min BP Systolic Sitting 154 mmHg BP Diastolic Sitting 82 mmHg Body Temperature 98.2 F Pain Level 9 L knee O2 % BldC Oximetry 97 % 07/05/2015 11:40am Weight 324.00 lb Heart Rate 74 /min BP Systolic Sitting 148 mmHg BP Diastolic Sitting 84 mmHg Body Temperature 98.6 F O2 % BldC Oximetry 96 % 06/21/2015 10:28am Height 62 inches 5'2" Weight 333.00 lb Heart Rate 67 /min BP Systolic Sitting 146 mmHg BP Diastolic Sitting 108 mmHg Body Temperature 97.7 F O2 % BldC Oximetry 96 % BMI (Body Mass Index) 60.9 kg/m2 05/30/2015 10:21am Height 62 inches 5'2" Weight 331.00 lb Heart Rate 74 /min BP Systolic 180 mmHg BP Diastolic 110 mmHg Body Temperature 98.0 F O2 % BldC Oximetry 96 % BMI (Body Mass Index) 60.5 kg/m2 05/24/2015 8:29am Height 62 inches 5'2" Weight 331.25 lb Heart Rate 74 /min BP Systolic 180 mmHg BP Diastolic 105 mmHg BP Systolic Sitting 213 mmHg BP Diastolic Sitting 111 mmHg Body Temperature 97.4 F O2 % BldC Oximetry 96 % BMI (Body Mass Index) 60.6 kg/m2 05/12/2015 2:44pm Height 62 inches 5'2" Weight 325.00 lb Heart Rate 104 /min BP Systolic 198 mmHg BP Diastolic 136 mmHg Body Temperature 98.4 F O2 % BldC Oximetry 95 % BMI (Body Mass Index) 59.4 kg/m2 02/22/2014 8:50am Weight 331.25 lb Heart Rate 75 /min BP Systolic Sitting 146 mmHg BP Diastolic Sitting 82 mmHg Body Temperature 97.1 F O2 % BldC Oximetry 97 % 11/03/2013 4:38pm Weight 326.50 lb Heart Rate 80 /min BP Systolic Sitting 144 mmHg BP Diastolic Sitting 90 mmHg 08/16/2013 2:47pm Height 62 inches 5'2" Weight 318.00 lb Heart Rate 74 /min BP Systolic Sitting 140 mmHg BP Diastolic Sitting 88 mmHg Body Temperature 97.4 F BMI (Body Mass Index) 58.2 kg/m2 07/26/2013 11:23am Height 62 inches 5'2" Weight 300.00 lb Heart Rate 72 /min BMI (Body Mass Index) 54.9 kg/m2 07/12/2013 1:26pm Height 62 inches 5'2" Weight 310.00 lb Heart Rate 61 /min BP Systolic Sitting 130 mmHg BP Diastolic Sitting 78 mmHg Body Temperature 96.9 F O2 % BldC Oximetry 95 % BMI (Body Mass Index) 56.7 kg/m2 06/29/2013 10:15am Height 62 inches 5'2" Weight 300.00 lb Heart Rate 72 /min BMI (Body Mass Index) 54.9 kg/m2 06/18/2013 10:40am Height 62 inches 5'2" Weight 300.00 lb Heart Rate 70 /min BP Systolic 149 mmHg BP Diastolic 96 mmHg BMI (Body Mass Index) 54.9 kg/m2 06/08/2013 1:00pm Height 62.5 inches 5'2.50" Weight 311.00 lb Heart Rate 69 /min BP Systolic Sitting 134 mmHg BP Diastolic Sitting 86 mmHg Pain Level 10 BMI (Body Mass Index) 56.0 kg/m2 05/19/2013 3:24pm Weight 312.00 lb Heart Rate 78 /min BP Systolic Sitting 135 mmHg BP Diastolic Sitting 86 mmHg 02/10/2013 9:55am Height 63 inches 5'3" Weight 298.50 lb Heart Rate 78 /min BP Systolic Sitting 140 mmHg BP Diastolic Sitting 92 mmHg BMI (Body Mass Index) 52.9 kg/m2 12/17/2012 10:33am Weight 294.00 lb Heart Rate 77 /min BP Systolic Sitting 132 mmHg BP Diastolic Sitting 86 mmHg 11/04/2012 3:35pm Weight 295.00 lb Heart Rate 77 /min BP Systolic Sitting 140 mmHg BP Diastolic Sitting 82 mmHg 10/14/2012 8:32am Weight 293.00 lb Heart Rate 71 /min BP Systolic Sitting 184 mmHg BP Diastolic Sitting 102 mmHg 10/12/2012 10:07am Weight 296.00 lb Heart Rate 94 /min BP Systolic 190 mmHg BP Diastolic 130 mmHg BP Systolic Sitting 200 mmHg BP Diastolic Sitting 125 mmHg BP Systolic Standing 176 mmHg BP Diastolic Standing 111 mmHg 05/02/2010 3:45pm Height 63 inches 5'3" Weight 328.00 lb Heart Rate 81 /min BP Systolic Sitting 136 mmHg BP Diastolic Sitting 78 mmHg O2 % BldC Oximetry 95 % BMI (Body Mass Index) 58.1 kg/m2 Results Test Date Facility Test Result H/L Range Note Xray 06/22/2018 [facility] Spine Entire Ap/Lat <pending> [address] [place] [address] [phone] Spine Scoliosis Erect <pending> CT Spine Lumbar W/O <pending> CBC Auto Diff 06/04/2018 [facility] White Blood 6.5 10^3/uL N 3.5-10.[address] [place] [address] [phone] Red Blood Count 4.16 10^6/uL N 4.00-5.40 Hemoglobin 13.2 g/dL N 12.0-16.0 Hematocrit 40 % N 35-47 Mean Corpuscular Volume 96 fL N 80-97 Mean Corpuscular Hemoglobin 32 pg High 27-31 Mean Corpuscular HGB Conc 33 g/dL N 31-36 Red Cell Distribution Width 16 % High 10.5-15 Platelet Count 156 10^3/uL N 150-450 Mean Platelet Volume 11.2 fL High 7.4-10.4 Abs Neutrophils 4.4 10^3/uL N 1.5-7.7 Abs Lymphocytes 1.1 10^3/uL N 1.0-4.8 Abs Monocytes 0.9 10^3/uL High 0-0.8 Abs Eosinophils 0.1 10^3/uL N 0-0.6 Abs Basophils 0 10^3/uL N 0-0.2 Abs Nucleated RBC 0 10^3/uL Granulocyte % 67.6 % Lymphocyte % 16.2 % Monocyte % 13.6 % Eosinophil % 1.9 % Basophil % 0.7 % Nucleated Red Blood Cells % 0 Comp Metabolic Panel 06/04/2018 [facility] Sodium 143 mmol/L N 135-145 [address] [place] [address] [phone] Potassium 3.5 mmol/L N 3.5-5.0 Chloride 107 mmol/L N 101-111 Co2 Carbon Dioxide 27 mmol/L N 22-32 Anion Gap 9 mmol/L N 2-11 Glucose 89 mg/dL N 70-100 Blood Urea Nitrogen 12 mg/dL N 6-24 Creatinine 1.15 mg/dL High 0.51-0.95 BUN/Creatinine Ratio 10.4 N 8-20 Calcium 9.4 mg/dL N 8.6-10.3 Total Protein 6.0 g/dL Low 6.4-8.9 Albumin 3.5 g/dL N 3.2-5.2 Globulin 2.5 g/dL N 2-4 Albumin/Globulin Ratio 1.4 N 1-3 Total Bilirubin 0.90 mg/dL N 0.2-1.0 Alkaline Phosphatase 66 U/L N 34-104 Alt 11 U/L N 7-52 Ast 12 U/L Low 13-39 Egfr Non- 49.0 >60 Egfr 59.3 >60 1 Iron & Iron Binding 06/04/2018 [facility] Iron 72 g/dL N 50- 212 [address] [place] [address] [phone] Unsaturated Iron Binding < 238 g/dL Total Iron Binding Capacity 253 g/dL N 250-450 Transferrin 181 mg/dL Low 203-362 % Iron Saturation 28 % N 15-55 Laboratory test 06/04/2018 [facility] Ferritin 76.1 ng/mL N 11 -307 finding [address] [place] [address] [phone] Folic Acid (Folate) 4.95 ng/mL >3.99 Vitamin B12 196 pg/mL N 180-914 2 Vitamin D Total 25(Oh) 17.6 ng/mL Low 20-50 Vitamin B1 (Whole Blood) 80 nmol/L 70-180 3 Vitamin E Level 7.3 mg/L 5.5 - 17.0 4 Insulin-Like Growth 06/04/2018 [facility] Insulin like 53 ng/mL 40-[address] [place] [address] I [phone] Igf1 Z-score -1.65 SD 5 FSH And LH 06/04/2018 [facility] FSH (Follicle Stim 139.6 mIU/ mL [address] DR[address] Hormone) [place] [address] [phone] LH (Lutenizing Hormone) 54.2 mIU/mL 7 Laboratory test 06/04/2018 [facility] Prolactin 8.4 ng/mL N 1.0-25.[address] [place] [address] [phone] TSH (Thyroid Stim Horm) 2.41 mcIU/mL N 0.34-5.60 Free T4 (Free Thyroxine) 1.17 ng/dL High 0.61-1.12 Urinalysis Profile 05/18/2018 [facility] Urine Color Kate [address] [place] [address] [phone] Urine Appearance Cloudy Urine Specific Camilla 1.020 N 1.010-1.030 Urine pH 5.0 N 5-9 Urine Urobilinogen Negative Negative Urine Ketones Negative Negative Urine Protein 1+(30 mg/dL) Abnormal Negative Urine Leukocytes 2+ Abnormal Negative Urine Blood Negative Negative Urine Nitrite Negative Negative Urine Bilirubin Negative Negative Urine Glucose Negative Negative Urine White Blood Cell 3+(>20/hpf) Abnormal Absent Urine Red Blood Cell 2+(6-10/hpf) Abnormal Absent Urine Bacteria Absent Absent Urine Squamous Epithelial Cell Present Abnormal Absent Urine Hyaline Casts Present Abnormal Absent Creatinine 24HR 05/18/2018 [facility] Urine 987.20 N 600-1800 Urine 101 Creatinine/24 mg/[place] [address] Hour [phone] Urine Collection Time 24 hr Urine Total Volume 500 mL Laboratory test 05/18/2018 [facility] Urine Creatinine 197.44 finding Concentration mg/[place] [address] [phone] Laboratory test 05/18/2018 [facility] Ferritin 106.1 ng/mL N 11-[address] [place] [address] [phone] Cortisol 13.02 g/dL 8 Aldosterone <4.0 ng/dL <=21 9 Renin <0.6 ng/mL/h 10 Iron & Iron Binding 05/18/2018 [facility] Iron 54 g/dL N 50- [address] [place] [address] [phone] Unsaturated Iron Binding < 269 g/dL Total Iron Binding Capacity 284 g/dL N 250-450 Transferrin 203 mg/dL N 203-362 % Iron Saturation 19 % N 15-55 Laboratory test 05/18/2018 [facility] Magnesium 1.7 mg/dL Low 1.9-2.7 finding [address] [place] [address] [phone] Basic Metabolic 05/18/2018 [facility] Sodium 141 mmol/L N 135- 145 Panel 101 [place] [address] [phone] Potassium 3.8 mmol/L N 3.5-5.0 Chloride 108 mmol/L N 101-111 Co2 Carbon Dioxide 25 mmol/L N 22-32 Anion Gap 8 mmol/L N 2-11 Glucose 96 mg/dL N 70-100 Blood Urea Nitrogen 13 mg/dL N 6-24 Creatinine 1.27 mg/dL High 0.51-0.95 BUN/Creatinine Ratio 10.2 N 8-20 Calcium 9.6 mg/dL N 8.6-10.3 Egfr Non- 43.7 >60 Egfr 52.9 >60 11 CBC Auto Diff 05/18/2018 [facility] White Blood 5.9 10^3/uL N 3.5-10.[address] [place] [address] [phone] Red Blood Count 4.20 10^6/uL N 4.00-5.40 Hemoglobin 13.2 g/dL N 12.0-16.0 Hematocrit 40 % N 35-47 Mean Corpuscular Volume 96 fL N 80-97 Mean Corpuscular Hemoglobin 32 pg High 27-31 Mean Corpuscular HGB Conc 33 g/dL N 31-36 Red Cell Distribution Width 17 % High 10.5-15 Platelet Count 140 10^3/uL Low 150-450 Mean Platelet Volume 12.2 fL High 7.4-10.4 Abs Neutrophils 4.4 10^3/uL N 1.5-7.7 Abs Lymphocytes 0.8 10^3/uL Low 1.0-4.8 Abs Monocytes 0.6 10^3/uL N 0-0.8 Abs Eosinophils 0.1 10^3/uL N 0-0.6 Abs Basophils 0 10^3/uL N 0-0.2 Abs Nucleated RBC 0 10^3/uL Granulocyte % 73.6 % Lymphocyte % 13.9 % Monocyte % 10.4 % Eosinophil % 1.3 % Basophil % 0.8 % Nucleated Red Blood Cells % 0 Total Protein 05/18/2018 [facility] Urine Total 135 N 0-[address] Protein/24HR mg/24Hr [place], [place] [id number] [phone] Laboratory 05/18/2018 [facility] Urine TP 27 mg/dL test finding [address] [place] [address] [phone] Creatinine 05/18/2018 [facility] Creatinine, Serum 1.26 mg/dL High 0.51-0.[address] [place] [address] [phone] Creatinine Clearance 80 mL/min Low 88-128 Urine Collection Time 24 hr Urine Total Volume 500 mL Urine Microalbumin 05/18/2018 [facility] Ur Microalbumin 27.[address] (mg/L) [place], [place] [id number] [phone] Urine Creatinine 290.30 mg/dL Urine Microalbumin/Creatinine 9.5 N <31 Urine Culture And 05/18/2018 [facility] Urine Culture SEE RESULT [address] [place] [address] [phone] Laboratory test 05/12/2018 [facility] Acth 16 pg/mL [address] [place] [address] [phone] Cortisol 6.57 g/dL 14 Miscellaneous Test <pending> Basic Metabolic Panel 05/06/2018 [facility] Sodium 142 mmol/L N 135-[address] [place] [address] [phone] Potassium 2.9 mmol/L Low 3.5-5.0 Chloride 107 mmol/L N 101-111 Co2 Carbon Dioxide 26 mmol/L N 22-32 Anion Gap 9 mmol/L N 2-11 Glucose 82 mg/dL N 70-100 Blood Urea Nitrogen 22 mg/dL N 6-24 Creatinine 1.43 mg/dL High 0.51-0.95 BUN/Creatinine Ratio 15.4 N 8-20 Calcium 8.8 mg/dL N 8.6-10.3 Egfr Non- 38.1 >60 Egfr 46.1 >60 15 Urinalysis Profile 05/06/2018 [facility] Urine Color Yellow [address] [place] [address] [phone] Urine Appearance Cloudy Urine Specific Camilla 1.018 N 1.010-1.030 Urine pH 6.0 N 5-9 Urine Urobilinogen Negative Negative Urine Ketones Negative Negative Urine Protein Negative Negative Urine Leukocytes Trace Abnormal Negative Urine Blood Negative Negative Urine Nitrite Negative Negative Urine Bilirubin Negative Negative Urine Glucose Negative Negative Urine White Blood Cell 1+(6-10/hpf) Abnormal Absent Urine Red Blood Cell Absent Absent Urine Bacteria Absent Absent Urine Squamous Epithelial Cell Present Abnormal Absent Urine Hyaline Casts Present Abnormal Absent Urine Culture And 05/06/2018 [facility] Urine Culture SEE RESULT [address] [place] [address] [phone] Laboratory test 05/06/2018 [facility] Vitamin B1 98 nmol/L 70 -18 [address] (Whole Blood) 0 [place] [address] [phone] Basic Metabolic 04/07/2018 [facility] Sodium 144 mmol/L N 135- [address] [place] [address] [phone] Potassium 3.0 mmol/L Low 3.5-5.0 Chloride 106 mmol/L N 101-111 Co2 Carbon Dioxide 26 mmol/L N 22-32 Anion Gap 12 mmol/L High 2-11 Glucose 79 mg/dL N 70-100 Blood Urea Nitrogen 17 mg/dL N 6-24 Creatinine 1.07 mg/dL High 0.51-0.95 BUN/Creatinine Ratio 15.9 N 8-20 Calcium 9.2 mg/dL N 8.6-10.3 Egfr Non- 53.2 >60 Egfr 64.4 >60 18 Laboratory test 04/07/2018 [facility] Magnesium 1.8 mg/dL Low 1.9-2.[address] [place] [address] [phone] Folic Acid (Folate) 4.36 ng/mL >3.99 Vitamin D Total 25(Oh) 15.6 ng/mL Low 20-50 Vitamin B1 (Whole Blood) 54 nmol/L Abnormal 70-180 19 Laboratory test 03/30/2018 [facility] TSH (Thyroid 3.95 N 0.34 -5.[address] Stim Horm) mcIU/[place] [address] [phone] Basic Metabolic 03/30/2018 [facility] Sodium 146 mmol/L High 135-[address] [place] [address] [phone] Potassium 3.0 mmol/L Low 3.5-5.0 Chloride 109 mmol/L N 101-111 Co2 Carbon Dioxide 26 mmol/L N 22-32 Anion Gap 11 mmol/L N 2-11 Glucose 81 mg/dL N 70-100 Blood Urea Nitrogen 11 mg/dL N 6-24 Creatinine 1.06 mg/dL High 0.51-0.95 BUN/Creatinine Ratio 10.4 N 8-20 Calcium 9.0 mg/dL N 8.6-10.3 Egfr Non- 53.8 >60 Egfr 65.1 >60 20 Laboratory test finding 03/30/2018 [facility] Cortisol 13.51 g /dL [address] [place] [address] [phone] Testosterone Total 29.77 ng/dL N 8-60 Progesterone 17Hydroxy <40 ng/dL 22 Cortisol Free 03/30/2018 [facility] Urine Free 3.9 mcg/24h 3.5-45 23 24HR Urine [address] [place] [address] [phone] Urine Collection Duration 24 h Urine Total Volume 350 mL 24 Urine Metanephrines 03/30/2018 [facility] Urine 48 mcg/24h [address] [place] [address] [phone] Urine Normetanephrine 336 mcg/24h 26 Urine Total Metanephrines 384 mcg/24h 27 Urine Collection Duration 24 h Urine Volume 350 mL 28 Laboratory test finding 03/30/2018 [facility] Acth 28 pg/mL [address] [place] [address] [phone] Dhea 1.5 ng/mL <6.0 30 Dhea Sulfate 95 g/dL 16-195 31 Catecholamine 24HR 03/30/2018 [facility] Urine Collection 24 h Urine Fract [address] [place] [address] [phone] Urine Total Volume 350 mL Urine Norepinephrine 20 mcg/24h 15-80 32 Urine Epinephrine 0.6 mcg/24h <21 Urine Dopamine 169 mcg/24h 65-400 33 Basic Metabolic 03/23/2018 [facility] Sodium 146 mmol/L High 135-[address] [place] [address] [phone] Potassium 3.6 mmol/L N 3.5-5.0 Chloride 111 mmol/L N 101-111 Co2 Carbon Dioxide 27 mmol/L N 22-32 Anion Gap 8 mmol/L N 2-11 Glucose 97 mg/dL N 70-100 Blood Urea Nitrogen 15 mg/dL N 6-24 Creatinine 1.12 mg/dL High 0.51-0.95 BUN/Creatinine Ratio 13.4 N 8-20 Calcium 9.2 mg/dL N 8.6-10.3 Egfr Non- 50.5 >60 Egfr 61.1 >60 34 Laboratory test 03/23/2018 [facility] Cortisol 5.44 g/dL [address] [place] [address] [phone] Creatinine 24HR 03/23/2018 [facility] Urine Creatinine 260.02 mg /dL Urine [address] [place] [address] [phone] Urine Creatinine/24 Hour 1040.08 mg/24Hr N 600-1800 Urine Collection Time 24 hr Urine Total Volume 400 mL Cortisol Free 03/23/2018 [facility] Urine Free 10 mcg/24h 3.5 -45 36 24HR Urine [address] [place] [address] [phone] Urine Collection Duration 24 h Urine Total Volume 400 mL 37 Laboratory 03/19/2018 [facility] Cortisol, 148 ng/dL Abnormal <100 38 test finding [address] [place] [address] [phone] Laboratory 03/18/2018 [facility] Cortisol, 62 ng/dL <100 39 test finding [address] [place] [address] [phone] Laboratory 03/17/2018 [facility] Cortisol, 90 ng/dL <100 40 test finding [address] [place], [place] [address] [phone] Laboratory 03/16/2018 [facility] Magnesium 1.7 mg/dL Low 1.9- 2.7 test finding [address] [place] [address] [phone] Basic 03/16/2018 [facility] Sodium 144 N 135-[address] mmol/[place] [address] [phone] Potassium 3.6 mmol/L N 3.5-5.0 Chloride 108 mmol/L N 101-111 Co2 Carbon Dioxide 29 mmol/L N 22-32 Anion Gap 7 mmol/L N 2-11 Glucose 101 mg/dL High 70-100 Blood Urea Nitrogen 25 mg/dL High 6-24 Creatinine 1.25 mg/dL High 0.51-0.95 BUN/Creatinine Ratio 20.0 N 8-20 Calcium 9.2 mg/dL N 8.6-10.3 Egfr Non- 44.5 >60 Egfr 53.8 >60 41 Laboratory test finding 03/16/2018 [facility] Renin <0.6 ng/mL/ h [address] [place] [address] [phone] Aldosterone <4.0 ng/dL <=21 43 Metanephrines 03/16/2018 [facility] Plasma Free 0.49 <0.[address] Normetanephrine nmol/[place] [address] [phone] Plasma Free Metanephrine <0.20 nmol/L <0.50 44 Laboratory test finding 03/16/2018 [facility] House Glucose Random 91 Hemoglobin A1c 4.6 Low 5-7 CBC Auto Diff 03/11/2018 [facility] White Blood 5.3 10^3/uL N 3.5-10.[address] [place] [address] [phone] Red Blood Count 4.21 10^6/uL N 4.00-5.40 Hemoglobin 12.7 g/dL N 12.0-16.0 Hematocrit 39 % N 35-47 Mean Corpuscular Volume 93 fL N 80-97 Mean Corpuscular Hemoglobin 30 pg N 27-31 Mean Corpuscular HGB Conc 33 g/dL N 31-36 Red Cell Distribution Width 18 % High 10.5-15 Platelet Count 123 10^3/uL Low 150-450 Mean Platelet Volume 11.4 fL High 7.4-10.4 Abs Neutrophils 3.3 10^3/uL N 1.5-7.7 Abs Lymphocytes 1.0 10^3/uL N 1.0-4.8 Abs Monocytes 0.8 10^3/uL N 0-0.8 Abs Eosinophils 0.2 10^3/uL N 0-0.6 Abs Basophils 0 10^3/uL N 0-0.2 Abs Nucleated RBC 0 10^3/uL Granulocyte % 62.8 % N 38-83 Lymphocyte % 19.3 % Low 25-47 Monocyte % 14.3 % High 0-7 Eosinophil % 2.8 % N 0-6 Basophil % 0.8 % N 0-2 Nucleated Red Blood Cells % 0.1 Comp Metabolic 03/11/2018 [facility] Sodium 146 mmol/L High 135-[address] [place] [address] [phone] Potassium 3.0 mmol/L Low 3.5-5.0 Chloride 106 mmol/L N 101-111 Co2 Carbon Dioxide 28 mmol/L N 22-32 Anion Gap 12 mmol/L High 2-11 Glucose 90 mg/dL N 70-100 Blood Urea Nitrogen 25 mg/dL High 6-24 Creatinine 1.73 mg/dL High 0.51-0.95 BUN/Creatinine Ratio 14.5 N 8-20 Calcium 9.3 mg/dL N 8.6-10.3 Total Protein 6.1 g/dL Low 6.4-8.9 Albumin 3.5 g/dL N 3.2-5.2 Globulin 2.6 g/dL N 2-4 Albumin/Globulin Ratio 1.3 N 1-3 Total Bilirubin 1.60 mg/dL High 0.2-1.0 Alkaline Phosphatase 69 U/L N 34-104 Alt 24 U/L N 7-52 Ast 27 U/L N 13-39 Egfr Non- 30.6 >60 Egfr 37.0 >60 45 Iron & Iron Binding 03/11/2018 [facility] Iron 94 g/dL N 50- [address] [place] [address] [phone] Unsaturated Iron Binding < 245 g/dL Total Iron Binding Capacity 260 g/dL N 250-450 Transferrin 186 mg/dL Low 203-362 % Iron Saturation 36 % N 15-55 Laboratory test 03/11/2018 [facility] Ferritin 128.2 ng/mL N 11-[address] [place] [address] [phone] Folic Acid (Folate) 4.33 ng/mL >3.99 Vitamin B12 503 pg/mL N 180-914 46 Vitamin D Total 25(Oh) 14.6 ng/mL Low 20-50 Vitamin B1 (Whole Blood) 82 nmol/L 70-180 47 Vitamin E Level 7.0 mg/L 5.5 - 17.0 48 CBC Auto Diff 02/24/2018 [facility] White Blood 5.4 10^3/uL N 3.5-10.[address] [place] [address] [phone] Red Blood Count 4.11 10^6/uL N 4.00-5.40 Hemoglobin 12.3 g/dL N 12.0-16.0 Hematocrit 38 % N 35-47 Mean Corpuscular Volume 91 fL N 80-97 Mean Corpuscular Hemoglobin 30 pg N 27-31 Mean Corpuscular HGB Conc 33 g/dL N 31-36 Red Cell Distribution Width 17 % High 10.5-15 Platelet Count 132 10^3/uL Low 150-450 Mean Platelet Volume 11.3 um3 High 7.4-10.4 Abs Neutrophils 3.4 10^3/uL N 1.5-7.7 Abs Lymphocytes 1.0 10^3/uL N 1.0-4.8 Abs Monocytes 0.8 10^3/uL N 0-0.8 Abs Eosinophils 0.2 10^3/uL N 0-0.6 Abs Basophils 0.1 10^3/uL N 0-0.2 Abs Nucleated RBC 0 10^3/uL Granulocyte % 63.9 % N 38-83 Lymphocyte % 17.8 % Low 25-47 Monocyte % 14.3 % High 0-7 Eosinophil % 3.0 % N 0-6 Basophil % 1.0 % N 0-2 Nucleated Red Blood Cells % 0.1 Comp Metabolic Panel 02/24/2018 [facility] Sodium 143 mmol/L N 135-145 [address] [place] [address] [phone] Potassium 3.0 mmol/L Low 3.5-5.0 Chloride 103 mmol/L N 101-111 Co2 Carbon Dioxide 28 mmol/L N 22-32 Anion Gap 12 mmol/L High 2-11 Glucose 81 mg/dL N 70-100 Blood Urea Nitrogen 6 mg/dL N 6-24 Creatinine 1.09 mg/dL High 0.51-0.95 BUN/Creatinine Ratio 5.5 Low 8-20 Calcium 8.6 mg/dL N 8.6-10.3 Total Protein 5.4 g/dL Low 6.4-8.9 Albumin 3.2 g/dL N 3.2-5.2 Globulin 2.2 g/dL N 2-4 Albumin/Globulin Ratio 1.5 N 1-3 Total Bilirubin 1.50 mg/dL High 0.2-1.0 Alkaline Phosphatase 82 U/L N 34-104 Alt 33 U/L N 7-52 Ast 28 U/L N 13-39 Egfr Non- 52.1 >60 Egfr 63.1 >60 49 Iron & Iron Binding 02/24/2018 [facility] Iron 85 g/dL N 50- 212 [address] [place] [address] [phone] Unsaturated Iron Binding < 205 g/dL Total Iron Binding Capacity 220 g/dL Low 250-450 Transferrin 157 mg/dL Low 203-362 % Iron Saturation 39 % N 15-55 Laboratory test 02/24/2018 [facility] Ferritin 152.9 ng/mL N 11-307 finding [address] [place] [address] [phone] Folic Acid (Folate) 7.47 ng/mL >3.99 Vitamin B12 461 pg/mL N 180-914 50 Vitamin D Total 25(Oh) 15.3 ng/mL Low 20-50 Vitamin B1 (Whole Blood) 111 nmol/L 70-180 51 Vitamin E Level 6.4 mg/L 5.5 - 17.0 52 Ua Routine 12/18/2017 [facility] In House Ua Specific Camilla 1.015 Ua PH 5 Ua Color dark yellow Ua Appera cloudy Ua WBC ++ Ua Protein 30+ Ua Glucose norm Ua Ketones + Ua Bilirubin ++ Ua Urobilinogen 1 Ua Nitrite - Ua Occult Blood trace Urine Culture And 12/18/2017 [facility] Urine SEE RESULT 53 , [address] [place] [address] [phone] Basic Metabolic 2017 [facility] Sodium 142 mmol/L N 135- 1 [address] [place] [address] [phone] Potassium 4.0 mmol/L N 3.5-5.0 Chloride 106 mmol/L N 101-111 Co2 Carbon Dioxide 29 mmol/L N 22-32 Anion Gap 7 mmol/L N 2-11 Glucose 109 mg/dL High 70-100 Blood Urea Nitrogen 20 mg/dL N 6-24 Creatinine 1.22 mg/dL High 0.51-0.95 BUN/Creatinine Ratio 16.4 N 8-20 Calcium 9.3 mg/dL N 8.6-10.3 Egfr Non- 45.8 >60 Egfr 55.4 >60 56 CBC No Diff 2017 [facility] White Blood 6.0 10^3/uL N 3.5-10.[address] [place] [address] [phone] Red Blood Count 4.40 10^6/uL N 4.00-5.40 Hemoglobin 14.0 g/dL N 12.0-16.0 Hematocrit 41 % N 35-47 Mean Corpuscular Volume 93 fL N 80-97 Mean Corpuscular Hemoglobin 32 pg High 27-31 Mean Corpuscular HGB Conc 34 g/dL N 31-36 Red Cell Distribution Width 15 % N 10.5-15 Platelet Count 190 10^3/uL N 150-450 Mean Platelet Volume 9.8 um3 N 7.4-10.4 Laboratory test 08/28/2017 [facility] Clotest SEE RESULT [address] [place] [address] [phone] Laboratory test 08/28/2017 [facility] Surgical SEE RESULT [address] [place] [address] [phone] Laboratory test 08/01/2017 [facility] TSH (Thyroid 4.72 mcIU/mL N 0.34-[address] Stim Horm) .60 [place] [address] [phone] Free Cortisol Serum 1.410 g/dL Abnormal 59 Laboratory test 07/07/2017 [facility] Hemoglobin A1c 6.2 % High 4.0-5.6 [address] (Glyco HGB) [place], [place] [address] [phone] Basic Metabolic 07/07/2017 [facility] Sodium 140 N 133-[address] mmol/[place] [address] [phone] Potassium 4.1 mmol/L N 3.5-5.0 Chloride 103 mmol/L N 101-111 Co2 Carbon Dioxide 28 mmol/L N 22-32 Anion Gap 9 mmol/L N 2-11 Glucose 97 mg/dL N 70-100 Blood Urea Nitrogen 36 mg/dL High 6-24 Creatinine 1.16 mg/dL High 0.51-0.95 BUN/Creatinine Ratio 31.0 High 8-20 Calcium 9.6 mg/dL N 8.6-10.3 Egfr Non- 48.7 >60 Egfr 62.6 >60 61 CBC Auto Diff 06/11/2017 [facility] White Blood 9.6 10^3/uL N 3.5-10.[address] [place] [address] [phone] Red Blood Count 4.40 10^6/uL N 4.0-5.4 Hemoglobin 13.7 g/dL N 12.0-16.0 Hematocrit 40 % N 35-47 Mean Corpuscular Volume 92 fL N 80-97 Mean Corpuscular Hemoglobin 31 pg N 27-31 Mean Corpuscular HGB Conc 34 g/dL N 31-36 Red Cell Distribution Width 14 % N 10.5-15 Platelet Count 200 10^3/uL N 150-450 Mean Platelet Volume 9 um3 N 7.4-10.4 Abs Neutrophils 7.5 10^3/uL N 1.5-7.7 Abs Lymphocytes 0.9 10^3/uL Low 1.0-4.8 Abs Monocytes 0.9 10^3/uL High 0-0.8 Abs Eosinophils 0.1 10^3/uL N 0-0.6 Abs Basophils 0.1 10^3/uL N 0-0.2 Abs Nucleated RBC 0 10^3/uL Granulocyte % 78.5 % N 38-83 Lymphocyte % 9.5 % Low 25-47 Monocyte % 9.5 % High 1-9 Eosinophil % 1.4 % N 0-6 Basophil % 1.1 % N 0-2 Nucleated Red Blood Cells % 0.1 Comp Metabolic Panel 06/11/2017 [facility] Sodium 136 mmol/L N 133-145 [address] [place] [address] [phone] Potassium 3.8 mmol/L N 3.5-5.0 Chloride 99 mmol/L Low 101-111 Co2 Carbon Dioxide 28 mmol/L N 22-32 Anion Gap 9 mmol/L N 2-11 Glucose 131 mg/dL High 70-100 Blood Urea Nitrogen 33 mg/dL High 6-24 Creatinine 1.14 mg/dL High 0.51-0.95 BUN/Creatinine Ratio 28.9 High 8-20 Calcium 9.8 mg/dL N 8.6-10.3 Total Protein 6.8 g/dL N 6.4-8.9 Albumin 3.9 g/dL N 3.2-5.2 Globulin 2.9 g/dL N 2-4 Albumin/Globulin Ratio 1.3 N 1-3 Total Bilirubin 0.50 mg/dL N 0.2-1.0 Alkaline Phosphatase 78 U/L N 34-104 Alt 25 U/L N 7-52 Ast 16 U/L N 13-39 Egfr Non- 49.7 >60 Egfr 63.9 >60 62 Iron & Iron Binding 06/11/2017 [facility] Iron 74 g/dL N 50- 212 [address]acity [address] [place] [address] [phone] Unsaturated Iron Binding 294 g/dL Total Iron Binding Capacity 368 g/dL N 250-450 % Iron Saturation 20 % N 15-55 Laboratory test 06/11/2017 [facility] Ferritin 49.0 ng/mL N 11 -307 finding [address] [place] [address] [phone] Vitamin B12 206 pg/mL N 180-914 63 Folic Acid (Folate) 10.13 ng/mL >3.99 Vitamin D Total 25(Oh) 10.4 ng/mL Low 20-50 Vitamin E Level 7.5 mg/L 5.5 - 17.0 64 Urine Culture And 05/07/2017 [facility] Urine Culture SEE RESULT [address] [place] [address] [phone] Urinalysis Profile 05/07/2017 [facility] Urine Color Yellow [address] [place] [address] [phone] Urine Appearance Cloudy Urine Specific Camilla 1.019 N 1.010-1.030 Urine pH 5.0 N 5-9 Urine Urobilinogen Negative Negative Urine Ketones Negative Negative Urine Protein Negative Negative Urine Leukocytes Trace Abnormal Negative Urine Blood Negative Negative Urine Nitrite Negative Negative Urine Bilirubin Negative Negative Urine Glucose Negative Negative Urine White Blood Cell Trace(0-5/hpf) Absent Urine Red Blood Cell Trace(0-2/hpf) Absent Urine Bacteria Absent Absent Urine Squamous Epithelial Cell Present Abnormal Absent Laboratory test 05/07/2017 [facility] B-Type 61 pg/mL [address] [place] [address] Peptide BNP [phone] Basic Metabolic 05/07/2017 [facility] Sodium 139 mmol/L N 133- [address] [place] [address] [phone] Potassium 4.5 mmol/L N 3.5-5.0 Chloride 104 mmol/L N 101-111 Co2 Carbon Dioxide 30 mmol/L N 22-32 Anion Gap 5 mmol/L N 2-11 Glucose 96 mg/dL N 70-100 Blood Urea Nitrogen 26 mg/dL High 6-24 Creatinine 0.97 mg/dL High 0.51-0.95 BUN/Creatinine Ratio 26.8 High 8-20 Calcium 9.5 mg/dL N 8.6-10.3 Egfr Non- 59.8 >60 Egfr 77.0 >60 67 Basic Metabolic Panel 04/02/2017 [facility] Sodium 138 mmol/L N 133-[address] [place] [address] [phone] Potassium 4.3 mmol/L N 3.5-5.0 Chloride 102 mmol/L N 101-111 Co2 Carbon Dioxide 29 mmol/L N 22-32 Anion Gap 7 mmol/L N 2-11 Glucose 103 mg/dL High 70-100 Blood Urea Nitrogen 41 mg/dL High 6-24 Creatinine 1.49 mg/dL High 0.51-0.95 BUN/Creatinine Ratio 27.5 High 8-20 Calcium 9.5 mg/dL N 8.6-10.3 Egfr Non- 36.5 >60 Egfr 46.9 >60 68 Urinalysis Profile 03/06/2017 [facility] Urine Color Yellow [address] [place] [address] [phone] Urine Appearance Clear Urine Specific Camilla 1.017 N 1.010-1.030 Urine pH 5.0 N 5-9 Urine Urobilinogen Negative Negative Urine Ketones Negative Negative Urine Protein Negative Negative Urine Leukocytes Trace Abnormal Negative Urine Blood Negative Negative Urine Nitrite Negative Negative Urine Bilirubin Negative Negative Urine Glucose Negative Negative Urine White Blood Cell Trace(0-5/hpf) Absent Urine Red Blood Cell Absent Absent Urine Bacteria Absent Absent Urine Squamous Epithelial Cell Present Abnormal Absent Urine Culture And 03/06/2017 [facility] Urine Culture SEE RESULT [address] [place] [address] [phone] Basic Metabolic 02/27/2017 [facility] Sodium 139 mmol/L N 133- 1 [address] [place] [address] [phone] Potassium 3.6 mmol/L N 3.5-5.0 Chloride 104 mmol/L N 101-111 Co2 Carbon Dioxide 27 mmol/L N 22-32 Anion Gap 8 mmol/L N 2-11 Glucose 91 mg/dL N 70-100 Blood Urea Nitrogen 30 mg/dL High 6-24 Creatinine 1.02 mg/dL High 0.51-0.95 BUN/Creatinine Ratio 29.4 High 8-20 Calcium 9.4 mg/dL N 8.6-10.3 Egfr Non- 56.5 N >60 Egfr 72.6 N >60 71 Laboratory test 02/12/2017 [facility] TSH (Thyroid 1.93 mcIU/mL N 0.34-5.[address] Stim Horm) [place] [address] [phone] B-Type Natriuretic Peptide BNP 71 pg/mL N 72 CBC Auto Diff 02/06/2017 [facility] White Blood 10.8 10^3/uL N 3.5-10.[address] [place] [address] [phone] Red Blood Count 4.54 10^6/uL N 4.0-5.4 Hemoglobin 14.1 g/dL N 12.0-16.0 Hematocrit 42 % N 35-47 Mean Corpuscular Volume 93 fL N 80-97 Mean Corpuscular Hemoglobin 31 pg N 27-31 Mean Corpuscular HGB Conc 33 g/dL N 31-36 Red Cell Distribution Width 14 % N 10.5-15 Abs Neutrophils 8.2 10^3/uL High 1.5-7.7 Abs Lymphocytes 1.4 10^3/uL N 1.0-4.8 Abs Monocytes 0.9 10^3/uL High 0-0.8 Abs Eosinophils 0.2 10^3/uL N 0-0.6 Abs Basophils 0.1 10^3/uL N 0-0.2 Abs Nucleated RBC 0 10^3/uL N Granulocyte % 76.3 % N 38-83 Lymphocyte % 12.6 % Low 25-47 Monocyte % 8.7 % N 1-9 Eosinophil % 1.5 % N 0-6 Basophil % 0.9 % N 0-2 Nucleated Red Blood Cells % 0 N Platelet Count 192 10^3/uL N 150-450 Mean Platelet Volume 10 um3 N 7.4-10.4 Comp Metabolic Panel 02/06/2017 [facility] Sodium 138 mmol/L N 133-145 [address] [place] [address] [phone] Potassium 3.8 mmol/L N 3.5-5.0 Chloride 105 mmol/L N 101-111 Co2 Carbon Dioxide 27 mmol/L N 22-32 Anion Gap 6 mmol/L N 2-11 Glucose 96 mg/dL N 70-100 Blood Urea Nitrogen 28 mg/dL High 6-24 Creatinine 0.96 mg/dL High 0.51-0.95 BUN/Creatinine Ratio 29.2 High 8-20 Calcium 9.3 mg/dL N 8.6-10.3 Total Protein 7.4 g/dL N 6.4-8.9 Albumin 4.0 g/dL N 3.2-5.2 Globulin 3.4 g/dL N 2-4 Albumin/Globulin Ratio 1.2 N 1-3 Total Bilirubin 0.60 mg/dL N 0.2-1.0 Alkaline Phosphatase 71 U/L N 34-104 Alt 20 U/L N 7-52 Ast 13 U/L N 13-39 Egfr Non- 60.6 N >60 Egfr 77.9 N >60 73 Urine Culture And 02/06/2017 [facility] Urine Culture SEE RESULT [address] [place] [address] [phone] Urinalysis Profile 02/06/2017 [facility] Urine Color Straw N [address] [place] [address] [phone] Urine Appearance Clear N Urine Specific Camilla 1.014 N 1.010-1.030 Urine pH 5.0 N 5-9 Urine Urobilinogen Negative N Negative Urine Ketones Negative N Negative Urine Protein Negative N Negative Urine Leukocytes Trace Abnormal Negative Urine Blood 1+ Abnormal Negative Urine Nitrite Negative N Negative Urine Bilirubin Negative N Negative Urine Glucose 1+(50 mg/dL) Abnormal Negative Urine White Blood Cell Trace(0-5/hpf) N Absent Urine Red Blood Cell 2+(6-10/hpf) Abnormal Absent Urine Bacteria 1+ Abnormal Absent Urine Squamous Epithelial Cell Present Abnormal Absent Laboratory test finding 01/29/2017 [employer] [facility] House Hemoglobin A1c 6.0 5-7 Ua Routine 01/29/2017 [facility] In House Ua Specific Camilla 1.015 Ua PH 5 Ua Color Dark Yellow Ua Appera Clear Ua WBC + Ua Protein Neg Ua Glucose Neg Ua Ketones Neg Ua Bilirubin Neg Ua Urobilinogen Neg Ua Nitrite Neg Ua Occult Blood Neg Xray 07/30/2016 [facility] Knee 3 Views <pending> [address] [place] [address] [phone] Basic Metabolic 07/02/2016 [facility] Sodium 141 mmol/L N 133- [address] [place] [address] [phone] Potassium 3.8 mmol/L N 3.5-5.0 Chloride 105 mmol/L N 101-111 Co2 Carbon Dioxide 27 mmol/L N 22-32 Anion Gap 9 mmol/L N 2-11 Glucose 119 mg/dL High 70-100 Blood Urea Nitrogen 23 mg/dL N 6-24 Creatinine 0.82 mg/dL N 0.51-0.95 BUN/Creatinine Ratio 28.0 High 8-20 Calcium 9.4 mg/dL N 8.6-10.3 Egfr Non- 72.9 N >60 Egfr 93.8 N >60 75 Urine Culture And 06/10/2016 [facility] Urine Culture SEE RESULT [address] [place] [address] [phone] Laboratory test 06/10/2016 [facility] Lipase 40 U/L N 11.0- finding [address] [place] [address] [phone] C Reactive Protein 2.78 mg/L N < 5.00 77 Comp Metabolic Panel 06/10/2016 [facility] Sodium 137 mmol/L N 133-[address] [place] [address] [phone] Chloride 103 mmol/L N 101-111 Co2 Carbon Dioxide 28 mmol/L N 22-32 Glucose 71 mg/dL N 70-100 Blood Urea Nitrogen 26 mg/dL High 6-24 Creatinine 0.75 mg/dL N 0.51-0.95 BUN/Creatinine Ratio 34.7 High 8-20 Calcium 9.7 mg/dL N 8.6-10.3 Total Protein 7.2 g/dL N 6.4-8.9 Albumin 3.9 g/dL N 3.2-5.2 Globulin 3.3 g/dL N 2-4 Albumin/Globulin Ratio 1.2 N 1-3 Total Bilirubin 0.60 mg/dL N 0.2-1.0 Alkaline Phosphatase 76 U/L N 34-104 Alt 19 U/L N 7-52 Egfr Non- 80.8 N >60 Egfr 104.0 N >60 78 Potassium 4.2 mmol/L N 3.5-5.0 Anion Gap 6 mmol/L N 2-11 Ast 16 U/L N 13-39 Urinalysis Profile 06/10/2016 [facility] Urine Color Yellow N [address] [place] [address] [phone] Urine Appearance Clear N Urine Specific Camilla 1.016 N 1.010-1.030 Urine pH 5.0 N 5-9 Urine Urobilinogen Negative N Negative Urine Ketones Negative N Negative Urine Protein Negative N Negative Urine Leukocytes Negative N Negative Urine Blood 1+ Abnormal Negative Urine Nitrite Negative N Negative Urine Bilirubin Negative N Negative Urine Glucose Negative N Negative Urine White Blood Cell Trace(0-5/hpf) N Absent Urine Red Blood Cell Trace(0-2/hpf) N Absent Urine Bacteria 1+ Abnormal Absent Urine Squamous Epithelial Cell Present Abnormal Absent CBC Auto Diff 06/10/2016 [facility] White Blood 9.2 10^3/uL N 3.5-10.[address] [place] [address] [phone] Red Blood Count 4.81 10^6/uL N 4.0-5.4 Hemoglobin 14.5 g/dL N 12.0-16.0 Hematocrit 44 % N 35-47 Mean Corpuscular Volume 92 fL N 80-97 Mean Corpuscular Hemoglobin 30 pg N 27-31 Mean Corpuscular HGB Conc 33 g/dL N 31-36 Red Cell Distribution Width 14 % N 10.5-15 Platelet Count 181 10^3/uL N 150-450 Mean Platelet Volume 10 um3 N 7.4-10.4 Abs Neutrophils 6.4 10^3/uL N 1.5-7.7 Abs Lymphocytes 1.3 10^3/uL N 1.0-4.8 Abs Monocytes 1.3 10^3/uL High 0-0.8 Abs Eosinophils 0.2 10^3/uL N 0-0.6 Abs Basophils 0.1 10^3/uL N 0-0.2 Abs Nucleated RBC 0 10^3/uL N Granulocyte % 69.1 % N 38-83 Lymphocyte % 14.5 % Low 25-47 Monocyte % 13.8 % High 1-9 Eosinophil % 1.9 % N 0-6 Basophil % 0.7 % N 0-2 Nucleated Red Blood Cells % 0 N Urinalysis Profile 01/03/2016 [facility] Urine Color Yellow N [address] [place] [address] [phone] Urine Appearance Turbid N Urine Specific Camilla 1.027 N 1.010-1.030 Urine pH 5.0 N 5-9 Urine Urobilinogen Negative N Negative Urine Ketones Negative N Negative Urine Protein Negative N Negative Urine Leukocytes 1+ Abnormal Negative Urine Blood 1+ Abnormal Negative Urine Nitrite Negative N Negative Urine Bilirubin Negative N Negative Urine Glucose Negative N Negative Urine White Blood Cell Absent N Absent Urine Red Blood Cell Absent N Absent Urine Bacteria Absent N Absent Urine Culture And 01/03/2016 [facility] Urine Culture SEE RESULT [address] [place] [address] [phone] Laboratory test 07/14/2015 [facility] Metanephrines SEE COMMENT N 80 finding [address] [facility] [place] [address] [phone] Basic Metabolic 06/26/2015 [facility] Sodium 138 mmol/L N 133 - Panel [address] [place] [address] [phone] Potassium 4.0 mmol/L N 3.5-5.0 Chloride 102 mmol/L N 101-111 Co2 Carbon Dioxide 27 mmol/L N 22-32 Anion Gap 9 mmol/L N 2-11 Glucose 91 mg/dL N 70-100 Blood Urea Nitrogen 36 mg/dL High 6-24 Creatinine 0.94 mg/dL N 0.51-0.95 BUN/Creatinine Ratio 38.3 High 8-20 Calcium 9.6 mg/dL N 8.6-10.3 Egfr Non- 62.5 N >60 Egfr 80.4 N >60 81 Laboratory 06/26/2015 [facility] Hepatitis C Nonreactive N Nonreactive test finding [address] [facility] [place] [address] [phone] Aldosterone 12 ng/dL N <=21 82 Renin 4.0 ng/mL/h N 83 TSH (Thyroid Stim Horm) 2.34 ?IU/mL N 0.34-5.60 Laboratory test 06/26/2015 [facility] Cortisol 16.20 ?g/dL N 84 finding [address] [place] [address] [phone] Laboratory test 05/30/2015 [facility] Cytology SEE RESULT BELOW 85 finding [address] [place] [address] [phone] HPV Rna Ww/Reflex Genotype Negative N Negative 86 Laboratory test 05/12/2015 [facility] Inr/Protime 0.99 N 0.89- 1.11 finding [address] [place] [address] [phone] Urinalysis Profile 05/12/2015 [facility] Urine Color Yellow N [address] [place] [address] [phone] Urine Appearance Clear N Urine Specific Camilla 1.012 N 1.010-1.030 Urine pH 5.0 N 5-9 Urine Urobilinogen Negative N Negative Urine Ketones Negative N Negative Urine Protein Negative N Negative Urine Leukocytes Negative N Negative Urine Blood Negative N Negative Urine Nitrite Negative N Negative Urine Bilirubin Negative N Negative Urine Glucose Negative N Negative CBC Auto 05/12/2015 [facility] White Blood 12.0 10^3/uL High 3.5-10.[address] [place] [address] [phone] Red Blood Count 5.45 10^6/uL High 4.0-5.4 Hemoglobin 16.1 g/dL High 12.0-16.0 Hematocrit 52 % High 35-47 Mean Corpuscular Volume 95 fL N 80-97 Mean Corpuscular Hemoglobin 30 pg N 27-31 Mean Corpuscular HGB Conc 31 g/dL N 31-36 Red Cell Distribution Width 15 % N 10.5-15 Platelet Count 203 10^3/uL N 150-450 Mean Platelet Volume 10 um3 N 7.4-10.4 Abs Neutrophils 9.7 10^3/uL High 1.5-7.7 Abs Lymphocytes 1.2 10^3/uL N 1.0-4.8 Abs Monocytes 0.9 10^3/uL High 0-0.8 Abs Eosinophils 0.1 10^3/uL N 0-0.6 Abs Basophils 0.1 10^3/uL N 0-0.2 Abs Nucleated RBC 0 10^3/uL N Granulocyte % 81.2 % N 38-83 Lymphocyte % 10.0 % Low 25-47 Monocyte % 7.6 % N 1-9 Eosinophil % 0.5 % N 0-6 Basophil % 0.7 % N 0-2 Nucleated Red Blood Cells % 0 N Laboratory test 05/12/2015 [facility] Lactic Acid 1.3 mmol/L N 0.5-2.0 [address] [place] [address] [phone] Troponin-I (TnI) 0.00 ng/mL N <0.03 88 Comp Metabolic Panel 05/12/2015 [facility] Sodium 138 mmol/L N 133-145 [address] [place] [address] [phone] Potassium 3.8 mmol/L N 3.5-5.0 Chloride 103 mmol/L N 101-111 Co2 Carbon Dioxide 26 mmol/L N 22-32 Anion Gap 9 mmol/L N 2-11 Glucose 93 mg/dL N 70-100 Blood Urea Nitrogen 17 mg/dL N 6-24 Creatinine 0.78 mg/dL N 0.51-0.95 BUN/Creatinine Ratio 21.8 High 8-20 Calcium 9.5 mg/dL N 8.6-10.3 Total Protein 7.5 g/dL N 6.4-8.9 Albumin 4.3 g/dL N 3.2-5.2 Globulin 3.2 g/dL N 2-4 Albumin/Globulin Ratio 1.3 N 1-3 Total Bilirubin 0.80 mg/dL N 0.2-1.0 Alkaline Phosphatase 86 U/L N 34-104 Alt 29 U/L N 7-52 Ast 15 U/L N 13-39 Egfr Non- 77.6 N >60 Egfr 99.7 N >60 89 Laboratory test finding 05/12/2015 [facility] Amylase 49 U/L N 29-[address] [place] [address] [phone] Lipase 26 U/L N 11.0-82.0 Creatine Kinase(CK) 29 U/L N 10-223 C Reactive Protein 1.51 mg/L N < 5.00 90 CBC Auto Diff 02/25/2014 [facility] White Blood 6.6 10^3/uL N 4.8-10.[address] [place] [address] [phone] Red Blood Count 4.47 10^6/uL N 4.0-5.4 Hemoglobin 14.0 g/dL N 12.0-16.0 Hematocrit 42 % N 35-47 Mean Corpuscular Volume 93 fL N 80-97 Mean Corpuscular Hemoglobin 31 pg N 27-31 Mean Corpuscular HGB Conc 34 g/dL N 31-36 Red Cell Distribution Width 15 % N 10.5-15 Platelet Count 175 10^3/uL N 150-450 Mean Platelet Volume 10 um3 N 7.4-10.4 Abs Neutrophils 4.7 10^3/uL N 1.5-7.7 Abs Lymphocytes 1.1 10^3/uL N 1.0-4.8 Abs Monocytes 0.6 10^3/uL N 0-0.8 Abs Eosinophils 0.1 10^3/uL N 0-0.6 Abs Basophils 0 10^3/uL N 0-0.2 Abs Nucleated RBC 0 10^3/uL N Granulocyte % 71.3 % N 38-83 Lymphocyte % 16.4 % Low 25-47 Monocyte % 9.8 % High 1-9 Eosinophil % 1.8 % N 0-6 Basophil % 0.7 % N 0-2 Nucleated Red Blood Cells % 0 N Comp Metabolic Panel 02/25/2014 [facility] Sodium 139 mmol/L N 133-145 [address] [place] [address] [phone] Potassium 3.8 mmol/L N 3.7-5.6 Chloride 104 mmol/L N 101-111 Co2 Carbon Dioxide 29 mmol/L N 22-32 Anion Gap 6 mmol/L N 2-11 Glucose 81 mg/dL N 70-100 Blood Urea Nitrogen 16 mg/dL N 6-24 Creatinine 0.80 mg/dL N 0.51-0.95 BUN/Creatinine Ratio 20.0 N 8-20 Calcium 9.1 mg/dL N 8.6-10.3 Total Protein 6.4 g/dL N 6.4-8.9 Albumin 3.9 g/dL N 3.2-5.2 Globulin 2.5 g/dL N 2-4 Albumin/Globulin Ratio 1.6 N 1-3 Total Bilirubin 0.90 mg/dL N 0.2-1.0 Alkaline Phosphatase 71 U/L N 34-104 Alt 19 U/L N 7-52 Ast 14 U/L N 13-39 Egfr Non- 75.6 N >60 Egfr 97.3 N >60 92 Laboratory test finding 07/16/2013 [facility] Amylase 31 U/L N 29-103 [address] [place] [address] [phone] Lipase 14 U/L N 11.0-82.0 C Reactive Protein 84.88 mg/L High < 5.00 93 Comp Metabolic Panel 07/16/2013 [facility] Sodium 137 mmol/L N 133-145 [address] [place] [address] [phone] Potassium 3.7 mmol/L N 3.7-5.6 Chloride 101 mmol/L N 101-111 Co2 Carbon Dioxide 26 mmol/L N 22-32 Anion Gap 10 mmol/L N 2-11 Glucose 139 mg/dL High 70-100 Blood Urea Nitrogen 23 mg/dL N 6-24 Creatinine 1.05 mg/dL High 0.51-0.95 BUN/Creatinine Ratio 21.9 High 8-20 Calcium 9.5 mg/dL N 8.6-10.3 Total Protein 6.7 g/dL N 6.4-8.9 Albumin 3.9 g/dL N 3.2-5.2 Globulin 2.8 g/dL N 2-4 Albumin/Globulin Ratio 1.4 N 1-3 Total Bilirubin 0.80 mg/dL N 0.2-1.0 Alkaline Phosphatase 71 U/L N 34-104 Alt 15 U/L N 7-52 Ast 10 U/L Low 13-39 Egfr Non- 55.5 N >60 Egfr 71.3 N >60 94 CBC Auto 07/16/2013 [facility] White Blood 16.3 10^3/uL High 4.8-10.[address] [place] [address] [phone] Red Blood Count 4.67 10^6/uL N 4.0-5.4 Hemoglobin 14.9 g/dL N 12.0-16.0 Hematocrit 44 % N 35-47 Mean Corpuscular Volume 93 fL N 80-97 Mean Corpuscular Hemoglobin 32 pg High 27-31 Mean Corpuscular HGB Conc 34 g/dL N 31-36 Red Cell Distribution Width 14 % N 10.5-15 Platelet Count 175 10^3/uL N 150-450 Mean Platelet Volume 11 um3 High 7.4-10.4 Abs Neutrophils 13.2 10^3/uL High 1.5-7.7 Abs Lymphocytes 1.0 10^3/uL N 1.0-4.8 Abs Monocytes 1.7 10^3/uL High 0-0.8 Abs Eosinophils 0.2 10^3/uL N 0-0.6 Abs Basophils 0.1 10^3/uL N 0-0.2 Abs Nucleated RBC 0 10^3/uL N Granulocyte % 81.2 % N 38-83 Lymphocyte % 6.4 % Low 25-47 Monocyte % 10.6 % High 1-9 Eosinophil % 1.2 % N 0-6 Basophil % 0.6 % N 0-2 Nucleated Red Blood Cells % 0 N Urinalysis 07/16/2013 [facility] Urine Color Yellow N [address] [place] [address] [phone] Urine Appearance Clear N Urine Specific Camilla 1.019 N 1.010-1.030 Urine Esterase Negative N Negative Urine Nitrate Negative N Negative Urine Urobilinogen Negative E.U./dL N Negative Urine Protein Negative mg/dL N Negative Urine pH 5.5 N 5-9 Urine Blood Negative N Negative Urine Ketones Negative mg/dL N Negative Urine Bilirubin Negative N Negative Urine Glucose Negative mg/dL N Negative Laboratory test 07/16/2013 [facility] Lactic Acid 0.9 mmol/L N 0.5-2.[address] [place] [address] [phone] Surgical 07/13/2013 [facility] S RUN DATE: [address] <[place] [address] NOTE> [phone] Comp Metabolic 06/15/2013 [facility] Sodium 140 mmol/L 133- [address] [place] [address] [phone] Potassium 3.9 mmol/L 3.7-5.6 Chloride 107 mmol/L [...] Egfr Non- 71.8 >60 Egfr 92.3 >60 96 Laboratory test 06/08/2013 [facility] Cytology RUN DATE: [address] 06/10/ <[place] [address] NOTE> [phone] CBC No Diff 10/12/2012 [facility] White Blood 7.6 10^3/uL 4.8 -[address] Count .8 [place], [place] [address] [phone] Red Blood Count 5.02 10^6/uL 4.0-5.4 Hemoglobin 16.1 g/dL High 12.0-16.0 Hematocrit 47 % 35-47 Mean Corpuscular Volume 94 fL 80-97 Mean Corpuscular Hemoglobin 32 pg High 27-31 Mean Corpuscular HGB Conc 34 g/dL 31-36 Red Cell Distribution Width 15 % 10.5-15 Platelet Count 171 10^3/uL 150-450 Mean Platelet Volume 11 um3 High 7.4-10.4 Laboratory test 10/12/2012 [facility] TSH (Thyroid 1.81 0.34- 5.[address] Stimulating miu/[place] [address] Horm) [phone] Cortisol 12.9 g/dL 98 Lipid Profile 10/12/2012 [facility] Triglycerides 79 mg/dL 40 -200 (Trig/Chol/HDL) [address] [place] [address] [phone] Cholesterol 161 mg/dL Less than 200 HDL Cholesterol 68 mg/dL High 40-60 99 Cholesterol/HDL Ratio 2.4 Average 1-4.44 LDL Cholesterol 77.2 Less Than 100 100 Comp Metabolic Panel 10/12/2012 [facility] Sodium 137 mmol/L 133-[address] [place] [address] [phone] Potassium 3.9 mmol/L 3.5-5.0 Chloride 103 mmol/L [...] Egfr Non- 76.2 >60 Egfr 98.0 >60 101 Urine Culture & 04/13/2010 [facility] Urine Culture NF1 [address] [place] [address] [phone] 1 Because ethnic data is not always readily [...] 15-29 5 Kidney failure <15 (or dialysis) 2 Normal Range 180 to 914 Indeterminate Range 145 to 180 Deficient Range <145 3 ADDITIONAL INFORMATION This test was developed and its performance characteristics determined by [facility] in a manner consistent with CLIA requirements. This test has not been cleared or approved by the U.S. Food and Drug Administration. Test Performed by: [facility] [employer] - [address] [address] 4 ADDITIONAL INFORMATION This test was developed and its performance characteristics determined by [facility] in a manner consistent with CLIA requirements. This test has not been cleared or approved by the U.S. Food and Drug Administration. Test Performed by: [facility] [employer] - [address] [address] 5 REFERENCE VALUE -2.0 - +2.0 ADDITIONAL INFORMATION This test was developed and its performance characteristics determined by [facility] in a manner consistent with CLIA requirements. This test has not been cleared or approved by the U.S. Food and Drug Administration. Test Performed by: [facility] - [address] [address] 6 Normally menstruating females - Follicular phase 3 - 9 - Mid-cycle peak 4 - 23 - Luteal phase 1 - 6 Postmenopausal females 16 - 114 7 Normally menstruating females - Follicular Phase 1 - 18 - Mid-Cycle Peak 24 - 105 - Luteal Phase 0.6 - 20 Postmenopausal females 15 - 62 8 AM 8.7-22.4 PM <10 9 ADDITIONAL INFORMATION Reference range for patients 11 years and older is based on upright A.M. collection from subjects without sodium restrictions. This test was developed and its performance characteristics determined by [facility] in a manner consistent with CLIA requirements. This test has not been cleared or approved by the U.S. Food and Drug Administration. Test Performed by: [facility] [employer] - [address] [address] 10 REFERENCE VALUE (Peripheral vein specimen) Na-deplete, upright: Mean: 5.9 Range: 2.9-10.8 Na-replete, upright: Mean: 1.0 Range: < or=0.6-3.0 ADDITIONAL INFORMATION Testing performed by Liquid Chromatography-Tandem Mass Spectrometry (LC-MS/MS). This test was developed and its performance characteristics determined by [facility] in a manner consistent with CLIA requirements. This test has not been cleared or approved by the U.S. Food and Drug Administration. Test Performed by: [facility] - [address] , [place] [address] 11 Because ethnic data is not always readily [...] 15-29 5 Kidney failure <15 (or dialysis) 12 SEE RESULT BELOW Name: LIANA DIAZEYAL Mckeon : [address]: Yessi Baker MD Acct: [id number] Unit: [id number] AGE: 57 Location: LAB Re05/18/18 SEX: F Status: REG REF SPEC: [id number] LEAH: 05/18/18-[address]: Yessi Baker MD REQ: [id number] RECD: 05/18/18 STATUS: COMP _ SOURCE: URINE SPDESC: ORDERED: Urine Culture Procedure Result Reported Site Urine Culture Final 05/19/18- 1604 ML No growth of clinically significant organisms * ML - Main Lab . END OF REPORT DEPARTMENT OF PATHOLOGY, [address] [place] [id number] Reginald Steele M.D. Director UZIEL # [id number] REFERENCE VALUE 7.2-63 (a.m. collection) Test Performed by: [facility] - [facility] [address] [place] [address] 14 AM 8.7-22.4 PM <10 15 Because ethnic data is not always [...] 5 Kidney failure <15 (or dialysis) 16 SEE RESULT BELOW Name: RENATA DIAZ : [address]: Kory Babcock MD Acct: [id number] Unit: [id number] AGE: 57 Location: LAB Re05/06/18 SEX: F Status: REG REF SPEC: [id number] LEAH: 05/06/18-[address]: Kory Babcock MD REQ: [id number] RECD: 05/06/181202 STATUS: DOUG BREAUX DR: Jesse Bhakta MD _ SOURCE: URINE SPDESC: ORDERED: Urine Culture Procedure Result Reported Site Urine Culture Final 05/08/18- 1004 ML Organism 1 KLEBSIELLA PNEUMONIAE [place] Count 10-25,000 (Moderate) CFU/ML Organism 2 NORMAL NAFISA [place] Count 10-25,000 (Moderate) CFU/ML 1. KLEBSIELLA PNEUMONIAE [facility]. RX --------- ------ Ampicillin >=32 R Cefazolin <=4 S Cefepime <=1 S Ceftriaxone <=1 S Ciprofloxacin <=0.25 S Gentamicin <=1 S Levofloxacin <=0.12 S Meropenem <=0.25 S Nitrofurantoin 64 I Tetracycline <=1 S Pipercillin/Tazobactam <=4 S Trimethoprim/Sulfamethoxazole <=20 S Amoxicillin/Clavulanic Acid 4 S Aztreonam <=1 S Contact the Microbiology Department for any additional antibiotic reporting. * ML - Main Lab . END OF REPORT DEPARTMENT OF PATHOLOGY, [address] [place] [id number] Reginald Steele M.D. Director [facility] # [id number] 17 ADDITIONAL INFORMATION This test was developed and its performance characteristics determined by [facility] in a manner consistent with CLIA requirements. This test has not been cleared or approved by the U.S. Food and Drug Administration. Test Performed by: [facility] - [address] [address] 18 Because ethnic data is not always [...] 5 Kidney failure <15 (or dialysis) 19 ADDITIONAL INFORMATION This test was developed and its performance characteristics determined by [facility] in a manner consistent with CLIA requirements. This test has not been cleared or approved by the U.S. Food and Drug Administration. Test Performed by: [facility] - [address] [address] 20 Because ethnic data is not always [...] 5 Kidney failure <15 (or dialysis) 21 AM 8.7-22.4 PM <10 22 REFERENCE VALUE < 80 (Follicular) <285 (Luteal) < 51 (Postmenopausal) ADDITIONAL INFORMATION This test was developed and its performance characteristics determined by [facility] in a manner consistent with CLIA requirements. This test has not been cleared or approved by the U.S. Food and Drug Administration. Test Performed by: [facility] [employer] - [facility] [employer] [address] [place] [id number] 23 The 24 hour volume of this urine collection is unusually low. To properly screen for the ordered test, renal output of at least 500 mL per day is required. If this is a partial collection, we suggest recollecting the urine for 24 hours. 24 ADDITIONAL INFORMATION This test was developed and its performance characteristics determined by [facility] in a manner consistent with CLIA requirements. This test has not been cleared or approved by the U.S. Food and Drug Administration. Test Performed by: [facility] [employer] - [facility] [employer] [address] [place] [id number] 25 REFERENCE VALUE 30-180 (Normotensive) <400 (Hypertensive) 26 REFERENCE VALUE 128-484 (Normotensive) <900 (Hypertensive) 27 The 24 hour volume of 350 mL from this urine collection is unusually low. To properly screen for pheochromocytoma, renal output of at least 500 mL per day is required. If this is a partial collection, suggest recollecting the urine for 24 hours. If this patient has significantly reduced renal function, order metanephrine on plasma, [facility] Lab catalog: [id number]. REFERENCE VALUE 164-588 (Normotensive) <1300 (Hypertensive) 28 ADDITIONAL INFORMATION This test was developed and its performance characteristics determined by [facility] in a manner consistent with CLIA requirements. This test has not been cleared or approved by the U.S. Food and Drug Administration. Test Performed by: [facility] [employer] - [facility] [employer] [address] [place] [phone] 29 REFERENCE VALUE 7.2-63 (a.m. collection) Test Performed by: [facility] [employer] - [facility] [employer] [place] [id number] 30 ADDITIONAL INFORMATION This test was developed and its performance characteristics determined by [facility] in a manner consistent with CLIA requirements. This test has not been cleared or approved by the U.S. Food and Drug Administration. Test Performed by: [facility] [employer] - [facility] [facility] [place] [id number] 31 Test Performed by: [facility] [employer] - [address] [address] 32 The 24 hour volume of 350 mL from this urine collection is unusually low. To properly screen for pheochromocytoma, renal output of at least 500 mL per day is required. If this is a partial collection, suggest recollecting the urine for 24 hours. If this patient has significantly reduced renal function, order metanephrine on plasma, [facility] catalog: [id number]. 33 ADDITIONAL INFORMATION This test was developed and its performance characteristics determined by [facility] in a manner consistent with CLIA requirements. This test has not been cleared or approved by the U.S. Food and Drug Administration. Test Performed by: [facility] [employer] - [address] [address] 34 Because ethnic data is not always [...] 5 Kidney failure <15 (or dialysis) 35 AM 8.7-22.4 PM <10 36 The 24 hour volume of this urine collection is unusually low. To properly screen for the ordered test, renal output of at least 500 mL per day is required. If this is a partial collection, we suggest recollecting the urine for 24 hours. 37 ADDITIONAL INFORMATION This test was developed and its performance characteristics determined by [facility] in a manner consistent with CLIA requirements. This test has not been cleared or approved by the U.S. Food and Drug Administration. Test Performed by: [facility] - [address] [address] 38 ADDITIONAL INFORMATION This test was developed and its performance characteristics determined by [facility] in a manner consistent with CLIA requirements. This test has not been cleared or approved by the U.S. Food and Drug Administration. Test Performed by: [facility] - [address] [address] 39 ADDITIONAL INFORMATION This test was developed and its performance characteristics determined by [facility] in a manner consistent with CLIA requirements. This test has not been cleared or approved by the U.S. Food and Drug Administration. Test Performed by: [facility] - [address] [address] 40 ADDITIONAL INFORMATION This test was developed and its performance characteristics determined by [facility] in a manner consistent with CLIA requirements. This test has not been cleared or approved by the U.S. Food and Drug Administration. Test Performed by: [facility] - [address] [address] 41 Because ethnic data is not always readily [...] 15-29 5 Kidney failure <15 (or dialysis) 42 REFERENCE VALUE (Peripheral vein specimen) Na-deplete, upright: Mean: 5.9 Range: 2.9-10.8 Na-replete, upright: Mean: 1.0 Range: < or=0.6-3.0 ADDITIONAL INFORMATION Testing performed by Liquid Chromatography-Tandem Mass Spectrometry (LC-MS/MS). This test was developed and its performance characteristics determined by [facility] in a manner consistent with CLIA requirements. This test has not been cleared or approved by the U.S. Food and Drug Administration. Test Performed by: [facility] [employer] - [address] [address] 43 ADDITIONAL INFORMATION Reference range for patients 11 years and older is based on upright A.M. collection from subjects without sodium restrictions. This test was developed and its performance characteristics determined by [facility] in a manner consistent with CLIA requirements. This test has not been cleared or approved by the U.S. Food and Drug Administration. Test Performed by: [facility] [employer] - [address] [address] 44 ADDITIONAL INFORMATION This test was developed and its performance characteristics determined by [facility] in a manner consistent with CLIA requirements. This test has not been cleared or approved by the U.S. Food and Drug Administration. Test Performed by: [facility] - [address] [address] 45 Because ethnic data is not always [...] 5 Kidney failure <15 (or dialysis) 46 Normal Range 180 to 914 Indeterminate Range 145 to 180 Deficient Range <145 47 ADDITIONAL INFORMATION This test was developed and its performance characteristics determined by [facility] in a manner consistent with CLIA requirements. This test has not been cleared or approved by the U.S. Food and Drug Administration. Test Performed by: [facility] - [address] [address] 48 ADDITIONAL INFORMATION This test was developed and its performance characteristics determined by [facility] in a manner consistent with CLIA requirements. This test has not been cleared or approved by the U.S. Food and Drug Administration. Test Performed by: [facility] - [address] [address] 49 Because ethnic data is not always readily [...] 15-29 5 Kidney failure <15 (or dialysis) 50 Normal Range 180 to 914 Indeterminate Range 145 to 180 Deficient Range <145 51 ADDITIONAL INFORMATION This test was developed and its performance characteristics determined by [facility] in a manner consistent with CLIA requirements. This test has not been cleared or approved by the U.S. Food and Drug Administration. Test Performed by: [facility] - [address] [address] 52 ADDITIONAL INFORMATION This test was developed and its performance characteristics determined by [facility] in a manner consistent with CLIA requirements. This test has not been cleared or approved by the U.S. Food and Drug Administration. Test Performed by: [facility] - [address] [address] 53 [id number] 54 SEE RESULT BELOW Name: RENATA DIAZ : [address]: Lucila Bhakta MD Acct: [id number] Unit: [id number] AGE: 57 Location: [facility] Re12/18/17 SEX: F Status: REG REF SPEC: [id number] LEAH: 12/18/17-[address] [facility] [address]: Lucila Bhakta MD REQ: [id number] RECD: 12/18/17 STATUS: COMP _ SOURCE: URINE SPDESC: ORDERED: Urine Culture COMMENTS: [id number] Urine Source: Clean Catch Procedure Result Reported Site Urine Culture Final 12/20/17- 0844 ML Organism 1 ESCHERICHIA COLI [place] Count >100,000 (Many) CFU/ML Organism 2 PROTEUS SPECIES [place] Count 1-10,000 (Few) CFU/ML PROTEUS SP: SUSCEPTIBILITY [...] CONTINUED ON NEXT PAGE DEPARTMENT OF PATHOLOGY, [address] [place] [address] Reginald Steele M.D. Director [facility] # [id number] Patient: RENATA DIAZ [id number] (Continued) Specimen: [id number] Collected: 12/18/17-1504 Received: 12/18/17-1837 (Continued) Procedure Result Reported Site Urine Culture Final (continued) Contact the Microbiology Department for any additional antibiotic reporting. * ML - Main Lab . END OF REPORT DEPARTMENT OF PATHOLOGY, [address] [place] [address] Reginald Steele M.D. Director [facility] # [id number] 55 12/10 56 Because ethnic data is not always readily [...] 15-29 5 Kidney failure <15 (or dialysis) 57 SEE RESULT BELOW Name: RENATA DIAZ : [address]: Jaja Olivas DO Acct: [id number] Unit: [id number] AGE: 56 Location: [place] Re08/28/17 SEX: F Status: DEP SDC SPEC: [id number] LEAH: 08/28/[address] [facility] [address]: Jaja Olivas DO REQ: [id number] RECD: 08/28/17 STATUS: DOUG BREAUX DR: Lucila Bhakta MD _ SOURCE: GAS ANTRUM SPDESC: ORDERED: Clotest Procedure Result Reported Site Clotest Final 08/29/17- 0716 ML Clotest Negative * ML - Main Lab . END OF REPORT DEPARTMENT OF PATHOLOGY, [address] [place] [address] Reginald Steele M.D. Director [facility] # [id number] 58 SEE RESULT BELOW Name: RENATA DIAZ : [address]: Jaja Olivas DO Acct: [id number] Unit: [id number] AGE: 56 Location: [place] Re08/28/17 SEX: F Status: JAKY OSBORNC SPEC: [id number] LEAH: 08/28/17-[address] [facility] [address]: Jaja Olivas DO REQ: [id number] RECD: 08/28/175558 STATUS: WENDY BREAUX DR: Jesse Bhakta MD [...] CONTINUED ON NEXT PAGE DEPARTMENT OF PATHOLOGY, [address] [place] [address] Reginald Steele M.D. Director [facility] # [id number] RUN DATE: 08/29/17 [facility] LAB LIVE PAGE 2 Patient: RENATA DIAZ Mike [id number] (Continued) GROSS DESCRIPTION (Continued) GROSS DESCRIPTION 1. [...] 1027 END OF REPORT DEPARTMENT OF PATHOLOGY, [address] [place] [address] Reginald Steele M.D. Director [facility] # [id number] 59 REFERENCE VALUE 6:00-10:30 AM Collection 0.121-1.065 mcg/dL ADDITIONAL INFORMATION This test was developed and its performance characteristics determined by [facility] in a manner consistent with CLIA requirements. This test has not been cleared or approved by the U.S. Food and Drug Administration. Test Performed by: [facility] [address] [place] [address] 83 Therapeutic target for the treatment of diabetes mellitus patients is <7% HBA1C, and in selective patients <6.0%. Please refer to [place] [employer] diabetic care guidelines for further information. 61 Because ethnic data is not always readily [...] 15-29 5 Kidney failure <15 (or dialysis) 62 Because ethnic data is not always readily [...] 15-29 5 Kidney failure <15 (or dialysis) 63 Normal Range 180 to 914 Indeterminate Range 145 to 180 Deficient Range <145 64 ADDITIONAL INFORMATION This test was developed and its performance characteristics determined by [facility] in a manner consistent with CLIA requirements. This test has not been cleared or approved by the U.S. Food and Drug Administration. Test Performed by: [facility] [address] [place] [address] 65 SEE RESULT BELOW Name: RENATA DIAZ : [address]: Lucila Bhakta MD Acct: [id number] Unit: [id number] AGE: 56 Location: [facility] Re05/07/17 SEX: F Status: REG REF SPEC: [id number] LEAH: 05/07/[address]: Lucila Bhakta MD REQ: [id number] RECD: 05/07/17 STATUS: COMP _ SOURCE: URINE SPDESC: ORDERED: Urine Culture Procedure Result Reported Site Urine Culture Final 05/08/17- 1644 ML No Growth (<1,000 CFU/mL) * ML - MAIN LAB ([facility]1) . END OF REPORT * ML=Testing performed at Main Lab DEPARTMENT OF PATHOLOGY, [address] [place] [address] Reginald Steele M.D. Director [facility] # [id number] 66 >100 to <200 pg/mL: likely compensated congestive heart failure (CHF) 200 to 400 pg/mL: likely moderate CHF >400 pg/mL: likely moderate to severe CHF 67 Because ethnic data is not always readily [...] 15-29 5 Kidney failure <15 (or dialysis) 68 Because ethnic data is not always readily [...] 15-29 5 Kidney failure <15 (or dialysis) 69 SEE RESULT BELOW Name: RENATA DIAZ Mike : [address]: Lucila Bhakta MD Acct: [id number] Unit: [id number] AGE: 56 Location: [facility] Re03/06/17 SEX: F Status: REG REF SPEC: [id number] LEAH: 03/06/17-[address]: Lucila Bhakta MD REQ: [id number] RECD: 03/06/17-1232 STATUS: COMP _ SOURCE: URINE SPDESC: ORDERED: Urine Culture Procedure Result Reported Site Urine Culture Final 03/07/17- 1213 ML No growth of clinically significant organisms * ML - MAIN LAB ([facility]1) . END OF REPORT * ML=Testing performed at Main Lab DEPARTMENT OF PATHOLOGY, [address] [place] [address] Reginald Steele M.D. Director [facility] # [id number] [phone] EXT 250 18 Because ethnic data is not always [...] 15-29 5 Kidney failure <15 (or dialysis) 72 >100 to <200 pg/mL: likely compensated congestive heart failure (CHF) 200 to 400 pg/mL: likely moderate CHF >400 pg/mL: likely moderate to severe CHF 73 Because ethnic data is not always readily [...] 15-29 5 Kidney failure <15 (or dialysis) 74 SEE RESULT BELOW Name: RENATA DIAZ : [address]: Henrique Dash MD Acct: [id number] Unit: [id number] AGE: 56 Location: ED Re02/06/17 SEX: F Status: DEP ER SPEC: [id number] LEAH: 02/06/[address]: Henrique Dash MD REQ: [id number] RECD: 02/06/17 STATUS: DOUG BREAUX DR: Lucila Bhakta MD _ SOURCE: URINE SPDESC: ORDERED: Urine Culture Procedure Result Reported Site Urine Culture Final 02/07/17- 1608 ML Few Enterobacteriacae; possible contamination. * ML - MAIN LAB ([facility]) . END OF REPORT * ML=Testing performed at Main Lab DEPARTMENT OF PATHOLOGY, [address] [place] [address] Reginald Steele M.D. Director [facility] # [id number] 75 Because ethnic data is not always readily [...] 15-29 5 Kidney failure <15 (or dialysis) 76 SEE RESULT BELOW Name: RENATA DIAZ : [address]: Juan Carlos Pang MD Acct: [id number] Unit: [id number] AGE: 55 Location: ED Re06/10/16 SEX: F Status: DEP ER SPEC: [id number] LEAH: 06/10/[address]: Juan Carlos Pang MD REQ: [id number] RECD: 06/10/16 STATUS: DOUG BREAUX DR: Lucila Bhakta MD _ SOURCE: URINE SPDESC: ORDERED: Urine Culture Procedure Result Reported Site Urine Culture Final 06/11/16- 1316 ML No growth of clinically significant organisms * ML - MAIN LAB ([facility]1) . END OF REPORT * ML=Testing performed at Main Lab DEPARTMENT OF PATHOLOGY, [address] [place] [address] Reginald Steele M.D. Director [facility] # [id number] 77 Acute inflammation: >10.00 78 Because ethnic data is not always readily [...] 15-29 5 Kidney failure <15 (or dialysis) 79 SEE RESULT BELOW Name: RENATA DIAZ : [address]: Lucila Bhakta MD Acct: [id number] Unit: [id number] AGE: 55 Location: [facility] Re01/03/16 SEX: F Status: REG REF SPEC: [id number] LEAH: 01/03/16-[address]: Lucila Bhakta MD REQ: [id number] RECD: 01/03/16 STATUS: COMP _ SOURCE: URINE SPDESC: ORDERED: Urine Culture Procedure Result Reported Site Urine Culture Final 01/04/16- 1715 ML Mixed nafisa; possible contamination. Suggest resubmission. * ML - MAIN LAB ([facility]1) . END OF REPORT * ML=Testing performed at Main Lab DEPARTMENT OF PATHOLOGY, [address] [place] [address] Reginald Steele M.D. Director [facility] # [id number] 80 Metanephrines, Free, Plasma Metanephrine, Free <25 pg/mL < OR=57 Y09 6 Normetanephrine, Free 60 pg/mL < VV=211 Y09 6 Total, Free (MN + NMN) 60 pg/mL < PN=390 Y09 6 Elevations > 4-fold upper reference [...] Clinical Endocrinology and Metabolism 93 (1),91-95, 2008. [email or web address] RECEIVED: 07/15/2015 09:33 REPORTED: 07/20/2015 14:24 --- 07/24/15 1059 --- Normetanephrine previously reported as: C Metanephrines, Free, Plasma Metanephrine, Free <25 pg/mL < OR=57 Y09 6 Normetanephrine, Free 60 pg/mL < OK=468 Y09 6 Total, Free (MN + NMN) 60 pg/mL < VE=717 Y09 6 Elevations > 4-fold upper reference [...] Clinical Endocrinology and Metabolism 93 (1),91-95, 2008. [email or web address] RECEIVED: 07/15/2015 09:33 REPORTED: 07/20/2015 14:24 81 Because ethnic data is not always readily [...] 15-29 5 Kidney failure <15 (or dialysis) 82 ADDITIONAL INFORMATION Reference range for patients 11 years and older is based on upright A.M. collection from subjects without sodium restrictions. Test Performed by: [place] [address] Sport Psychologist: Lucas Nunez II, M.D., Ph.D. 83 REFERENCE VALUE (Peripheral vein specimen) Na-deplete, upright: Mean: 5.9 Range: 2.9-10.8 Na-replete, upright: Mean: 1.0 Range: < or=0.6-3.0 ADDITIONAL INFORMATION Testing performed by Liquid Chromatography-Tandem Mass Spectrometry (LC-MS/MS). Test Performed by: [address] [address] Sport Psychologist: Lucas Nunez II, M.D., Ph.D. 84 AM 8.7-22.4 PM <10 85 SEE RESULT BELOW Name: JOERENATA C : [address]: Lucila Bhakta MD Acct: [id number] Unit: [id number] AGE: 54 Location: [facility] Re05/30/15 SEX: F Status: REG REF SPEC: [id number] LEAH: 05/30/15-[address] [facility] [address]: Lucila Bhakta MD REQ: [id number] RECD: 05/30/15 STATUS: SOUT _ ORDERED: IMAGE [...] and 68. Signed (signature on file) ASHISH Jerry(ASC) 05/31 1245 This Pap test was evaluated with the assistance of the QterosPrep Test Imaging System. Due to cytologic findings at the software quality automation engineer microscope, comprehensive manual rescreening by a Family And Marriage Counsellor may be required. The Pap Smear is [...] performed at Main Lab DEPARTMENT OF PATHOLOGY, [address] [place] [address] Reginald Steele M.D. Director [facility] # [id number] RUN DATE: 05/31/15 [facility] LAB LIVE PAGE 1 Patient: RENATA DIAZ Mike [id number] (Continued) 86 The high-risk HPV types detected by the assay include: 16, 18, 31, 33, 35, 39, 45, 51, 52, 56, 58, 59, 66, and 68. 87 [facility] Severe Sepsis and Septic Shock Management Bundle Measure requires all lactic acids initially measuring >2.0mmol/L be repeated. 88 Reference Range and Interpretation: TnI (ng/mL) Interpretation Less Than 0.03 ng/mL Not supportive of diagnosis of AK 0.03 - 0.50 ng/mL Indeterminate: suggest serial studies if clinically indicated. Greater than 0.5 ng/mL Consistent with diagnosis of AK 89 Because ethnic data is not always readily [...] 15-29 5 Kidney failure <15 (or dialysis) 90 Acute inflammation: >10.00 91 FASTING 12 HOUR 92 Because ethnic data is not always readily [...] 15-29 5 Kidney failure <15 (or dialysis) 93 Acute inflammation: >10.00 In accordance with FDA guideline, CRP is now reported in mg/L, previous reporting was in mg/dL. 94 Because ethnic data is not always readily [...] 15-29 5 Kidney failure <15 (or dialysis) 95 RUN DATE: 07/14/13 [facility] LAB LIVE PAGE 1 RUN TIME: 3478 [address] [place], [place] [address] Specimen Inquiry Name: RENATA DIAZ : [address]: Skyler Huggins MD Acct: [id number] Unit: [id number] AGE: 52 Location: ENDO Re07/13/13 SEX: F Status: REG REF SPEC: [id number] LEAH: 07/13/13- SUBM DR: Skyler Huggins MD REQ: [id number] RECD: 07/13/13113 STATUS: WENDY BREAUX DR: Lucila Bhakta MD [...] of multiple irregular, bethea-pink soft tissue fragments. Test Engine Evaluator sections, one cassette. 1. CONTINUED ON NEXT PAGE * ML=Testing performed at Main Lab DEPARTMENT OF PATHOLOGY, [facility] [place] [address] Reginald Steele M.D. Director [facility] Permit #[id number] RUN DATE: 07/14/13 [facility] LAB LIVE PAGE 2 RUN TIME: 947 [facility] [place], [place] [address] Specimen Inquiry Patient: RENATA DIAZ [id number] (Continued) GROSS DESCRIPTION (Continued) Signed (signature on file) Briseida Mix MD 1534 END OF REPORT * ML=Testing performed at Main Lab DEPARTMENT OF PATHOLOGY, [facility] [place], [place] [address] Reginald Steele M.D. Director [facility] Permit #[id number] 96 Because ethnic data is not always readily [...] 15-29 5 Kidney failure <15 (or dialysis) 97 RUN DATE: 06/10/13 [facility] LAB LIVE PAGE 1 RUN TIME: 1854 [facility] [place], [place] [address] Specimen Inquiry Name: RENATA DIAZ : [address]: Lucila Bhakta MD Acct: [id number] Unit: [id number] AGE: 52 Location: [facility] Re06/08/13 SEX: F Status: REG REF SPEC: [id number] LEAH: 06/08/13-[address] [facility] [address]: Lucila Bhakta MD REQ: [id number] RECD: 06/08/13 STATUS: SOUT _ ORDERED: IMAGE [...] Signed (signature on file) Briseida Mix MD 6476 This Pap test was evaluated with the assistance of the QterosPrep Test Imaging System. Due to cytologic findings at the software quality automation engineer microscope, comprehensive manual rescreening by a Family And Marriage Counsellor may be required. The Pap Smear is [...] performed at Main Lab DEPARTMENT OF PATHOLOGY, [address] [place] [address] Reginald Steele M.D. Director [facility] Permit #[id number] 98 AM Cortisol 8.7-22.4 PM Cortisol Less than 10 99 HDL Interpretation: Undesirable: High Risk: Less than 40 mg/dL Desirable: Low Risk: Greater than 60 mg/dL 100 LDL Interpretation: Low Risk Optimal Level: LDL Less than 100 mg/dL Near or Above Optimal: LDL 100-129 mg/dL Borderline High Risk: LDL 130-159 mg/dL High Risk: LDL 160-189 mg/dL Very High Risk: LDL Greater than 189 mg/dL 101 Because ethnic data is not always readily [...] 15-29 5 Kidney failure <15 (or dialysis) 102 SPECIMEN CONTAINS NORMAL URETHRAL OR PERINEAL NAFISA AND DOES NOT SUGGEST URINARY TRACT INFECTION Procedures Date Code Description Status 02/15/2018 39229 EKG, Interpretation Only Completed 02/12/2018 31891 EKG, Interpretation Only Completed 01/09/2018 [id number] Mammogram Completed 09/10/2017 04399 ECHO Transthoracic, Real-Time 2D With Doppler And Completed Color Flow 09/10/2017 86041 ECHO Transthoracic, Real-Time 2D With Doppler And Completed Color Flow 09/05/2017 36576 Stress ECHO Interpretation/Report Hospital Completed 09/05/2017 27212 Treadmill Interp/Report Only Completed 09/05/2017 77571 Stress Test Supervsn W/Out I/R Completed 09/02/2017 04303 EKG Tracing & Interpretation Completed 08/28/2017 08761 Endoscopy Upper GI Biopsy Completed 07/30/2016 33318 I&D Abscess Simple Completed 07/30/2016 54583 Removal Skin Tags Up To 15 Completed 07/30/201616289 Inject/Drain Joint/Bursa Major W/O US Completed 07/23/2016 80881016 Mammogram Completed 01/09/2016 64910 Xray Knee 3 Views Completed 01/09/201662934 Inject/Drain Joint/Bursa Major W/O US Completed 07/14/2015 91303415 Mammogram Completed 09/21/2013 90347 Polysomnography Sleep Staging 4+ Parameters W/Cpap Completed 09/01/2013 11545 Polysomnography Sleep Staging 4+ Parameters Completed 07/26/201365527 Inject/Drain Joint/Bursa Major W/O US Completed 07/16/2013 68258 EKG, Interpretation Only Completed 07/13/2013 29552657 Colonoscopy Completed 06/18/2013 09843 Rad Exam; Knee, Ap&L Completed 06/18/2013 29463 Rad Exam; Knee, Ap&L Completed 06/18/201352405 Inject/Drain Joint/Bursa Major W/O US Completed 06/18/201363873 Inject/Drain Joint/Bursa Major W/O US Completed 06/18/2013 02862 Xray Knee 3 Views Completed 06/18/2013 68892 Xray Knee 3 Views Completed 06/15/2013 502667346 Bone Mineral Density Test Completed 01/19/2013 35406843 Mammogram Completed 12/30/2012 43500 Rad Exam; Wrist, Comp, Min 3 Views Completed 05/08/2010 19099432 Mammogram Completed 02/27/2010 40735 Treadmill Interp/Report Only Completed 02/27/2010 86304 Stress Test Supervsn W/Out I/R Completed Encounters Type Date Location Provider Dx Diagnosis Office Visit 06/04/2018 [place] [facility] Kory Babcock MD 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, 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 Z98.84 Bariatric surgery status E87.6 Hypokalemia Z68.42 Body mass index (BMI) 45.0-49.9, adult Office Visit 05/15/2018 2:00p [facility] Nephrology Yessi N18.3 Chronic kidney MD Olivia disease, stage 3 (moderate) I12.9 Hypertensive chronic kidney disease w stg 1-4/unsp chr kdny E83.42 Hypomagnesemia E26.9 Hyperaldosteronism, unspecified Office Visit 05/06/2018 11:00a [place] [facility] [place]ch, 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 E87.6 Hypokalemia M54.5 Low back pain Z98.84 Bariatric surgery status 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 Office Visit 05/04/2018 10:10a [facility] Internal Lucila Bhakta, M54.5 Low back pain Robb Jose N18.3 Chronic kidney disease, stage 3 (moderate) E87.6 Hypokalemia Office Visit 03/30/2018 1:00p [facility] [facility] [place], R60.0 Localized edema Endocrinology of [facility] R51 Headache Z98.84 Bariatric surgery status 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 Z87.891 Personal history of nicotine dependence N18.3 Chronic kidney disease, stage 3 (moderate) I12.9 Hypertensive chronic kidney disease w stg 1-4/unsp chr kdny E66.9 Obesity, unspecified Z68.43 Body mass index (BMI) 50-59.9, adult Office Visit 03/16/2018 [place] [facility], 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 [facility] E87.6 Hypokalemia Z98.84 Bariatric surgery status E66.01 Morbid (severe) obesity due to excess calories Z68.43 Body mass index (BMI) 50-59.9, adult Office Visit 03/03/2018 11:50a [facility] Internal Lucila Bhakta, E87.6 Hypokalemia Robb Jose Z98.84 Bariatric surgery status M54.5 Low back pain R60.0 Localized edema Office Visit 02/17/2018 11:10a [facility] Ayde Whiting, Z48.815 Encntr for Assoc,pc [employer] surgical aftcr Hospitalists following surgery on the dgstv sys Z98.84 Bariatric surgery status R51 Headache I10 Essential (primary) hypertension Office Visit 02/15/2018 11:10a [facility] Lucas Z48.815 Encntr for Assoc,pc BRIDGETT Smith surgical aftcr Hospitalists following surgery on the dgstv sys Z98.84 Bariatric surgery status R07.9 Chest pain, unspecified G47.33 Obstructive sleep apnea (adult) (pediatric) E83.42 Hypomagnesemia E87.6 Hypokalemia Office Visit 02/14/2018 11:10a [facility] Lucas Z48.815 Encntr for Assoc,BRIDGETT Sawyer surgical aftcr Hospitalists following surgery on the dgstv sys Z98.84 Bariatric surgery status R07.9 Chest pain, unspecified E83.42 Hypomagnesemia E87.6 Hypokalemia I95.9 Hypotension, unspecified G47.33 Obstructive sleep apnea (adult) (pediatric) Office Visit 02/12/2018 10:32a [place] [facility] [place], I10 Essential Endocrinology of Raheel STRINGER (primary) hypertension E87.5 Hyperkalemia R10.9 Unspecified abdominal pain Office Visit 02/09/2018 11:50a [facility] Internal Lucila K28.3 Acute gastrojejunal Medicine Rayo Bhakta M.D. ulcer without [place] hemorrhage or perforation I10 Essential (primary) hypertension N39.0 Urinary tract infection, site not specified Office Visit 01/28/2018 2:00p [facility] Internal Lucila I10 Essential (primary ) Medicine Rayo Bhakta M.D. hypertension [place] Z23 Encounter for immunization Office Visit 12/18/2017 2:40p [facility] Internal Lucila I10 Essential (primary ) Medicine Rayo Bhakta M.D. hypertension [place] R30.0 Dysuria Z12.31 Encntr screen mammogram for malignant neoplasm of breast Z98.84 Bariatric surgery status Office Visit 11/11/2017 11:30a Orthopedic Vineet Barry, S92.514D Nondisp fx of Services Of MD jagjit TillmanMKamar of r less toe(s), 7thD Office Visit 09/30/2017 1:00p Orthopedic Vineet Barry, S92.515A Nondisp fx of Services Of MD yarelis Real phalanx of left lesser toe(s), init W22.8xxA Striking against or struck by other objects, init encntr Office Visit 09/02/2017 2:00p [place] [facility] Duane Zavala I10 Essential (primary) Jessica Ponce hypertension R60.9 Edema, unspecified R01.1 Cardiac murmur, unspecified E11.9 Type 2 diabetes mellitus without complications E66.01 Morbid (severe) obesity due to excess calories R07.9 Chest pain, unspecified Office Visit 07/07/2017 [facility] Internal Lucila H10.402 Unspecified chronic 1:40p Robb Bhakta M.D. conjunctivitis, left [place] eye R22.0 Localized swelling, mass and lump, head I10 Essential (primary) hypertension R73.9 Hyperglycemia, unspecified Office Visit 05/07/2017 10:10a [facility] Internal Lucila I10 Essential (primary ) Robb Bhakta M.D. hypertension [place] R60.9 Edema, unspecified H10.89 Other conjunctivitis E66.01 Morbid (severe) obesity due to excess calories Office Visit 04/02/2017 10:10a [facility] Internal Lucila Bhakta, R21 Rash and other Medicine - Jessica nonspecific skin [place] eruption E66.01 Morbid (severe) obesity due to excess calories I10 Essential (primary) hypertension Office Visit 03/06/2017 10:00a [facility] Internal Nurse Visit C I10 Essential ( primary) Medicine - hypertension [place] Office Visit 02/27/2017 9:40a [facility] Internal Lucila I10 Essential (primary ) Robb Bhakta M.D. hypertension [place] M51.36 Other intervertebral disc degeneration, lumbar region Office Visit 02/12/2017 9:40a [facility] Internal Lucila R60.9 Edema, unspecified Robb Bhakta M.D. [place] I10 Essential (primary) hypertension M54.5 Low back pain M51.36 Other intervertebral disc degeneration, lumbar region Office Visit 01/29/2017 1:00p [facility] Internal Henrique Minor R35.0 Frequency of Medicine - Jessica Robbins micturition [place] M54.5 Low back pain Z23 Encounter for immunization Office Visit 07/30/2016 Orthopedic Rocco F M17.11 Unilateral primary 9:30a Services Of MD [place] osteoarthritis, C.M.A. right knee M25.561 Pain in right knee M16.11 Unilateral primary osteoarthritis, right hip Office Visit 07/29/2016 11:45a Neurosurgery Shara Richards, M25.551 Pain in Services Of [facility] PA-C right hip M51.36 Other intervertebral disc degeneration, lumbar region Office Visit 07/17/2016 8:30a [facility] Internal Nurse Visit C I10 Essential Medicine - (primary) [place] hypertension Office Visit 07/02/2016 11:10a [facility] Internal Lucila Z00.01 Encounter for Robb Bhakta M.D. general adult [facility] medical exam w abnormal findings I10 Essential (primary) hypertension M48.06 Spinal stenosis, lumbar region L91.8 Other hypertrophic disorders of the skin E66.01 Morbid (severe) obesity due to excess calories Z23 Encounter for immunization Z12.31 Encntr screen mammogram for malignant neoplasm of breast Office Visit 06/10/2016 10:30a [facility] Internal Lucila Bhakta, R10.31 Right lower Medicine - M.D. quadrant pain [place] B07.9 Viral wart, unspecified Office Visit 01/09/2016 Orthopedic Riky M M17.12 Unilateral primary 2:30p Services Of Raheel Lorenzo MD osteoarthritis, left AT [place] knee M17.11 Unilateral primary osteoarthritis, right knee Office Visit 01/03/2016 2:40p [facility] Internal Lucila Bhakta, M25.562 Pain in left Medicine - M.D. knee [place] R30.0 Dysuria Office Visit 12/27/2015 9:40a [facility] Internal Margo M25.562 Pain in left knee Robb Rae M.D. [place] Office Visit 07/05/2015 11:50a [facility] Internal Lucila I10 Essential Robb Bhakta M.D. (primary) [place] hypertension L85.3 Xerosis cutis Office Visit 06/21/2015 10:10a [facility] Internal Lucila Bhakta, Z00.00 Encntr for Medicine - M.D. general adult [place] medical exam w/o abnormal findings I10 Essential (primary) hypertension Z12.31 Encntr screen mammogram for malignant neoplasm of breast Z11.59 Encounter for screening for other viral diseases Z23 Encounter for immunization Office Visit 05/30/2015 10:30a [facility] Internal Lucila I10 Essential (primary ) Medicine Rayo Bhakta M.D. hypertension [place] E66.01 Morbid (severe) obesity due to excess calories R19.7 Diarrhea, unspecified R10.31 Right lower quadrant pain R87.610 Atyp squam cell of undet signfc cyto smr crvx (Asc-US) Office Visit 05/24/2015 8:30a [facility] Internal Lucila I10 Essential (primary ) Medicine Rayo Bhakta M.D. hypertension [place] R19.7 Diarrhea, unspecified Office Visit 05/12/2015 2:40p [facility] Internal Margo Rae I10 Essential ( primary) Medicine Rayo Lopez hypertension [place] E66.01 Morbid (severe) obesity due to excess calories R10.31 Right lower quadrant pain M54.5 Low back pain Office Visit 02/22/2014 8:50a [facility] Internal Lucila 401.1 Hypertension Benign Robb Bhakta M.D. [place] 278.01 Obesity Morbid 305.1 Tobacco Use Disorder V04.81 Need For Prophylactic Vaccination & Inoculation/Influenza 288.60 Leukocytosis, Unspecified Office Visit 11/03/2013 4:20p [facility] Internal Alex Diaz 719.47 Pain Joint Robb Mota M.D.,FACP Ankle & Foot [place] 728.71 Fibromatosis Plantar Fascia Office Visit 08/16/2013 2:50p [facility] Internal Lucila Bhakta, 305.1 Tobacco Use Medicine - Jessica Disorder [place] 473.9 Sinusitis Chronic Unspec 784.0 Headache Office Visit 07/18/2013 [facility] Aly 575.0 Cholecystitis 4:40p Assoc,pc Ahuja, N.P. Acute Hospitalists 401.9 Hypertension Unspec 278.01 Obesity Morbid 305.1 Tobacco Use Disorder Office Visit 07/17/2013 [facility] Aly 575.0 Cholecystitis 4:39p Assoc,pc Seymour, N.P. Acute Hospitalists 401.9 Hypertension Unspec 278.01 Obesity Morbid 305.1 Tobacco Use Disorder Office Visit 07/16/2013 4:38p [facility] Jaja Duval, 575.0 Cholecystitis Acute Assoc,pc N.PGarth Hospitalists 401.9 Hypertension Unspec 278.01 Obesity Morbid 305.1 Tobacco Use Disorder Office Visit 07/16/2013 [facility] 575.0 Cholecystitis Acute 3:00p ,BRIDGETT [place] Hospitalists Office Visit 07/12/2013 [facility] Internal Lucila 305.1 Tobacco Use 1:50p Robb Bhakta M.D. 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 Examination [place] V76.2 Screening Malignant Neoplasm Cervix 305.1 Tobacco Use Disorder 717.9 Internal Derangement Knee Unspec V49.81 Postmenopausal Status Asymptomatic (Age-Related,Natural) 788.39 Incontinence Urinary Other V06.1 Hiebkmakhn-Spibwuw-Ibqyixib Combined (DTaP) V76.41 Screening Malignant Neoplasm Rectum 401.9 Hypertension Unspec Office Visit 05/19/2013 3:30p [facility] Internal Lucila Bhakta, 719.46 Pain Joint Robb Cade M.D. Lower Leg [place] 401.9 Hypertension Unspec 278.00 Obesity Unspec 780.79 Malaise And Fatigue Other Office Visit 02/10/2013 10:00a [facility] Internal [place] 401.9 Hypertension Robb Dc M.D. Unspec [place] 784.0 Headache 473.0 Sinusitis Chronic Maxillary v04.81 Need For Prophylactic Vaccination & Inoculation/Influenza Office Visit 01/11/2013 Orthopedic Ruby 727.41 Ganglion Joint 8:45a Services Of Raheel Lee M.D. AT [place] Office Visit 12/30/2012 Orthopedic Ruby 727.43 Ganglion Unspec 1:30p Services Of Raheel Lee M.D. AT [place] Office Visit 12/17/2012 [facility] Internal Lucila Bhakta, 727.43 Ganglion Unspec 10:30a Medicine Rayo Lopez [place] Office Visit 11/04/2012 [facility] Internal Silv[place] 401.9 Hypertension 3:40p Robb Dc M.D. Unspec [place] 784.0 Headache 473.0 Sinusitis Chronic Maxillary Office Visit 10/14/2012 8:40a [facility] Internal Sil[place] 401.9 Hypertension Robb Dc M.D. Unspec [place] 784.0 Headache Office Visit 10/12/2012 10:10a [facility] Internal Lucila 401.9 Hypertension Unspec Robb Bhakta M.D. [place] 784.0 Headache 305.1 Tobacco Use Disorder 278.00 Obesity Unspec Office Visit 05/02/2010 3:20p DO Not Use [facility] Silvio Dc, [address] Pneumonia AT [facility] Jessica Organism Unspec 786.50 Pain Chest Unspec 401.1 Hypertension Benign 278.00 Obesity Unspec V72.62 Laboratory Exam Ordered as Part Of Routine General Med Exam V76.10 Screening For Malignant Neoplasm Breast V76.2 Screening Malignant Neoplasm Cervix Plan of Treatment Future Appointment(s):07/20/2018 3:00 pm - Susannah Rodriguez MD at Neurosurgery Services Of [facility]07/08/2018 3:00 pm - Yessi Baker MD at [facility] Okytrgjzns92/25/2019 - BRIDGETT Bonilla-CM51.26 Other intervertebral disc displacement, lumbar aqmkopU69.9 Scoliosis, pnusybiodxsT47.36 Other intervertebral disc degeneration, lumbar regionFollow up:Please schedule follow up with Dr. Rodriguez after imaging is complete
--- OUTSIDE RECORDS SUMMARY | 2018-07-02 16:28 | XMS REPORT | Continuity of Care Document ---
:1960 External Reference #:[id number] Author Name Maricel Rae Care Team Providers Name Role Phone Lucila Bhakta MD Primary Care Physician Unavailable Payers Date Identification Numbers Payment Provider Subscriber Policy Number: [id number] [employer] Renata Diaz Group Number: [id number] [address] [address] Group Name: [employer] [place] [address] PayID: [id number] Expires: 2015 Policy Number: [id number] [employer] Renata Diaz Group Name: [id number] [address] [address] PayID: [id number] [place] [address] Effective: 2009 Policy Number: [id number] [employer] [place] Renata Diaz Expires: 2009 Group Number: [id number] [address] [address] PayID: [id number] [place] [address] Effective: 2010 Policy Number: [id number] Rmgabi Diaz Expires: 2012 PayID: [id number] [address] [place] [address] Advance Directives Type Date Description Status Comment Other Directive 01/28/2018 Health Care Proxy Current and Verified Problems Date Description Provider Status Onset: 10/14/2012 Essential hypertension Silvio cD M.D. Active Onset: 09/20/2013 Morbid obesity Lucila Bhakta M.D. Active Onset: 11/03/2013 Ex-heavy cigarette smoker Alex Diaz Canova, Active (20-39/day) Jessica,FACP Onset: 11/03/2013 Obstructive sleep apnea of Alex StylesGarth Mota, Active adult Jessica,FACP Onset: 11/04/2012 Chronic maxillary sinusitis Silvio Dc M.D. Inactive Inactive: 09/20/2013 Onset: 10/14/2012 Headache Silvio Dc M.D. 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 [employer] Tobacco Use Start: Unknown Former Cigarette End: Unknown Smoker Smokeless Tobacco Never Used Smokeless Tobacco ETOH Use 11/03/2013 Never used alcohol Recreational Drug Use Denies Drug Use Tobacco Use Start: Unknown Patient is a former 15 pk yr approx End: Unknown smoker Tobacco Use Reviewed: 06/26/14 Quit smoking stopped March 12 completely Smoking Status Reviewed: 06/04/18 Quit smoking stopped March 12 completely Exercise Type/Frequency Does not exercise Allergies, Adverse Reactions, Alerts Date Description Reaction Status Severity Comments 09/02/2017 Pineapple Extract Rash, blisters Active 05/02/2010 NKDA Inactive Medications Medication Date Status Form Strength Qnty SIG Indications Ordering Provider Labetalol HCL 06/11 Active Tablets 200mg 60tab 1 by s mouth Olivia twice a MD day Nifedipine ER 06/11 [...] 20Meq 30tab once a Lucila Chloride ER /2018 s day Jessica Bhakta Spironolactone 03/16 Active Tablets 50mg 60tab take 1 E87.6 Horn s tablet MD Sadiq twice daily Ultracet 03/03 Active Tablets 37.5-325m 30tab 1 by Lucila /2018 g s mouth Livia, twice a M.D. day times a day as needed for pain Furosemide 03/03 Active Tablets 20mg 30tab Take 1 R60.0 Horn s Tablet By MD Sadiq Mouth once daily Omeprazole 02/[address] 40mg 60cap 1 by K28.3 Lucila /2018 s mouth Livia, twice M.D. daily Short Walking 09/30 Active Misc 1unit Please Vineet Boot Right Side s fit Asha, patient MD for appropria [...] Tablets 0.1mg 60tab 1 by I10 Lucila s mouth Bhakta, - twice a M.D. [...] 0.3% 5ml 1-2 drop H10.89 in the Bhakta, - Left eye M.D. 07/07 every hours x 5 days Clonidine HCL 04/03 Hx Tablets 0.1mg 60tab not s taking--- Livia, - -1 tab M.D. 05/07 Atenolol 02/27 Hx Tablets 100mg 90tab Take 1 I10 s Tablet By Bhakta, - Mouth M.D. 12/18 Once Daily Chlorthalidone 02/12 Hx Tablets 50mg 90tab [...] mouth Itzel, - three M.D. 02/27 times day as needed spasm Percocet 07/17 Hx Tablets 5-325mg 10tab 1 tab by Lucila s mouth Livia, - every 8 M.D. 01/28 hours needed pain Chlorthalidone 07/02 Hx Tablets 25mg 90tab take 1 I10 Lucila s tablet by Livia, - mouth M.D. 02/12 every Ibuprofen 07/02 Hx Tablets 600mg 42tab 1 tab by Lucila /2017 s mouth Livia, - three M.D. 07/29 [...] Tablet By Livia, - Mouth M.D. 03/03 Once Daily No Active 05/12 Hx Unknown Medications [...] Hx Tablets 200mg 100ta as needed Alex /Juan R Mota, - Jessica,FACP 05/12 Bupropion HCL XL 07/16 Hx Tablets [...] mouth Livia, - three M.DGarth 08/16 times a day prn Amoxicillin/Potas /16 Hx Tablets 875-125mg 20tab 1 po bid 473.0 Silvio sium Clavulanate Rayo Meeks M.D. 05/19 Amlodipine 07/ Hx Tablets 5mg 60tab twice a 401.9 [...] 60tab 1 tab by 401.9 Lucila s Rayo Jeffery twice a M.DGarth Butalbital/Acetam 10/14 Hx Capsules 50-325-40 30cap 1 tab 784.0 [place] inophen/Caffeine mg s every 2 h Rayo Dc M.DGarth 08/16 Triamterene/[place] 10/14 Hx Capsules 37.5-25mg 90cap qd am 401.9 Lucila chlorothiazide Rayo Brumfield M.D. 02/22 No Active 10/12 Hx Unknown Medications - 10/12 Losartan 10/12 Hx Tablets 50mg [...] - times a 07/02 day needed Lidocaine Hx Patches 5% Unknown /0000 - 01/27 Ibuprofen Hx Tablets 800mg by mouth Unknown /0000 three - times a 01/27 day needed Vesicare Hx Tablets 10mg not Unknown /0000 taking--- - 1 by 04/03 mouth every day Toviaz Hx Tablets ER 4mg 2 by Unknown 24HR mouth - every day 06/05 Vitamin D Hx Capsules [id number] once a Sandidge, (Ergocalciferol) week for Lupe R., - 8 weeks 12/18 Vitamin B12 Hx [...] Hx Capsules DR 20mg 1 by Unknown / mouth - every day 02/09 Hydrochlorothiazi Hx Tablets 25mg Bollo, de MD Jesse - 03/03 Sucralfate Hx Tablets 1gm Bollo, /0000 MD Jesse - 03/[address] 40mg Bollo, Sodium / MD Jesse - 02/09 Carafate Hx Suspension 1GM/10ML Bollo, /0000 MD Jesse - 03/07 Klor-Con Hx Packet 20Meq once a Bollo, MD Jesse - 05/04 Ranitidine HCL Hx Tablets 300mg take one tablet by - mouth at 06/03 bedtime /2018 Carafate Hx Suspension 1GM/10ML tid - 06/03 Medications Administered in Office Medication Date Status Form Strength Qnty SIG Indications Ordering Provider Depomedrol Administered Injection Rocco F 40MG 017 MD Indio Depomedrol Administered Injection Riky Goode 40MG 016 MD Bj Depomedrol Administered Injection Hailey 80MG 014 Jessica Lan Depomedrol Administered Injection Hailey 80MG 014 Jessica Lan Depomedrol Administered Injection Hailey 80MG 014 Rupa Lan.D. Immunizations CPT Code Status Date Vaccine Lot # [id number] Given 01/28/2018 Influenza Virus Vaccine, Quadrivalent, Split, [id number] Preservative Free 26763 Given 01/29/2017 Influenza Virus Vaccine, Quadrivalent, Split, [id number] Preservative Free 39712 Given 07/02/2016 Tdap - Tetanus/Diptheria/Acellular Pertussis [id number] 16610 Given 03/31/2016 Influ Virus Vaccine, Quadrivalent, Split [place], [place] [id number] Given 02/07/2016 Influ Virus Vaccine, Quadrivalent, Split Virus, [place] [address] Given 02/22/2014 Flu Vaccine Split Virus Preservative Free For [id number] Indiv 3Yr Older 63809 Given 02/10/2013 Flu Vaccine Split Virus Preservative Free For [id number] Indiv 3Yr Older Vital Signs Date Vital Result Comment 06/04/2018 9:19am Height 63 inches 5'3" Weight [...] Date Facility Test Result H/L Range Note CBC Auto Diff 06/04/2018 [facility] White Blood 6.5 10^3/uL N 3.5-10.[address] [place] [address] [phone] Red Blood Count 4.16 10^6/uL N 4.00-5.40 [...] Cells % 0 Comp Metabolic Panel 06/04/2018 [facility] Sodium 143 mmol/L N 135-[address] [place], [place] [address] [phone] Potassium 3.5 mmol/L N 3.5-5.0 Chloride 107 [...] >60 1 Iron & Iron Binding 06/04/2018 [facility] Iron 72 g/dL N 50- 212 [address] [place] [address] [phone] Unsaturated Iron Binding < 238 g/dL Total Iron Binding Capacity 253 g/dL N 250-450 Transferrin 181 mg/dL Low 203-362 % Iron Saturation 28 % N 15-55 Laboratory test 06/04/2018 [facility] Ferritin 76.1 ng/mL N 11 -307 finding [address] [place], [place] [address] [phone] Folic Acid (Folate) 4.95 ng/mL >3.99 Vitamin B12 196 pg/mL N 180-914 2 Vitamin D Total 25(Oh) 17.6 ng/mL Low 20-50 Vitamin B1 (Whole Blood) 80 nmol/L 70-180 3 Vitamin E Level 7.3 mg/L 5.5 - 17.0 4 Insulin-Like Growth 06/04/2018 [facility] Insulin like 53 ng/mL 40-217 Factor 1 [address] [facility] [place] [address] I [phone] Igf1 Z-score -1.65 SD 5 FSH And LH 06/04/2018 [facility] FSH (Follicle Stim 139.6 mIU/ mL 6 [address] [facility] Hormone) [place] [address] [phone] LH (Lutenizing Hormone) 54.2 mIU/mL 7 Laboratory test 06/04/2018 [facility] Prolactin 8.4 ng/mL N 1.0-25.0 finding [address] [place] [address] [phone] TSH (Thyroid Stim Horm) 2.41 mcIU/mL N 0.34-5.60 Free T4 (Free Thyroxine) 1.17 ng/dL High 0.61-1.12 Laboratory test 05/18/2018 [facility] Ferritin 106.1 ng/mL N 11-307 finding [address] [place] [address] [phone] Cortisol 13.02 g/dL 8 Aldosterone <4.0 ng/dL <=21 9 Renin <0.6 ng/mL/h 10 Iron & Iron Binding 05/18/2018 [facility] Iron 54 g/dL N 50- 212 [address] [place] [address] [phone] Unsaturated Iron Binding < 269 g/dL Total Iron Binding Capacity 284 g/dL N 250-450 Transferrin 203 mg/dL N 203-362 % Iron Saturation 19 % N 15-55 Laboratory test 05/18/2018 [facility] Magnesium 1.7 mg/dL Low 1.9-2.7 finding [address] [place] [address] [phone] Basic Metabolic 05/18/2018 [facility] Sodium 141 mmol/L N 135- 145 Panel [address] [place] [address] [phone] Potassium 3.8 mmol/L N 3.5-5.0 Chloride 108 mmol/L N 101-111 Co2 Carbon Dioxide 25 mmol/L N 22-32 Anion Gap 8 mmol/L N 2-11 Glucose 96 mg/dL N 70-100 Blood Urea Nitrogen 13 mg/dL N 6-24 Creatinine 1.27 mg/dL High 0.51-0.95 BUN/Creatinine Ratio 10.2 N 8-20 Calcium 9.6 mg/dL N 8.6-10.3 Egfr Non- 43.7 >60 Egfr 52.9 >60 11 CBC Auto Diff 05/18/2018 [facility] White Blood 5.9 10^3/uL N 3.5-10.[address] Count [place], [place] [id number] [phone] Red Blood Count 4.20 10^6/uL N 4.00-5.40 [...] % Nucleated Red Blood Cells % 0 Urine Culture And 05/18/2018 [facility] Urine Culture SEE RESULT [address] BEL[address] [place], [place] [address] [phone] Urine Microalbumin 05/18/2018 [facility] Ur Microalbumin 27.[address] (mg/L) [place], [place] [address] [phone] Urine Creatinine 290.30 mg/dL Urine Microalbumin/Creatinine 9.5 N <31 Creatinine 05/18/2018 [facility] Creatinine, 1.26 High 0.51- 0.[address] Serum mg/[place] [address] [phone] Creatinine Clearance 80 mL/min Low 88-128 Urine Collection Time 24 hr Urine Total Volume 500 mL Laboratory test 05/18/2018 [facility] Urine TP 27 mg/dL finding [address] [place] [address] [phone] Total Protein 05/18/2018 [facility] Urine Total 135 N 0-165 24HR Urine [address] Protein/24HR mg/24[place] [address] [phone] Laboratory test 05/18/2018 [facility] Urine Creatinine 197.[address] Concentration mg/[place] [address] [phone] Urinalysis 05/18/2018 [facility] Urine Color Kate Profile [address] [place], [place] [id number] [phone] Urine Appearance Cloudy Urine Specific [place] 1.020 N 1.010-1.030 Urine pH 5.0 N [...] Casts Present Abnormal Absent Creatinine 24HR 05/18/2018 [facility] Urine 987.20 N 600-[address] Creatinine/24 mg/[place] [address] Hour [phone] Urine Collection Time 24 hr Urine Total Volume 500 mL Laboratory test finding 05/12/2018 [facility] Acth 16 pg/mL [address] [place] [address] [phone] Cortisol 6.57 g/dL 14 Miscellaneous Test <pending> Laboratory test 05/06/2018 [facility] Vitamin B1 98 nmol/L 70 -180 [address] ([place] [address] Blood) [phone] Urine Culture And 05/06/2018 [facility] Urine SEE RESULT [address] [place] [address] [phone] Urinalysis Profile 05/06/2018 [facility] Urine Color Yellow [address] [place] [address] [phone] Urine Appearance Cloudy Urine Specific [place] 1.018 N 1.010-1.030 Urine pH 6.0 N [...] Absent Urine Hyaline Casts Present Abnormal Absent Basic Metabolic Panel 05/06/2018 [facility] Sodium 142 mmol/L N 135-145 [address] [place] [address] [phone] Potassium 2.9 mmol/L Low 3.5-5.0 Chloride 107 mmol/L N 101-111 Co2 Carbon Dioxide 26 mmol/L N 22-32 Anion Gap 9 mmol/L N 2-11 Glucose 82 mg/dL N 70-100 Blood Urea Nitrogen 22 mg/dL N 6-24 Creatinine 1.43 mg/dL High 0.51-0.95 BUN/Creatinine Ratio 15.4 N 8-20 Calcium 8.8 mg/dL N 8.6-10.3 Egfr Non- 38.1 >60 Egfr 46.1 >60 17 Laboratory test 04/07/2018 [facility] Magnesium 1.8 mg/dL Low 1.9-2.7 finding [address] [place] [address] [phone] Folic Acid (Folate) 4.36 ng/mL >3.99 Vitamin D Total 25(Oh) 15.6 ng/mL Low 20-50 Vitamin B1 (Whole Blood) 54 nmol/L Abnormal 70-180 18 Basic Metabolic Panel 04/07/2018 [facility] Sodium 144 mmol/L N 135-145 [address] [place] [address] [phone] Potassium 3.0 mmol/L Low 3.5-5.0 Chloride 106 mmol/L N 101-111 Co2 Carbon Dioxide 26 mmol/L N 22-32 Anion Gap 12 mmol/L High 2-11 Glucose 79 mg/dL N 70-100 Blood Urea Nitrogen 17 mg/dL N 6-24 Creatinine 1.07 mg/dL High 0.51-0.95 BUN/Creatinine Ratio 15.9 N 8-20 Calcium 9.2 mg/dL N 8.6-10.3 Egfr Non- 53.2 >60 Egfr 64.4 >60 19 Laboratory test 03/30/2018 [facility] TSH (Thyroid 3.95 N 0.34 -5.[address] Stim Horm) mcIU/[place] [address] [phone] Basic Metabolic 03/30/2018 [facility] Sodium 146 mmol/L High 135-[address] [place] [address] [phone] Potassium 3.0 mmol/L Low 3.5-5.0 Chloride 109 mmol/L N 101-111 Co2 Carbon Dioxide 26 mmol/L N 22-32 Anion Gap 11 mmol/L N 2-11 Glucose 81 mg/dL N 70-100 Blood Urea Nitrogen 11 mg/dL N 6-24 Creatinine 1.06 mg/dL High 0.51-0.95 BUN/Creatinine Ratio 10.4 N 8-20 Calcium 9.0 mg/dL N 8.6-10.3 Egfr Non- 53.8 >60 Egfr 65.1 >60 20 Cortisol Free 03/30/2018 [facility] Urine Free 3.9 mcg/24h 3.5-45 [address] [place] [address] [phone] Urine Collection Duration 24 h Urine Total Volume 350 mL 22 Catecholamine 24HR 03/30/2018 [facility] Urine Collection 24 h Urine Fract [address] [place] [address] [phone] Urine Total Volume 350 mL Urine Norepinephrine 20 mcg/24h 15-80 23 Urine Epinephrine 0.6 mcg/24h <21 Urine Dopamine 169 mcg/24h 65-400 24 Laboratory test finding 03/30/2018 [facility] Acth 28 pg/mL [address] [place] [address] [phone] Dhea 1.5 ng/mL <6.0 26 Dhea Sulfate 95 g/dL 16-195 27 Urine Metanephrines 03/30/2018 [facility] Urine 48 mcg/24h [address] [place] [address] [phone] Urine Normetanephrine 336 mcg/24h 29 Urine Total Metanephrines 384 mcg/24h 30 Urine Collection Duration 24 h Urine Volume 350 mL 31 Laboratory test finding 03/30/2018 [facility] Cortisol 13.51 g /dL [address] [place] [address] [phone] Testosterone Total 29.77 ng/dL N 8-60 Progesterone 17Hydroxy <40 ng/dL 33 Basic Metabolic 03/23/2018 [facility] Sodium 146 mmol/L High 135-145 Panel [address] [employer] [place], [place] [address] [phone] Potassium 3.6 mmol/L N 3.5-5.0 Chloride 111 mmol/L N 101-111 Co2 Carbon Dioxide 27 mmol/L N 22-32 Anion Gap 8 mmol/L N 2-11 Glucose 97 mg/dL N 70-100 Blood Urea Nitrogen 15 mg/dL N 6-24 Creatinine 1.12 mg/dL High 0.51-0.95 BUN/Creatinine Ratio 13.4 N 8-20 Calcium 9.2 mg/dL N 8.6-10.3 Egfr Non- 50.5 >60 Egfr 61.1 >60 34 Laboratory test 03/23/2018 [facility] Cortisol 5.44 g/dL 35 [address] [place], [place] [address] [phone] Creatinine 24HR 03/23/2018 [facility] Urine Creatinine 260.02 mg /dL Urine [address] [facility] Concentration [place], [place] [address] [phone] Urine Creatinine/24 Hour 1040.08 mg/24Hr N 600-1800 Urine Collection Time 24 hr Urine Total Volume 400 mL Cortisol Free 03/23/2018 [facility] Urine Free 10 mcg/24h 3.5 -45 36 24HR Urine [address] [facility] [place] [address] [phone] Urine Collection Duration 24 h Urine Total Volume 400 mL 37 Laboratory 03/19/2018 [facility] Cortisol, 148 ng/dL Abnormal <100 38 test finding [address] [place], [place] [address] [phone] Laboratory 03/18/2018 [facility] Cortisol, 62 ng/dL <100 39 test finding [address] [place] [address] [phone] Laboratory 03/17/2018 [facility] Cortisol, 90 ng/dL <100 40 test finding [address] [place] [address] [phone] Laboratory 03/16/2018 [facility] Magnesium 1.7 mg/dL Low 1.9- 2.7 test finding [address] [place] [address] [phone] Basic 03/16/2018 [facility] Sodium 144 N 135-[address] mmol/[place] [address] [phone] Potassium 3.6 mmol/L N 3.5-5.0 Chloride 108 mmol/L N 101-111 Co2 Carbon Dioxide 29 mmol/L N 22-32 Anion Gap 7 mmol/L N 2-11 Glucose 101 mg/dL High 70-100 Blood Urea Nitrogen 25 mg/dL High 6-24 Creatinine 1.25 mg/dL High 0.51-0.95 BUN/Creatinine Ratio 20.0 N 8-20 Calcium 9.2 mg/dL N 8.6-10.3 Egfr Non- 44.5 >60 Egfr 53.8 >60 41 Laboratory test finding 03/16/2018 [facility] Renin <0.6 ng/mL/ h [address] [place] [address] [phone] Aldosterone <4.0 ng/dL <=21 43 Metanephrines 03/16/2018 [facility] Plasma Free 0.49 <0.[address] Normetanephrine nmol/[place] [address] [phone] Plasma Free Metanephrine <0.20 nmol/L <0.50 44 Laboratory test finding 03/16/2018 [facility] Glucose Random 91 Hemoglobin A1c 4.6 Low 5-7 CBC Auto Diff 03/11/2018 [facility] White Blood 5.3 10^3/uL N 3.5-10.[address] [place] [address] [phone] Red Blood Count 4.21 10^6/uL N 4.00-5.40 [...] Blood Cells % 0.1 Comp Metabolic 03/11/2018 [facility] Sodium 146 mmol/L High 135-145 Panel [address] [place] [address] [phone] Potassium 3.0 mmol/L Low 3.5-5.0 Chloride 106 [...] >60 45 Iron & Iron Binding 03/11/2018 [facility] Iron 94 g/dL N 50- 212 [address] [place] [address] [phone] Unsaturated Iron Binding < 245 g/dL Total Iron Binding Capacity 260 g/dL N 250-450 Transferrin 186 mg/dL Low 203-362 % Iron Saturation 36 % N 15-55 Laboratory test 03/11/2018 [facility] Ferritin 128.2 ng/mL N 11-307 finding [address] [place] [address] [phone] Folic Acid (Folate) 4.33 ng/mL >3.99 Vitamin B12 503 pg/mL N 180-914 46 Vitamin D Total 25(Oh) 14.6 ng/mL Low 20-50 Vitamin B1 (Whole Blood) 82 nmol/L 70-180 47 Vitamin E Level 7.0 mg/L 5.5 - 17.0 48 CBC Auto Diff 02/24/2018 [facility] White Blood 5.4 10^3/uL N 3.5-10.[address] [place] [address] [phone] Red Blood Count 4.11 10^6/uL N 4.00-5.40 [...] Cells % 0.1 Comp Metabolic Panel 02/24/2018 [facility] Sodium 143 mmol/L N 135-[address] [place] [address] [phone] Potassium 3.0 mmol/L Low 3.5-5.0 Chloride 103 [...] Non- 52.1 >60 Egfr 63.1 >60 49 Laboratory test 02/24/2018 [facility] Ferritin 152.9 ng/mL N 11-[address] [place] [address] [phone] Folic Acid (Folate) 7.47 ng/mL >3.99 Vitamin B12 461 pg/mL N 180-914 50 Vitamin D Total 25(Oh) 15.3 ng/mL Low 20-50 Vitamin B1 (Whole Blood) 111 nmol/L 70-180 51 Vitamin E Level 6.4 mg/L 5.5 - 17.0 52 Iron & Iron Binding 02/24/2018 [facility] Iron 85 g/dL N 50- [address] [place] [address] [phone] Unsaturated Iron Binding < 205 g/dL Total Iron Binding Capacity 220 g/dL Low 250-450 Transferrin 157 mg/dL Low 203-362 % Iron Saturation 39 % N 15-55 Ua Routine 12/18/2017 [facility] Ua Specific [place] 1.015 Ua PH 5 Ua Color dark yellow Ua Appera cloudy Ua WBC ++ Ua Protein 30+ Ua Glucose norm Ua Ketones + Ua Bilirubin ++ Ua Urobilinogen 1 Ua Nitrite - Ua Occult Blood trace Urine Culture And 12/18/2017 [facility] Urine SEE RESULT 53 , [address] [place] [address] [phone] Basic Metabolic 2017 [facility] Sodium 142 mmol/L N 135- 1 [address] [place] [address] [phone] Potassium 4.0 mmol/L N 3.5-5.0 Chloride 106 mmol/L N 101-111 Co2 Carbon Dioxide 29 mmol/L N 22-32 Anion Gap 7 mmol/L N 2-11 Glucose 109 mg/dL High 70-100 Blood Urea Nitrogen 20 mg/dL N 6-24 Creatinine 1.22 mg/dL High 0.51-0.95 BUN/Creatinine Ratio 16.4 N 8-20 Calcium 9.3 mg/dL N 8.6-10.3 Egfr Non- 45.8 >60 Egfr 55.4 >60 56 CBC No Diff 2017 [facility] White Blood 6.0 10^3/uL N 3.5-10.[address] [place] [address] [phone] Red Blood Count 4.40 10^6/uL N 4.00-5.40 Hemoglobin 14.0 g/dL N 12.0-16.0 Hematocrit 41 % N 35-47 Mean Corpuscular Volume 93 fL N 80-97 Mean Corpuscular Hemoglobin 32 pg High 27-31 Mean Corpuscular HGB Conc 34 g/dL N 31-36 Red Cell Distribution Width 15 % N 10.5-15 Platelet Count 190 10^3/uL N 150-450 Mean Platelet Volume 9.8 um3 N 7.4-10.4 Laboratory test 08/28/2017 [facility] Clotest SEE RESULT [address] [place] [address] [phone] Laboratory test 08/28/2017 [facility] Surgical SEE RESULT [address] [place] [address] [phone] Laboratory test 08/01/2017 [facility] TSH (Thyroid 4.72 mcIU/mL N 0.34-[address] Stim Horm) .60 [place] [address] [phone] Free Cortisol Serum 1.410 g/dL Abnormal 59 Laboratory test 07/07/2017 [facility] Hemoglobin A1c 6.2 % High 4.0-5.6 [address] (Glyco HGB) [place] [address] [phone] Basic Metabolic 07/07/2017 [facility] Sodium 140 N 133-145 Panel 101 mmol/[place] [address] [phone] Potassium 4.1 mmol/L N 3.5-5.0 Chloride 103 mmol/L N 101-111 Co2 Carbon Dioxide 28 mmol/L N 22-32 Anion Gap 9 mmol/L N 2-11 Glucose 97 mg/dL N 70-100 Blood Urea Nitrogen 36 mg/dL High 6-24 Creatinine 1.16 mg/dL High 0.51-0.95 BUN/Creatinine Ratio 31.0 High 8-20 Calcium 9.6 mg/dL N 8.6-10.3 Egfr Non- 48.7 >60 Egfr 62.6 >60 61 Laboratory test 06/11/2017 [facility] Ferritin 49.0 ng/mL N 11 -307 finding [address] [place] [address] [phone] Vitamin B12 206 pg/mL N 180-914 62 Folic Acid (Folate) 10.13 ng/mL >3.99 Vitamin D Total 25(Oh) 10.4 ng/mL Low 20-50 Vitamin E Level 7.5 mg/L 5.5 - 17.0 63 Iron & Iron Binding 06/11/2017 [facility] Iron 74 g/dL N 50- 212 [address] [place] [address] [phone] Unsaturated Iron Binding 294 g/dL Total Iron Binding Capacity 368 g/dL N 250-450 % Iron Saturation 20 % N 15-55 Comp Metabolic Panel 06/11/2017 [facility] Sodium 136 mmol/L N 133-145 [address] [place] [address] [phone] Potassium 3.8 mmol/L N 3.5-5.0 Chloride 99 [...] Egfr Non- 49.7 >60 Egfr 63.9 >60 64 CBC Auto Diff 06/11/2017 [facility] White Blood 9.6 10^3/uL N 3.5-10.[address] [place] [address] [phone] Red Blood Count 4.40 10^6/uL N 4.0-5.4 [...] 0-2 Nucleated Red Blood Cells % 0.1 Basic Metabolic Panel 05/07/2017 [facility] Sodium 139 mmol/L N 133-[address] [place] [address] [phone] Potassium 4.5 mmol/L N 3.5-5.0 Chloride 104 mmol/L N 101-111 Co2 Carbon Dioxide 30 mmol/L N 22-32 Anion Gap 5 mmol/L N 2-11 Glucose 96 mg/dL N 70-100 Blood Urea Nitrogen 26 mg/dL High 6-24 Creatinine 0.97 mg/dL High 0.51-0.95 BUN/Creatinine Ratio 26.8 High 8-20 Calcium 9.5 mg/dL N 8.6-10.3 Egfr Non- 59.8 >60 Egfr 77.0 >60 65 Laboratory test 05/07/2017 [facility] B-Type Natriuretic 61 pg/ mL [address] [address] [phone] Urinalysis Profile 05/07/2017 [facility] Urine Color Yellow [address] [place] [address] [phone] Urine Appearance Cloudy Urine Specific [place] 1.019 N 1.010-1.030 Urine pH 5.0 N [...] Cell Present Abnormal Absent Urine Culture And 05/07/2017 [facility] Urine Culture SEE RESULT [address] [place] [address] [phone] Basic Metabolic 04/02/2017 [facility] Sodium 138 mmol/L N 133- [address] [place] [address] [phone] Potassium 4.3 mmol/L N 3.5-5.0 Chloride 102 mmol/L N 101-111 Co2 Carbon Dioxide 29 mmol/L N 22-32 Anion Gap 7 mmol/L N 2-11 Glucose 103 mg/dL High 70-100 Blood Urea Nitrogen 41 mg/dL High 6-24 Creatinine 1.49 mg/dL High 0.51-0.95 BUN/Creatinine Ratio 27.5 High 8-20 Calcium 9.5 mg/dL N 8.6-10.3 Egfr Non- 36.5 >60 Egfr 46.9 >60 68 Urinalysis Profile 03/06/2017 [facility] Urine Color Yellow [address] [place] [address] [phone] Urine Appearance Clear Urine Specific [place] 1.017 N 1.010-1.030 Urine pH 5.0 N [...] Present Abnormal Absent Urine Culture And 03/06/2017 [facility] Urine Culture SEE RESULT [address] [place] [address] [phone] Basic Metabolic 02/27/2017 [facility] Sodium 139 mmol/L N 133- 1 [address] [place] [address] [phone] Potassium 3.6 mmol/L N 3.5-5.0 Chloride 104 mmol/L N 101-111 Co2 Carbon Dioxide 27 mmol/L N 22-32 Anion Gap 8 mmol/L N 2-11 Glucose 91 mg/dL N 70-100 Blood Urea Nitrogen 30 mg/dL High 6-24 Creatinine 1.02 mg/dL High 0.51-0.95 BUN/Creatinine Ratio 29.4 High 8-20 Calcium 9.4 mg/dL N 8.6-10.3 Egfr Non- 56.5 N >60 Egfr 72.6 N >60 71 Laboratory test 02/12/2017 [facility] TSH (Thyroid 1.93 mcIU/mL N 0.34-5.[address] Stim [place]) [place] [address] [phone] B-Type Natriuretic Peptide BNP 71 pg/mL N 72 CBC Auto Diff 02/06/2017 [facility] White Blood 10.8 10^3/uL N 3.5-10.[address] [place] [address] [phone] Red Blood Count 4.54 10^6/uL N 4.0-5.4 [...] um3 N 7.4-10.4 Comp Metabolic Panel 02/06/2017 [facility] Sodium 138 mmol/L N 133-[address] [place] [address] [phone] Potassium 3.8 mmol/L N 3.5-5.0 Chloride 105 [...] N >60 73 Urine Culture And 02/06/2017 [facility] Urine Culture SEE RESULT [address] [place] [address] [phone] Urinalysis Profile 02/06/2017 [facility] Urine Color Straw N [address] [place] [address] [phone] Urine Appearance Clear N Urine Specific [place] 1.014 N 1.010-1.030 Urine pH 5.0 N [...] Present Abnormal Absent Laboratory test finding 01/29/2017 [facility] Hemoglobin A1c 6.0 5-7 Ua Routine 01/29/2017 [facility] Ua Specific [place] 1.015 Ua PH 5 Ua Color Dark Yellow Ua Appera Clear Ua WBC + Ua Protein Neg Ua Glucose Neg Ua Ketones Neg Ua Bilirubin Neg Ua Urobilinogen Neg Ua Nitrite Neg Ua Occult Blood Neg Xray 07/30/2016 [facility] Knee 3 Views <pending> [address] [place] [address] [phone] Basic Metabolic 07/02/2016 [facility] Sodium 141 mmol/L N 133- [address] [place] [address] [phone] Potassium 3.8 mmol/L N 3.5-5.0 Chloride 105 [...] N >60 75 Urine Culture And 06/10/2016 [facility] Urine Culture SEE RESULT [address] [place] [address] [phone] Laboratory test 06/10/2016 [facility] Lipase 40 U/L N 11.0- finding [address] 82.0 [place] [address] [phone] C Reactive Protein 2.78 mg/L N < 5.00 77 Comp Metabolic Panel 06/10/2016 [facility] Sodium 137 mmol/L N 133-[address] [place] [address] [phone] Chloride 103 mmol/L N 101-111 Co2 Carbon [...] 16 U/L N 13-39 Urinalysis Profile 06/10/2016 [facility] Urine Color Yellow N [address] [place] [address] [phone] Urine Appearance Clear N Urine Specific [place] 1.016 N 1.010-1.030 Urine pH 5.0 N [...] Present Abnormal Absent CBC Auto Diff 06/10/2016 [facility] White Blood 9.2 10^3/uL N 3.5-10.[address] [place] [address] [phone] Red Blood Count 4.81 10^6/uL N 4.0-5.4 [...] Cells % 0 N Urinalysis Profile 01/03/2016 [facility] Urine Color Yellow N [address] [place] [address] [phone] Urine Appearance Turbid N Urine Specific [place] 1.027 N 1.010-1.030 Urine pH 5.0 N [...] Absent N Absent Urine Culture And 01/03/2016 [facility] Urine Culture SEE RESULT [address] [place] [address] [phone] Laboratory test 07/14/2015 [facility] Metanephrines SEE COMMENT N [address] [place] [address] [phone] Laboratory test 06/26/2015 [facility] Cortisol 16.20 ?g/dL N [address] [place] [address] [phone] Basic Metabolic 06/26/2015 [facility] Sodium 138 mmol/L N 133 - Panel [address] [place] [address] [phone] Potassium 4.0 mmol/L N 3.5-5.0 Chloride 102 mmol/L N 101-111 Co2 Carbon Dioxide 27 mmol/L N 22-32 Anion Gap 9 mmol/L N 2-11 Glucose 91 mg/dL N 70-100 Blood Urea Nitrogen 36 mg/dL High 6-24 Creatinine 0.94 mg/dL N 0.51-0.95 BUN/Creatinine Ratio 38.3 High 8-20 Calcium 9.6 mg/dL N 8.6-10.3 Egfr Non- 62.5 N >60 Egfr 80.4 N >60 82 Laboratory 06/26/2015 [facility] Hepatitis C Nonreactive N Nonreactive test finding 101 [facility] [place] [address] [phone] Aldosterone 12 ng/dL N <=21 83 Renin 4.0 ng/mL/h N 84 TSH (Thyroid Stim Horm) 2.34 ?IU/mL N 0.34-5.60 Laboratory test 05/30/2015 [facility] Cytology SEE RESULT BELOW 85 finding [address] [place] [address] [phone] HPV Rna Ww/Reflex Genotype Negative N Negative 86 Laboratory test 05/12/2015 [facility] Inr/Protime 0.99 N 0.89- 1.11 finding [address] [place] [address] [phone] Urinalysis Profile 05/12/2015 [facility] Urine Color Yellow N [address] [place] [address] [phone] Urine Appearance Clear N Urine Specific [place] 1.012 N 1.010-1.030 Urine pH 5.0 N 5-9 Urine Urobilinogen Negative N Negative Urine Ketones Negative N Negative Urine Protein Negative N Negative Urine Leukocytes Negative N Negative Urine Blood Negative N Negative Urine Nitrite Negative N Negative Urine Bilirubin Negative N Negative Urine Glucose Negative N Negative CBC Auto 05/12/2015 [facility] White Blood 12.0 10^3/uL High 3.5-10.[address] [place] [address] [phone] Red Blood Count 5.45 10^6/uL High 4.0-5.4 [...] Cells % 0 N Laboratory test 05/12/2015 [facility] Lactic Acid 1.3 mmol/L N 0.5-2.0 87 finding [address] [place] [address] [phone] Troponin-I (TnI) 0.00 ng/mL N <0.03 88 Comp Metabolic Panel 05/12/2015 [facility] Sodium 138 mmol/L N 133-145 [address] [place] [address] [phone] Potassium 3.8 mmol/L N 3.5-5.0 Chloride 103 [...] N >60 89 Laboratory test finding 05/12/2015 [facility] Amylase 49 U/L N 29-[address] [place] [address] [phone] Lipase 26 U/L N 11.0-82.0 Creatine Kinase(CK) 29 U/L N 10-223 C Reactive Protein 1.51 mg/L N < 5.00 90 CBC Auto Diff 02/25/2014 [facility] White Blood 6.6 10^3/uL N 4.8-10.[address] [place] [address] [phone] Red Blood Count 4.47 10^6/uL N 4.0-5.4 [...] % 0 N Comp Metabolic Panel 02/25/2014 [facility] Sodium 139 mmol/L N 133-[address] [place] [address] [phone] Potassium 3.8 mmol/L N 3.7-5.6 Chloride 104 [...] N >60 Egfr 97.3 N >60 92 CBC Auto 07/16/2013 [facility] White Blood 16.3 10^3/uL High 4.8-10.[address] [place] [address] [phone] Red Blood Count 4.67 10^6/uL N 4.0-5.4 [...] Blood Cells % 0 N Urinalysis 07/16/2013 [facility] Urine Color Yellow N [address] [place] [address] [phone] Urine Appearance Clear N Urine Specific [place] 1.019 N 1.010-1.030 Urine Esterase Negative N Negative Urine Nitrate Negative N Negative Urine Urobilinogen Negative E.U./dL N Negative Urine Protein Negative mg/dL N Negative Urine pH 5.5 N 5-9 Urine Blood Negative N Negative Urine Ketones Negative mg/dL N Negative Urine Bilirubin Negative N Negative Urine Glucose Negative mg/dL N Negative Laboratory test 07/16/2013 [facility] Lactic Acid 0.9 mmol/L N 0.5-2.2 finding [address] [place] [address] [phone] Comp Metabolic 07/16/2013 [facility] Sodium 137 mmol/L N 133- 145 Panel [address] [place] [address] [phone] Potassium 3.7 mmol/L N 3.7-5.6 Chloride 101 [...] 55.5 N >60 Egfr 71.3 N >60 93 Laboratory test finding 07/16/2013 [facility] Amylase 31 U/L N 29-103 [address] [place] [address] [phone] Lipase 14 U/L N 11.0-82.0 C Reactive Protein 84.88 mg/L High < 5.00 94 Surgical Pathology 07/13/2013 [facility] S RUN DATE: [address] 07/14/ <[place] [address] NOTE> [phone] Comp Metabolic 06/15/2013 [facility] Sodium 140 mmol/L 133- [address] [place] [address] [phone] Potassium 3.9 mmol/L 3.7-5.6 Chloride 107 mmol/L [...] Egfr 92.3 >60 96 Laboratory test 06/08/2013 [facility] Cytology RUN DATE: [address] 06/10/ <[place] [address] NOTE> [phone] Laboratory test 10/12/2012 [facility] TSH (Thyroid 1.81 miu/mL 0.34- finding [address] Stimulating Horm) 5.60 [place] [address] [phone] Cortisol 12.9 g/dL 98 CBC No Diff 10/12/2012 [facility] White Blood 7.6 10^3/uL 4.8 -10.[address] [place] [address] [phone] Red Blood Count 5.02 10^6/uL 4.0-5.4 Hemoglobin 16.1 g/dL High 12.0-16.0 Hematocrit 47 % 35-47 Mean Corpuscular Volume 94 fL 80-97 Mean Corpuscular Hemoglobin 32 pg High 27-31 Mean Corpuscular HGB Conc 34 g/dL 31-36 Red Cell Distribution Width 15 % 10.5-15 Platelet Count 171 10^3/uL 150-450 Mean Platelet Volume 11 um3 High 7.4-10.4 Lipid Profile 10/12/2012 [facility] Triglycerides 79 mg/dL 40 -200 (Trig/Chol/HDL) [address] [place] [address] [phone] Cholesterol 161 mg/dL Less than 200 HDL Cholesterol 68 mg/dL High 40-60 99 Cholesterol/HDL Ratio 2.4 Average 1-4.44 LDL Cholesterol 77.2 Less Than 100 100 Comp Metabolic Panel 10/12/2012 [facility] Sodium 137 mmol/L 133-145 [address] [place] [address] [phone] Potassium 3.9 mmol/L 3.5-5.0 Chloride 103 mmol/L [...] 98.0 >60 101 Urine Culture & 04/13/2010 [facility] Urine Culture NF1 [address] [facility] [place] [address] [phone] 1 Because ethnic data is not always [...] Food and Drug Administration. Test Performed by: [facility] - [address] [address] 4 ADDITIONAL INFORMATION This test was developed and its performance characteristics determined by [facility] in a manner consistent with CLIA requirements. This test has not been cleared or approved by the U.S. Food and Drug Administration. Test Performed by: [facility] - [address] [address] 5 REFERENCE VALUE -2.0 - +2.0 ADDITIONAL INFORMATION This test was developed and its performance characteristics determined by [facility] in a manner consistent with CLIA requirements. This test has not been cleared or approved by the U.S. Food and Drug Administration. Test Performed by: [facility] - [address] [address] 6 Normally menstruating females - Follicular phase [...] Food and Drug Administration. Test Performed by: [facility] - [address] [address] 10 REFERENCE VALUE (Peripheral vein specimen) Na-deplete, [...] Food and Drug Administration. Test Performed by: [facility] - [address] [address] 11 Because ethnic data is not always [...] (or dialysis) 12 SEE RESULT BELOW Name: RENATA DIAZ : [address]: Yessi Bkaer MD Acct: [id number] Unit: [id number] AGE: 57 Location: LAB Re05/18/18 SEX: F Status: REG REF SPEC: [id number] LEAH: 05/18/[address]: Yessi Baker MD REQ: [id number] RECD: 05/18/18 STATUS: COMP _ SOURCE: URINE SPDESC: ORDERED: Urine Culture Procedure Result Reported Site Urine Culture Final 05/19/18- 1604 ML No growth of clinically significant organisms * ML - Main Lab . END OF REPORT DEPARTMENT OF PATHOLOGY, [address] [place] [address] Reginald Steele M.D. Director [facility] # [id number] REFERENCE VALUE 7.2-63 (a.m. collection) Test Performed by: [facility] - [address] [address] 14 AM 8.7-22.4 PM <10 15 ADDITIONAL INFORMATION This test was developed and its performance characteristics determined by [facility] in a manner consistent with CLIA requirements. This test has not been cleared or approved by the U.S. Food and Drug Administration. Test Performed by: [facility] - [facility] [address] [place] [address] 16 SEE RESULT BELOW Name: DIAZRENATA Mike : [address]: Kory Babcock MD Acct: [id number] Unit: [id number] AGE: 57 Location: LAB Re05/06/18 SEX: F Status: REG REF SPEC: [id number] LEAH: 05/06/[address]: Kory Babcock MD REQ: [id number] RECD: 05/06/18 STATUS: DOUG BREAUX DR: Jesse Bhakta MD _ SOURCE: URINE SPDESC: ORDERED: Urine Culture Procedure Result Reported Site Urine Culture Final 05/08/18- 1004 ML Organism 1 KLEBSIELLA PNEUMONIAE [place] Count 10-25,000 (Moderate) CFU/ML Organism 2 NORMAL NAFISA [place] Count 10-25,000 (Moderate) CFU/ML 1. KLEBSIELLA PNEUMONIAE [...] . END OF REPORT DEPARTMENT OF PATHOLOGY, [address] [place] [address] Reginald Steele M.D. Director [facility] # [id number] 17 Because ethnic data is not always readily [...] 15-29 5 Kidney failure <15 (or dialysis) 18 ADDITIONAL INFORMATION This test was developed and its performance characteristics determined by [facility] in a manner consistent with CLIA requirements. This test has not been cleared or approved by the U.S. Food and Drug Administration. Test Performed by: [facility] [address] [place] [address] 19 Because ethnic data is not always [...] 5 Kidney failure <15 (or dialysis) 21 The 24 hour volume of this urine collection is unusually low. To properly screen for the ordered test, renal output of at least 500 mL per day is required. If this is a partial collection, we suggest recollecting the urine for 24 hours. 22 ADDITIONAL INFORMATION This test was developed and its performance characteristics determined by [facility] in a manner consistent with CLIA requirements. This test has not been cleared or approved by the U.S. Food and Drug Administration. Test Performed by: [facility] - [address] [address] 23 The 24 hour volume of 350 mL from this urine collection is unusually low. To properly screen for pheochromocytoma, renal output of at least 500 mL per day is required. If this is a partial collection, suggest recollecting the urine for 24 hours. If this patient has significantly reduced renal function, order metanephrine on plasma, [facility] Lab catalog: [id number]. 24 ADDITIONAL INFORMATION This test was developed and its performance characteristics determined by [facility] in a manner consistent with CLIA requirements. This test has not been cleared or approved by the U.S. Food and Drug Administration. Test Performed by: [facility] - [address] [address] 25 REFERENCE VALUE 7.2-63 (a.m. collection) Test Performed by: [facility] - [address] [address] 26 ADDITIONAL INFORMATION This test was developed and its performance characteristics determined by [facility] in a manner consistent with CLIA requirements. This test has not been cleared or approved by the U.S. Food and Drug Administration. Test Performed by: [facility] - [facility] [address] [place] [address] 27 Test Performed by: [facility] - [address] [address] 28 REFERENCE VALUE 30-180 (Normotensive) <400 (Hypertensive) 29 REFERENCE VALUE 128-484 (Normotensive) <900 (Hypertensive) 30 The 24 hour volume of 350 mL from this urine collection is unusually low. To properly screen for pheochromocytoma, renal output of at least 500 mL per day is required. If this is a partial collection, suggest recollecting the urine for 24 hours. If this patient has significantly reduced renal function, order metanephrine on plasma, [facility] catalog: [id number]. REFERENCE VALUE 164-588 (Normotensive) <1300 (Hypertensive) 31 ADDITIONAL INFORMATION This test was developed and its performance characteristics determined by [facility] in a manner consistent with CLIA requirements. This test has not been cleared or approved by the U.S. Food and Drug Administration. Test Performed by: [facility] [address] [place] [address] 32 AM 8.7-22.4 PM <10 33 REFERENCE VALUE < 80 (Follicular) <285 (Luteal) < 51 (Postmenopausal) ADDITIONAL INFORMATION This test was developed and its performance characteristics determined by [facility] in a manner consistent with CLIA requirements. This test has not been cleared or approved by the U.S. Food and Drug Administration. Test Performed by: [facility] - [address] [address] 34 Because ethnic data is not always [...] Food and Drug Administration. Test Performed by: [facility] - [address] [address] 38 ADDITIONAL INFORMATION This test was developed and its performance characteristics determined by [facility] in a manner consistent with CLIA requirements. This test has not been cleared or approved by the U.S. Food and Drug Administration. Test Performed by: [facility] - [address] [address] 39 ADDITIONAL INFORMATION This test was developed and its performance characteristics determined by [facility] in a manner consistent with CLIA requirements. This test has not been cleared or approved by the U.S. Food and Drug Administration. Test Performed by: [facility] - [address] [address] 40 ADDITIONAL INFORMATION This test was developed and its performance characteristics determined by [facility] in a manner consistent with CLIA requirements. This test has not been cleared or approved by the U.S. Food and Drug Administration. Test Performed by: [facility] - [address] [address] 41 Because ethnic data is not always [...] Food and Drug Administration. Test Performed by: [facility] - [address] [address] 43 ADDITIONAL INFORMATION Reference range for patients 11 years and older is based on upright A.M. collection from subjects without sodium restrictions. This test was developed and its performance characteristics determined by [facility] in a manner consistent with CLIA requirements. This test has not been cleared or approved by the U.S. Food and Drug Administration. Test Performed by: [facility] - [address] [address] 44 ADDITIONAL INFORMATION This test was developed and its performance characteristics determined by [facility] in a manner consistent with CLIA requirements. This test has not been cleared or approved by the U.S. Food and Drug Administration. Test Performed by: [facility] - [address] [address] 45 Because ethnic data is not always [...] Food and Drug Administration. Test Performed by: [facility] - [facility] [address] [place] [address] 48 ADDITIONAL INFORMATION This test was developed and its performance characteristics determined by [facility] in a manner consistent with CLIA requirements. This test has not been cleared or approved by the U.S. Food and Drug Administration. Test Performed by: [facility] - [facility] [address] [place] [address] 49 Because ethnic data is not always [...] Food and Drug Administration. Test Performed by: [facility] - [address] [address] 52 ADDITIONAL INFORMATION This test was developed and its performance characteristics determined by [facility] in a manner consistent with CLIA requirements. This test has not been cleared or approved by the U.S. Food and Drug Administration. Test Performed by: [facility] - [address] [address] 53 [id number] 54 SEE RESULT BELOW Name: RENATA DIAZ : [address]: Lucila Bhakta MD Acct: [id number] Unit: [id number] AGE: 57 Location: [facility] Re12/18/17 SEX: F Status: REG REF SPEC: [id number] LEAH: 12/18/17-[address] [facility] [address]: Lucila Bhakta MD REQ: [id number] RECD: 12/18/17 STATUS: COMP _ SOURCE: URINE SPDESC: ORDERED: Urine Culture COMMENTS: [id number] Urine Source: Clean Catch Procedure Result Reported Site Urine Culture Final 12/20/17- 0844 ML Organism 1 ESCHERICHIA COLI [place] Count >100,000 (Many) CFU/ML Organism 2 PROTEUS SPECIES [place] Count 1-10,000 (Few) CFU/ML PROTEUS SP: SUSCEPTIBILITY [...] CONTINUED ON NEXT PAGE DEPARTMENT OF PATHOLOGY, [address] [place] [address] Reginald Steele M.D. Director [facility] # [id number] Patient: RENATA DIAZ [id number] (Continued) Specimen: [id number] Collected: 12/18/17 Received: 12/18/17-1837 (Continued) Procedure Result Reported Site Urine Culture Final (continued) Contact the Microbiology Department for any additional antibiotic reporting. * ML - Main Lab . END OF REPORT DEPARTMENT OF PATHOLOGY, [address], [place], [place] [address] Reginald Steele M.D. Director [facility] # [id number] 57 12/10 56 Because ethnic data is [...] [address]: Jaja Olivas DO Acct: [id number] Unit: [id number] AGE: 56 Location: OR Re08/28/17 SEX: F Status: JAKY OSBORN SPEC: [id number] LEAH: 08/28/[address]: Jaja Olivas DO REQ: [id number] RECD: 08/28/17 STATUS: DOUG BREAUX DR: Lucila Bhakta MD _ SOURCE[facility] ORDERED: Clotest Procedure Result Reported Site Clotest Final 08/29/17715 ML Clotest Negative * ML - Main Lab . END OF REPORT DEPARTMENT OF PATHOLOGY, [address] [place] [address] Reginald Steele M.D. Director [facility] # [id number] 58 SEE RESULT BELOW Name: RENATA DIAZ : [address]: Jaja Olivas DO Acct: [id number] Unit: [id number] AGE: 56 Location: OR Re08/28/17 SEX: F Status: DEP [place] SPEC: [id number] LEAH: 08/28/17-[address]: Jaja Olivas DO REQ: [id number] RECD: 08/28/17 STATUS: WENDY BREAUX DR: Jesse [...] CONTINUED ON NEXT PAGE DEPARTMENT OF PATHOLOGY, [address] [place] [address] Reginald Steele M.D. Director [facility] # [id number] RUN DATE: 08/29/17 [facility] LAB LIVE PAGE 2 Patient: RENATA DIAZ [id number] (Continued) GROSS DESCRIPTION (Continued) GROSS DESCRIPTION 1. [...] 1027 END OF REPORT DEPARTMENT OF PATHOLOGY, [address] [place] [address] Reginald Steele M.D. Director [facility] # [id number] 59 REFERENCE VALUE 6:00-10:30 AM Collection 0.121-1.065 mcg/dL ADDITIONAL INFORMATION This test was developed and its performance characteristics determined by [facility] in a manner consistent with CLIA requirements. This test has not been cleared or approved by the U.S. Food and Drug Administration. Test Performed by: [facility] - [facility] [address] [place] [address] 40 Therapeutic target for the treatment of diabetes mellitus patients is <7% HBA1C, and in selective patients <6.0%. Please refer to [place] [employer] diabetic care guidelines for further [...] 5 Kidney failure <15 (or dialysis) 62 Normal Range 180 to 914 Indeterminate Range 145 to 180 Deficient Range <145 63 ADDITIONAL INFORMATION This test was developed and its performance characteristics determined by [facility] in a manner consistent with CLIA requirements. This test has not been cleared or approved by the U.S. Food and Drug Administration. Test Performed by: [facility] - [facility] [address] [place] [address] 64 Because ethnic data is not always readily [...] 15-29 5 Kidney failure <15 (or dialysis) 65 Because ethnic data is not always readily [...] 15-29 5 Kidney failure <15 (or dialysis) 66 >100 to <200 pg/mL: likely compensated congestive heart failure (CHF) 200 to 400 pg/mL: likely moderate CHF >400 pg/mL: likely moderate to severe CHF 67 SEE RESULT BELOW Name: RENATA DIAZ : [address]: Lucila Bhakta MD Acct: [id number] Unit: [id number] AGE: 56 Location: [facility] Re05/07/17 SEX: F Status: REG REF SPEC: [id number] LEAH: 05/07/[address]: Lucila Bhakta MD REQ: [id number] RECD: 05/07/17 STATUS: COMP _ SOURCE: URINE SPDESC: ORDERED: Urine Culture Procedure Result Reported Site Urine Culture Final 05/08/17- 1644 ML No Growth (<1,000 CFU/mL) * ML - MAIN LAB ([facility]1) . END OF REPORT * ML=Testing performed at Main Lab DEPARTMENT OF PATHOLOGY, [address] [place] [address] Reginald Steele M.D. Director [facility] # [id number] 68 Because ethnic data is not always [...] 69 SEE RESULT BELOW Name: RENATA DIAZ : [address]: Lucila Bhakta MD Acct: [id number] Unit: [id number] AGE: 56 Location: [facility] Re03/06/17 SEX: F Status: REG REF SPEC: [id number] LEAH: 03/06/17-[address]: Lucila Bhakta MD REQ: [id number] RECD: 03/06/17123 STATUS: COMP _ SOURCE: URINE SPDESC: ORDERED: Urine Culture Procedure Result Reported Site Urine Culture Final 03/07/17- 1213 ML No growth of clinically significant organisms * ML - MAIN LAB ([facility]) . END OF REPORT * ML=Testing performed at Main Lab DEPARTMENT OF PATHOLOGY, [address] [place] [address] Reginald Steele M.D. Director [facility] # [id number] [phone] [phone] 71 Because ethnic data is not always readily [...] (or dialysis) 74 SEE RESULT BELOW Name: JOERENATA Mike : [address]: Henrique Dash MD Acct: [id number] Unit: [id number] AGE: 56 Location: ED Re02/06/17 SEX: F Status: DEP ER SPEC: [id number] LEAH: 02/06/[address]: Henrique Dash MD REQ: [id number] RECD: 02/06/17 STATUS: COMP OTHR DR: Lucila Bhakta MD _ SOURCE: URINE SPDESC: ORDERED: Urine Culture Procedure Result Reported Site Urine Culture Final 02/07/17- 1608 ML Few Enterobacteriacae; possible contamination. * ML - MAIN LAB ([facility]) . END OF REPORT * ML=Testing performed at Main Lab DEPARTMENT OF PATHOLOGY, [address] [place] [address] Reginald Steele M.D. Director [facility] # [id number] 75 Because ethnic data is not always [...] Attend Dr: Juan Carlos Pang MD Acct: [id number] Unit: [id number] AGE: 55 Location: ED Re06/10/16 SEX: F Status: DEP ER SPEC: [id number] LEAH: 06/10/16-[address]: Juan Carlos Pang MD REQ: [id number] RECD: 06/10/16-1321 STATUS: COMP OTHR DR: Lucila Bhakta MD _ SOURCE: URINE SPDESC: ORDERED: Urine Culture Procedure Result Reported Site Urine Culture Final 06/11/16- 1316 ML No growth of clinically significant organisms * ML - MAIN LAB ([facility]) . END OF REPORT * ML=Testing performed at Main Lab DEPARTMENT OF PATHOLOGY, [address] [place] [address] Reginald Steele M.D. Director [facility] # [id number] 77 Acute inflammation: >10.00 78 Because ethnic [...] [address]: Lucila Bhakta MD Acct: [id number] Unit: [id number] AGE: 55 Location: [facility] Re01/03/16 SEX: F Status: REG REF SPEC: [id number] LEAH: 01/03/[address]: Lucila Bhakta MD REQ: [id number] RECD: 01/03/16 STATUS: COMP _ SOURCE: URINE SPDESC: ORDERED: Urine Culture Procedure Result Reported Site Urine Culture Final 01/04/16- 1715 ML Mixed nafisa; possible contamination. Suggest resubmission. * ML - MAIN LAB ([facility]) . END OF REPORT * ML=Testing performed at Main Lab DEPARTMENT OF PATHOLOGY, [address] [place] [address] Reginald Steele M.D. Director [facility] # [id number] 80 Metanephrines, Free, Plasma Metanephrine, Free <25 pg/mL < OR=57 Y09 6 Normetanephrine, Free 60 pg/mL < FU=933 Y09 6 Total, Free ([place] + NMN) 60 pg/mL < AE=831 Y09 6 Elevations > 4-fold upper reference [...] Clinical Endocrinology and Metabolism 93 (1),91-95, 2008. [email or web address] RECEIVED: 07/15/2015 09:33 REPORTED: 07/20/2015 14:24 --- 07/24/15 1059 --- Normetanephrine previously reported as: C Metanephrines, Free, Plasma Metanephrine, Free <25 pg/mL < OR=57 Y09 6 Normetanephrine, Free 60 pg/mL < JC=903 Y09 6 Total, Free (MN + NMN) 60 pg/mL < FE=864 Y09 6 Elevations > 4-fold upper reference [...] Clinical Endocrinology and Metabolism 93 (1),91-95, 2008. [email or web address] RECEIVED: 07/15/2015 09:33 REPORTED: 07/20/2015 14:24 81 AM 8.7-22.4 PM <10 82 Because ethnic data is not always readily [...] 15-29 5 Kidney failure <15 (or dialysis) 83 ADDITIONAL INFORMATION Reference range for patients 11 years and older is based on upright A.M. collection from subjects without sodium restrictions. Test Performed by: [place] [address] Marine Propulsion Technician: Lucas Nunez II, M.D., Ph.D. 84 REFERENCE VALUE (Peripheral vein specimen) Na-deplete, upright: Mean: 5.9 Range: 2.9-10.8 Na-replete, upright: Mean: 1.0 Range: < or=0.6-3.0 ADDITIONAL INFORMATION Testing performed by Liquid Chromatography-Tandem Mass Spectrometry (LC-MS/MS). Test Performed by: [place] [address] Marine Propulsion Technician: Lucas Nunez II, M.D., Ph.D. 85 SEE RESULT BELOW Name: RENATA DIAZ : [address]: Lucila Bhakta MD Acct: [id number] Unit: [id number] AGE: 54 Location: [facility] Re05/30/15 SEX: F Status: REG REF SPEC: [id number] LEAH: 05/30/15-[address]: Lucila Bhakta MD REQ: [id number] RECD: 05/30/15 STATUS: SOUT _ ORDERED: IMAGE [...] Signed (signature on file) ASHISH Jerry(ASCP) 05/31 0132 This Pap test was evaluated with the assistance of the Technology [employer] Test Imaging System. Due to cytologic findings at the transit vehicle inspector microscope, comprehensive manual rescreening by a Spare Parts Clerk may be required. The Pap Smear is [...] performed at Main Lab DEPARTMENT OF PATHOLOGY, [address] [place] [address] Reginald Steele M.D. Director [facility] # [id number] RUN DATE: 05/31/15 [facility] LAB LIVE PAGE 1 Patient: RENATA DIAZ [id number] ([facility]) 86 The high-risk HPV types detected by the assay include: 16, 18, 31, 33, 35, 39, 45, 51, 52, 56, 58, 59, 66, and 68. 87 [facility] Severe Sepsis and Septic Shock Management Bundle Measure requires all lactic acids initially measuring >2.0mmol/L be repeated. 88 Reference Range and Interpretation: TnI (ng/mL) Interpretation Less Than 0.03 ng/mL Not supportive of diagnosis of [place] 0.03 - 0.50 ng/mL Indeterminate: suggest serial studies if clinically indicated. Greater than 0.5 ng/mL Consistent with diagnosis of [place] 89 Because ethnic data is not always [...] 5 Kidney failure <15 (or dialysis) 93 Because ethnic data is not always readily [...] 15-29 5 Kidney failure <15 (or dialysis) 94 Acute inflammation: >10.00 In accordance with FDA guideline, CRP is now reported in mg/L, previous reporting was in mg/dL. 95 RUN DATE: 07/14/13 [facility] LAB LIVE PAGE 1 RUN TIME: [address] [place] [address] Specimen Inquiry Name: RENATA DIAZ : [address]: Skyler Huggins MD Acct: [id number] Unit: [id number] AGE: 52 Location: ENDO Re07/13/13 SEX: F Status: REG REF SPEC: [id number] LEAH: 07/13/13- SUBM DR: Skyler Huggins MD REQ: [id number] RECD: 07/13/131139 STATUS: WENDY BREAUX DR: Lucila Bhakta MD [...] of multiple irregular, bethea-pink soft tissue fragments. Professor Of Art sections, one cassette. 1. CONTINUED ON NEXT PAGE * ML=Testing performed at Main Lab DEPARTMENT OF PATHOLOGY, [facility] [place] [address] Reginald Steele M.D. Director [place] Permit #[id number] RUN DATE: 07/14/13 [facility] LAB LIVE PAGE 2 RUN TIME: 1535 [facility] [place], [place] [address] Specimen Inquiry Patient: RENATA DIAZ [id number] (Continued) GROSS DESCRIPTION (Continued) Signed (signature on file) Briseida Mix MD 1534 END OF REPORT * ML=Testing performed at Main Lab DEPARTMENT OF PATHOLOGY, [facility] [employer] [place], [place] [address] Reginald Steele M.D. Director [facility] Permit #[id number] 96 Because ethnic data is not always [...] <15 (or dialysis) 97 RUN DATE: 06/10/13 [facility] LAB LIVE PAGE 1 RUN TIME: [address] [place] [address] Specimen Inquiry Name: RENATA DIAZ : [address]: Lucila Bhakta MD Acct: [id number] Unit: [id number] AGE: 52 Location: [facility] Re06/08/13 SEX: F Status: REG REF SPEC: [id number] LEAH: 06/08/13-[address]: Lucila Bhakta MD REQ: [id number] RECD: 06/08/13-1610 STATUS: SOUT _ ORDERED: IMAGE [...] Signed (signature on file) Briseida Mix MD 9846 This Pap test was evaluated with the assistance of the AngioSlide Test Imaging System. Due to cytologic findings at the transit vehicle inspector microscope, comprehensive manual rescreening by a Spare Parts Clerk may be required. The Pap Smear is [...] performed at Main Lab DEPARTMENT OF PATHOLOGY, [address] [place] [address] Reginald Steele M.D. Director [facility] Permit #[id number] 98 AM Cortisol 8.7-22.4 PM Cortisol Less [...] INFECTION Procedures Date Code Description Status 02/15/2018 82251 EKG, Interpretation Only Completed 02/12/2018 86316 EKG, Interpretation Only Completed 01/09/2018 00318054 Mammogram Completed 09/10/2017 07443 ECHO Transthoracic, Real-Time 2D With Doppler And Completed Color Flow 09/10/2017 26530 ECHO Transthoracic, Real-Time 2D With Doppler And Completed Color Flow 09/05/2017 10097 Stress ECHO Interpretation/Report Hospital Completed 09/05/2017 71730 Treadmill Interp/Report Only Completed 09/05/2017 48260 Stress Test Supervsn W/Out I/R Completed 09/02/2017 64977 EKG Tracing & Interpretation Completed 08/28/2017 99093 Endoscopy Upper GI Biopsy Completed 07/30/2016 24259 I&D Abscess Simple Completed 07/30/2016 68131 Removal Skin Tags Up To 15 Completed 07/30/2016 77330 Inject/Drain Joint/Bursa Major W/O US Completed 07/23/2016 59938581 Mammogram Completed 01/09/2016 22121 Xray Knee 3 Views Completed 01/09/201684881 Inject/Drain Joint/Bursa Major W/O US Completed 07/14/2015 01981004 Mammogram Completed 09/21/2013 74834 Polysomnography Sleep Staging 4+ Parameters W/Cpap Completed 09/01/2013 50107 Polysomnography Sleep Staging 4+ Parameters Completed 07/26/2013 95532 Inject/Drain Joint/Bursa Major W/O US Completed 07/16/2013 68904 EKG, Interpretation Only Completed 07/13/2013 57361821 Colonoscopy Completed 06/18/2013 80129 Rad Exam; Knee, Ap&L Completed 06/18/2013 23254 Rad Exam; Knee, Ap&L Completed 06/18/201324643 Inject/Drain Joint/Bursa Major W/O US Completed 06/18/201324871 Inject/Drain Joint/Bursa Major W/O US Completed 06/18/2013 46146 Xray Knee 3 Views Completed 06/18/2013 33736 Xray Knee 3 Views Completed 06/15/2013 081654075 Bone Mineral Density Test Completed 01/19/2013 61458208 Mammogram Completed 12/30/2012 19178 Rad Exam; Wrist, Comp, Min 3 Views Completed 05/08/2010 44513657 Mammogram Completed 02/27/2010 28961 Treadmill Interp/Report Only Completed 02/27/2010 32402 Stress Test Supervsn W/Out I/R Completed Encounters Type Date Location Provider Dx Diagnosis Office Visit 05/15/2018 [facility] Nephrology Yessi Baker, N18.3 Chronic kidney 2:00p disease, stage 3 (moderate) I12.9 Hypertensive chronic kidney disease w stg 1-4/unsp chr kdny E83.42 Hypomagnesemia E26.9 Hyperaldosteronism, unspecified Office Visit 05/06/2018 11:00a [place] [facility] Kory Babcock, 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 E87.6 Hypokalemia M54.5 Low back pain Z98.84 Bariatric surgery status 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 Office Visit 05/04/2018 10:10a [facility] Internal Lucila Bhakta, M54.5 Low back pain Medicine - Jessica Jose N18.3 Chronic kidney disease, stage 3 (moderate) E87.6 Hypokalemia Office Visit 03/30/2018 1:00p [place] [facility] Horn Coch, R60.0 Localized edema Endocrinology of [facility] R51 Headache Z98.84 Bariatric surgery status 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 Z87.891 Personal history of nicotine dependence N18.3 Chronic kidney disease, stage 3 (moderate) I12.9 Hypertensive chronic kidney disease w stg 1-4/unsp chr kdny E66.9 Obesity, unspecified Z68.43 Body mass index (BMI) 50-59.9, adult Office Visit 03/16/2018 [place] [facility] [place], 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 Endocrinology of MD nadia Pickering E87.6 Hypokalemia Z98.84 Bariatric surgery status E66.01 Morbid (severe) obesity due to excess calories Z68.43 Body mass index (BMI) 50-59.9, adult Office Visit 03/03/2018 11:50a [facility] Internal Lucila Bhakta, E87.6 Hypokalemia [facility] Jessica Jose Z98.84 Bariatric surgery status M54.5 Low back pain R60.0 Localized edema Office Visit 02/17/2018 11:10a [facility] Ayde Summersx, Z48.815 Encntr for Assjeff figueredo NP surgical aftcr Hospitalists following surgery on the dgstv sys Z98.84 Bariatric surgery status R51 Headache I10 Essential (primary) hypertension Office Visit 02/15/2018 11:10a [facility] Lucas Z48.815 Encntr for Assocjeff PA surgical aftcr Hospitalists following surgery on the dgstv sys Z98.84 Bariatric surgery status R07.9 Chest pain, unspecified G47.33 Obstructive sleep apnea (adult) (pediatric) E83.42 Hypomagnesemia E87.6 Hypokalemia Office Visit 02/14/2018 11:10a [facility] Lucas Z48.815 Encntr for Assocjeff PA surgical aftcr Hospitalists following surgery on the dgstv sys Z98.84 Bariatric surgery status R07.9 Chest pain, unspecified E83.42 Hypomagnesemia E87.6 Hypokalemia I95.9 Hypotension, unspecified G47.33 Obstructive sleep apnea (adult) (pediatric) Office Visit 02/12/2018 10:32a [place] [facility] [place], I10 Essential Endocrinology of [facility] (primary) hypertension E87.5 Hyperkalemia R10.9 Unspecified abdominal pain Office Visit 02/09/2018 11:50a [facility] Internal Lucila K28.3 Acute gastrojejunal Robb Bhakta M.D. ulcer without [place] hemorrhage or perforation I10 Essential (primary) hypertension N39.0 Urinary tract infection, site not specified Office Visit 01/28/2018 2:00p [facility] Internal Lucila I10 Essential (primary ) Robb Bhakta M.D. hypertension [place] Z23 Encounter for immunization Office Visit 12/18/2017 2:40p [facility] Internal Lucila I10 Essential (primary ) Robb Bhakta M.D. hypertension [place] R30.0 Dysuria Z12.31 Encntr screen mammogram for malignant neoplasm of breast Z98.84 Bariatric surgery status Office Visit 11/11/2017 11:30a Orthopedic Vineet Barry, S92.514D Nondisp fx of Services Of prox phalanx C.M.A. of r less toe(s), 7thD Office Visit 09/30/2017 1:00p Orthopedic Vineet Barry, S92.515A Nondisp fx of Services Of proximal C.M.A. phalanx of left lesser toe(s), init W22.8xxA Striking against or struck by other objects, init encntr Office Visit 09/02/2017 2:00p [place] [facility] Duane Zavala I10 Essential (primary) Jessica Ponce hypertension R60.9 Edema, unspecified R01.1 Cardiac murmur, unspecified E11.9 Type 2 diabetes mellitus without complications E66.01 Morbid (severe) obesity due to excess calories R07.9 Chest pain, unspecified Office Visit 07/07/2017 [facility] Internal Lucila H10.402 Unspecified chronic 1:40p Robb Bhakta M.D. conjunctivitis, left [place] eye R22.0 Localized swelling, mass and lump, head I10 Essential (primary) hypertension R73.9 Hyperglycemia, unspecified Office Visit 05/07/2017 10:10a [facility] Internal Lucila I10 Essential (primary ) Medicine Rayo Bhakta M.D. hypertension [place] R60.9 Edema, unspecified H10.89 Other conjunctivitis E66.01 Morbid (severe) obesity due to excess calories Office Visit 04/02/2017 10:10a [facility] Internal Lucila Livia, R21 Rash and other Medicine - Jessica nonspecific skin [place] eruption E66.01 Morbid (severe) obesity due to excess calories I10 Essential (primary) hypertension Office Visit 03/06/2017 10:00a [facility] Internal Nurse Visit C I10 Essential ( primary) Medicine - hypertension [place] Office Visit 02/27/2017 9:40a [facility] Internal Lucila I10 Essential (primary ) Medicine Rayo Bhakta M.D. hypertension [place] M51.36 Other intervertebral disc degeneration, lumbar region Office Visit 02/12/2017 9:40a [facility] Internal Lucila R60.9 Edema, unspecified Robb Bhakta M.D. [place] I10 Essential (primary) hypertension M54.5 Low back pain M51.36 Other intervertebral disc degeneration, lumbar region Office Visit 01/29/2017 1:00p [facility] Internal Henrique EGarth R35.0 Frequency of Robb Robbins M.D. micturition [place] M54.5 Low back pain Z23 Encounter for immunization Office Visit 07/30/2016 Orthopedic Rocco F M17.11 Unilateral primary 9:30a Services Of [place] osteoarthritis, C.M.A. right knee M25.561 Pain in right knee M16.11 Unilateral primary osteoarthritis, right hip Office Visit 07/29/2016 11:45a Neurosurgery Shara Richards, M25.551 Pain in Services Of [facility] PA-C right hip M51.36 Other intervertebral disc degeneration, lumbar region Office Visit 07/17/2016 8:30a [facility] Internal Nurse Visit C I10 Essential Medicine - (primary) [place] hypertension Office Visit 07/02/2016 11:10a [facility] Internal Lucila Z00.01 Encounter for Robb Bhakta M.D. general adult [place] medical exam w abnormal findings I10 Essential (primary) hypertension M48.06 Spinal stenosis, lumbar region L91.8 Other hypertrophic disorders of the skin E66.01 Morbid (severe) obesity due to excess calories Z23 Encounter for immunization Z12.31 Encntr screen mammogram for malignant neoplasm of breast Office Visit 06/10/2016 10:30a [facility] Internal Lucila Bhakta, R10.31 Right lower Medicine - M.DGarth quadrant pain [place] B07.9 Viral wart, unspecified Office Visit 01/09/2016 Orthopedic Riky M M17.12 Unilateral primary 2:30p Services Of Raheel Lorenzo MD osteoarthritis, left AT [place] knee M17.11 Unilateral primary osteoarthritis, right knee Office Visit 01/03/2016 2:40p [facility] Internal Lucila Bhakta, M25.562 Pain in left Medicine Rayo Goode.Emily knee [place] R30.0 Dysuria Office Visit 12/27/2015 9:40a [facility] Internal Margo M25.562 Pain in left knee Robb Rae M.D. [place] Office Visit 07/05/2015 11:50a [facility] Dashawn Schulz0 Essential Robb Bhakta M.D. 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 hypertension [place] E66.01 Morbid (severe) obesity due to excess calories R19.7 Diarrhea, unspecified R10.31 Right lower quadrant pain R87.610 Atyp squam cell of undet signfc cyto smr crvx (Asc-US) Office Visit 05/24/2015 8:30a [facility] Internal Lucila Schulz0 Essential (primary ) Robb Bhakta M.D. hypertension [place] R19.7 Diarrhea, unspecified Office Visit 05/12/2015 2:40p [facility] Dashawn Rae I10 Essential ( primary) Medicine Rayo Lopez hypertension Noemy E66.01 Morbid (severe) obesity due to excess calories R10.31 Right lower quadrant pain M54.5 Low back pain Office Visit 02/22/2014 8:50a [facility] Internal Lucila 401.1 Hypertension Benign Robb Bhakta M.D. [place] 278.01 Obesity Morbid 305.1 Tobacco Use Disorder V04.81 Need For Prophylactic Vaccination & Inoculation/Influenza 288.60 Leukocytosis, Unspecified Office Visit 11/03/2013 4:20p [facility] Internal Alex Diaz 719.47 Pain Joint Robb Mota M.D.,FACP Ankle & Foot [place] 728.71 Fibromatosis Plantar Fascia Office Visit 08/16/2013 2:50p [facility] Internal Lucila Livia, 305.1 Tobacco Use Robb Cade M.D. Disorder [place] 473.9 Sinusitis Chronic Unspec 784.0 Headache Office Visit 07/18/2013 [facility] Aly 575.0 Cholecystitis 4:40p Assoc,pc [place], N.P. Acute Hospitalists 401.9 Hypertension Unspec 278.01 Obesity Morbid 305.1 Tobacco Use Disorder Office Visit 07/17/2013 [facility] Aly 575.0 Cholecystitis 4:39p Assoc,pc [place], N.P. Acute Hospitalists 401.9 Hypertension Unspec 278.01 Obesity Morbid 305.1 Tobacco Use Disorder Office Visit 07/16/2013 4:38p [facility] Jaja Duval 575.0 Cholecystitis Acute Assoc, N.P. Hospitalists 401.9 Hypertension Unspec 278.01 Obesity Morbid 305.1 Tobacco Use Disorder Office Visit 07/16/2013 [facility] Sherrie 575.0 Cholecystitis Acute 3:00p Assoc,BRIDGETT [place]ott Hospitalists Office Visit 07/12/2013 [facility] Internal [facility] 305.1 Tobacco Use 1:50p Robb Bhakta M.D. 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 Lower Leg [place] 401.9 Hypertension Unspec 278.00 Obesity Unspec 780.79 Malaise And Fatigue Other Office Visit 02/10/2013 10:00a [facility] Anguiano 401.9 Hypertension Robb Dc M.D. Unspec [place] 784.0 Headache 473.0 Sinusitis Chronic Maxillary v04.81 Need For Prophylactic Vaccination & Inoculation/Influenza Office Visit 01/11/2013 Orthopedic Ruby 727.41 Ganglion Joint 8:45a Services Of Raheel Lee M.D. AT [place] Office Visit 12/30/2012 Orthopedic Ruby 727.43 Ganglion Unspec 1:30p Services Of Raheel Lee M.D. AT [place] Office Visit 12/17/2012 Ra[facility] Bhakta, 727.43 Ganglion Unspec 10:30a Robb Cade M.D. [place] Office Visit 11/04/2012 [facility] [place] 401.9 Hypertension 3:40p Robb Dc M.D. Unspec [place] 784.0 Headache 473.0 Sinusitis Chronic Maxillary Office Visit 10/14/2012 8:40a Raheel [place]gu[place] 401.9 Hypertension Robb Dc M.D. Unspec [place] 784.0 Headache Office Visit 10/12/2012 10:10a Raheel Internal [place] 401.9 Hypertension Unspec Robb Bhakta M.D. [place] 784.0 Headache 305.1 Tobacco Use Disorder 278.00 Obesity Unspec Office Visit 05/02/2010 3:20p DO Not Use Raheel Dc, 486 Pneumonia AT [place] [place] Organism Unspec 786.50 Pain Chest Unspec 401.1 Hypertension Benign 278.00 Obesity Unspec V72.62 Laboratory Exam Ordered as Part Of Routine General Med Exam V76.10 Screening For Malignant Neoplasm Breast V76.2 Screening Malignant Neoplasm Cervix Plan of Treatment Future Appointment(s):07/08/2018 3:00 pm - Yessi Baker MD at [facility] [place]13/03/2018 - Kory Babcock, MDR60.0 Localized uidkiN65 HgfbophuP00.84 Bariatric surgery dxfslyP52.8 Other specified disorders of adrenal kfjrhG17.891 Personal history of nicotine llnusmivspC91.3 Chronic kidney disease, stage 3 ( moderate)I12.9 Hypertensive chronic kidney disease w stg 1-4/unsp chr kdnyE66.9 Obesity, mhuwzvhsoufW83.43 Body mass index (BMI) 50-59.9, adult
--- OUTSIDE RECORDS SUMMARY | 2018-07-02 16:29 | XMS REPORT | Continuity of Care Document ---
:1960 External Reference #:[id number] Author Name Shira Tomas Care Team Providers Name Role Phone Lucila Bhakta MD Primary Care Physician Unavailable Payers Date Identification Numbers Payment Provider Subscriber Policy Number: [id number] [employer] Renata Diaz Group Number: [id number] [address] [address] Group Name: [place] [address] PayID: [id number] Expires: 2015 Policy Number: [id number] [employer] Renata Diaz Group Name: [id number] [address] [address] PayID: [id number] [place] [address] Effective: 2009 Policy Number: [id number] [employer] [place] Renata Diaz Expires: 2009 Group Number: [id number] [address] [address] PayID: [id number] [place] [address] Effective: 2010 Policy Number: [id number] Paisleygabi Diaz Expires: 2012 PayID: [id number] [address] [place] [address] Advance Directives Type Date Description Status Comment Other Directive 01/28/2018 Health Care Proxy Current and Verified Problems Date Description Provider Status Onset: 10/14/2012 Essential hypertension Silvio Dc M.D. Active Onset: 09/20/2013 Morbid obesity Lucila Bhakta M.D. Active Onset: 11/03/2013 Ex-heavy cigarette smoker Alex Diaz Holcomb, Active (20-39/day) Jessica,FACP Onset: 11/03/2013 Obstructive sleep apnea of Alex Emily Mota, Active adult Jessica,FACP Onset: 11/04/2012 Chronic maxillary sinusitis Silvio Dc M.D. Inactive Inactive: 09/20/2013 Onset: 10/14/2012 Headache Silvio Dc M.D. 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 [employer] Tobacco Use Start: Unknown Former Cigarette End: [...] Form Strength Qnty SIG Indications Ordering Provider Slow-Mag 05/[address] 71.5-119m 60tab 2 tabs po E83.42 Yessi /2019 g s bid MD Olivia Dexamethasone 05/06 Active Tablets 1mg 1tabs give at E27.8 bedtime MD Sadiq on the evening prior to in the morning lab draw Potassium 05/06 Active Tablets ER 20Meq 30tab once a Lucila Chloride ER /2018 s day Jessica Bhakta Spironolactone 03/16 Active Tablets 50mg 60tab take 1 E87.6 s tablet MD Sadiq twice daily Ultracet 03/03 Active Tablets 37.5-325m 30tab 1 by g s mouth Livia, twice a M.D. day times a day as needed for pain Furosemide 03/03 Active Tablets 20mg 30tab Take 1 R60.0 s Tablet By MD Sadiq Mouth once daily Omeprazole 02/[address] 40mg 60cap 1 by K28.3 s mouth Livia, twice M.D. daily Short Walking 09/30 Active Misc 1unit Please Vineet Boot Right Side s yvette Barry, patient for appropria te size Blood Pressure 02/27 Active Misc 1unit thigh I10 Lucila s cuff Jessica Bhakta Aspercreme 02/27 Active OTC every Lucila day prn Jessica Bhakta Losartan 05/24 Active Tablets 100mg 90tab Take One I10 s Tablet By Niraj Bhakta M.DGarth Once Daily Tylenol Extra Active Tablets 500mg 2 by Unknown Strength /0000 mouth as needed Atenolol Active Tablets 100mg 90tab 1 by Lucila / s mouth Livia, every day M.DGarth Multi Vitamin Active Tablets 1 by Unknown /0000 mouth every day Gabapentin Active Capsules 300mg 1 by Unknown /0000 mouth once daily Vitamin B12 TR Active Tablets ER 1000mcg 1 by Unknown /0000 mouth every day Cipro 05/08 Hx Tablets 500mg 10tab 500mg s twice MD Sadiq - daily for 06/03 urinary /2019 tract infection Dexamethasone 03/16 Hx Tablets 1mg 1tabs give at E27.0 bedtime MD Sadiq - on the 03/28 evening prior to in the morning lab draw Ciprofloxacin HCL 02/04 Hx Tablets 500mg 1 po bid X 5 days MD Jesse - 02/09 Clonidine HCL 12/18 Hx Tablets 0.1mg 60tab 1 by I10 Lucila /2018 s mouth Livia, - twice a M.D. Nitrofurantoin 12/18 Hx Capsules 100mg 14cap 1 by R30.0 Lucila Macrocrystal s mouth Bhakta, - twice a M.D. Omeprazole 08/[address] 40mg 1 by mouth - every day 12/18 Chlorthalidone 08/07 Hx Tablets 50mg 90tab 1 by s mouth Cotton, - every day M.D. 08/07 Chlorthalidone 08/07 Hx Tablets 50mg 90tab Take One s Tablet By Cotton, - Mouth M.D. 12/18 Once Daily Ciloxan 07/07 Hx Solution 0.3% 5ml 1-2 gtt H10.402 Lucila every 2 Livia, - hrs in M.D. 08/03 the Left eye while awake X 2 days then Q 4 hr X 5 days Chlorthalidone 05/08 Hx Tablets 25mg 90tab 1 by s mouth Livia, - every day M.D. 08/07 Gentamicin 05/07 Hx Solution 0.3% 5ml 1-2 drop H10.89 Lucila in the Bhakta, - Left eye M.D. [...] Tablets DR 50mg 60tab 1 tab M54.5 Lucila s every 12 Livia, - hrs as M.D. 07/03 needed to use tylenol for brekthrou gh pain Meloxicam 01/29 Hx Tablets 7.5mg 30tab take one M54.5 Henrique E. s tab twice Itzel, - daily as M.D. 02/12 needed for pain, avoid other nsaids Cyclobenzaprine 01/29 Hx Tablets 10mg 15tab one by M54.5 Henrique Minor HCL s mouth Itzel, - three M.D. 02/27 times day as needed spasm Percocet 07/17 Hx Tablets 5-325mg 10tab 1 tab by Lucila /2017 s mouth Livia, - every 8 M.D. 01/28 hours needed pain Chlorthalidone 07/02 Hx Tablets 25mg 90tab take 1 I10 Lucila s tablet by Livia, - mouth M.D. 02/12 every Ibuprofen 07/02 Hx Tablets 600mg 42tab 1 tab by Lucila /2017 s mouth Livia, - three M.D. 07/29 times day as needed Tramadol HCL 01/02 Hx Tablets 50mg 60tab 1-2 M25.562 s tablets Livia, - every 8 M.D. 07/02 hours needed Chlorthalidone 06/21 Hx Tablets 25mg 90tab 1 by I10 Lucila s mouth Livia, - every day M.D. 12/26 Amlodipine 05/30 Hx Tablets 10mg 90tab Take One I10 Lucila Besylate s Tablet By Livia, - Mouth M.D. 03/03 Daily No Active 05/12 Hx Unknown Medications - 05/12 Amlodipine 05/12 Hx Tablets 10mg [...] Tablets 200mg 100ta as needed Alex /2013 olga Mota, - M.DGarth,FACP 05/12 Bupropion HCL XL 07/16 Hx Tablets ER 150mg 60tab 1 by 305.1 24HR s mouth Butch, - daily , M.D. 05/12 to take 1 tab every other day x 3 days then 1 tab every 2 days X 4 days then stop Bupropion HCL XL 07/12 Hx Tablets ER 150mg 60tab 1 by 305.1 24HR s mouth Butch, - daily x 7 M.D. 07/16 days 1 tab twice a day Chantix Starting 06/08 Hx Tablets 0.5mg X 1Pack as 305.1 Lucila 11 & 1 mg directed Livia, - X 42 on the M.D. 06/15 Tramadol HCL ER 06/08 Hx Tablets ER 100mg 20tab 1 tabs po 717.9 24HR s bid as Livia, - needed fo M.D. 08/16 Ibuprofen 05/28 Hx Tablets 600mg 60tab 1 tab by s mouth Livia, - three M.D. 08/16 times day prn Amoxicillin/Potas 02/10 Hx Tablets 875-125mg 20tab 1 po bid 473.0 Silvio sium Clavulanate shaheed Dc - M.DGarth 05/19 Amlodipine 11/04 Hx Tablets 5mg 60tab twice a 401.9 Lucila Bes s travon Bhakta - M.D. 02/22 Amoxicillin/Potas 10 Hx Tablets 875-125mg 20tab 1 po bid 473.0 [place] sium Clavulanate shaheed Dc - M.D. 12/17 Amlodipine 10/22 Hx Tablets 5mg 30tab 1 po qd Margo Besylate shaheed Rae - M.DGarth 11/04 Losartan 10/20 Hx Tablets 100mg 90tab 1 po qd 401.9 Lucila Potassium shaheed Bhakta - M.D. 05/12 Atenolol 10/14 Hx Tablets 50mg 60tab 1 tab by 401.9 s mouth Livia, - twice a M.D. Butalbital/Acetam 10/14 Hx Capsules 50-325-40 30cap 1 tab 784.0 [place] inophen/Caffeine /2012 mg s every 2 h Rayo Dc M.D. 08/16 Triamterene/[place] 10/14 Hx Capsules 37.5-25mg 90cap qd am [...] 486 daily Rayo Dc M.D. 10/12 Percocet /00 Hx Unknown /0000 - 11/03 Caltrate 600+D [...] - times a 07/02 day needed Lidocaine 00/00 Hx Patches 5% Unknown /0000 - 01/27 Ibuprofen 00/00 Hx Tablets 800mg by mouth Unknown /0000 three - times a 01/27 day needed Vesicare 00/00 Hx Tablets 10mg not Unknown /0000 taking--- - 1 by 04/03 mouth every day Toviaz Hx Tablets ER 4mg 2 by Unknown /0000 24HR mouth - every day 06/05 Vitamin D 00/ Hx Capsules [id number] once a Sandidge, (Ergocalciferol) / week for Lupe Cam - 8 weeks 12/18 Vitamin B12 00/ Hx Tablets ER 1 by Unknown /0000 mouth - every day 12/18 Ciloxan Hx Ointment 0.3% apply 0.5 H10.402 Unknown /0000 inch - ribbon in 07/03 r eye three times a day x 5 days Omeprazole Hx Capsules DR 20mg 1 by Unknown /0000 mouth - every day 02/09 Hydrochlorothiazi Hx Tablets 25mg Bollo, de /0000 MD Jesse - 03/03 Sucralfate Hx Tablets 1gm Bollo, MD Jesse - 03/[address] 40mg Bollo, Sodium MD Jesse - 02/09 Carafate Hx Suspension 1GM/10ML Bollo, Jesse, - 03/07 Klor-Con Hx Packet 20Meq once a Bollo, MD Jesse - 05/04 Ranitidine HCL Hx Tablets 300mg take one tablet by - mouth at 06/03 bedtime /2018 Carafate 00 Hx Suspension 1GM/10ML tid Unknown - 06/03 Medications Administered in Office Medication Date Status Form Strength Qnty SIG Indications Ordering Provider Depomedrol Administered Injection Rocco F 40MG 017 MD Indio Depomedrol Administered Injection Riky Goode 40MG 016 MD Bj Depomedrol Administered Injection Hailey 80MG Nasima Lan M.D. Depomedrol Administered Injection Hailey 80MG 014 Jessica Lan Depomedrol Administered Injection Hailey 80MG 014 Jessica Lan Immunizations CPT Code Status Date Vaccine Lot # [id number] Given 01/28/2018 Influenza Virus Vaccine, Quadrivalent, Split, [id number] Preservative Free 88595 Given 01/29/2017 Influenza Virus Vaccine, Quadrivalent, Split, [id number] Preservative Free 55380 Given 07/02/2016 Tdap - Tetanus/Diptheria/Acellular Pertussis [id number] 50925 Given 03/31/2016 Influ Virus Vaccine, Quadrivalent, Split [place], [place] [address] Given 02/07/2016 Influ Virus Vaccine, Quadrivalent, Split Virus, [place] [address] Given 02/22/2014 Flu Vaccine Split Virus Preservative Free For [id number] Indiv 3Yr Older 10823 Given 02/10/2013 Flu Vaccine Split Virus Preservative Free For [id number] Indiv 3Yr Older Vital Signs Date Vital [...] Date Facility Test Result H/L Range Note Laboratory test 05/18/2018 [facility] Ferritin 106.1 ng/mL N 11-307 finding [address] [place] [address] [phone] Cortisol 13.02 g/dL 1 Aldosterone <4.0 ng/dL <=21 2 Renin <0.6 ng/mL/h 3 Iron & Iron Binding 05/18/2018 [facility] Iron 54 g/dL N 50- 212 [address] [place] [address] [phone] Unsaturated Iron Binding < 269 g/dL Total Iron Binding Capacity 284 g/dL N 250-450 Transferrin 203 mg/dL N 203-362 % Iron Saturation 19 % N 15-55 Laboratory test 05/18/2018 [facility] Magnesium 1.7 mg/dL Low 1.9-2.7 finding [address] [place] [address] [phone] Basic Metabolic 05/18/2018 [facility] Sodium 141 mmol/L N 135- 145 Panel [address] [place] [address] [phone] Potassium 3.8 mmol/L N 3.5-5.0 Chloride 108 mmol/L N 101-111 Co2 Carbon Dioxide 25 mmol/L N 22-32 Anion Gap 8 mmol/L N 2-11 Glucose 96 mg/dL N 70-100 Blood Urea Nitrogen 13 mg/dL N 6-24 Creatinine 1.27 mg/dL High 0.51-0.95 BUN/Creatinine Ratio 10.2 N 8-20 Calcium 9.6 mg/dL N 8.6-10.3 Egfr Non- 43.7 >60 Egfr 52.9 >60 4 CBC Auto Diff 05/18/2018 [facility] White Blood 5.9 10^3/uL N 3.5-10.[address] [place] [address] [phone] Red Blood Count 4.20 10^6/uL N 4.00-5.40 [...] Cells % 0 Urine Culture And 05/18/2018 [facility] Urine Culture SEE RESULT [address] [place] [address] [phone] Laboratory test 05/18/2018 [facility] Transferrin <pending> finding [address] [place] [address] [phone] Ferritin <pending> Laboratory test finding 05/18/2018 [facility] Cortisol <pending > [address] [place] [address] [phone] Aldosterone <pending> Renin <pending> Magnesium <pending> Urinalysis Profile 05/18/2018 [facility] Urine Color Kate [address] [place] [address] [phone] Urine Appearance Cloudy Urine Specific [place] 1.020 N 1.010-1.030 Urine pH 5.0 N [...] Casts Present Abnormal Absent Creatinine 24HR 05/18/2018 [facility] Urine 987.20 N 600-[address] Creatinine/24 mg/24[place] [address] Hour [phone] Urine Collection Time 24 hr Urine Total Volume 500 mL Laboratory test 05/18/2018 [facility] Urine Creatinine 197.[address] Concentration mg/[place] [address] [phone] Total Protein 05/18/2018 [facility] Urine Total 135 mg/24Hr N 0-16 24HR Urine [address] Protein/24HR 5 [place] [address] [phone] Laboratory test 05/18/2018 [facility] Urine TP 27 mg/dL finding [address] [place] [address] [phone] Creatinine 05/18/2018 [facility] Creatinine, Serum 1.26 mg/dL High 0.[address] -0.9 [place] [address] 5 [phone] Creatinine Clearance 80 mL/min Low 88-128 Urine Collection Time 24 hr Urine Total Volume 500 mL Urine Microalbumin 05/18/2018 [facility] Ur Microalbumin 27.[address] (mg/L) [place] [address] [phone] Urine Creatinine 290.30 mg/dL Urine Microalbumin/Creatinine 9.5 N <31 Laboratory test finding 05/12/2018 [facility] Acth 16 pg/mL [address] [place], [place] [address] [phone] Cortisol 6.57 g/dL 7 Miscellaneous Test <pending> Basic Metabolic Panel 05/06/2018 [facility] Sodium 142 mmol/L N 135-[address] [place], [place] [address] [phone] Potassium 2.9 mmol/L Low 3.5-5.0 Chloride 107 mmol/L N 101-111 Co2 Carbon Dioxide 26 mmol/L N 22-32 Anion Gap 9 mmol/L N 2-11 Glucose 82 mg/dL N 70-100 Blood Urea Nitrogen 22 mg/dL N 6-24 Creatinine 1.43 mg/dL High 0.51-0.95 BUN/Creatinine Ratio 15.4 N 8-20 Calcium 8.8 mg/dL N 8.6-10.3 Egfr Non- 38.1 >60 Egfr 46.1 >60 8 Urinalysis Profile 05/06/2018 [facility] Urine Color Yellow [address] [place] [address] [phone] Urine Appearance Cloudy Urine Specific [place] 1.018 N 1.010-1.030 Urine pH 6.0 N [...] Present Abnormal Absent Urine Culture And 05/06/2018 [facility] Urine Culture SEE RESULT [address] [place] [address] [phone] Laboratory test 05/06/2018 [facility] Vitamin B1 98 nmol/L 70 -18 [address] (Whole Blood) 0 [place] [address] [phone] Basic Metabolic 04/07/2018 [facility] Sodium 144 mmol/L N 135- [address] [place] [address] [phone] Potassium 3.0 mmol/L Low 3.5-5.0 Chloride 106 mmol/L N 101-111 Co2 Carbon Dioxide 26 mmol/L N 22-32 Anion Gap 12 mmol/L High 2-11 Glucose 79 mg/dL N 70-100 Blood Urea Nitrogen 17 mg/dL N 6-24 Creatinine 1.07 mg/dL High 0.51-0.95 BUN/Creatinine Ratio 15.9 N 8-20 Calcium 9.2 mg/dL N 8.6-10.3 Egfr Non- 53.2 >60 Egfr 64.4 >60 11 Laboratory test 04/07/2018 [facility] Magnesium 1.8 mg/dL Low 1.9-2.[address] [place] [address] [phone] Folic Acid (Folate) 4.36 ng/mL >3.99 Vitamin D Total 25(Oh) 15.6 ng/mL Low 20-50 Vitamin B1 (Whole Blood) 54 nmol/L Abnormal 70-180 12 Laboratory test 03/30/2018 [facility] TSH (Thyroid 3.95 N 0.34 -5.[address] Stim Horm) mcIU/[place] [address] [phone] Basic Metabolic 03/30/2018 [facility] Sodium 146 mmol/L High 135-145 Panel [address] [place] [address] [phone] Potassium 3.0 mmol/L Low 3.5-5.0 Chloride 109 mmol/L N 101-111 Co2 Carbon Dioxide 26 mmol/L N 22-32 Anion Gap 11 mmol/L N 2-11 Glucose 81 mg/dL N 70-100 Blood Urea Nitrogen 11 mg/dL N 6-24 Creatinine 1.06 mg/dL High 0.51-0.95 BUN/Creatinine Ratio 10.4 N 8-20 Calcium 9.0 mg/dL N 8.6-10.3 Egfr Non- 53.8 >60 Egfr 65.1 >60 13 Laboratory test finding 03/30/2018 [facility] Cortisol 13.51 g /dL [address] [place] [address] [phone] Testosterone Total 29.77 ng/dL N 8-60 Progesterone 17Hydroxy <40 ng/dL 15 Catecholamine 24HR 03/30/2018 [facility] Urine Collection 24 h Urine Fract [address] [place] [address] [phone] Urine Total Volume 350 mL Urine Norepinephrine 20 mcg/24h 15-80 16 Urine Epinephrine 0.6 mcg/24h <21 Urine Dopamine 169 mcg/24h 65-400 17 Cortisol Free 03/30/2018 [facility] Urine Free 3.9 mcg/24h 3.5-45 [address] [place] [address] [phone] Urine Collection Duration 24 h Urine Total Volume 350 mL 19 Urine Metanephrines 03/30/2018 [facility] Urine 48 mcg/24h 20 24HR [address] [place] [address] [phone] Urine Normetanephrine 336 mcg/24h 21 Urine Total Metanephrines 384 mcg/24h 22 Urine Collection Duration 24 h Urine Volume 350 mL 23 Laboratory test finding 03/30/2018 [facility] Acth 28 pg/mL 24 [address] [place] [address] [phone] Dhea 1.5 ng/mL <6.0 25 Dhea Sulfate 95 g/dL 16-195 26 Basic Metabolic 03/23/2018 [facility] Sodium 146 mmol/L High 135-145 Panel [address] [place] [address] [phone] Potassium 3.6 mmol/L N 3.5-5.0 Chloride 111 mmol/L N 101-111 Co2 Carbon Dioxide 27 mmol/L N 22-32 Anion Gap 8 mmol/L N 2-11 Glucose 97 mg/dL N 70-100 Blood Urea Nitrogen 15 mg/dL N 6-24 Creatinine 1.12 mg/dL High 0.51-0.95 BUN/Creatinine Ratio 13.4 N 8-20 Calcium 9.2 mg/dL N 8.6-10.3 Egfr Non- 50.5 >60 Egfr 61.1 >60 27 Laboratory test 03/23/2018 [facility] Cortisol 5.44 g/dL 28 finding [address] [place] [address] [phone] Creatinine 24HR 03/23/2018 [facility] Urine Creatinine 260.02 mg /dL Urine [address] [facility] [place] [address] [phone] Urine Creatinine/24 Hour 1040.08 mg/24Hr N 600-1800 Urine Collection Time 24 hr Urine Total Volume 400 mL Cortisol Free 03/23/2018 [facility] Urine Free 10 mcg/24h 3.5 -45 29 24HR Urine [address] [facility] [place] [address] [phone] Urine Collection Duration 24 h Urine Total Volume 400 mL 30 Laboratory 03/19/2018 [facility] Cortisol, 148 ng/dL Abnormal <100 31 test finding [address] [place] [address] [phone] Laboratory 03/18/2018 [facility] Cortisol, 62 ng/dL <100 32 test finding [address] [place] [address] [phone] Laboratory 03/17/2018 [facility] Cortisol, 90 ng/dL <100 33 test finding [address] [place] [address] [phone] Laboratory 03/16/2018 [facility] Magnesium 1.7 mg/dL Low 1.9- 2.7 test finding [address] [place] [address] [phone] Basic 03/16/2018 [facility] Sodium 144 N 135-[address] mmol/[place] [address] [phone] Potassium 3.6 mmol/L N 3.5-5.0 Chloride 108 mmol/L N 101-111 Co2 Carbon Dioxide 29 mmol/L N 22-32 Anion Gap 7 mmol/L N 2-11 Glucose 101 mg/dL High 70-100 Blood Urea Nitrogen 25 mg/dL High 6-24 Creatinine 1.25 mg/dL High 0.51-0.95 BUN/Creatinine Ratio 20.0 N 8-20 Calcium 9.2 mg/dL N 8.6-10.3 Egfr Non- 44.5 >60 Egfr 53.8 >60 34 Laboratory test finding 03/16/2018 [facility] Renin <0.6 ng/mL/ h [address] [place] [address] [phone] Aldosterone <4.0 ng/dL <=21 36 Metanephrines 03/16/2018 [facility] Plasma Free 0.49 <0.[address] Normetanephrine nmol/[place] [address] [phone] Plasma Free Metanephrine <0.20 nmol/L <0.50 37 Laboratory test finding 03/16/2018 [facility] Glucose Random 91 Hemoglobin A1c 4.6 Low 5-7 CBC Auto Diff 03/11/2018 [facility] White Blood 5.3 10^3/uL N 3.5-10.[address] [place] [address] [phone] Red Blood Count 4.21 10^6/uL N 4.00-5.40 [...] Blood Cells % 0.1 Comp Metabolic 03/11/2018 [facility] Sodium 146 mmol/L High 135-[address] [place] [address] [phone] Potassium 3.0 mmol/L Low 3.5-5.0 Chloride 106 [...] Egfr Non- 30.6 >60 Egfr 37.0 >60 38 Iron & Iron Binding 03/11/2018 [facility] Iron 94 g/dL N 50- [address] [place] [address] [phone] Unsaturated Iron Binding < 245 g/dL Total Iron Binding Capacity 260 g/dL N 250-450 Transferrin 186 mg/dL Low 203-362 % Iron Saturation 36 % N 15-55 Laboratory test 03/11/2018 [facility] Ferritin 128.2 ng/mL N 11-[address] [place] [address] [phone] Folic Acid (Folate) 4.33 ng/mL >3.99 Vitamin B12 503 pg/mL N 180-914 39 Vitamin D Total 25(Oh) 14.6 ng/mL Low 20-50 Vitamin B1 (Whole Blood) 82 nmol/L 70-180 40 Vitamin E Level 7.0 mg/L 5.5 - 17.0 41 CBC Auto Diff 02/24/2018 [facility] White Blood 5.4 10^3/uL N 3.5-10.[address] [place] [address] [phone] Red Blood Count 4.11 10^6/uL N 4.00-5.40 [...] Cells % 0.1 Comp Metabolic Panel 02/24/2018 [facility] Sodium 143 mmol/L N 135-145 [address] [place] [address] [phone] Potassium 3.0 mmol/L Low 3.5-5.0 Chloride 103 [...] Egfr Non- 52.1 >60 Egfr 63.1 >60 42 Iron & Iron Binding 02/24/2018 [facility] Iron 85 g/dL N 50- 212 [address] [place] [address] [phone] Unsaturated Iron Binding < 205 g/dL Total Iron Binding Capacity 220 g/dL Low 250-450 Transferrin 157 mg/dL Low 203-362 % Iron Saturation 39 % N 15-55 Laboratory test 02/24/2018 [facility] Ferritin 152.9 ng/mL N 11-307 finding [address] [place] [address] [phone] Folic Acid (Folate) 7.47 ng/mL >3.99 Vitamin B12 461 pg/mL N 180-914 43 Vitamin D Total 25(Oh) 15.3 ng/mL Low 20-50 Vitamin B1 (Whole Blood) 111 nmol/L 70-180 44 Vitamin E Level 6.4 mg/L 5.5 - 17.0 45 Ua Routine 12/18/2017 [facility] Ua Specific [place] 1.015 Ua PH 5 Ua Color dark yellow Ua Appera cloudy Ua WBC ++ Ua Protein 30+ Ua Glucose norm Ua Ketones + Ua Bilirubin ++ Ua Urobilinogen 1 Ua Nitrite - Ua Occult Blood trace Urine Culture And 12/18/2017 [facility] Urine SEE RESULT 46 , [address] [place] [address] [phone] Basic Metabolic 2017 [facility] Sodium 142 mmol/L N 135- 1 [address] [place] [address] [phone] Potassium 4.0 mmol/L N 3.5-5.0 Chloride 106 mmol/L N 101-111 Co2 Carbon Dioxide 29 mmol/L N 22-32 Anion Gap 7 mmol/L N 2-11 Glucose 109 mg/dL High 70-100 Blood Urea Nitrogen 20 mg/dL N 6-24 Creatinine 1.22 mg/dL High 0.51-0.95 BUN/Creatinine Ratio 16.4 N 8-20 Calcium 9.3 mg/dL N 8.6-10.3 Egfr Non- 45.8 >60 Egfr 55.4 >60 49 CBC No Diff 2017 [facility] White Blood 6.0 10^3/uL N 3.5-10.[address] [place] [address] [phone] Red Blood Count 4.40 10^6/uL N 4.00-5.40 Hemoglobin 14.0 g/dL N 12.0-16.0 Hematocrit 41 % N 35-47 Mean Corpuscular Volume 93 fL N 80-97 Mean Corpuscular Hemoglobin 32 pg High 27-31 Mean Corpuscular HGB Conc 34 g/dL N 31-36 Red Cell Distribution Width 15 % N 10.5-15 Platelet Count 190 10^3/uL N 150-450 Mean Platelet Volume 9.8 um3 N 7.4-10.4 Laboratory test 08/28/2017 [facility] Clotest SEE RESULT [address] [place] [address] [phone] Laboratory test 08/28/2017 [facility] Surgical SEE RESULT [address] [place] [address] [phone] Laboratory test 08/01/2017 [facility] TSH (Thyroid 4.72 mcIU/mL N 0.34-[address] Stim Horm) .60 [place] [address] [phone] Free Cortisol Serum 1.410 g/dL Abnormal 52 Laboratory test 07/07/2017 [facility] Hemoglobin A1c 6.2 % High 4.0-5.6 [address] (Glyco HGB) [place] [address] [phone] Basic Metabolic 07/07/2017 [facility] Sodium 140 N 133-[address] mmol/[place] [address] [phone] Potassium 4.1 mmol/L N 3.5-5.0 Chloride 103 mmol/L N 101-111 Co2 Carbon Dioxide 28 mmol/L N 22-32 Anion Gap 9 mmol/L N 2-11 Glucose 97 mg/dL N 70-100 Blood Urea Nitrogen 36 mg/dL High 6-24 Creatinine 1.16 mg/dL High 0.51-0.95 BUN/Creatinine Ratio 31.0 High 8-20 Calcium 9.6 mg/dL N 8.6-10.3 Egfr Non- 48.7 >60 Egfr 62.6 >60 54 CBC Auto Diff 06/11/2017 [facility] White Blood 9.6 10^3/uL N 3.5-10.[address] [place] [address] [phone] Red Blood Count 4.40 10^6/uL N 4.0-5.4 [...] Cells % 0.1 Comp Metabolic Panel 06/11/2017 [facility] Sodium 136 mmol/L N 133-145 [address] [address] [place], [place] [id number] [phone] Potassium 3.8 mmol/L N 3.5-5.0 Chloride 99 [...] Egfr Non- 49.7 >60 Egfr 63.9 >60 55 Iron & Iron Binding 06/11/2017 [facility] Iron 74 g/dL N 50- [address] [place] [address] [phone] Unsaturated Iron Binding 294 g/dL Total Iron Binding Capacity 368 g/dL N 250-450 % Iron Saturation 20 % N 15-55 Laboratory test 06/11/2017 [facility] Ferritin 49.0 ng/mL N 11 -[address] [place] [address] [phone] Vitamin B12 206 pg/mL N 180-914 56 Folic Acid (Folate) 10.13 ng/mL >3.99 Vitamin D Total 25(Oh) 10.4 ng/mL Low 20-50 Vitamin E Level 7.5 mg/L 5.5 - 17.0 57 Urine Culture And 05/07/2017 [facility] Urine Culture SEE RESULT [address] [place] [address] [phone] Urinalysis Profile 05/07/2017 [facility] Urine Color Yellow [address] [place] [address] [phone] Urine Appearance Cloudy Urine Specific [place] 1.019 N 1.010-1.030 Urine pH 5.0 N [...] Cell Present Abnormal Absent Laboratory test 05/07/2017 [facility] B-Type 61 pg/mL [address] [place] [address] Peptide BNP [phone] Basic Metabolic 05/07/2017 [facility] Sodium 139 mmol/L N 133- [address] [place] [address] [phone] Potassium 4.5 mmol/L N 3.5-5.0 Chloride 104 mmol/L N 101-111 Co2 Carbon Dioxide 30 mmol/L N 22-32 Anion Gap 5 mmol/L N 2-11 Glucose 96 mg/dL N 70-100 Blood Urea Nitrogen 26 mg/dL High 6-24 Creatinine 0.97 mg/dL High 0.51-0.95 BUN/Creatinine Ratio 26.8 High 8-20 Calcium 9.5 mg/dL N 8.6-10.3 Egfr Non- 59.8 >60 Egfr 77.0 >60 60 Basic Metabolic Panel 04/02/2017 [facility] Sodium 138 mmol/L N 133-[address] [place] [address] [phone] Potassium 4.3 mmol/L N 3.5-5.0 Chloride 102 mmol/L N 101-111 Co2 Carbon Dioxide 29 mmol/L N 22-32 Anion Gap 7 mmol/L N 2-11 Glucose 103 mg/dL High 70-100 Blood Urea Nitrogen 41 mg/dL High 6-24 Creatinine 1.49 mg/dL High 0.51-0.95 BUN/Creatinine Ratio 27.5 High 8-20 Calcium 9.5 mg/dL N 8.6-10.3 Egfr Non- 36.5 >60 Egfr 46.9 >60 61 Urinalysis Profile 03/06/2017 [facility] Urine Color Yellow [address] [place] [address] [phone] Urine Appearance Clear Urine Specific [place] 1.017 N 1.010-1.030 Urine pH 5.0 N [...] Present Abnormal Absent Urine Culture And 03/06/2017 [facility] Urine Culture SEE RESULT [address] [place] [address] [phone] Basic Metabolic 02/27/2017 [facility] Sodium 139 mmol/L N 133- 1 [address] [place] [address] [phone] Potassium 3.6 mmol/L N 3.5-5.0 Chloride 104 mmol/L N 101-111 Co2 Carbon Dioxide 27 mmol/L N 22-32 Anion Gap 8 mmol/L N 2-11 Glucose 91 mg/dL N 70-100 Blood Urea Nitrogen 30 mg/dL High 6-24 Creatinine 1.02 mg/dL High 0.51-0.95 BUN/Creatinine Ratio 29.4 High 8-20 Calcium 9.4 mg/dL N 8.6-10.3 Egfr Non- 56.5 N >60 Egfr 72.6 N >60 64 Laboratory test 02/12/2017 [facility] TSH (Thyroid 1.93 mcIU/mL N 0.34-5.[address] Stim Horm) [place] [address] [phone] B-Type Natriuretic Peptide BNP 71 pg/mL N 65 CBC Auto Diff 02/06/2017 [facility] White Blood 10.8 10^3/uL N 3.5-10.[address] [place] [address] [phone] Red Blood Count 4.54 10^6/uL N 4.0-5.4 [...] um3 N 7.4-10.4 Comp Metabolic Panel 02/06/2017 [facility] Sodium 138 mmol/L N 133-[address] [place] [address] [phone] Potassium 3.8 mmol/L N 3.5-5.0 Chloride 105 [...] 60.6 N >60 Egfr 77.9 N >60 66 Urine Culture And 02/06/2017 [facility] Urine Culture SEE RESULT [address] [place] [address] [phone] Urinalysis Profile 02/06/2017 [facility] Urine Color Straw N [address] [place] [address] [phone] Urine Appearance Clear N Urine Specific [place] 1.014 N 1.010-1.030 Urine pH 5.0 N [...] Present Abnormal Absent Laboratory test finding 01/29/2017 [facility] Hemoglobin A1c 6.0 5-7 Ua Routine 01/29/2017 [facility] Ua Specific [place] 1.015 Ua PH 5 Ua Color Dark Yellow Ua Appera Clear Ua WBC + Ua Protein Neg Ua Glucose Neg Ua Ketones Neg Ua Bilirubin Neg Ua Urobilinogen Neg Ua Nitrite Neg Ua Occult Blood Neg Xray 07/30/2016 [facility] Knee 3 Views <pending> [address] [place] [address] [phone] Basic Metabolic 07/02/2016 [facility] Sodium 141 mmol/L N 133- [address] [place] [address] [phone] Potassium 3.8 mmol/L N 3.5-5.0 Chloride 105 mmol/L N 101-111 Co2 Carbon Dioxide 27 mmol/L N 22-32 Anion Gap 9 mmol/L N 2-11 Glucose 119 mg/dL High 70-100 Blood Urea Nitrogen 23 mg/dL N 6-24 Creatinine 0.82 mg/dL N 0.51-0.95 BUN/Creatinine Ratio 28.0 High 8-20 Calcium 9.4 mg/dL N 8.6-10.3 Egfr Non- 72.9 N >60 Egfr 93.8 N >60 68 Urine Culture And 06/10/2016 [facility] Urine Culture SEE RESULT [address] [place] [address] [phone] Laboratory test 06/10/2016 [facility] Lipase 40 U/L N 11.0- finding [address]0 [place] [address] [phone] C Reactive Protein 2.78 mg/L N < 5.00 70 Comp Metabolic Panel 06/10/2016 [facility] Sodium 137 mmol/L N 133-[address] [place] [address] [phone] Chloride 103 mmol/L N 101-111 Co2 Carbon [...] 80.8 N >60 Egfr 104.0 N >60 71 Potassium 4.2 mmol/L N 3.5-5.0 Anion Gap 6 mmol/L N 2-11 Ast 16 U/L N 13-39 Urinalysis Profile 06/10/2016 [facility] Urine Color Yellow [place] [address] [place] [address] [phone] Urine Appearance Clear N Urine Specific [place] 1.016 N 1.010-1.030 Urine pH 5.0 N [...] Present Abnormal Absent CBC Auto Diff 06/10/2016 [facility] White Blood 9.2 10^3/uL N 3.5-10.[address] [place] [address] [phone] Red Blood Count 4.81 10^6/uL N 4.0-5.4 [...] Cells % 0 N Urinalysis Profile 01/03/2016 [facility] Urine Color Yellow N [address] [place] [address] [phone] Urine Appearance Turbid N Urine Specific [place] 1.027 N 1.010-1.030 Urine pH 5.0 N [...] Absent N Absent Urine Culture And 01/03/2016 [facility] Urine Culture SEE RESULT [address] [place] [address] [phone] Laboratory test 07/14/2015 [facility] Metanephrines SEE COMMENT N [address] [place] [address] [phone] Basic Metabolic 06/26/2015 [facility] Sodium 138 mmol/L N 133 - Panel 101 [facility] [address] [place] [address] [phone] Potassium 4.0 mmol/L N 3.5-5.0 Chloride 102 mmol/L N 101-111 Co2 Carbon Dioxide 27 mmol/L N 22-32 Anion Gap 9 mmol/L N 2-11 Glucose 91 mg/dL N 70-100 Blood Urea Nitrogen 36 mg/dL High 6-24 Creatinine 0.94 mg/dL N 0.51-0.95 BUN/Creatinine Ratio 38.3 High 8-20 Calcium 9.6 mg/dL N 8.6-10.3 Egfr Non- 62.5 N >60 Egfr 80.4 N >60 74 Laboratory 06/26/2015 [facility] Hepatitis C Nonreactive N Nonreactive test finding 101 [facility] [place] [address] [phone] Aldosterone 12 ng/dL N <=21 75 Renin 4.0 ng/mL/h N 76 TSH (Thyroid Stim Horm) 2.34 ?IU/mL N 0.34-5.60 Laboratory test 06/26/2015 [facility] Cortisol 16.20 ?g/dL N 77 finding [address] [place] [address] [phone] Laboratory test 05/30/2015 [facility] Cytology SEE RESULT BELOW 78 finding [address] [place] [address] [phone] HPV Rna Ww/Reflex Genotype Negative N Negative 79 Laboratory test 05/12/2015 [facility] Inr/Protime 0.99 N 0.89- 1.11 finding [address] [place] [address] [phone] Urinalysis Profile 05/12/2015 [facility] Urine Color Yellow N [address] [place] [address] [phone] Urine Appearance Clear N Urine Specific [place] 1.012 N 1.010-1.030 Urine pH 5.0 N 5-9 Urine Urobilinogen Negative N Negative Urine Ketones Negative N Negative Urine Protein Negative N Negative Urine Leukocytes Negative N Negative Urine Blood Negative N Negative Urine Nitrite Negative N Negative Urine Bilirubin Negative N Negative Urine Glucose Negative N Negative CBC Auto 05/12/2015 [facility] White Blood 12.0 10^3/uL High 3.5-10.[address] [place] [address] [phone] Red Blood Count 5.45 10^6/uL High 4.0-5.4 [...] Cells % 0 N Laboratory test 05/12/2015 [facility] Lactic Acid 1.3 mmol/L N 0.5-2.0 [address] [place] [address] [phone] Troponin-I (TnI) 0.00 ng/mL N <0.03 81 Comp Metabolic Panel 05/12/2015 [facility] Sodium 138 mmol/L N 133-[address] [place] [address] [phone] Potassium 3.8 mmol/L N 3.5-5.0 Chloride 103 [...] 77.6 N >60 Egfr 99.7 N >60 82 Laboratory test finding 05/12/2015 [facility] Amylase 49 U/L N 29-[address] [place] [address] [phone] Lipase 26 U/L N 11.0-82.0 Creatine Kinase(CK) 29 U/L N 10-223 C Reactive Protein 1.51 mg/L N < 5.00 83 CBC Auto Diff 02/25/2014 [facility] White Blood 6.6 10^3/uL N 4.8-10.[address] [place] [address] [phone] Red Blood Count 4.47 10^6/uL N 4.0-5.4 [...] % 0 N Comp Metabolic Panel 02/25/2014 [facility] Sodium 139 mmol/L N 133-145 [address] [place] [address] [phone] Potassium 3.8 mmol/L N 3.7-5.6 Chloride 104 [...] 75.6 N >60 Egfr 97.3 N >60 85 Laboratory test finding 07/16/2013 [facility] Amylase 31 U/L N 29-103 [address] [place] [address] [phone] Lipase 14 U/L N 11.0-82.0 C Reactive Protein 84.88 mg/L High < 5.00 86 Comp Metabolic Panel 07/16/2013 [facility] Sodium 137 mmol/L N 133-145 [address] [place] [address] [phone] Potassium 3.7 mmol/L N 3.7-5.6 Chloride 101 [...] 55.5 N >60 Egfr 71.3 N >60 87 CBC Auto 07/16/2013 [facility] White Blood 16.3 10^3/uL High 4.8-10.[address] [place] [address] [phone] Red Blood Count 4.67 10^6/uL N 4.0-5.4 [...] Blood Cells % 0 N Urinalysis 07/16/2013 [facility] Urine Color Yellow N [address] [place] [address] [phone] Urine Appearance Clear N Urine Specific [place] 1.019 N 1.010-1.030 Urine Esterase Negative N Negative Urine Nitrate Negative N Negative Urine Urobilinogen Negative E.U./dL N Negative Urine Protein Negative mg/dL N Negative Urine pH 5.5 N 5-9 Urine Blood Negative N Negative Urine Ketones Negative mg/dL N Negative Urine Bilirubin Negative N Negative Urine Glucose Negative mg/dL N Negative Laboratory test 07/16/2013 [facility] Lactic Acid 0.9 mmol/L N 0.5-2.[address] [place] [address] [phone] Surgical 07/13/2013 [facility] S RUN DATE: [address] 07/14/ <[place] [address] NOTE> [phone] Comp Metabolic 06/15/2013 [facility] Sodium 140 mmol/L 133- [address] [place] [address] [phone] Potassium 3.9 mmol/L 3.7-5.6 Chloride 107 mmol/L [...] Egfr Non- 71.8 >60 Egfr 92.3 >60 89 Laboratory test 06/08/2013 [facility] Cytology RUN DATE: [address] 06/10/ <[place] [address] NOTE> [phone] CBC No Diff 10/12/2012 [facility] White Blood 7.6 10^3/uL 4.8 -[address] Count .8 [place] [address] [phone] Red Blood Count 5.02 10^6/uL 4.0-5.4 Hemoglobin 16.1 g/dL High 12.0-16.0 Hematocrit 47 % 35-47 Mean Corpuscular Volume 94 fL 80-97 Mean Corpuscular Hemoglobin 32 pg High 27-31 Mean Corpuscular HGB Conc 34 g/dL 31-36 Red Cell Distribution Width 15 % 10.5-15 Platelet Count 171 10^3/uL 150-450 Mean Platelet Volume 11 um3 High 7.4-10.4 Laboratory test 10/12/2012 [facility] TSH (Thyroid 1.81 0.34- 5.[address] Stimulating miu/[place] [address] Horm) [phone] Cortisol 12.9 g/dL 91 Lipid Profile 10/12/2012 [facility] Triglycerides 79 mg/dL 40 -200 (Trig/Chol/HDL) [address] [place], [place] [address] [phone] Cholesterol 161 mg/dL Less than 200 HDL Cholesterol 68 mg/dL High 40-60 92 Cholesterol/HDL Ratio 2.4 Average 1-4.44 LDL Cholesterol 77.2 Less Than 100 93 Comp Metabolic Panel 10/12/2012 [facility] Sodium 137 mmol/L 133-[address] [place] [address] [phone] Potassium 3.9 mmol/L 3.5-5.0 Chloride 103 mmol/L [...] Egfr Non- 76.2 >60 Egfr 98.0 >60 94 Urine Culture & 04/13/2010 [facility] Urine Culture NF1 [address] [place] [address] [phone] 1 AM 8.7-22.4 PM <10 2 ADDITIONAL INFORMATION Reference range for patients 11 years and older is based on upright A.M. collection from subjects without sodium restrictions. This test was developed and its performance characteristics determined by [facility] in a manner consistent with CLIA requirements. This test has not been cleared or approved by the U.S. Food and Drug Administration. Test Performed by: [facility] - [address] [address] 3 REFERENCE VALUE (Peripheral vein specimen) Na-deplete, upright: Mean: 5.9 Range: 2.9-10.8 Na-replete, upright: Mean: 1.0 Range: < or=0.6-3.0 ADDITIONAL INFORMATION Testing performed by Liquid Chromatography-Tandem Mass Spectrometry (LC-MS/MS). This test was developed and its performance characteristics determined by [facility] in a manner consistent with CLIA requirements. This test has not been cleared or approved by the U.S. Food and Drug Administration. Test Performed by: [facility] [place] [address] 4 Because ethnic data is not always [...] (or dialysis) 5 SEE RESULT BELOW Name: DIAZRENATA : [address]: Yessi Baker MD Acct: [id number] Unit: [id number] AGE: 57 Location: LAB Re05/18/18 SEX: F Status: REG REF SPEC: [id number] LEAH: 05/18/18-[address] [facility] [address]: Yessi Baker MD REQ: [id number] RECD: 05/18/18 STATUS: COMP _ SOURCE: URINE SPDESC: ORDERED: Urine Culture Procedure Result Reported Site Urine Culture Final 05/19/18- 1604 ML No growth of clinically significant organisms * ML - Main Lab . END OF REPORT DEPARTMENT OF PATHOLOGY, [address] [place] [address] Reginald Steele M.D. Director [facility] # [id number] REFERENCE VALUE 7.2-63 (a.m. collection) Test Performed by: [facility] [address] [place] [address] 7 AM 8.7-22.4 PM <10 8 Because ethnic data is not always readily [...] 15-29 5 Kidney failure <15 (or dialysis) 9 SEE RESULT BELOW Name: RENATA DIAZ Mike : [address]: Kory Babcock MD Acct: [id number] Unit: [id number] AGE: 57 Location: LAB Re05/06/18 SEX: F Status: REG REF SPEC: [id number] LEAH: 05/06/[address]: Kory Babcock MD REQ: [id number] RECD: 05/06/18120 STATUS: DOUG BREAUX DR: Jesse Bhakta MD _ SOURCE: URINE SPDESC: ORDERED: Urine Culture Procedure Result Reported Site Urine Culture Final 05/08/18- 1004 ML Organism 1 KLEBSIELLA PNEUMONIAE Luther Count 10-25,000 (Moderate) CFU/ML Organism 2 NORMAL NAFISA Luther Count 10-25,000 (Moderate) CFU/ML 1. KLEBSIELLA PNEUMONIAE [...] . END OF REPORT DEPARTMENT OF PATHOLOGY, [address] [place] [address] Reginald Steele M.D. Director [facility] # [id number] 10 ADDITIONAL INFORMATION This test was developed and its performance characteristics determined by [facility] in a manner consistent with CLIA requirements. This test has not been cleared or approved by the U.S. Food and Drug Administration. Test Performed by: [facility] [address] [place] [id number] 11 Because ethnic data is not always [...] 5 Kidney failure <15 (or dialysis) 12 ADDITIONAL INFORMATION This test was developed and its performance characteristics determined by [facility] in a manner consistent with CLIA requirements. This test has not been cleared or approved by the U.S. Food and Drug Administration. Test Performed by: [facility] [address] [place] [address] 13 Because ethnic data is not always [...] 5 Kidney failure <15 (or dialysis) 14 AM 8.7-22.4 PM <10 15 REFERENCE VALUE < 80 (Follicular) <285 (Luteal) < 51 (Postmenopausal) ADDITIONAL INFORMATION This test was developed and its performance characteristics determined by [facility] in a manner consistent with CLIA requirements. This test has not been cleared or approved by the U.S. Food and Drug Administration. Test Performed by: [facility] [place] [address] 16 The 24 hour volume of 350 mL from this urine collection is unusually low. To properly screen for pheochromocytoma, renal output of at least 500 mL per day is required. If this is a partial collection, suggest recollecting the urine for 24 hours. If this patient has significantly reduced renal function, order metanephrine on plasma, [facility] catalog: [id number]. 17 ADDITIONAL INFORMATION This test was developed and its performance characteristics determined by [facility] in a manner consistent with CLIA requirements. This test has not been cleared or approved by the U.S. Food and Drug Administration. Test Performed by: [facility] - [address] [address] 18 The 24 hour volume of this urine collection is unusually low. To properly screen for the ordered test, renal output of at least 500 mL per day is required. If this is a partial collection, we suggest recollecting the urine for 24 hours. 19 ADDITIONAL INFORMATION This test was developed and its performance characteristics determined by [facility] in a manner consistent with CLIA requirements. This test has not been cleared or approved by the U.S. Food and Drug Administration. Test Performed by: [facility] - [address] [address] 20 REFERENCE VALUE 30-180 (Normotensive) <400 (Hypertensive) 21 REFERENCE VALUE 128-484 (Normotensive) <900 (Hypertensive) 22 The 24 hour volume of 350 mL from this urine collection is unusually low. To properly screen for pheochromocytoma, renal output of at least 500 mL per day is required. If this is a partial collection, suggest recollecting the urine for 24 hours. If this patient has significantly reduced renal function, order metanephrine on plasma, [facility] catalog: [id number]. REFERENCE VALUE 164-588 (Normotensive) <1300 (Hypertensive) 23 ADDITIONAL INFORMATION This test was developed and its performance characteristics determined by [facility] in a manner consistent with CLIA requirements. This test has not been cleared or approved by the U.S. Food and Drug Administration. Test Performed by: [facility] - [address] [address] 24 REFERENCE VALUE 7.2-63 (a.m. collection) Test Performed by: [facility] - [address] [address] 25 ADDITIONAL INFORMATION This test was developed and its performance characteristics determined by [facility] in a manner consistent with CLIA requirements. This test has not been cleared or approved by the U.S. Food and Drug Administration. Test Performed by: [facility] - [place] [id number] 26 Test Performed by: [facility] - [address] [address] 27 Because ethnic data is not always readily [...] 15-29 5 Kidney failure <15 (or dialysis) 28 AM 8.7-22.4 PM <10 29 The 24 hour volume of this urine collection is unusually low. To properly screen for the ordered test, renal output of at least 500 mL per day is required. If this is a partial collection, we suggest recollecting the urine for 24 hours. 30 ADDITIONAL INFORMATION This test was developed and its performance characteristics determined by [facility] in a manner consistent with CLIA requirements. This test has not been cleared or approved by the U.S. Food and Drug Administration. Test Performed by: [facility] - [address] [address] 31 ADDITIONAL INFORMATION This test was developed and its performance characteristics determined by [facility] in a manner consistent with CLIA requirements. This test has not been cleared or approved by the U.S. Food and Drug Administration. Test Performed by: [facility] - [address] [address] 32 ADDITIONAL INFORMATION This test was developed and its performance characteristics determined by [facility] in a manner consistent with CLIA requirements. This test has not been cleared or approved by the U.S. Food and Drug Administration. Test Performed by: [facility] - [address] [address] 33 ADDITIONAL INFORMATION This test was developed and its performance characteristics determined by [facility] in a manner consistent with CLIA requirements. This test has not been cleared or approved by the U.S. Food and Drug Administration. Test Performed by: [facility] - [address] [address] 34 Because ethnic data is not always [...] 5 Kidney failure <15 (or dialysis) 35 REFERENCE VALUE (Peripheral vein specimen) Na-deplete, upright: Mean: 5.9 Range: 2.9-10.8 Na-replete, upright: Mean: 1.0 Range: < or=0.6-3.0 ADDITIONAL INFORMATION Testing performed by Liquid Chromatography-Tandem Mass Spectrometry (LC-MS/MS). This test was developed and its performance characteristics determined by [facility] in a manner consistent with CLIA requirements. This test has not been cleared or approved by the U.S. Food and Drug Administration. Test Performed by: [facility] - [address] [address] 36 ADDITIONAL INFORMATION Reference range for patients 11 years and older is based on upright A.M. collection from subjects without sodium restrictions. This test was developed and its performance characteristics determined by [facility] in a manner consistent with CLIA requirements. This test has not been cleared or approved by the U.S. Food and Drug Administration. Test Performed by: [facility] - [address] [address] 37 ADDITIONAL INFORMATION This test was developed and its performance characteristics determined by [facility] in a manner consistent with CLIA requirements. This test has not been cleared or approved by the U.S. Food and Drug Administration. Test Performed by: [facility] - [address] [address] 38 Because ethnic data is not always [...] 5 Kidney failure <15 (or dialysis) 39 Normal Range 180 to 914 Indeterminate Range 145 to 180 Deficient Range <145 40 ADDITIONAL INFORMATION This test was developed and its performance characteristics determined by [facility] in a manner consistent with CLIA requirements. This test has not been cleared or approved by the U.S. Food and Drug Administration. Test Performed by: [facility] - [address] [address] 41 ADDITIONAL INFORMATION This test was developed and its performance characteristics determined by [facility] in a manner consistent with CLIA requirements. This test has not been cleared or approved by the U.S. Food and Drug Administration. Test Performed by: [facility] - [address] [address] 42 Because ethnic data is not always [...] 5 Kidney failure <15 (or dialysis) 43 Normal Range 180 to 914 Indeterminate Range 145 to 180 Deficient Range <145 44 ADDITIONAL INFORMATION This test was developed and its performance characteristics determined by [facility] in a manner consistent with CLIA requirements. This test has not been cleared or approved by the U.S. Food and Drug Administration. Test Performed by: [facility] - [address] [address] 45 ADDITIONAL INFORMATION This test was developed and its performance characteristics determined by [facility] in a manner consistent with CLIA requirements. This test has not been cleared or approved by the U.S. Food and Drug Administration. Test Performed by: [facility] - [address] [address] [id number] SEE RESULT BELOW Name: RENATA DIAZ : [address]: Lucila Bhakta MD Acct: [id number] Unit: [id number] AGE: 57 Location: [facility] Re12/18/17 SEX: F Status: REG REF SPEC: [id number] LEAH: 12/18/17-[address] [facility] [address]: Lucila Bhakta MD REQ: [id number] RECD: 12/18/171313 STATUS: COMP _ SOURCE: URINE SPDESC: ORDERED: Urine Culture COMMENTS: [id number] Urine Source: Clean Catch Procedure Result Reported Site Urine Culture Final 12/20/17- 08 ML Organism 1 ESCHERICHIA COLI Luther Count >100,000 (Many) CFU/ML Organism 2 PROTEUS SPECIES Luther Count 1-10,000 (Few) CFU/ML PROTEUS SP: SUSCEPTIBILITY [...] CONTINUED ON NEXT PAGE DEPARTMENT OF PATHOLOGY, [address] [place] [address] Reginald Steele M.D. Director [facility] # [id number] Patient: RENATA DIAZ [id number] (Continued) Specimen: [id number] Collected: 12/18/17 Received: 12/18/17-1837 (Continued) Procedure Result Reported Site Urine Culture Final (continued) Contact the Microbiology Department for any additional antibiotic reporting. * ML - Main Lab . END OF REPORT DEPARTMENT OF PATHOLOGY, [address] [place] [address] Reginald Steele M.D. Director [facility] # [id number] AA 12/10 49 Because ethnic data is not always [...] 5 Kidney failure <15 (or dialysis) 50 SEE RESULT BELOW Name: RENATA DIAZ : [address]: Jaja Olivas DO Acct: [id number] Unit: [id number] AGE: 56 Location: [place] Re08/28/17 SEX: F Status: DEP SDC SPEC: [id number] LEAH: 08/28/17-[address]: Jaja Olivas DO REQ: [id number] RECD: 08/28/17 STATUS: COMP AMANDEEP DR: Lucila Bhakta MD _ SOURCE: GAS ANTRUM SPDESC: ORDERED: Clotest Procedure Result Reported Site Clotest Final 08/29/17- 715 ML Clotest Negative * ML - Main Lab . END OF REPORT DEPARTMENT OF PATHOLOGY, [address] [place] [address] Reginald Steele M.D. Director [facility] # [id number] 51 SEE RESULT BELOW Name: RENATA DIAZ : [address]: Jaja Olivas DO Acct: [id number] Unit: [id number] AGE: 56 Location: [place] Re08/28/17 SEX: F Status: DEP [facility] SPEC: [id number] LEAH: 08/28/17-[address] [facility] [address]: Jaja Olivas DO REQ: [id number] RECD: 08/28/17 STATUS: WENDY BREAUX DR: Jesse [...] CONTINUED ON NEXT PAGE DEPARTMENT OF PATHOLOGY, [address] [place] [address] Reginald Steele M.D. Director [facility] # [id number] RUN DATE: 08/29/17 [facility] LAB LIVE PAGE 2 Patient: RENATA DIAZ [id number] (Continued) GROSS DESCRIPTION (Continued) GROSS DESCRIPTION 1. [...] 1027 END OF REPORT DEPARTMENT OF PATHOLOGY, [address] [place] [address] Reginald Steele M.D. Director [facility] # [id number] 52 REFERENCE VALUE 6:00-10:30 AM Collection 0.121-1.065 mcg/dL ADDITIONAL INFORMATION This test was developed and its performance characteristics determined by [facility] in a manner consistent with CLIA requirements. This test has not been cleared or approved by the U.S. Food and Drug Administration. Test Performed by: [facility] [address] [place] [id number] 53 Therapeutic target for the treatment of diabetes mellitus patients is <7% HBA1C, and in selective patients <6.0%. Please refer to [place] [employer] diabetic care guidelines for further information. 54 Because ethnic data is not always readily [...] 15-29 5 Kidney failure <15 (or dialysis) 55 Because ethnic data is not always readily [...] 15-29 5 Kidney failure <15 (or dialysis) 56 Normal Range 180 to 914 Indeterminate Range 145 to 180 Deficient Range <145 57 ADDITIONAL INFORMATION This test was developed and its performance characteristics determined by [facility] in a manner consistent with CLIA requirements. This test has not been cleared or approved by the U.S. Food and Drug Administration. Test Performed by: [facility] - [facility] [address] [place] [address] 58 SEE RESULT BELOW Name: RENATA DIAZ : [address]: Lucila Bhakta MD Acct: [id number] Unit: [id number] AGE: 56 Location: [facility] Re05/07/17 SEX: F Status: REG REF SPEC: [id number] LEAH: 05/07/[address]: Lucila Bhakta MD REQ: [id number] RECD: 05/07/17 STATUS: COMP _ SOURCE: URINE SPDESC: ORDERED: Urine Culture Procedure Result Reported Site Urine Culture Final 05/08/17- 1643 ML No Growth (<1,000 CFU/mL) * ML - MAIN LAB ([facility]) . END OF REPORT * ML=Testing performed at Main Lab DEPARTMENT OF PATHOLOGY, [address] [place] [address] Reginald Steele M.D. Director [facility] # [id number] 59 >100 to <200 pg/mL: likely compensated congestive heart failure (CHF) 200 to 400 pg/mL: likely moderate CHF >400 pg/mL: likely moderate to severe CHF 60 Because ethnic data is not always readily [...] 15-29 5 Kidney failure <15 (or dialysis) 61 Because ethnic data is not always [...] 5 Kidney failure <15 (or dialysis) 62 SEE RESULT BELOW Name: RENATA DIAZ : [address]: Lucila Bhakta MD Acct: [id number] Unit: [id number] AGE: 56 Location: [facility] Re03/06/17 SEX: F Status: REG REF SPEC: [id number] LEAH: 03/06/17-[address]: Lucila Bhakta MD REQ: [id number] RECD: 03/06/17 STATUS: COMP _ SOURCE: URINE SPDESC: ORDERED: Urine Culture Procedure Result Reported Site Urine Culture Final 03/07/17- 1213 ML No growth of clinically significant organisms * ML - MAIN LAB ([facility]) . END OF REPORT * ML=Testing performed at Main Lab DEPARTMENT OF PATHOLOGY, [address] [place] [address] Reginald Steele M.D. Director [facility] # [id number] [phone] EXT 250 13 Because ethnic data is not always [...] 5 Kidney failure <15 (or dialysis) 65 >100 to <200 pg/mL: likely compensated congestive heart failure (CHF) 200 to 400 pg/mL: likely moderate CHF >400 pg/mL: likely moderate to severe CHF 66 Because ethnic data is not always readily [...] 15-29 5 Kidney failure <15 (or dialysis) 67 SEE RESULT BELOW Name: RENATA DIAZ : [address]: Henrique Dash MD Acct: [id number] Unit: [id number] AGE: 56 Location: ED Re02/06/17 SEX: F Status: DEP ER SPEC: [id number] LEAH: 02/06/[address]: Henrique Dash MD REQ: [id number] RECD: 02/06/17 STATUS: DOUG BREAUX DR: Lucila Bhakta MD _ SOURCE: URINE SPDESC: ORDERED: Urine Culture Procedure Result Reported Site Urine Culture Final 02/07/17- 1608 ML Few Enterobacteriacae; possible contamination. * ML - [facility] ([facility]) . END OF REPORT * ML=Testing performed at Main Lab DEPARTMENT OF PATHOLOGY, [address] [place] [address] Reginald Steele M.D. Director [facility] # [id number] 68 Because ethnic data is not always [...] Attend Dr: Juan Carlos Pang MD Acct: [id number] Unit: [id number] AGE: 55 Location: ED Re06/10/16 SEX: F Status: DEP ER SPEC: [id number] LEAH: 06/10/16-[address]: Juan Carlos Pang MD REQ: [id number] RECD: 06/10/16-1321 STATUS: COMP OTHR DR: Lucila Bhakta MD _ SOURCE: URINE SPDESC: ORDERED: Urine Culture Procedure Result Reported Site Urine Culture Final 06/11/16- 1316 ML No growth of clinically significant organisms * ML - MAIN LAB ([facility]) . END OF REPORT * ML=Testing performed at Main Lab DEPARTMENT OF PATHOLOGY, [address] [place] [address] Reginald Steele M.D. Director [facility] # [id number] 70 Acute inflammation: >10.00 71 Because ethnic data is not always [...] 5 Kidney failure <15 (or dialysis) 72 SEE RESULT BELOW Name: RENATA DIAZ : [address]: Lucila Bhakta MD Acct: [id number] Unit: [id number] AGE: 55 Location: [facility] Re01/03/16 SEX: F Status: REG REF SPEC: [id number] LEAH: 01/03/[address]: Lucila Bhakta MD REQ: [id number] RECD: 01/03/16 STATUS: COMP _ SOURCE: URINE [facility]: ORDERED: Urine Culture Procedure Result Reported Site Urine Culture Final 01/04/16- 1715 ML Mixed nafisa; possible contamination. Suggest resubmission. * ML - MAIN LAB ([facility]) . END OF REPORT * ML=Testing performed at Main Lab DEPARTMENT OF PATHOLOGY, [address] [place] [address] Reginald Steele M.D. Director [facility] # [id number] 73 Metanephrines, Free, Plasma Metanephrine, Free <25 pg/mL < OR=57 Y09 6 Normetanephrine, Free 60 pg/mL < XI=647 Y09 6 Total, Free (MN + NMN) 60 pg/mL < IF=090 Y09 6 Elevations > 4-fold upper reference [...] Clinical Endocrinology and Metabolism 93 (1),91-95, 2008. [email or web address] RECEIVED: 07/15/2015 09:33 REPORTED: 07/20/2015 14:24 --- 07/24/15 1059 --- Normetanephrine previously reported as: C Metanephrines, Free, Plasma Metanephrine, Free <25 pg/mL < OR=57 Y09 6 Normetanephrine, Free 60 pg/mL < IC=564 Y09 6 Total, Free (MN + NMN) 60 pg/mL < DZ=297 Y09 6 Elevations > 4-fold upper reference [...] of Clinical Endocrinology and Metabolism 93 (1),91-95, 2007. [email or web address] RECEIVED: 07/15/2015 09:33 REPORTED: 07/20/2015 14:24 74 Because ethnic data is not always readily [...] 15-29 5 Kidney failure <15 (or dialysis) 75 ADDITIONAL INFORMATION Reference range for patients 11 years and older is based on upright A.M. collection from subjects without sodium restrictions. Test Performed by: [place] [address] Supervisor [employer]: Lucas Nunez II, M.D., Ph.D. 76 REFERENCE VALUE (Peripheral vein specimen) Na-deplete, upright: Mean: 5.9 Range: 2.9-10.8 Na-replete, upright: Mean: 1.0 Range: < or=0.6-3.0 ADDITIONAL INFORMATION Testing performed by Liquid Chromatography-Tandem Mass Spectrometry (LC-MS/MS). Test Performed by: [address] [address] Supervisor [employer]: Lucas Nunez II, M.D., Ph.D. 77 AM 8.7-22.4 PM <10 78 SEE RESULT BELOW Name: RENATA DIAZ : [address]: Lucila Bhakta MD Acct: [id number] Unit: [id number] AGE: 54 Location: [facility] Re05/30/15 SEX: F Status: REG REF SPEC: [id number] LEAH: 05/30/15-[address]: Lucila Bhakta MD REQ: [id number] RECD: 05/30/15 STATUS: SOUT _ ORDERED: IMAGE [...] was evaluated with the assistance of the [employer] Test Imaging System. Due to cytologic findings at the director of consumer marketing microscope, comprehensive manual rescreening by a Automotive Collision Repair Instructor may be required. The Pap Smear is [...] performed at Main Lab DEPARTMENT OF PATHOLOGY, [address] [place] [address] Reginald Steele M.D. Director [facility] # [id number] RUN DATE: 05/31/15 [facility] LAB LIVE PAGE 1 Patient: RENATA DIAZ [id number] ([facility]) 79 The high-risk HPV types detected by the assay include: 16, 18, 31, 33, 35, 39, 45, 51, 52, 56, 58, 59, 66, and 68. 80 [facility] Severe Sepsis and Septic Shock Management Bundle Measure requires all lactic acids initially measuring >2.0mmol/L be repeated. 81 Reference Range and Interpretation: TnI (ng/mL) Interpretation Less Than 0.03 ng/mL Not supportive of diagnosis of [place] 0.03 - 0.50 ng/mL Indeterminate: suggest serial studies if clinically indicated. Greater than 0.5 ng/mL Consistent with diagnosis of [place] 82 Because ethnic data is not always [...] 5 Kidney failure <15 (or dialysis) 83 Acute inflammation: >10.00 84 FASTING 12 HOUR 85 Because ethnic data is not always readily [...] 15-29 5 Kidney failure <15 (or dialysis) 86 Acute inflammation: >10.00 In accordance with FDA guideline, CRP is now reported in mg/L, previous reporting was in mg/dL. 87 Because ethnic data is not always readily [...] 15-29 5 Kidney failure <15 (or dialysis) 88 RUN DATE: 07/14/13 [facility] LAB LIVE PAGE 1 RUN TIME: [address] [place] [address] Specimen Inquiry Name: RENATA DIAZ : [address]: Skyler Huggins MD Acct: [id number] Unit: [id number] AGE: 52 Location: ENDO Re07/13/13 SEX: F Status: REG REF SPEC: [id number] LEAH: 07/13/13- SUBM DR: Skyler Huggins MD REQ: [id number] RECD: 07/13/13 STATUS: WENDY BREAUX DR: Lucila [...] specimen is received in formalin labeled Renatasol Diaz, Biopsy Ascending Colon Polyp, and consists of two bethea, irregular to polypoid soft tissue fragments averaging 0.3 x 0.3 x 0.2 cm. Submitted entirely, one cassette. 2. The specimen is received in formalin labeled Renatasol Carrerayder, Biopsy Random Colon, and consists of a 1.0 x 0.8 x 0.2 cm. aggregate of multiple irregular, bethea-pink soft tissue fragments. Supervisor [employer] sections, one cassette. 1. CONTINUED ON NEXT PAGE * ML=Testing performed at Main Lab DEPARTMENT OF PATHOLOGY, [address] [place] [address] Reginald Steele M.D. Director [facility] Permit #[id number] RUN DATE: 07/14/13 [facility] LAB LIVE PAGE 2 RUN TIME: [address] [place], [place] [address] Specimen Inquiry Patient: RENATA DIAZ [id number] (Continued) GROSS DESCRIPTION (Continued) Signed (signature on file) Briseida Mix MD 1534 END OF REPORT * ML=Testing performed at Main Lab DEPARTMENT OF PATHOLOGY, [address] [place] [address] Reginald Steele M.D. Director [facility] Permit #[id number] 89 Because ethnic data is not always [...] 5 Kidney failure <15 (or dialysis) 90 RUN DATE: 06/10/13 [facility] LAB LIVE PAGE 1 RUN TIME: [address] [place] [address] Specimen Inquiry Name: RENATA DIAZ : [address]: Lucila Bhakta MD Acct: [id number] Unit: [id number] AGE: 52 Location: [facility] Re06/08/13 SEX: F Status: REG REF SPEC: [id number] LEAH: 06/08/13-[address]: Lucila Bhakta MD REQ: [id number] RECD: 06/08/138210 STATUS: SOUT _ ORDERED: IMAGE ANALYSIS, PAP [...] Signed (signature on file) Briseida Mix MD 4635 This Pap test was evaluated with the assistance of the [employer] Test Imaging System. Due to cytologic findings at the director of consumer marketing microscope, comprehensive manual rescreening by a Automotive Collision Repair Instructor may be required. The Pap Smear is [...] performed at Main Lab DEPARTMENT OF PATHOLOGY, [address] [place] [address] Reginald Steele M.D. Director [facility] Permit #[id number] 91 AM Cortisol 8.7-22.4 PM Cortisol Less than 10 92 HDL Interpretation: Undesirable: High Risk: Less than 40 mg/dL Desirable: Low Risk: Greater than 60 mg/dL 93 LDL Interpretation: Low Risk Optimal Level: LDL Less than 100 mg/dL Near or Above Optimal: LDL 100-129 mg/dL Borderline High Risk: LDL 130-159 mg/dL High Risk: LDL 160-189 mg/dL Very High Risk: LDL Greater than 189 mg/dL 94 Because ethnic data is not always [...] 5 Kidney failure <15 (or dialysis) 95 SPECIMEN CONTAINS NORMAL URETHRAL OR PERINEAL NAFISA AND DOES NOT SUGGEST URINARY TRACT INFECTION Procedures Date Code Description Status 02/15/2018 33610 EKG, Interpretation Only Completed 02/12/2018 94874 EKG, Interpretation Only Completed 01/09/2018 51754646 Mammogram Completed 09/10/2017 25819 ECHO Transthoracic, Real-Time 2D With Doppler And Completed Color Flow 09/10/2017 38910 ECHO Transthoracic, Real-Time 2D With Doppler And Completed Color Flow 09/05/2017 47492 Stress ECHO Interpretation/Report Hospital Completed 09/05/2017 46245 Treadmill Interp/Report Only Completed 09/05/2017 99245 Stress Test Supervsn W/Out I/R Completed 09/02/2017 99102 EKG Tracing & Interpretation Completed 08/28/2017 53416 Endoscopy Upper GI Biopsy Completed 07/30/2016 69106 I&D Abscess Simple Completed 07/30/2016 22156 Removal Skin Tags Up To 15 Completed 07/30/2016 16585 Inject/Drain Joint/Bursa Major W/O US Completed 07/23/2016 79015142 Mammogram Completed 01/09/2016 52351 Xray Knee 3 Views Completed 01/09/201635050 Inject/Drain Joint/Bursa Major W/O US Completed 07/14/2015 56947092 Mammogram Completed 09/21/2013 98473 Polysomnography Sleep Staging 4+ Parameters W/Cpap Completed 09/01/2013 82755 Polysomnography Sleep Staging 4+ Parameters Completed 07/26/201382929 Inject/Drain Joint/Bursa Major W/O US Completed 07/16/2013 44798 EKG, Interpretation Only Completed 07/13/2013 11701586 Colonoscopy Completed 06/18/2013 28967 Rad Exam; Knee, Ap&L Completed 06/18/2013 01199 Rad Exam; Knee, Ap&L Completed 06/18/201357523 Inject/Drain Joint/Bursa Major W/O US Completed 06/18/201370891 Inject/Drain Joint/Bursa Major W/O US Completed 06/18/2013 12229 Xray Knee 3 Views Completed 06/18/2013 59603 Xray Knee 3 Views Completed 06/15/2013 039512061 Bone Mineral Density Test Completed 01/19/2013 27947197 Mammogram Completed 12/30/2012 42178 Rad Exam; Wrist, Comp, Min 3 Views Completed 05/08/2010 18762297 Mammogram Completed 02/27/2010 99974 Treadmill Interp/Report Only Completed 02/27/2010 26968 Stress Test Supervsn W/Out I/R Completed Encounters Type Date Location Provider Dx Diagnosis Office Visit 05/15/2018 [facility] Nephrology Yessi Baker, N18.3 Chronic kidney 2:00p disease, stage 3 (moderate) I12.9 Hypertensive chronic kidney disease w stg 1-4/unsp chr kdny E83.42 Hypomagnesemia E26.9 Hyperaldosteronism, unspecified Office Visit 05/06/2018 11:00a [facility] Posey and Kory Babcock, 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 E87.6 Hypokalemia M54.5 Low back pain Z98.84 Bariatric surgery status 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 Office Visit 05/04/2018 10:10a [facility] Internal Lucila Bhakta M54.5 Low back pain Medicine - Jessica Jose N18.3 Chronic kidney disease, stage 3 (moderate) E87.6 Hypokalemia Office Visit 03/30/2018 1:00p [facility] Diabetes and Kory Babcock, R60.0 Localized edema [facility] R51 Headache Z98.84 Bariatric surgery status E27.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 Z87.891 Personal history of nicotine dependence N18.3 Chronic kidney disease, stage 3 (moderate) I12.9 Hypertensive chronic kidney disease w stg 1-4/unsp chr kdny E66.9 Obesity, unspecified Z68.43 Body mass index (BMI) 50-59.9, adult Office Visit 03/16/2018 [place] [facility] and Horn Coch, 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 Ayde Henok Z48.815 Encntr for Assoc,jeff COLEMAN surgical aftcr Hospitalists following surgery on the dgstv sys Z98.84 Bariatric surgery status R51 Headache I10 Essential (primary) hypertension Office Visit 02/15/2018 11:10a [facility] Lucas Z48.815 Encntr for Assoc,BRIDGETT Sawyer surgical aftcr Hospitalists following surgery on the dgstv sys Z98.84 Bariatric surgery status R07.9 Chest pain, unspecified G47.33 Obstructive sleep apnea (adult) (pediatric) E83.42 Hypomagnesemia E87.6 Hypokalemia Office Visit 02/14/2018 11:10a [facility] Lucas Z48.815 Encntr for Assoc,BRIDGETT Sawyer surgical aftcr Hospitalists following surgery on the dgstv sys Z98.84 Bariatric surgery status R07.9 Chest pain, unspecified E83.42 Hypomagnesemia E87.6 Hypokalemia I95.9 Hypotension, unspecified G47.33 Obstructive sleep apnea (adult) (pediatric) Office Visit 02/12/2018 10:32a [place] [facility] and Kory Babcock, I10 Essential Endocrinology of [place] [employer] MD (primary) hypertension E87.5 Hyperkalemia R10.9 Unspecified abdominal pain Office Visit 02/09/2018 11:50a [facility] Lucila K28.3 Acute gastrojejunal Robb Bhakta M.D. ulcer without [place] hemorrhage or perforation I10 Essential (primary) hypertension N39.0 Urinary tract infection, site not specified Office Visit 01/28/2018 2:00p [facility] Lucila I10 Essential (primary ) Robb Bhakta M.D. hypertension [place] Z23 Encounter for immunization Office Visit 12/18/2017 2:40p [facility] Lucila I10 Essential (primary ) Robb [...] objects, init encntr Office Visit 09/02/2017 2:00p [place] [facility] Duane Zavala I10 Essential (primary) Jessica Ponce hypertension R60.9 Edema, unspecified R01.1 Cardiac murmur, unspecified E11.9 Type 2 diabetes mellitus without complications E66.01 Morbid (severe) obesity due to excess calories R07.9 Chest pain, unspecified Office Visit 07/07/2017 [facility] Lucila H10.402 Unspecified chronic 1:40p Robb Bhakta M.D. conjunctivitis, left [place] eye R22.0 Localized swelling, mass and lump, head I10 Essential (primary) hypertension R73.9 Hyperglycemia, unspecified Office Visit 05/07/2017 10:10a [facility]ila Jazz0 Essential (primary ) Robb Bhakta M.D. hypertension [place] R60.9 Edema, unspecified H10.89 Other conjunctivitis E66.01 Morbid (severe) obesity due to excess calories Office Visit 04/02/2017 10:10a [facility] Internal Lucila Bhakta, R21 Rash and other Medicine - M.D. nonspecific skin [place] eruption E66.01 Morbid (severe) obesity due to excess calories I10 Essential (primary) hypertension Office Visit 03/06/2017 10:00a [facility] Internal Nurse Visit C I10 Essential ( primary) Medicine - hypertension [place] Office Visit 02/27/2017 9:40a [facility] Internal Lucila I10 Essential (primary ) Robb Bhakta M.D. hypertension [place] M51.36 Other intervertebral disc degeneration, lumbar region Office Visit 02/12/2017 9:40a [facility] Internal Lucila R60.9 Edema, unspecified Robb Bhakta M.D. [place] I10 Essential (primary) hypertension M54.5 Low back pain M51.36 Other intervertebral disc degeneration, lumbar region Office Visit 01/29/2017 1:00p [facility] Henrique Minor R35.0 Frequency of Robb Robbins M.D. micturition [place] M54.5 Low back pain Z23 Encounter for immunization Office Visit 07/30/2016 Orthopedic Rocco F M17.11 Unilateral primary 9:30a [facility] [place] osteoarthritis, C.M.A. right knee M25.561 Pain in right knee M16.11 Unilateral primary osteoarthritis, right hip Office Visit 07/29/2016 11:45a Neurosurgery Shara Richards, M25.551 Pain in Services [facility] URIAS-Mike right hip M51.36 Other intervertebral disc degeneration, lumbar region Office Visit 07/17/2016 8:30a [facility] Internal Nurse Visit C I10 Essential Medicine - (primary) [place] hypertension Office Visit 07/02/2016 11:10a [facility] Internal Lucila Z00.01 Encounter for Robb Bhakta M.D. general adult [place] medical exam w abnormal findings I10 Essential (primary) hypertension M48.06 Spinal stenosis, lumbar region L91.8 Other hypertrophic disorders of the skin E66.01 Morbid (severe) obesity due to excess calories Z23 Encounter for immunization Z12.31 Encntr screen mammogram for malignant neoplasm of breast Office Visit 06/10/2016 10:30a [facility] Internal Lucila Bhkata, R10.31 Right lower Medicine Rayo Lopez quadrant pain [place] B07.9 Viral wart, unspecified Office Visit 01/09/2016 Orthopedic Riky M M17.12 Unilateral primary 2:30p [facility] Lorenzo MD osteoarthritis, left AT Jay knee M17.11 Unilateral primary osteoarthritis, right knee Office Visit 01/03/2016 2:40p [facility] Internal Lucila Bhakta, M25.562 Pain in left Robb Cade M.D. knee [place] R30.0 Dysuria Office Visit 12/27/2015 9:40a [facility] Margo M25.562 Pain in left knee Robb Rae M.D. [place] Office Visit 07/05/2015 11:50a [facility] Internal Lucila I10 Essential Robb Bhakta M.D. (primary) [place] hypertension L85.3 Xerosis cutis Office Visit 06/21/2015 10:10a [facility] Luc[facility] Bhakta, Z00.00 Encntr for Robb Cade M.D. general adult [place] medical exam w/o abnormal findings I10 Essential (primary) hypertension Z12.31 Encntr screen mammogram for malignant neoplasm of breast Z11.59 Encounter for screening for other viral diseases Z23 Encounter for immunization Office Visit 05/30/2015 10:30a [facility] I10 Essential (primary ) Robb Bhakta M.D. hypertension [place] E66.01 Morbid (severe) obesity due to excess calories R19.7 Diarrhea, unspecified R10.31 Right lower quadrant pain R87.610 Atyp squam cell of undet signfc cyto smr crvx (Asc-US) Office Visit 05/24/2015 8:30a [facility] I10 Essential (primary ) Robb hBakta M.D. hypertension [place] R19.7 Diarrhea, unspecified Office Visit 05/12/2015 2:40p [facility] Rae I10 Essential ( primary) Robb Cade M.D. hypertension [place] E66.01 Morbid (severe) obesity due to excess calories R10.31 Right lower quadrant pain M54.5 Low back pain Office Visit 02/22/2014 8:50a [facility] Gaytan 401.1 Hypertension Benign Jessica [place] 278.01 Obesity Morbid 305.1 Tobacco Use Disorder V04.81 Need For Prophylactic Vaccination & Inoculation/Influenza 288.60 Leukocytosis, Unspecified Office Visit 11/03/2013 4:20p [facility] Internal Alex Diaz 719.47 Pain Joint Robb Mota M.D.,FACP Ankle & Foot [place] 728.71 Fibromatosis Plantar Fascia Office Visit 08/16/2013 2:50p [facility] Internal Lucila Bhakta, 305.1 Tobacco Use Robb Cade M.D. Disorder [place] 473.9 Sinusitis Chronic Unspec 784.0 Headache Office Visit 07/18/2013 [facility] Aly 575.0 Cholecystitis 4:40p Assoc,pc Ahuja, N.P[facility] Acute Hospitalists 401.9 Hypertension Unspec 278.01 Obesity Morbid 305.1 Tobacco Use Disorder Office Visit 07/17/2013 [facility] Aly 575.0 Cholecystitis 4:39p Assoc,pc Ahuja, N.P. Acute Hospitalists 401.9 Hypertension Unspec 278.01 Obesity Morbid 305.1 Tobacco Use Disorder Office Visit 07/16/2013 4:38p [facility] Jaja Duval, 575.0 Cholecystitis Acute Assoc, N.P. Hospitalists 401.9 Hypertension Unspec 278.01 Obesity Morbid 305.1 Tobacco Use Disorder Office Visit 07/16/2013 [facility] Sherrie 575.0 Cholecystitis Acute 3:00p Assoc,pc BRIDGETT Ayala Hospitalists Office Visit 07/12/2013 [facility] Internal Lucila 305.1 Tobacco Use 1:50p Robb Bhakta M.D. 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 Lower Leg [place] 401.9 Hypertension Unspec 278.00 Obesity Unspec 780.79 Malaise And Fatigue Other Office Visit 02/10/2013 10:00a [facility] Silvio 401.9 Hypertension Robb Dc M.D. Unspec [place] 784.0 Headache 473.0 Sinusitis Chronic Maxillary v04.81 Need For Prophylactic Vaccination & Inoculation/Influenza Office Visit 01/11/2013 [facility] Ruby 727.41 Ganglion Joint 8:45a Services Of Raheel Lee M.D. AT [place] Office Visit 12/30/2012 [facility] Ruby 727.43 Ganglion Unspec 1:30p Services Of Raheel Lee M.D. AT [place] Office Visit 12/17/2012 [facility] Lucila Bhakta, 727.43 Ganglion Unspec 10:30a Robb Cade M.D. [place] Office Visit 11/04/2012 [facility] Dashawn Anguiano 401.9 Hypertension 3:40p Robb Dc M.D. Unspec [place] 784.0 Headache 473.0 Sinusitis Chronic Maxillary Office Visit 10/14/2012 8:40a [facility] Anguiano 401.9 Hypertension Robb Dc M.D. Unspec [place] 784.0 Headache Office Visit 10/12/2012 10:10a [facility] Lucila 401.9 Hypertension Unspec Robb Bhakta M.D. 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
--- NOTE | 2018-07-02 17:55 | ED ---
Headache - HPI Summary HPI Summary: A 57 y/o F presents to ED with c/o sudden-onset back pain onset yesterday. She describes her back pain as "burning." Aggravating factors: deep breaths, mildly. Associated sx: DALEY, intermittent dizziness, diarrhea. Pt denies any fever , chills, diaphoresis, erythema of eyes, tinnitus, sore throat, CP, SOB, cough, abdominal pain, N/V, dysuria, hematuria, edema, rash. She states getting these DALEY when her BP is too high. She last took her BP medicine at 0930 this AM. PMHx : bariatric surgery in November 2017. She saw a neurologist in [place] yesterday regarding possible Pedro dx. She saw Dr. Richard, neurosurgery, three days ago, for scoliosis and DDD, and a bulge in L2 and L3. Vitals in room: HR 69 bpm, BP: 175/129. - History Of Current Complaint Chief Complaint: EDHeadache Stated Complaint: BURNING PAIN UNDERNEATH RIB CAGE,HEADACHE PER PT Hx Obtained From: Patient Onset/Duration: Sudden Onset, Started hours ago, Still Present Timing: Constant Associated Signs And Symptoms: Other (Noted In Comments) - DALEY, intermittent dizziness, diarrhea. - Allergies/Home Medications Allergies/Adverse Reactions: Allergies Allergy/AdvReac Type Severity Reaction Status Date / Time pineapple Allergy Severe Rash Verified 06/02/18 06:49 Home Medications: Home Medications Cyanocobalamin (Vitamin B-12) [Vitamin B12] 2,500 mcg PO DAILY 07/02/18 [ History Confirmed 07/02/18] Gabapentin 300 mg PO QPM 07/02/18 [History Confirmed 07/02/18] Labetalol HCl 200 mg PO BID 07/02/18 [History Confirmed 07/02/18] NIFEdipine [Nifedipine ER] 30 mg PO DAILY 07/02/18 [History Confirmed 07/02/18] Spironolactone 50 mg PO BID 07/02/18 [History Confirmed 07/02/18] PMH/Surg Hx/FS Hx/Imm Hx Previously Healthy: No Endocrine/Hematology History: Denies: Hx Diabetes, Hx Thyroid Disease Cardiovascular History: Reports: Hx Hypertension - on medications Denies: Hx Angina, Hx Coronary Artery Disease, Hx Hypercholesterolemia, Hx Myocardial Infarction, Hx Pacemaker/ICD, Hx Valvular Heart Disease, Other Cardiovascular Problems/Disorders Respiratory History: Reports: Hx Pneumonia, Hx Sleep Apnea, Other Respiratory Problems/Disorders - HX OF PNEUMONIA ABOUT 16 MONTHS AGO Denies: Hx Asthma, Hx Chronic Obstructive Pulmonary Disease (COPD) GI History: Reports: Hx Gastroesophageal Reflux Disease, Other GI Disorders - Gastric bypass surgery 11/2017 Denies: Hx Ulcer History: Reports: Other Problems/Disorders - bseline elevated creatinine Denies: Hx Renal Disease Musculoskeletal History: Reports: Hx Arthritis, Other Musculoskeletal History - Obesity Denies: Hx Back Problems, Hx Osteoporosis, Hx Scoliosis Sensory History: Reports: Hx Contacts or Glasses Denies: Hx Cataracts, Hx Eye Injury, Hx Eye Prosthesis, Hx Glaucoma, Hx Legally Blind, Hx Macular Degeneration, Hx Vision Problem, Hx Deafness, Hx Hearing Aid, Hx Hearing Problem, Other Sensory Impairments Opthamlomology History: Reports: Hx Contacts or Glasses Denies: Hx Cataracts, Hx Eye Injury, Hx Eye Prosthesis, Hx Glaucoma, Hx Legally Blind, Hx Macular Degeneration, Hx Vision Problem, Other Sensory Impairments Neurological History: Reports: Hx Headaches, Hx Migraine Denies: Other Neuro Impairments/Disorders Psychiatric History: Denies: Hx Panic Disorder - Cancer History Hx Chemotherapy: No - Surgical History Surgery Procedure, Year, and Place: Gastric bypass. C-sections x 2. CHOLECYSTECTOMY. Rotator Cuff repair left shoulder 1997. PT NEEDS TO BE SCHEDULED ON DAY SHIFT AT MAIN WHEN CONTRASTED, NEEDS TO BE SET UP W/ U/S IV ACCESS, VERY POOR VEINS Hx Anesthesia Reactions: No - Immunization History Date of Tetanus Vaccine: PT STATES UNSURE Date of Influenza Vaccine: NONE Infectious Disease History: No Infectious Disease History: Denies: Hx Hepatitis, Hx Human Immunodeficiency Virus (HIV), Traveled Outside the [place] in Last 30 Days - Family History Known Family History: Positive: Other - FHx negative for breast cancer. - Social History Occupation: Employed Full-time Lives: With Family Alcohol Use: None Hx Substance Use: No Substance Use Type: Reports: None Smoking Status (MU): Former Smoker Type: Cigarettes Amount Used/How Often: 1 pack/day for 34 years Length of Time of Smoking/Using Tobacco: 20+ years Have You Smoked in the Last Year: No Review of Systems Negative: Fever, Chills, Skin Diaphoresis Negative: Erythema Negative: Sore Throat, Other - neg: tinnitus Negative: Chest Pain Negative: Shortness Of Breath, Cough Positive: Diarrhea. Negative: Abdominal Pain, Vomiting, Nausea Negative: dysuria, hematuria Musculoskeletal: Other - pos: back pain Negative: Edema Negative: Rash Neurological: Other - pos: dizziness Positive: Headache All Other Systems Reviewed And Are Negative: Yes Physical Exam - Summary Physical Exam Summary: Constitutional: Well-developed, Well-nourished, Alert. (-) Distressed Skin: Warm, Dry HENT: Normocephalic; Atraumatic Eyes: Conjunctiva normal Neck: Musculoskeletal ROM normal neck. (-) JVD, (-) Stridor, (-) Tracheal deviation Cardio: Rhythm regular, rate normal, Heart sounds normal; Intact distal pulses; The pedal pulses are 2+ and symmetric. Radial pulses are 2+ and symmetric. (-) Murmur Pulmonary/Chest wall: Effort normal. (-) Respiratory distress, (-) Wheezes, (-) Rales Abd: Soft, (-) epigastric tenderness, (-) Distension, (-) Guarding, (-) Rebound Musculoskeletal: (-) Edema Lymph: (-) Cervical adenopathy Neuro: Alert, Oriented x3 Psych: Mood and affect Normal Triage Information Reviewed: Yes Vital Signs On Initial Exam: Initial Vitals Temp Pulse Resp BP Pulse Ox 97.2 F 76 18 186/106 100 07/02/18 16:11 07/02/18 16:11 07/02/18 16:11 07/02/18 16:11 07/02/18 16:11 Vital Signs Reviewed: Yes Diagnostics - Vital Signs Vital Signs Temp Pulse Resp BP Pulse Ox 07/02/18 16:11 97.2 F 76 18 186/106 100 - Laboratory Result Diagrams: 07/02/18 18:29 07/02/18 18:29 Lab Statement: Any lab studies that have been ordered have been reviewed, and results considered in the medical decision making process. - Radiology CXR Radiology Interpretation Completed By: ED Physician, Radiologist Summary of Radiographic Findings: No acute disease. - CT C/A/P CTA CT Interpretation Completed By: Radiologist Summary of CT Findings: CHEST IMPRESSION: 1. No aortic dissection, aneurysm, or rupture. 2. No pulmonary emboli. 3. Suggestive CHF. 4. Right thyroid nodule. No followup indicated. ABDOMEN and PELVIS IMPRESSION: 1. No aortic dissection, aneurysm, or rupture. 2. Focal fatty hepatic infiltration. 3. Bilateral adrenal hyperplasia. 4. Expected appearance of patient's Alivia-en-Y gastric bypass. ED provider has reviewed this report. - EKG 1627 Cardiac Rate: NL - 66 bpm EKG Rhythm: Sinus Rhythm Summary of EKG Findings: No STEMI. Re-Evaluation - Re-Evaluation 1 Re-Evaluation Time: 21:40 Change: Unchanged Comment: Discussing CTA results with pt. Pt is still having DALEY. Her upper back pain seems to be positional and somewhat reproducible. Her repeat troponin is in progress to r/o CT. Headache Course/Dx - Course Course Of Treatment: Pt is a 57 y/o F presenting with sudden-onset back pain onset yesterday, described as "burning." Aggravating factors: deep breaths, mildly. Associated sx: DALEY, intermittent dizziness, diarrhea. She states getting these DALEY when her BP is too high. She last took her BP medicine at 0930 this AM. PMHx: bariatric surgery in November 2017. She saw a neurologist in [place] yesterday regarding possible Pedro dx. She saw Dr. Richard, neurosurgery, three days ago, for scoliosis and DDD, and a bulge in L2 and L3. CXR shows NAD. Lab work is unremarkable for significant abnormality. UA results show trace ketones, 1+ WBCs, 1+ glucose, squamous epithelia are present, trace leukocyte esterase. C/A/P CTA shows "CHEST IMPRESSION: 1. No aortic dissection , aneurysm, or rupture. 2. No pulmonary emboli. 3. Suggestive CHF. 4. Right thyroid nodule. No followup indicated. ABDOMEN and PELVIS IMPRESSION: 1. No aortic dissection, aneurysm, or rupture. 2. Focal fatty hepatic infiltration. 3. Bilateral adrenal hyperplasia. 4. Expected appearance of patient's Alivia-en-Y gastric bypass.". Upon re-eval, pt is still having DALEY. Her upper back pain seems to be positional and somewhat reproducible. Her repeat troponin is in progress to r/o CT. Her symptoms seems secondary to the uncontrolled HTN. Will order opiates in ED and out-patient medications. Pt will be signed out to Dr. Fajardo at shift change pending repeat troponin and dispo. Discharge - Sign-Out/Discharge Documenting (check all that apply): Sign-Out Patient Signing out patient TO: Danny Fajardo - Discharge Plan Referrals: Lucila Bhakta MD [Primary Care Provider] - - Attestation Statements Document Initiated by Scribe: Yes Documenting Scribe: Hair Hall Provider For Whom Scribe is Documenting (Include Credential): Dr. Colt Hernández MD Scribe Attestation: IHair, scribed for Dr. Colt Hernández MD on 07/02/18 at [id number].
[2018-07-02] MEDS ORDERED: Morphine VIAL* 10 MG/ML 1 ML VIAL IV ONE (18:47)
[2018-07-02] MEDS ORDERED: Metoprolol Tartrate IV* 1 MG/ML 5 ML VIAL IV ONE (18:47)
[2018-07-02] MEDS ORDERED: Ondansetron INJ* 2 MG/ML VIAL IV ONE (18:47)
[2018-07-02 18:53] LABS: ABS Basophils 0 10^3/ul (0-0.2); ABS Eosinophils 0.1 10^3/ul (0-0.6); ABS Lymphocytes 1.1 10^3/ul (1.0-4.8); ABS Monocytes 0.8 10^3/ul (0-0.8); ABS Neutrophils 2.9 10^3/ul (1.5-7.7); ABS Nucleated RBC 0 10^3/ul; Eosinophil % 1.4 %; Hematocrit 38 % (35-47); Hemoglobin 12.8 g/dl (12.0-16.0); Lymphocyte % 22.2 %; Mean Corpuscular HGB Conc 33 g/dl (31-36); Mean Corpuscular Hemoglobin 32 pg (27-31); Mean Corpuscular Volume 95 fL (80-97); Mean Platelet Volume 10.5 fL (7.4-10.4); Nucleated Red Blood Cells % 0; Platelet Count 142 10^3/ul (150-450); Red Blood Count 4.03 10^6/ul (4.00-5.40); Red Cell Distribution Width 16 % (10.5-15); White Blood Count 4.9 10^3/ul (3.5-10.8)
[2018-07-02 19:07] LABS: Troponin I 0.01 ng/mL (<0.04)
[2018-07-02] MEDS ORDERED: Morphine VIAL* 4 MG/ML VIAL (1 ml vial) ONE (19:07)
[2018-07-02 19:18] LABS: Albumin 3.5 g/dL (3.2-5.2); Albumin/Globulin Ratio 1.4 (1-3); BUN/Creatinine Ratio 12.3 (8-20); Calcium 9.2 mg/dL (8.6-10.3); EGFR African American 65.1 (>60); EGFR Non-African American 53.8 (>60); Globulin 2.5 g/dL (2-4); Potassium 3.8 mmol/L (3.5-5.0)
[2018-07-02] MEDS ORDERED: Iodixanol* (CONTRAST) 320 MG/ML 100 ML SDV IV ONE (19:31)
[2018-07-02 20:52] LABS: Urine Appearance Cloudy; Urine Bacteria Absent (Absent); Urine Bilirubin Negative (Negative); Urine Blood Negative (Negative); Urine Color Yellow; Urine Glucose 1+(50 mg/dL) (Negative); Urine Ketones Trace (Negative); Urine Nitrite Negative (Negative); Urine Protein Negative (Negative); Urine Red Blood Cell Trace(0-2/hpf) (Absent); Urine Specific Gravity 1.019 (1.010-1.030); Urine Squamous Epithelial Cell Present (Absent); Urine Urobilinogen Negative (Negative); Urine White Blood Cell 1+(6-10/hpf) (Absent)
[2018-07-02] MEDS ORDERED: Labetalol TAB* 300 MG PO ONE (21:39)
[2018-07-02] MEDS ORDERED: HYDROcodone/ACETAMIN 5-325 MG* 1 TAB PO ONE (21:39)
--- NOTE | 2018-07-02 22:22 | ED ---
Progress - Progress Note Progress Note: This pt was signed out by Dr. Hernández, pending disposition, awaiting labs. Re-Evaluation - Re-Evaluation 1 Re-Evaluation Time: 23:35 Change: Improved Comment: Pt is feeling ok. She will be discharged home with follow up from her PCP. She is advised to increase Nifedipine from 30 mg a day to 60 mg a day. Course/Dx - Course Course Of Treatment: Pt was signed out by Dr. Hernández, pending disposition, awaiting labs. Pt is feeling ok. She will be discharged home with follow up from her PCP. She is advised to increase Nifedipine from 30 mg a day to 60 mg a day. Pt is instructed to return to the ED for any worsening or new symptoms. She understands and agrees. - Diagnoses Provider Diagnoses: Hypertension Discharge - Sign-Out/Discharge Documenting (check all that apply): Patient Departure - Discharge home, Receiving Sign-Out Receiving patient FROM: Colt Hernández Patient Received Moderate/Deep Sedation with Procedure: No - Discharge Plan Condition: Stable Disposition: HOME Patient Education Materials: Hypertension (ED) Referrals: Lucila Bhakta MD [Primary Care Provider] - Additional Instructions: Increase Nifedipine from 30 mg a day to 60 mg a day. PLEASE FOLLOW UP WITH YOUR PRIMARY CARE PROVIDER IN 1-2 DAYS. RETURN TO THE EMERGENCY DEPARTMENT FOR CHANGING OR WORSENING SYMPTOMS. - Attestation Statements Document Initiated by Scribe: Yes Documenting Scribe: Jemima Jones Provider For Whom Samuelibe is Documenting (Include Credential): Danny Fajardo MD Scribe Attestation: Jemima Clifford, scribed for Danny Fajardo MD on 07/02/18 at 2340. Status of Scribe Document: Ready
[2018-07-02 23:47] VITALS: BP 156/77
== END 2018-07-02 23:46 | disposition home or self-care (01) ==
LOC: ED 16:10
DX: I10 Essential (primary) hypertension (principal); E04.1 Nontoxic single thyroid nodule; E27.8 Other specified disorders of adrenal gland; M54.6 Pain in thoracic spine; R51 Headache; R42 Dizziness and giddiness; R19.7 Diarrhea, unspecified; K21.9 Gastro-esophageal reflux disease without esophagitis; Z98.84 Bariatric surgery status; Z90.49 Acquired absence of other specified parts of digestive tract; Z87.891 Personal history of nicotine dependence
CPT/HCPCS: 36415; 71045; 71275; 74174; 80053; 81003; 81015; 83605; 84484; 85025; 87086; 93005; 96374; 96375; 99283; A9270-GY; J2270; J2405; J3490; Q9967

== ENCOUNTER 2021-07-05 10:08 | Inpatient (IN) ==
[~2021-07-05 10:08] MED LIST changes: -Buffered Lidocaine 0.9% SYRIN* 5 ML/SYR SYRINGE INTRADERM ONE; +Buffered Lidocaine 1% SYRIN 1 ml INTRADERM ONE; -Dexamethasone IV* 4 MG/ML 1 ML (4 MG) IV SLOW PU ONE; -Dexamethasone IV* 4 MG/ML 1 ML (4 MG) ONE; -Lactated Ringers 1000 ML Bag* 1,000 ML IV SCH; +Lactated Ringers 1000 ml BAG 1,000 ML IV SCH; -Lidocaine 2% PF * 5 ML VIAL ONE; -Metoclopramide IV* 5 MG/ML 2 ML VIAL IV SLOW PU ONE; -Metoclopramide IV* 5 MG/ML 2 ML VIAL ONE; -Naloxone* 0.4 MG/ML 1 ML VIAL IV PRN; -Ondansetron INJ* 2 MG/ML VIAL IV PRN; -Propofol* 10 MG/ML 20 ML BTL ONE
[2021-07-05] MEDS ORDERED: ceFAZolin 1 GM ADVAN 1 GM ADDV.VIAL IVPB ONE (10:24)
[2021-07-05] MEDS ORDERED: Midazolam 5 mg/5 ml VIAL 1 mg/ml 5 ml VIAL (5 mg) ONE (10:50)
[2021-07-05] MEDS ORDERED: Lidocaine 2% PF 5 ML VIAL ONE (10:50)
[2021-07-05] MEDS ORDERED: fentaNYL 100 mcg/2 ml 50 MCG/ML VIAL ONE ×2 (10:50→12:50)
[2021-07-05] MEDS ORDERED: Propofol 10 MG/ML 20 ML BTL ONE (10:50)
[2021-07-05] MEDS ORDERED: Bupivacaine 0.5% SDV PF 30ML VIAL ONE (10:50)
[2021-07-05] MEDS ORDERED: ROPIVACAINE 5 MG/ML 30 ML BTL (0.5%) ONE ×2 (11:55→12:05)
[2021-07-05] MEDS ORDERED: Ondansetron 4 mg VIAL 2 MG/ML 2 ml VIAL ONE (13:01)
[2021-07-05] MEDS ORDERED: Dexamethasone IV 4 MG/ML VIAL 1 ml VIAL ONE (13:01)
[2021-07-05] MEDS ORDERED: Magnesium Hydroxide LIQ 30 ML UDC PO PRN (13:50)
[2021-07-05] MEDS ORDERED: diPHENhydraMINE 25 mg TAB PO PRN (13:50)
[2021-07-05] MEDS ORDERED: Lactulose 30 ml UDC PO PRN (13:50)
[2021-07-05] MEDS ORDERED: Ondansetron ODT 4 mg TAB 4 MG TAB PO PRN (13:50)
[2021-07-05] MEDS ORDERED: diPHENhydraMINE IV 50 MG/ML 1 ml VIAL (BENADRYL) IV PRN ×2 (13:50→14:34)
[2021-07-05] MEDS ORDERED: Ondansetron 4 mg VIAL 2 MG/ML 2 ml VIAL IV PRN (13:50)
[2021-07-05] MEDS ORDERED: Lactated Ringers 1000 ml BAG 1,000 ML IV SCH (14:00)
[2021-07-05] MEDS ORDERED: HYDROmorphone 1 MG/1 ML SYRINGE IV PRN (14:34)
[2021-07-05] MEDS ORDERED: Naloxone 0.4 mg VIAL 0.4 mg/ml 1 ml VIAL IV PRN (14:34)
[2021-07-05] MEDS ORDERED: Prochlorperazine 5 mg/ml 2 ml VIAL (10 mg) IV PRN (14:34)
[2021-07-05] MEDS ORDERED: hydrALAZINE 20 mg/ml 1 ML Vial IV IV SLOW PU PRN (16:31)
[2021-07-05] MEDS: ceFAZolin 1 GM ADVAN 1 GM in NS 0.9% 50 ML 50 ML IVPB SCH (20:34)
[2021-07-05] MEDS: Magnesium Hydroxide LIQ 30 ML UDC PO SCH (20:36)
[2021-07-06] MEDS: ceFAZolin 1 GM ADVAN 1 GM in NS 0.9% 50 ML 50 ML IVPB SCH ×2 (04:23→11:46)
[2021-07-06 07:00] LABS: Hematocrit 26 % (35-47); Hemoglobin 8.4 g/dL (12.0-16.0); Mean Platelet Volume 9.2 fL (7.4-10.4); Platelet Count 198 10^3/uL (150-450)
[2021-07-06 07:11] LABS: Calcium 8.5 mg/dL (8.6-10.3); eGFR CKD-EPI 79.4 (>60)
[2021-07-06] MEDS: Magnesium Hydroxide LIQ 30 ML UDC PO SCH (07:46)
[2021-07-06] MEDS ORDERED: Vitamin THERAPEUTIC TAB PO SCH (09:00)
[2021-07-06 11:52] VITALS: BP 130/77
[2021-07-11] MEDS ORDERED: cloNIDine 0.2 MG PATCH 0.2 MG/24 HR 7 DAY PATCH TRANSDERM SCH (09:00)
== END 2021-07-06 13:55 | disposition home health service (06) | DRG 302 ==
LOC: AA 10:08 → SSU 17:22
PROVIDERS: ADMIT Orthopaedic Surgery Adult Reconstructive Orthopaedic Surgery; ATTEND Orthopaedic Surgery Adult Reconstructive Orthopaedic Surgery

== ENCOUNTER 2021-10-30 07:30 | Inpatient (IN) ==
[2021-10-30] MEDS ORDERED: ceFAZolin 2 GM in NS PREMIX 2 GM/100 ML BAG IVPB ONE (08:41)
[2021-10-30] MEDS ORDERED: Midazolam 2 mg/2 ml VIAL 1 mg/ml 2 ml VIAL (2 mg) ONE (09:01)
[2021-10-30] MEDS ORDERED: Propofol 10 mg/ml 100 ML BTL 100 ML ONE (09:01)
[2021-10-30] MEDS ORDERED: Phenylephrine IV 10 MG/ML 1 ml VIAL ONE (09:02)
[2021-10-30] MEDS ORDERED: fentaNYL 100 mcg/2 ml 50 MCG/ML VIAL ONE (09:03)
[2021-10-30] MEDS ORDERED: Lidocaine 2% PF 5 ML VIAL ONE (09:03)
[2021-10-30] MEDS ORDERED: Ondansetron 4 mg VIAL 2 MG/ML 2 ml VIAL ONE (09:03)
[2021-10-30] MEDS ORDERED: Dexamethasone IV 4 MG/ML VIAL 1 ml VIAL ONE (09:03)
[2021-10-30] MEDS ORDERED: Prochlorperazine 5 mg/ml 2 ml VIAL (10 mg) IV PRN (11:08)
[2021-10-30] MEDS ORDERED: Naloxone 0.4 mg VIAL 0.4 mg/ml 1 ml VIAL IV PRN (11:08)
[2021-10-30] MEDS ORDERED: Ondansetron 4 mg VIAL 2 MG/ML 2 ml VIAL IV PRN (13:09)
[2021-10-30] MEDS ORDERED: Morphine 2 MG/ML SYRINGE IV PRN (13:09)
[2021-10-30] MEDS ORDERED: Ondansetron ODT 4 mg TAB 4 MG TAB PO PRN (13:09)
[2021-10-30] MEDS ORDERED: Magnesium Hydroxide LIQ 30 ML UDC PO PRN (13:09)
[2021-10-30] MEDS ORDERED: Lactulose 30 ml UDC PO PRN (13:09)
[2021-10-30] MEDS ORDERED: hydrALAZINE 20 mg/ml 1 ML Vial IV ONE (13:51)
[2021-10-30] MEDS ORDERED: ceFAZolin 1 GM ADVAN 1 GM in NS 0.9% 50 ML 50 ML IVPB SCH (14:00)
[2021-10-30] MEDS ORDERED: Lactated Ringers 1000 ml BAG 1,000 ML IV SCH (14:00)
[2021-10-30] MEDS ORDERED: HYDROmorphone 1 MG/1 ML SYRINGE ONE (15:01)
[2021-10-30] MEDS: HYDROmorphone 1 MG/1 ML SYRINGE IV PRN ×2 (15:02→15:08)
[2021-10-30] MEDS ORDERED: HYDROmorphone 0.5 MG/0.5 ML SYRINGE IV SLOW PU PRN (16:34)
[2021-10-30] MEDS: Magnesium Hydroxide LIQ 30 ML UDC PO SCH (19:56)
[2021-10-30] MEDS: ceFAZolin 1 GM ADVAN 1 GM in NS 0.9% 50 ML 50 ML IVPB SCH (19:58)
[2021-10-31] MEDS: ceFAZolin 1 GM ADVAN 1 GM in NS 0.9% 50 ML 50 ML IVPB SCH ×2 (04:22→12:17)
[2021-10-31 06:20] LABS: Hematocrit 34 % (35-47); Hemoglobin 10.6 g/dL (12.0-16.0); Mean Platelet Volume 8.9 fL (7.4-10.4); Platelet Count 219 10^3/uL (150-450)
[2021-10-31 06:34] LABS: Potassium 4.2 mmol/L (3.5-5.0)
[2021-10-31 06:40] LABS: eGFR CKD-EPI 85.4 (>60)
[2021-10-31] MEDS: Magnesium Hydroxide LIQ 30 ML UDC PO SCH (08:06)
[2021-10-31] MEDS ORDERED: cloNIDine 0.2 MG PATCH 0.2 MG/24 HR 7 DAY PATCH TRANSDERM SCH (09:00)
[2021-10-31] MEDS ORDERED: Vitamin THERAPEUTIC TAB PO SCH (09:00)
[2021-10-31 11:19] VITALS: BP 116/76
== END 2021-10-31 13:45 | disposition home or self-care (01) | DRG 301 ==
LOC: INTOOBSV 08:39 → AA 08:39 → OBSVTOIN 13:08 → SSU 16:33
PROVIDERS: ADMIT Orthopaedic Surgery Adult Reconstructive Orthopaedic Surgery; ATTEND Orthopaedic Surgery Adult Reconstructive Orthopaedic Surgery